=== PATIENT | male | born 1940 | race Caucasian/White ===

== ENCOUNTER 2022-04-28 09:03 | Outpatient (CLI) | payer MEDICARE, OTHER, SELFPAY ==
[2022-04-28 13:42] LABS: Chloride* 104 mmol/L (96-114); Potassium* 5.1 mmol/L (3.6-5.1); Sodium* 139 mmol/L (135-149)
[2022-04-28 13:45] LABS: Blood Urea Nitrogen* 34 mg/dL (7-30); Calcium* 10.3 mg/dL (8.4-10.6); Carbon Dioxide* 29 mmol/L (20-32); Creatinine* 1.7 mg/dL (0.5-1.5); Estimated Glomerular Filt Rate 40 ml/min; Glucose* 184 mg/dL (60-115)
[2022-04-28 14:18] LABS: PSA Screen* 1.97 ng/mL (0.10-4.00)
[2022-04-28 15:09] LABS: Free T4 Free Thyroxine* 1.27 ng/dL (0.70-1.85)
== END 2022-04-28 09:04 | disposition home or self-care (01) ==
PROVIDERS: PCP Family Medicine; Visit Provider Family Medicine
DX: N40.0 Benign prostatic hyperplasia without lower urinary tract symptoms (principal); E03.9 Hypothyroidism, unspecified; E13.9 Other specified diabetes mellitus without complications; I10 Essential (primary) hypertension; E78.5 Hyperlipidemia, unspecified; Z12.5 Encounter for screening for malignant neoplasm of prostate
CPT/HCPCS: 80048; 82043; 82570; 84153; 84439; 84443

== ENCOUNTER 2022-11-01 11:14 | Outpatient (CLI) | payer MEDICARE, OTHER, SELFPAY | END 2022-11-01 11:15 | disposition home or self-care (01) | PROVIDERS: PCP Family Medicine; Visit Provider Family Medicine | DX: E13.9 Other specified diabetes mellitus without complications (principal); I10 Essential (primary) hypertension; E78.5 Hyperlipidemia, unspecified | CPT/HCPCS: 80048; 80061 ==

== ENCOUNTER 2022-12-19 14:45 | Emergency (ER) | payer MEDICARE, OTHER, SELFPAY ==
[2022-12-19 14:50] VITALS: BP 134/67; PULSE 68; RESP 18; TEMP 36; O2SAT 94; BMI 32.5
--- NOTE | 2022-12-19 17:50 | ED_ITS ---
HPI - General Adult General Time Seen by Provider: 17:50 Date Seen: 12/19/22 Chief complaint: Extremity Pain/Injury, Lower Stated complaint: R leg pain Time Seen by Provider: 12/19/22 17:49 Source: patient and RN notes reviewed Mode of arrival: ambulatory Limitations: no limitations History of Present Illness HPI narrative: Patient is an 82-year-old male coming in with pain in his right leg. It starts in his right buttock and goes down his leg. His toes and foot to felt a little numb and tingly at times. It hurts to walk but he can walk. No bowel or bladder dysfunction. There is no trauma but he does note this started after he was weed whipping. He has had no fevers chills associated with this, not been ill. He has no personal history of cancer. He has not had sciatica before but he was wondering if that is what this could be. I do see that he has peripheral arterial disease listed as well. He is also diabetic. He does endorse some chronic low back pain issues. Related Data Home Medications Medication Instructions Recorded Confirmed aspirin 81 mg tablet,delayed 81 mg PO QDAY 10/25/21 11/01/22 release (Adult Aspirin Regimen) blood-glucose meter (Accu-Chek 10/25/21 11/01/22 Nilsa Plus Meter) cholecalciferol (vitamin D3) 25 1,000 unit PO QDAY 10/25/21 11/01/22 mcg (1,000 unit) capsule lutein 20 mg capsule 20 mg PO DAILY 10/25/21 11/01/22 milk thistle 150 mg capsule 300 mg PO QDAY 10/25/21 11/01/22 multivitamin (Daily Multi-Vitamin 1 tab PO QDAY 10/25/21 11/01/22 tablet) pen needle, diabetic 31 gauge x 10/25/21 11/01/22/16 (BD Ultra-Fine Short Pen Needle) insulin glargine 100 unit/mL (3 40 - 42 unit subcut QAM 11/03/22 mL) subcutaneous pen (Lantus Solostar U-100 Insulin) Previous Rx's Medication Instructions Recorded blood sugar diagnostic (Contour #360 ea 11/10/21 Test Strips) Blood Glucose Meter #1 ea 12/23/21 Diabetic Test Strips #300 ea 12/23/21 levothyroxine 100 mcg tablet See Rx Instructions .Route 01/30/22 .COMPLEX #90 tabs metformin 500 mg tablet,extended See Rx Instructions .Route 01/30/22 release 24 hr .COMPLEX #360 tabs metoprolol succinate 100 mg See Rx Instructions .Route 01/30/22 tablet,extended release 24 hr .COMPLEX #90 tabs pravastatin 80 mg tablet See Rx Instructions .Route 01/30/22 .COMPLEX #90 tabs finasteride 5 mg tablet 5 mg PO QDAY #90 tabs 05/09/22 insulin aspart U-100 100 unit/mL 8 - 12 unit (0.08 - 0.12 mL) 06/13/22 (3 mL) subcutaneous pen (Novolog subcut TID #90 mL FlexPen U-100 Insulin aspart) cholestyramine-aspartame 4 gram 4 g PO DAILY #90 ea 06/18/22 oral powder for susp in a packet (Cholestyramine Light) fenofibrate 160 mg tablet 160 mg PO DAILY #90 tabs 08/01/22 irbesartan 300 mg tablet 150 mg (1/2 x 300 mg) PO DAILY #45 08/01/22 tabs tamsulosin 0.4 mg capsule 0.4 mg PO DAILY #90 caps 08/01/22 ipratropium bromide 21 mcg (0.03 2 spray intranasal BID #30 mL 08/29/22 %) nasal spray lancets 28 gauge (FreeStyle #300 ea 09/21/22 Lancets) pioglitazone 15 mg tablet 15 mg PO DAILY #90 tabs 10/27/22 prednisone 20 mg tablet 20 mg PO BID #10 tabs 12/19/22 Allergies Allergy/AdvReac Type Severity Reaction Status Date / Time Sulfa Antibiotics Allergy Unknown Uncoded 11/01/22 10:57 Review of Systems Status of ROS: Reports: 6 or more systems reviewed and unremarkable except as noted in History and below [facility] Medical History Presence of cardiac pacemaker ?Z95.0 - Presence of cardiac pacemaker (ICD-10) Surgical History History of tonsillectomy ?Z90.89 - Acquired absence of other organs (ICD-10) Status post bilateral cataract extraction ?Z98.41 - Cataract extraction status, right eye (ICD-10) ?Z98.42 - Cataract extraction status, left eye (ICD-10) Status post bilateral carotid endarterectomy ?Z98.890 - Other specified postprocedural states (ICD-10) History of tonsillectomy ?Z90.89 - Acquired absence of other organs (ICD-10) History of nasal polypectomy ?Z98.890 - Other specified postprocedural states (ICD-10) ?Z87.09 - Personal history of other diseases of the respiratory system (ICD- 10) Family History Other Colon cancer Social History What is your current living situation?: I presently have a place to live Problems where you live: no known problems In the past 12 months, utilities in danger of being shut off: no In the past 12 mos, have been you worried that your food would run out before you had money to buy more?: never true In the past 12 mos, the food you bought just didn't last and you didn't have money to buy more?: never true Smoking Status: Former smoker How often does anyone, including family, friends and others, physically hurt you : never How often does anyone, including family, friends and others, insult or talk down to you: never How often does anyone, including family, friends and others, threaten you with harm: never How often does anyone, including family, friends and others, scream or curse at you: rarely Little interest or pleasure in doing things: not at all Feeling down, depressed, or hopeless: not at all Exam Const: Vital Signs, click to edit/add: Vital Signs - 24 hr 12/19/22 14:50 Temperature 96.8 F L Pulse Rate [Pulse Oximeter] 68 Respiratory Rate 18 Blood Pressure [Ri ght Upper Arm] 134/67 Pulse Oximetry 94 Oxygen Delivery Me thod Room Air Pleasant 82-year-old gentleman is alert, interactive, no apparent distress, lying in the bed in exam room 5. Strength is 5/5 and symmetric throughout his lower extremities. There is no edema. He has good peripheral pulses, feet are warm, have symmetric warmth to them. I do feel dorsalis pedis and posterior tibialis pulse on his right foot. He does have a straight leg raise on the right side. He has no skin changes of his lower extremities and vascular pattern. Can feel when I touch his right foot although baseline he does state there is some numbness tingling within his right foot he still can feel me touch it, feel similar to his left per his report. I do not get DTRs of his lower extremities. Lower abdomen is soft, nontender, no masses noted. Documenting provider has reviewed patient's vital signs: yes Course Course ED Course: Given patient's age of 82, do think we should have some baseline images. Reviewed with them all we can really do at this time is lumbar films. We did discuss the difference between lumbar films and MRI so that they know he is not getting an MRI of his back. They do understand. We have discussed that I think this is likely sciatica. I see that he has peripheral arterial disease listed but he has no recollection of anything going on in his legs with this. He has had a history of a left ankle fracture. There are no warning signs indicating an emergent MRI. We did discuss that prednisone would probably be used. They understand that this may temporarily increase his sugars with his diabetes. They also are wondering about pain management. He has not tried anything yet. Vital Signs Vital signs: Initial Vital Signs Temperature 96.8 F L 12/19/22 14:50 Temperature Source Temporal Artery Scan 12/19/22 14:50 Pulse Rate 68 12/19/22 14:50 Respiratory Rate 18 12/19/22 14:50 Blood Pressure 134/67 12/19/22 14:50 Blood Pressure Mean 89 12/19/22 14:50 Blood Pressure Position Sitting 12/19/22 14:50 Pulse Oximetry 94 12/19/22 14:50 Oxygen Delivery Method Room Air 12/19/22 14:50 Vital Signs Temperature 96.8 F L 12/19/22 14:50 Pulse Rate 68 12/19/22 14:50 Respiratory Rate 18 12/19/22 14:50 Blood Pressure 134/67 12/19/22 14:50 Pulse Oximetry 94 12/19/22 14:50 Oxygen Delivery Method Room Air 12/19/22 14:50 Temperature 96.8 F L 12/19/22 14:50 Pulse Rate 68 12/19/22 14:50 Respiratory Rate 18 12/19/22 14:50 Blood Pressure 134/67 12/19/22 14:50 Pulse Oximetry 94 12/19/22 14:50 Oxygen Delivery Method Room Air 12/19/22 14:50 Medical Decision Making Imaging Data XR lumbar spine: Attestation: I have reviewed the pertinent imaging results. Radiologist's impression: Patient: ARIEL TAFOYA Facility:?[facility] Patient ID:?[id number] Site Patient ID:?[id number]. Site :?[id number] Study:?XRay Spine Lumbar -12/19/2022 6:11:54 PM Ordering Physician:Pat Melara Final Report: INDICATION: Sciatic pain, low back pain. TECHNIQUE: Lumbar spine 2 views. Permanently recorded images are archived. COMPARISON: None. FINDINGS: Five lumbar type vertebral bodies. 2 mm retrolisthesis L1 on L2, 3 mm retrolisthesis of L2 on L3, and grade 1 anterolisthesis of L4 on L5 and L5 on S1. Moderate intervertebral disc height loss at L4-5 and L5-S1, and mild height loss at remaining levels. Anterior marginal osteophytes at all levels, greatest at L1-2. No acute fracture. Multilevel bilateral facet arthrosis, with advanced degenerative changes at L4-5 and L5-S1. 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 Normal bone mineralization. Atherosclerotic calcification. 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 No acute bony abnormality. Advanced facet arthrosis at the L4-5 and L5-S1 levels. Dictated by Brendan Mccartney MD @ 12/19/2022 6:45:44 PM (Electronic Signature) Discharge Plan Discharge Clinical Impression: Acute right-sided back pain with sciatica Patient Disposition: Home, Self-Care Condition: Stable Instructions: Sciatica (ED) Additional Instructions: Do recommend Tylenol 1000 mg 3 times a day. Will start prednisone. Take 1 tablet with food twice a day. Recommend follow-up with primary care provider in clinic this next week, referral for physical therapy has been provided. Take her x-ray report to your primary care provider. 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 No that the prednisone may increase your glucose levels temporarily. If you start to develop muscle weakness in the right leg, have bowel or bladder incontinence/dysfunction, any concerning signs or symptoms as outlined in the handout, do need to be re-evaluated. Activity Level: Activity as Tolerated Prescriptions: New prednisone 20 mg tablet 20 mg PO BID Qty: 10 0RF No Action lutein 20 mg capsule 20 mg PO DAILY cholecalciferol (vitamin D3) 25 mcg (1,000 unit) capsule 1,000 unit PO QDAY multivitamin [Daily Multi-Vitamin] Tablet 1 tab PO QDAY milk thistle 150 mg capsule 300 mg PO QDAY Rx Instructions: give with meal/snack (DME) blood-glucose meter [Accu-Chek Nilsa Plus Meter] Misc See Rx Instructions .Route Rx Instructions: As directed (DME) pen needle, diabetic [BD Ultra-Fine Short Pen Needle] 31 gauge x 5/16 needle See Rx Instructions .Route Rx Instructions: As directed aspirin [Adult Aspirin Regimen] 81 mg tablet,delayed release (DR/EC) 81 mg PO QDAY ipratropium bromide 21 mcg (0.03 %) spray,non-aerosol 2 spray intranasal BID Qty: 30 1RF Rx Instructions: administer into each nostril (DME) Contour Test Strips Strip See Rx Instructions .Route Qty: 360 5RF Rx Instructions: As directed (DME) Blood Glucose Meter Misc See Rx Instructions .Route Qty: 1 0RF Rx Instructions: As directed (DME) Diabetic Test Strips Misc See Rx Instructions .Route Qty: 300 6RF Rx Instructions: As directed metoprolol succinate 100 mg tablet extended release 24 hr See Rx Instructions .ROUTE .COMPLEX Qty: 90 3RF Dose Instruction: TAKE 1 TABLET BY MOUTH DAILY Rx Instructions: TAKE 1 TABLET BY MOUTH DAILY pravastatin 80 mg tablet See Rx Instructions .ROUTE .COMPLEX Qty: 90 3RF Dose Instruction: TAKE 1 TABLET BY MOUTH AT BEDTIME Rx Instructions: TAKE 1 TABLET BY MOUTH AT BEDTIME metformin 500 mg tablet extended release 24 hr See Rx Instructions .ROUTE .COMPLEX Qty: 360 3RF Dose Instruction: TAKE 2 TABLETS BY MOUTH TWICE DAILY Rx Instructions: TAKE 2 TABLETS BY MOUTH TWICE DAILY levothyroxine 100 mcg tablet See Rx Instructions .ROUTE .COMPLEX Qty: 90 3RF Dose Instruction: TAKE 1 TABLET BY MOUTH DAILY Rx Instructions: TAKE 1 TABLET BY MOUTH DAILY finasteride 5 mg tablet 5 mg PO QDAY Qty: 90 3RF insulin aspart U-100 [Novolog FlexPen U-100 Insulin] 100 unit/mL (3 mL) insulin pen 8 - 12 unit subcut TID Qty: 90 4RF cholestyramine-aspartame [Cholestyramine Light] 4 gram powder in packet 4 g PO DAILY Qty: 90 4RF irbesartan 300 mg tablet 150 mg PO DAILY Qty: 45 3RF fenofibrate 160 mg tablet 160 mg PO DAILY Qty: 90 3RF tamsulosin 0.4 mg capsule 0.4 mg PO DAILY Qty: 90 3RF (DME) lancets [FreeStyle Lancets] 28 gauge misc See Rx Instructions .ROUTE .COMPLEX Qty: 300 0RF Dose Instruction: USE TO TEST THREE TIMES DAILY Rx Instructions: USE TO TEST THREE TIMES DAILY pioglitazone 15 mg tablet 15 mg PO DAILY Qty: 90 3RF insulin glargine [Lantus Solostar U-100 Insulin] 100 unit/mL (3 mL) insulin pen 40 - 42 unit subcut QAM Rx Instructions: 42 units in the morning, 40 units in the evening. Follow Up/Referrals: Joss Thompson MD [Primary Care Provider] - Stand Alone Forms: [facility] Info Instructions
--- NOTE | 2022-12-19 17:57 | CRLHL7_ITS ---
For Patients: As a result of the Cures Act, medical imaging exams and procedure reports are released immediately into your electronic medical record. You may view this report before your referring provider. If you have questions, please contact your health care provider. INDICATION: Sciatic pain, low back pain. TECHNIQUE: Lumbar spine 2 views. Permanently recorded images are archived. COMPARISON: None. FINDINGS: Five lumbar type vertebral bodies. 2 mm retrolisthesis L1 on L2, 3 mm retrolisthesis of L2 on L3, and grade 1 anterolisthesis of L4 on L5 and L5 on S1. Moderate intervertebral disc height loss at L4-5 and L5-S1, and mild height loss at remaining levels. Anterior marginal osteophytes at all levels, greatest at L1-2. No acute fracture. Multilevel bilateral facet arthrosis, with advanced degenerative changes at L4-5 and L5-S1. 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 Normal bone mineralization. Atherosclerotic calcification. 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 No acute bony abnormality. Advanced facet arthrosis at the L4-5 and L5-S1 levels. Dictated by Brendan Mccartney MD @ 12/19/2022 6:45:44 PM (Electronically Signed)
== END 2022-12-19 19:18 | disposition home or self-care (01) ==
PROVIDERS: Emergency Provider Family Medicine; PCP Family Medicine
DX: M54.31 Sciatica, right side (principal)
CPT/HCPCS: 72100; 99283; 99284

== ENCOUNTER 2023-01-22 10:30 | Outpatient (RCR) | payer MEDICARE, OTHER, SELFPAY ==
--- NOTE | 2023-01-02 12:56 | PT.OPE ---
PT [place] [facility] Eval PT [facility] Outpatient Eval Start: 01/02/23 12:30 Freq: Status: Active Protocol: Document 01/02/23 12:31 ISSAC (Rec: 01/02/23 12:54 ISSAC [id number]) E-signed By Leo Delacruz, PT, ATC Physical Therapy Outpatient Evaluation Insurance Information Insurance Name Medicare B Medical Diagnosis M54.9 Dorsalgia, unspecified. Sciatic pain, low back pain. Treating Diagnosis Low back pain Sciatic pain Referring MD Thompson Subjective Subjective Kayode reports onset of R sided gluteal and back of leg symptoms approximately 5 weeks ago after working on uneven ground in his back yard. Due intense symptoms of R sided gluteal and leg pain, he went to the ER where he was prescribed Prednisone and given Tylenol. Symptoms dramatically reduced within a few days following these medications. He is left with lower back soreness that occurs with extended standing and walking activity, worse at the end of the day. Duration limitation of 10 minutes. He did offer copies of his recent xray review and interpretation. He would like to work in therapy receiving ex.s to hopefully lessen lbp while reducing chances for return of sciatic symptoms. Pain Comments -06/16 Date of Last Physician Visit 12/22/22 Current Work Status Retired Preferred Name Kayode Precautions Weight Bearing Status Full Weight Bearing Therapy Limitations/Systems Review Not Limited Objective Range of Motion Trunk FLEX WFL's EXT -90% R and L SB -75%, pain in low back Strength LE's normal and symmetric Hip ABD and EXT weakness, 4/5 Palpation Tender over lumbar paraspinals L4-5 and SI joints. Also tight and tender in both gluteal muscles. Posture Stands with excessive lumbar lordosis, anterior pelvic tilt Assessment Assessment/Impression Kayode is a very pleasant 82 year old man referred to PT for sciatica and lower back pain. Although the symptoms have resolved that existed in his R buttocks and leg, he does still complain of daily lower back pain/stiffness that limits his ability for standing or walking longer than 10 minutes. 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 Advanced facet arthrosis L4-5 and L5-S1 . He is very appropriate for skilled physical therapy to address his pain, posture, muscular tightness, weakness and bodymechanics. Primary Functional Limitations Sustained standing Walking shopping, gardening, mowing, trimming Plan of Care Rehabilitation Potential Good Physical Therapy Goals 1.To recognize excessive lordotic posture and demonstrate ability to lessen through TA contraction. 2.HEP for hip stretching and core-hip-LE strengthening. 3.Able to stand-walk durations up to 15 min while shopping without limitation for lbp. Coordination/Communication With Referral Source Treatment Plan/Direct Interventions Joint Mobilization,Manual Therapy,Therapeutic Exercises Frequency/Duration 4-10 visits Patient Will Be Discharged From Therapy Independent w/HEP, Independently Progressing Evaluation Billing Untimed Code Treatment Minutes 30 PT Eval No Charge No Complexity Low Certification Information Initial Certification Date 01/02/23 Ending Certification Date 04/03/23 Provider Signature Shows Agreement With POC & Medical Necessity Physician Signature & Date Requested Please Sign/Date Here Physician Comment/Change : Physician NPI Number #
== END 2023-01-22 11:10 | disposition home or self-care (01) ==
PROVIDERS: PCP Family Medicine; Visit Provider Family Medicine
DX: M54.40 Lumbago with sciatica, unspecified side (principal); Z51.89 Encounter for other specified aftercare
CPT/HCPCS: 97110; 97161

== ENCOUNTER 2023-04-23 11:53 | Outpatient (CLI) | payer MEDICARE, OTHER, SELFPAY | END 2023-04-23 11:54 | disposition home or self-care (01) | LOC: LKVREF 11:54 | PROVIDERS: PCP Family Medicine; Visit Provider Family Medicine | DX: E03.9 Hypothyroidism, unspecified (principal) | CPT/HCPCS: 84443 ==

== ENCOUNTER 2023-05-09 12:39 | Outpatient (CLI) | payer MEDICARE, OTHER, SELFPAY ==
--- NOTE | 2023-05-09 13:00 | CRLHL7_ITS ---
For Patients: As a result of the Century Cures Act, medical imaging exams and procedure reports are released immediately into your electronic medical record. You may view this report before your referring provider. If you have questions, please contact your health care provider. INDICATION: Lung cancer screening. Significant smoking history. TECHNIQUE: Low-dose volumetric helical scanning of the thorax was performed without IV contrast material. Coronal and sagittal reconstructions were obtained. COMPARISON: None. FINDINGS: No suspicious pulmonary nodule is identified. Several calcified granulomas are noted. No acute infiltrate is evident. Subsegmental atelectasis or scarring is present in both lung bases. No significant airway abnormality is apparent. No pleural effusion is demonstrated. There is no mediastinal or hilar lymphadenopathy. The heart size is normal. Calcified coronary arterial plaque is again noted. A cardiac pacer is noted. Images of the upper abdomen are unremarkable. IMPRESSION: 1. No suspicious nodule identified. Lung-RADS CATEGORY 1: NEGATIVE: Continue annual screening with low-dose chest CT in 12 months is recommended. 2. Subsegmental atelectasis or scarring in both lung bases. Please note that all CT scans at this facility use dose modulation, iterative reconstruction, and/or weight-based dosing when appropriate to reduce radiation dose to as low as reasonably achievable. Dictated by Arthur Finnegan MD @ 05/09/2023 3:22:01 PM (Electronically Signed)
== END 2023-05-09 12:40 | disposition home or self-care (01) ==
PROVIDERS: PCP Family Medicine; Visit Provider Family Medicine
DX: Z12.2 Encounter for screening for malignant neoplasm of respiratory organs (principal); J98.11 Atelectasis; Z87.891 Personal history of nicotine dependence
CPT/HCPCS: 71271

== ENCOUNTER 2024-02-04 12:13 | Outpatient (CLI) | payer MEDICARE, OTHER, SELFPAY | END 2024-02-04 12:14 | disposition home or self-care (01) | LOC: LKVREF 12:14 | PROVIDERS: PCP Family Medicine; Visit Provider Family Medicine | DX: E78.2 Mixed hyperlipidemia (principal); E10.9 Type 1 diabetes mellitus without complications | CPT/HCPCS: 80061 ==

== ENCOUNTER 2024-05-01 14:45 | Outpatient (RCR) | payer MEDICARE, OTHER, SELFPAY ==
--- NOTE | 2024-02-29 22:40 | PT.OPE ---
PT [place] [facility] Eval Start: 02/28/24 10:47 Freq: Status: Active Protocol: Document 02/28/24 10:47 BMS (Rec: 02/28/24 11:01 BMS [id number]) E-signed By Juli Lam PT Physical Therapy Outpatient Evaluation Insurance Information Recert Due Date 05/27/24 Insurance Name Medicare B Medical Diagnosis s/p CVA Treating Diagnosis abnormal gait R26.89 weakness R53.1 s/p CVA Referring MD Joss Thompson MD internal; Lukas Michel Subjective Subjective went in for procedure and then had problems on the right side. R hand dominant. spent about a week at inpatient rehab, got home last Sat. they didnt give me any ex for home . I cant hear ferromana well. had surgery 7th. blood sugar has been up, around 120-170. 3 steps in to house with rails. shattered my R elbow and dislocated my shoulder years ago. was able to sort of use a steak knife. want to drive again and use R hand better not good dexterity and when measured my strength in hospital was 60# on R and 90# on left but i am right handed. 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, Residual Right arm weakness and control problem Z86.73 - Personal history of transient ischemic attack (TIA ), and cerebral infarction without residual deficits (ICD -10) Status post stents x2 to the RCA, with some diffuse mild disease elsewhere I25.10 - Atherosclerotic heart disease of [place] coronary artery without angina pectoris (ICD-10) Presence of cardiac pacemaker (Chronic) Following with [facility] (no operating room coordinator at [place]) Z95.0 - Presence of cardiac pacemaker (ICD-10) PAD (peripheral artery disease ) (Chronic) s/p Carotid Endarterectomies I73.9 - Peripheral vascular disease, unspecified (ICD-10) Spinal stenosis of lumbar region with radiculopathy ( Chronic) M48.061 - Spinal stenosis, lumbar region without neurogenic claudication (ICD- 10) M54.16 - Radiculopathy, lumbar region (ICD-10) Type 1 diabetes (Chronic) 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 E10.9 - Type 1 diabetes mellitus without complications (ICD-10) CKD (chronic kidney disease) stage 3, GFR 30-59 ml/min ( Chronic) N18.30 - Chronic kidney disease, stage 3 unspecified ( ICD-10) CAD (coronary artery disease) (Chronic) I10 - Essential (primary) hypertension (ICD-10) E78.5 - Hyperlipidemia, unspecified (ICD-10) Hyperlipidemia (Chronic) High- dose statin therapy required SPEEDY on CPAP (Chronic)G47.33 - Obstructive sleep apnea (adult ) (pediatric) (ICD-10) Auto PAP, 10-15 cm H2O Hypothyroidism (Chronic E03.9 - Hypothyroidism, unspecified (ICD-10) Overweight (Chronic) E66.3 - Overweight (ICD-10) Hearing loss (Chronic) H91.90 - Unspecified hearing loss, unspecified ear (ICD-10) Therapy Limitations/Systems Review Hearing,Other Medical Problem Objective Range of Motion neck mod loss both flex and ext. R rotation = 35, L = 30 impaired shoulder mobility: flex 110, abduct 80, ER 60, IR to lateral hip on R adn mid glute on L. R elbow ext lacking 40 degrees . DF lacking 10B Strength MMT seated hip flex R 4-/5, L = 4/5 abduction 4/5 B quad R = 5/5, L = 4+/5 HS R = 4-/5, L = 4+/5 DF and PF both 4/5 seated not assessed in standing this date . Balance & Gait short shuffling steps w FWW, picks up walker over threshold . maintains forward gaze, does become off balance with head turns, slows and stops when meeting someone in narrow carmona steps not assessed this date though anticipate will have difficulty with foot placement based on floor testing dysmetria this date. NBOS EC post LOB, NBOS EO LOB post after 15 sec. unable to maintain tandem and requires use of UE to achieve position. LOB with weight shifts does attempt step strategy but not quickly enough, PT assist for recovery at limit of cone of stability immediate standing balance WBOS with rock onto toes and post. Posture head forward, forward flex at waist. limited cervical motionsubst with body Other/Pertinent Objective saccades with smooth pursuits, loss of convergence, LBO with head turns in gait Functional Test Performed & Score 5 sec sit to stand = 15 sec however did require use of calves last 2 repetitions and posterior LOB requiring therapist assist to lower safely to mat surface. ABC sent home for patient to fill out [facility] PT report card from [facility] facility 02/19/24= 10mWT = 0.73m/s no device 6MWT 252 m BBS 44/56 FGA = 04/07 Assessment Assessment/Impression Patient is very pleasant 83 yo male accompanied by his and caregiver Barb. He i referred s/p CVA. He was last seen in our clinic ~ 1 year ago for recurrent LBP and sciatic on R, has HEP that he was faithful with until recent hx of hospitalization. Scanned records from [facility] acute rehab unit reviewed in EMR. 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 PMhx + for CAD pacemaker, carotid artery disease s/p R CEA 10/2020 and 11/2020. CKD stage 3, HTN, DM type 2, obesity. He also has hx of R shoulder dislocation adn R elbow shattered many years ago, did not have surgery was only casted and does have limited mobility of R elbwo. 02/14/24 he underwent PCI ( balloon or stent)of RCA then stroke code for R hemiparesis. unable to MRI due to presence of pacemaker but suspected posterior circulation ischemic stroke. Admit to acute rehab 02/18/24, did DC home in care of last 02/23/24. Per records he was I with basic mobility and transfers without assistive device, however today presents using FWW due to feeling safer with it. I would recommend continued use of device at this time due to imbalance noted in gait and in clinic. Unfortunately time limited this date due to patient paperwork and he is quite verbose. Patient identified goals include: improved writing and use of R dominant UE for dexterity and tasks ( does also have OT referral), ability to tolerate increased activity with less fatigue, using R hand to reach for seatbelt, walking wihtout walker, improved balance, ability to shower without compensation. He presents today with limited activity tolerance, impaired balance and sequencing, limtied ROM B shoulders and R elbow as well as cervical limitations. Nystagmus noted with smooth pursuits, denies VOR and gaze stab issues but does demo loss of convergence at ~ 12-16. Patient is appropriate for skilled physical therapy to maximize independence and return to baseline safely. Plan of Care Rehabilitation Potential Good Rehabilitation Potential Comments motivated, compliant with previous PT programs. Physical Therapy Goals 1) Pt demo I HEP and self care/home mgmt techniques for balance/falls adaptation, safety measures, and home safety improvements including picking up throw rugs, night light or commode, and use of gait aid as appropriate. 2)Pt report no falls in 6 week period. 3) Patient to demonstrate ability to ambulate safely on uneven ground with no or least restrictive gait aid. LTG 1)Pt demo ability ascend/ descend stairs carrying basket with use of 1 rail x 13 steps no evidence of imbalance for access to basement living level with no evidence of imbalance. 2) Pt demo ability to pass balance testing (SLS, DGI, Fukuda etc) out of high fall risk. 3) Pt demo appropriate gait pattern with no evidence of lack of balance with perturbations internal and external for shopping, community ambulation with least restrictive or no gait aid. 4) Patient to demo ability to safely and confidently negotiate curb with no or least restrictive gait aid. 5) Pt will demo 500' ambulation without limp and with best mechanics and balance to decrease risk of fall with community ambulation for things such as grocery shopping, participation in fitness activities. 6) Pt will demo ability to return to walking,and functional strengthening for management of chronic conditions to maximize independence and longevity. Coordination/Communication With Referral Source,Patient Caregiver Treatment Plan/Direct Interventions Gait Training,Manual Therapy, Neuromuscular Re-ed,Self-Care/ Home Management,Therapeutic Activities,Therapeutic Exercises Frequency/Duration 1-2x/ week, 12 weeks reassess Patient Will Be Discharged From Therapy Completion of LTG(s),Skills Plateau,Independent w/HEP, Independently Progressing Evaluation Billing Untimed Code Treatment Minutes 40 Complexity Low Certification Information Initial Certification Date 02/28/24 Ending Certification Date 05/27/24 Provider Signature Required Yes Provider Signature Shows Agreement With POC & Medical Necessity Physician NPI Number Write NPI# Here Physician Comment/Change : Physician Signature & Date Requested Please Sign/Date Here
--- OUTSIDE RECORDS SUMMARY | 2024-04-10 14:44 | XMS_ITS | Encounter Summary ---
Author Organization [facility] Address [address] [place] [id number] Care Team Providers Care Rectifying Operator Name Role Phone Soto Thompson MD Primary Care Provider [phone] Gerardo Jiang MD Unavailable [phone] Nancy Forbes DO Unavailable [phone] Farzad Sevilla MD Unavailable [phone] Reason for Visit * Reason Onset Date Comments Results 03/18/2024 [facility] Encounter Details Date Type Department Care Team (Late st Contact Info) Description 03/18/2024 Telephone [facility] Care Coordination [facility] [address] [place] [id number] Emma Waters, RN Results ([facility] Heart Monitor) Social History Tobacco Use Types Packs/Day Years Used Date Smoking Tobacco: Former Cigarettes 0.5 25 1 - 2009 Passive Smoke Exposure: Never Smokeless Tobacco: Never Alcohol Use Standard Drinks/Week Comments Not Currently 0 (1 standard drink = 0.6 oz pur e alcohol) occ PHQ-2 Answer Date Recorded PHQ-2 Score 0 02/01/2024 Adolescent Education Answer Date Record ed Getting School Help Needed Not on file 01/14 Food Insecurity Answer Date Recorded Within the past 12 months, d id you worry that your food would run out before you got money to buy more? No 02/15/2024 Within the past 12 months, d id the food you bought just not last and you didn t have money to get more? Yes 02/15/2024 Housing Stability Answer Date Recorded Do you have housing? (Stacy troncoso is defined as stable permanent housing and does not include staying ouside in a car, in a tent, in an abandoned building, in an overnight alf, or couch-surfing.) Yes 02/15/2024 Are you worried about losing your housing? No 02/15/2024 Financial Resource Strain Answer Date R ecorded Within the past 12 months, h ave you or your family members you live with been unable to get utilities (heat, electricity) when it was really needed? No 02/15/2024 Transportation Needs Answer Date Record ed Within the past 12 months, h as lack of transportation kept you from medical appointments, getting your medicines, non-medical meetings or appointments, work, or from getting things that you need? No 02/15/2024 Interpersonal Safety Answer Date Record ed Do you feel physically and e motionally safe where you currently live? Yes 02/18/2024 Within the past 12 months, h ave you been hit, slapped, kicked or otherwise physically hurt by someone? No 02/18/2024 Within the past 12 months, h ave you been humiliated or emotionally abused in other ways by your partner or ex-partner? No 02/18/2024 Sex and Gender Information Value Date Recorded Sex Assigned at Not on file Legal Sex Male 4:03 AM GLOVE PAIRER Gender Identity Not on file Sexual Orientation Not on file documented as of this encounter Miscellaneous Notes * Telephone Encounter - Emma Waters RN - 03/18/2024 12:06 PM GLOVE PAIRER Spoke with pt and informed him of the results. He did not have any other questions or concerns at this time. Emma Waters BS, RN, SCRN RN Stroke Neurology Station Air Traffic Control Specialist [facility] Neuroscience Service Line E PAIRER * Telephone Encounter - Emma Waters RN - 03/18/2024 11:10 AM GLOVE PAIRER ----- Message from Penelope Warner sent at 03/17/2024 2:18 PM GLOVE PAIRER ----- Zio Patch negative for atrial fibrillation or other concerning heart rhythm. No changes needed to current stroke prevention medications. He is not set-upon MyChart, could you please call to update him on results? Thank you, Penelope E PAIRER documented in this encounter Plan of Treatment Not on file documented as of this encounter Visit Diagnoses Not on filedocumented in this encounter Care Teams Rectifying Operator Relationship Specialty Start Date End Date Soto Thompson MD PCP - General Family Medicine 09/23/20 Gerardo Jiang MD [address] [place] [id number] Assigned Heart and Vascular Provider 10/30/23 Nancy Forbes DO [address] [place] [id number] Physician Neurology 02/22/24 Farzad Sevilla MD [address] [place] [id number] Cardiovascular Disease 02/22/24 documented as of this encounter
--- OUTSIDE RECORDS SUMMARY | 2024-04-10 14:44 | XMS_ITS | Referral Summary ---
Author Organization [facility] Address [address] [place] [address]. [place] [address] Care Team Providers Care Advertising Sales Assistant Name Role Phone Soto Thompson MD Primary Care Provider [phone] Gerardo Jiang MD Unavailable [phone] Nancy Forbes DO Unavailable [phone] Farzad Sevilla MD Unavailable [phone] Encounters Date Type Department Care Team Description 03/18/2024 Telephone [facility] Care Coordination [facility] [address] [place] [address] Emma Waters RN Results ([employer] Heart Monitor) 02/18/2024 3:33 PM ASSOCIATE PROFESSOR OF COMMUNICATION - 02/23/2024 10:19 AM ASSOCIATE PROFESSOR OF COMMUNICATION Hospital Encounter [facility] [address] [address] Holden Trejo MD Acute embolic stroke (H) (Primary Dx); Coronary artery disease involving [place] coronary artery of [place] heart without angina pectoris; Benign prostatic hyperplasia, unspecified whether lower urinary tract symptoms present; Type 2 diabetes mellitus with hyperglycemia, with long-term current use of insulin (H); Type 2 diabetes mellitus with stage 3 chronic kidney disease, with long-term current use of insulin, unspecified whether stage 3a or 3b CKD (H) Discharge Disposition: Home or Self Care 02/18/2024 Orders Only (auto-released) [facility] [address] [phone] Adilene Lemus PA-C 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 (H) 02/14/2024 4:44 PM ASSOCIATE PROFESSOR OF COMMUNICATION - 02/18/2024 3:01 PM ASSOCIATE PROFESSOR OF COMMUNICATION Hospital Encounter [facility] [address] [place] [phone] Yosvany Dover MD Karturi, Swetha P, MD 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 (H) (Primary Dx); Right sided weakness; Coronary artery disease involving ty[place] coronary artery of [place] heart without angina pectoris; Coronary artery disease involving [place] coronary artery of [place] heart with angina pectoris (H); Type 2 diabetes mellitus with stage 3 chronic kidney disease, with long-term current use of insulin, unspecified whether stage 3a or 3b CKD (H) Discharge Disposition: Acute Rehab Facility 02/15/2024 Orders Only (auto-released) [facility] [address] [place] [phone] Penelope Warner PA-C 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 (H) 02/15/2024 Travel 02/14/2024 8:30 AM ASSOCIATE PROFESSOR OF COMMUNICATION - 02/14/2024 10:30 AM ASSOCIATE PROFESSOR OF COMMUNICATION [facility] [address] [phone] Gerardo Jiang MD Percutaneous Coronary Intervention - Chronic Total Occlusion 02/14/2024 6:33 AM ASSOCIATE PROFESSOR OF COMMUNICATION - 02/14/2024 4:42 PM ASSOCIATE PROFESSOR OF COMMUNICATION Hospital Encounter [facility] [address] [phone] Gerardo Jiang MD Benign essential hypertension (Primary Dx); Coronary artery disease involving [place] coronary artery of [place] heart with angina pectoris (H); Chronic total occlusion of coronary artery; Coronary artery disease involving [place] coronary artery of [place] heart without angina pectoris; Coronary artery disease involving [place] coronary artery of [place]k heart; Carotid stenosis, asymptomatic, left Discharge Disposition: Home or Self Care 02/13/2024 Orders Only [facility] [address] [place] [phone] Gerardo Jiang MD Coronary artery disease involving ty[place] coronary artery of ty[place] heart without angina pectoris (Primary Dx); Chronic total occlusion of coronary artery 02/13/2024 Telephone [facility] [address] [place] [phone] Gerardo Jiang MD Procedure (Percutaneous Coronary Intervention - Chronic Total Occlusion [[id number]]) 02/12/2024 Travel 02/12/2024 11:00 AM ASSOCIATE PROFESSOR OF COMMUNICATION Lab [facility] [address] [place] [phone] Beatriz Fonseca APRN [employer] Stage 3 chronic kidney disease, unspecified whether stage 3a or 3b CKD (H) 02/01/2024 Travel 02/01/2024 2:00 PM CDT Office Visit [facility] [address] [place] [phone] Beatriz Fonseca APRN CNP Coronary artery disease involving ty[place]k coronary artery of tyonek heart without angina pectoris (Primary Dx); Stage 3 chronic kidney disease, unspecified whether stage 3a or 3b CKD (H); Cardiac pacemaker in situ; Carotid stenosis, asymptomatic, bilateral; Type 2 diabetes mellitus with hyperosmolarity without coma, with long-term current use of insulin (H); Benign essential hypertension; Hyperlipidemia with target LDL less than 70 from Last 3 Months Allergies Active Allergy Reactions Criticality Noted Date Comments Sulfa Antibiotics Unknown 09/17/2020 Reaction as a child Medications tamsulosin (FLOMAX) 0.4 MG capsule Take 0.8 mg by mouth every morning. 1 Active metoprolol succinate ER (TOPROL-XL) 100 MG 24 hr tablet Take 100 mg by mouth every morning 1 Active levothyroxine (SYNTHROID/LEVOT HROID) 100 MCG tablet Take 100 mcg by mouth daily 1 Active fenofibrate (TRIGLIDE/LOFIBR A) 160 MG tablet Take 160 mg by mouth At Bedtime 1 Active pioglitazone (ACTOS) 15 MG tablet Take 15 mg by mouth every morning 1 Active multivitamin w/minerals (THERA-VIT-M) tablet Take 1 tablet by mouth daily Active Vitamin D, Cholecalciferol, 25 MCG (1000 UT) CAPS Take 1,000 Units by mouth daily Active Milk Thistle 175 MG CAPS Take 175 mg by mouth daily Active Lutein 20 MG CAPS Take 20 mg by mouth daily. Active aspirin 81 MG EC tablet Take 81 mg by mouth every evening Active ipratropium (ATROVENT) 0.03 % nasal spray [place] 2 sprays into both nostrils 2 times daily. Active irbesartan (AVAPRO) 300 MG tablet Take 150 mg by mouth daily. Active NOVOLOG FLEXPEN 100 UNIT/ML solnIndications: Type 2 diabetes mellitus with stage 3 chronic kidney disease, with long-term current use of insulin, unspecified whether stage 3a or 3b CKD (H) Take 3 times daily with meals Do Not give Correction Insulin if Pre-Meal BG less than 140. For Pre-Meal BG 140 - 164 give 1 unit. For Pre-Meal BG 165 - 189 give 2 units. For Pre-Meal BG 190 - 214 give 3 units. For Pre-Meal BG 215 - 239 give 4 units. For Pre-Meal BG 240 - 264 give 5 units. For Pre-Meal BG 265 - 289 give 6 units. For Pre-Meal BG 290 - 314 give 7 units. For Pre-Meal BG 315 - 339 give 8 units. For Pre-Meal BG 340 - 364 give 9 units. For Pre-Meal BG greater than or equal to 365 give 10 units 4 Active rosuvastatin (CRESTOR) 20 MG tabletIndication s:Coronary artery disease involving [place] coronary artery of [place] heart with angina pectoris (H) Take 2 tablets (40 mg) by mouth daily. 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 4 Active clopidogrel (PLAVIX) 75 MG tabletIndication s:Coronary artery disease involving [place] coronary artery of [place] heart without angina pectoris Take 1 tablet (75 mg) by mouth daily. 10 tablet 4 Active finasteride (PROSCAR) 5 MG tabletIndication s:Benign prostatic hyperplasia, unspecified whether lower urinary tract symptoms present Take 1 tablet (5 mg) by mouth daily. 10 tablet 4 Active insulin glargine (LANTUS PEN) 100 UNIT/ML penIndications:T ype 2 diabetes mellitus with hyperglycemia, with long-term current use of insulin (H) Take Lantus 40 units in the morning, and 25 units in the evening. 4 Active metFORMIN (GLUCOPHAGE XR) 500 MG 24 hr tabletIndication s:Type 2 diabetes mellitus with stage 3 chronic kidney disease, with long-term current use of insulin, unspecified whether stage 3a or 3b CKD (H) Take 1 tablet (500 mg) by mouth 2 times daily. 180 tablet 4 Active Active Problems Problem Noted Date Diagnosed Date Acute embolic stroke 02/18/2024 Right sided weakness 02/14/2024 Coronary artery disease invo lving tyonek coronary artery of tyonek heart 02/02/2024 Cardiac pacemaker in situ 02/02/2024 CKD (chronic kidney disease) stage 3, GFR 30-59 ml/min 02/02/2024 Benign essential hypertension 02/02/2024 Hyperlipidemia with target LDL less than 70 01/08 Diabetes mellitus, type 2 03/18/2021 Carotid stenosis, asymptomatic, left 10/28/2020 Overview (10/28/2020): Added automatically from request for surgery [id number] Carotid stenosis, asymptomatic, bilateral 2020 Overview (09/27/2020): Added automatically from request for surgery [id number] Immunizations Name Administration Dates Next Due COVID-19 MONOVALENT 12+ (Pfizer) 06/12/2020,05/10 Influenza (intradermal) 01/19/2020,01/12,01/24/2018,2016,01/08/2016,01/06/2015 Pneumo Conj 13-V (2010&after) 04/20/2015 Pneumococcal, Unspecified 11/16/2016 Tdap (Adult) Unspecified Formulation 09/08/2013 Zoster Vaccine, Unspecified (historical) 09/08/2013 Social History Tobacco Use Types Packs/Day Years Used Date Smoking Tobacco: Former Cigarettes 0.5 25 1 985 - 2009 Passive Smoke Exposure: Never Smokeless Tobacco: Never Tobacco Cessation:Counseling Given: Not Answered Alcohol Use Standard Drinks/Week Comments Not Currently [...] Date Recorded Do you have housing? (Stacy g is defined as stable permanent housing and does not include staying ouside in a car, in a tent, in an abandoned building, in an overnight jail, or couch-surfing.) Yes 02/15/2024 Are you worried [...] on file Legal Sex Male 4:03 AM ASSOCIATE PROFESSOR OF COMMUNICATION Gender Identity Not on file Sexual Orientation Not on file Last Filed Vital Signs Vital Sign Reading Time Taken Comments Blood Pressure 140/59 02/23/2024 9:11 AM ASSOCIATE PROFESSOR OF COMMUNICATION Pulse 82 02/23/2024 9:11 AM ASSOCIATE PROFESSOR OF COMMUNICATION Temperature 36.3 C (97.3 F) 02/23/2024 8:05 AM ASSOCIATE PROFESSOR OF COMMUNICATION Respiratory Rate 18 02/23/2024 8:05 AM ASSOCIATE PROFESSOR OF COMMUNICATION Oxygen Saturation 97% 02/23/2024 8:05 AM ASSOCIATE PROFESSOR OF COMMUNICATION Inhaled Oxygen Concentration - - Weight 98.8 kg (217 lb 14.4 oz) 02/18/2024 3:30 PM ASSOCIATE PROFESSOR OF COMMUNICATION Height 173.7 cm (5' 8.4) 02/18/2024 3:30 PM ASSOCIATE PROFESSOR OF COMMUNICATION Body Mass Index 32.75 02/18/2024 3:30 PM ASSOCIATE PROFESSOR OF COMMUNICATION Plan of Treatment Not on file Medical Devices Implanted Type Area Drug Enforcement Administration Agent Device Identifier Shelf Expiration Date Model / Serial / Lot Imp Patch Pericardium Photofix Bovine 0.8x8cm Pfp0.8x8 - [id number] Implanted:Qty : 1 on 10/08/2020 by Zechariah Lange MD at [facility] Bone/Tissue /Biologic Right: Neck CRYOLIFE 05/28/2022 PFP0.8X8 / [id number] / [id number] Imp Patch Pericardium Photofix Bovine 0.8x8cm Pfp0.8x8 - [id number] Implanted:Qty : 1 on 11/09/2020 by Zechariah Lange MD at [facility] Bone/Tissue /Biologic Left: Carotid CRYOLIFE [id number] 06/25/2022 PFP0.8X8 / / [id number] Guidant John 4136 Dextrus [id number] Implanted: (Quantity not on file) Leads [employer]- 4136 DEXTRUS / [id number] / Guidant John 4137 Dextrus [id number] Implanted: (Quantity not on file) Leads [employer]- 4137 DEXTRUS / [id number] / [place]* K063 Advantio [id number] Implanted: (Quantity not on file) Pacemaker [employer] K063 ADVANTIO / [id number] / Stent Coronary Jevon Synergy Xd Mr Us [id number] - [id number] Implanted:Qty : 1 on 02/14/2024 at [facility] Stent Drug Eluting (JEVON) [employer] 08/20/2025 [id number] / / [id number] Stent Coronary Jevon Synergy Xd Mr Us 4.05a69vd [id number] - [id number] Implanted:Qty : 1 on 02/14/2024 at [facility] Stent Drug Eluting (JEVON) [employer] 05/23/2025 [id number] / / [id number] Closure Angioseal 6fr [id number] - [id number] Implanted:Qty : 1 on 02/14/2024 at [facility] VHSquared [employer]PO [id number] / / Explanted Type Area Drug Enforcement Administration Agent Device Identifier Shelf Expiration Date Model / Serial / Lot Stent Coronary Jevon Synergy Xd Mr Us [id number] - [id number] Explanted:Qty: 1 on 02/14/2024 at [facility] Stent Drug Eluting (JEVON) [employer] 03/26/2025 [id number] / / [id number] Procedures Procedure Name Priority Date/Time Associated Diagnosis Comments JOSE ALBERTO MARIN MAIL OUT Routine 03/14/2024 7: 43 AM ASSOCIATE PROFESSOR OF COMMUNICATION 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 (H) GLUCOSE BY METER Routine 02/23/2024 8:11 AM ASSOCIATE PROFESSOR OF COMMUNICATION GLUCOSE BY METER Routine 02/23/2024 2:29 AM ASSOCIATE PROFESSOR OF COMMUNICATION GLUCOSE BY METER Routine 02/23/2024 1:59 AM ASSOCIATE PROFESSOR OF COMMUNICATION GLUCOSE BY METER Routine 02/22/2024 9:04 PM ASSOCIATE PROFESSOR OF COMMUNICATION GLUCOSE BY METER Routine 02/22/2024 5:12 PM ASSOCIATE PROFESSOR OF COMMUNICATION GLUCOSE BY METER Routine 02/22/2024 12:2 1 PM ASSOCIATE PROFESSOR OF COMMUNICATION GLUCOSE BY METER Routine 02/22/2024 8:46 AM ASSOCIATE PROFESSOR OF COMMUNICATION GLUCOSE BY METER Routine 02/22/2024 8:27 AM ASSOCIATE PROFESSOR OF COMMUNICATION GLUCOSE BY METER Routine 02/22/2024 8:12 AM ASSOCIATE PROFESSOR OF COMMUNICATION GLUCOSE BY METER Routine 02/22/2024 2:17 AM ASSOCIATE PROFESSOR OF COMMUNICATION GLUCOSE BY METER Routine 02/21/2024 9:24 PM ASSOCIATE PROFESSOR OF COMMUNICATION GLUCOSE BY METER Routine 02/21/2024 5:42 PM ASSOCIATE PROFESSOR OF COMMUNICATION GLUCOSE BY METER Routine 02/21/2024 12:5 0 PM ASSOCIATE PROFESSOR OF COMMUNICATION GLUCOSE BY METER Routine 02/21/2024 8:44 AM ASSOCIATE PROFESSOR OF COMMUNICATION GLUCOSE BY METER Routine 02/21/2024 8:21 AM ASSOCIATE PROFESSOR OF COMMUNICATION GLUCOSE BY METER Routine 02/21/2024 8:04 AM ASSOCIATE PROFESSOR OF COMMUNICATION BASIC METABOLIC PANEL Routine 02/21/2024 6:14 AM ASSOCIATE PROFESSOR OF COMMUNICATION CBC WITH PLATELETS Routine 02/21/2024 6: 14 AM ASSOCIATE PROFESSOR OF COMMUNICATION GLUCOSE BY METER Routine 02/21/2024 1:48 AM ASSOCIATE PROFESSOR OF COMMUNICATION GLUCOSE BY METER Routine 02/20/2024 9:44 PM ASSOCIATE PROFESSOR OF COMMUNICATION GLUCOSE BY METER Routine 02/20/2024 5:23 PM ASSOCIATE PROFESSOR OF COMMUNICATION GLUCOSE BY METER Routine 02/20/2024 12:5 0 PM ASSOCIATE PROFESSOR OF COMMUNICATION GLUCOSE BY METER Routine 02/20/2024 8:16 AM ASSOCIATE PROFESSOR OF COMMUNICATION EXTRA PURPLE TOP TUBE Routine 02/20/2024 5:41 AM ASSOCIATE PROFESSOR OF COMMUNICATION EXTRA TUBE Routine 02/20/2024 5:41 AM ASSOCIATE PROFESSOR OF COMMUNICATION BASIC METABOLIC PANEL Routine 02/20/2024 5:41 AM ASSOCIATE PROFESSOR OF COMMUNICATION GLUCOSE BY METER Routine 02/20/2024 2:17 AM ASSOCIATE PROFESSOR OF COMMUNICATION GLUCOSE BY METER Routine 02/19/2024 9:31 PM ASSOCIATE PROFESSOR OF COMMUNICATION GLUCOSE BY METER Routine 02/19/2024 12:1 8 PM ASSOCIATE PROFESSOR OF COMMUNICATION GLUCOSE BY METER Routine 02/19/2024 7:34 AM ASSOCIATE PROFESSOR OF COMMUNICATION EXTRA PURPLE TOP TUBE Routine 02/19/2024 7:00 AM ASSOCIATE PROFESSOR OF COMMUNICATION EXTRA TUBE Routine 02/19/2024 7:00 AM ASSOCIATE PROFESSOR OF COMMUNICATION BASIC METABOLIC PANEL Routine 02/19/2024 7:00 AM ASSOCIATE PROFESSOR OF COMMUNICATION GLUCOSE BY METER Routine 02/19/2024 1:15 AM ASSOCIATE PROFESSOR OF COMMUNICATION GLUCOSE BY METER Routine 02/18/2024 9:06 PM ASSOCIATE PROFESSOR OF COMMUNICATION GLUCOSE BY METER Routine 02/18/2024 5:08 PM ASSOCIATE PROFESSOR OF COMMUNICATION GLUCOSE BY METER Routine 02/18/2024 7:59 AM ASSOCIATE PROFESSOR OF COMMUNICATION GLUCOSE BY METER Routine 02/18/2024 2:59 AM ASSOCIATE PROFESSOR OF COMMUNICATION GLUCOSE BY METER Routine 02/17/2024 9:37 PM ASSOCIATE PROFESSOR OF COMMUNICATION GLUCOSE BY METER Routine 02/17/2024 5:16 PM ASSOCIATE PROFESSOR OF COMMUNICATION GLUCOSE BY METER Routine 02/17/2024 12:5 4 PM ASSOCIATE PROFESSOR OF COMMUNICATION GLUCOSE BY METER Routine 02/17/2024 7:46 AM ASSOCIATE PROFESSOR OF COMMUNICATION GLUCOSE BY METER Routine 02/16/2024 9:10 PM ASSOCIATE PROFESSOR OF COMMUNICATION GLUCOSE BY METER Routine 02/16/2024 5:19 PM ASSOCIATE PROFESSOR OF COMMUNICATION ECHO COMPLETE WITH CONTRAST Routine 02/16/2024 12:16 PM ASSOCIATE PROFESSOR OF COMMUNICATION GLUCOSE BY METER Routine 02/16/2024 11:3 2 AM ASSOCIATE PROFESSOR OF COMMUNICATION GLUCOSE BY METER Routine 02/16/2024 8:30 AM ASSOCIATE PROFESSOR OF COMMUNICATION GLUCOSE BY METER Routine 02/16/2024 2:08 AM ASSOCIATE PROFESSOR OF COMMUNICATION GLUCOSE BY METER Routine 02/15/2024 10:1 9 PM ASSOCIATE PROFESSOR OF COMMUNICATION HEMOGLOBIN A1C STAT 02/15/2024 8:47 PM ASSOCIATE PROFESSOR OF COMMUNICATION GLUCOSE BY METER Routine 02/15/2024 8:46 PM ASSOCIATE PROFESSOR OF COMMUNICATION GLUCOSE BY METER STAT 02/15/2024 6:57 PM ASSOCIATE PROFESSOR OF COMMUNICATION GLUCOSE BY METER STAT 02/15/2024 2:40 PM ASSOCIATE PROFESSOR OF COMMUNICATION CTA HEAD NECK W CONTRAST STAT 02/15/2024 12:30 PM ASSOCIATE PROFESSOR OF COMMUNICATION GLUCOSE BY METER STAT 02/15/2024 7:20 AM ASSOCIATE PROFESSOR OF COMMUNICATION HEMOGLOBIN A1C STAT 02/15/2024 5:20 AM ASSOCIATE PROFESSOR OF COMMUNICATION BASIC METABOLIC PANEL STAT 02/15/2024 5:20 AM ASSOCIATE PROFESSOR OF COMMUNICATION CBC WITH PLATELETS STAT 02/15/2024 5: 20 AM ASSOCIATE PROFESSOR OF COMMUNICATION GLUCOSE BY METER STAT 02/15/2024 12:3 1 AM ASSOCIATE PROFESSOR OF COMMUNICATION US CAROTID BILATERAL STAT 02/14/2024 6:17 PM ASSOCIATE PROFESSOR OF COMMUNICATION CT HEAD W/O CONTRAST STAT 02/14/2024 4:31 PM ASSOCIATE PROFESSOR OF COMMUNICATION BASIC METABOLIC PANEL STAT 02/14/2024 4:23 PM ASSOCIATE PROFESSOR OF COMMUNICATION PARTIAL THROMBOPLASTIN TIME STAT 02/14/2024 4:22 PM ASSOCIATE PROFESSOR OF COMMUNICATION CBC WITH PLATELETS STAT 02/14/2024 4: 22 PM ASSOCIATE PROFESSOR OF COMMUNICATION INR STAT 02/14/2024 4:22 PM ASSOCIATE PROFESSOR OF COMMUNICATION GLUCOSE BY METER Routine 02/14/2024 4:02 PM ASSOCIATE PROFESSOR OF COMMUNICATION GLUCOSE BY METER Routine 02/14/2024 2:30 PM ASSOCIATE PROFESSOR OF COMMUNICATION EKG 12-LEAD, TRACING ONLY STAT 02/14/2024 12:22 PM ASSOCIATE PROFESSOR OF COMMUNICATION GLUCOSE BY METER Routine 02/14/2024 11:2 3 AM ASSOCIATE PROFESSOR OF COMMUNICATION CV PCI ATHERECTOMY ROTATIONAL Routine 02/14/2024 10:57 AM ASSOCIATE PROFESSOR OF COMMUNICATION Coronary artery disease involving [place] coronary artery of [place] heart with angina pectoris (H) Chronic total occlusion of coronary artery CV INTRAVASULAR ULTRASOUND Routine 02/14/2024 10:57 AM ASSOCIATE PROFESSOR OF COMMUNICATION Coronary artery disease involving [place] coronary artery of [place] heart with angina pectoris (H) Chronic total occlusion of coronary artery CV PCI CHRONIC TOTAL OCCLUSION Routine 02/14/2024 10:57 AM ASSOCIATE PROFESSOR OF COMMUNICATION Coronary artery disease involving [place] coronary artery of [place] heart with angina pectoris (H) Chronic total occlusion of coronary artery ACTIVATED CLOTTING TIME CELITE POCT Routine 02/14/2024 10:46 AM ASSOCIATE PROFESSOR OF COMMUNICATION ACTIVATED CLOTTING TIME CELITE POCT Routine 02/14/2024 10:19 AM ASSOCIATE PROFESSOR OF COMMUNICATION ACTIVATED CLOTTING TIME CELITE POCT Routine 02/14/2024 9:50 AM ASSOCIATE PROFESSOR OF COMMUNICATION ACTIVATED CLOTTING TIME CELITE POCT Routine 02/14/2024 9:33 AM ASSOCIATE PROFESSOR OF COMMUNICATION ACTIVATED CLOTTING TIME CELITE POCT Routine 02/14/2024 9:18 AM ASSOCIATE PROFESSOR OF COMMUNICATION EKG 12-LEAD, TRACING ONLY Routine 02/14/2024 7:27 AM ASSOCIATE PROFESSOR OF COMMUNICATION TROPONIN T, HIGH SENSITIVITY STAT Add-on 02/14/2024 7:15 AM ASSOCIATE PROFESSOR OF COMMUNICATION LIPID PROFILE STAT 02/14/2024 7:15 AM ASSOCIATE PROFESSOR OF COMMUNICATION PARTIAL THROMBOPLASTIN TIME STAT 02/14/2024 7:15 AM ASSOCIATE PROFESSOR OF COMMUNICATION INR STAT 02/14/2024 7:15 AM ASSOCIATE PROFESSOR OF COMMUNICATION CBC WITH PLATELETS STAT 02/14/2024 7: 15 AM ASSOCIATE PROFESSOR OF COMMUNICATION BASIC METABOLIC PANEL STAT 02/14/2024 7:15 AM ASSOCIATE PROFESSOR OF COMMUNICATION BASIC METABOLIC PANEL Routine 02/12/2024 11:04 AM ASSOCIATE PROFESSOR OF COMMUNICATION Stage 3 chronic kidney disease, unspecified whether stage 3a or 3b CKD (H) LAB RESULT - HIM SCAN 02/04/2024 12:00 AM CDT from Last 3 Months Results * ZIO PATCH MAIL OUT (03/14/2024 7:43 AM ASSOCIATE PROFESSOR OF COMMUNICATION) Zio Prelim Results Patient had a min HR of 59 bpm, max HR of 97 bpm, and avg HR of 67 bpm. Predominant underlying rhythm was Possible Atrial and Ventricular Pacing. Isolated SVEs were rare (<1.0%), and no SVE Couplets or SVE Triplets were present. Isolated VEs were occasional (4.4%, 07493), VE Couplets were rare (<1.0%, 245), and no VE Triplets were present. Ventricular Trigeminy was present. CARDIOLOGY RESULTS Anatomical Region Laterality Modality Other 03/14/2024 7:43 AM ASSOCIATE PROFESSOR OF COMMUNICATION Narrative 03/16/2024 10:00 AM ASSOCIATE PROFESSOR OF COMMUNICATION 8-day recording. Frequent PVCs (4.4%). Occasional pacing. No symptoms reported. Penelope Warner PA-C [facility] ORDERAB LES Final Result * Glucose by meter (02/23/2024 8:11 AM ASSOCIATE PROFESSOR OF COMMUNICATION) Only the most recent of48 resultswithin the time period is included. GLUCOSE BY METER POCT 89 70 - 99 mg/dL 02/23/2024 8:17 AM ASSOCIATE PROFESSOR OF COMMUNICATION UR LABORATORY POC Blood, Capillary BLOOD SPECIMEN / Unknown 02/23/2024 8:11 AM ASSOCIATE PROFESSOR OF COMMUNICATION 02/23/2024 8:17 AM ASSOCIATE PROFESSOR OF COMMUNICATION Holden FRANZ - AKER POCT Final R esult UR LABORATORY POC [facility] [address], [address] [place] [id number] * (ABNORMAL) Basic metabolic panel (02/21/2024 6:14 AM ASSOCIATE PROFESSOR OF COMMUNICATION) Only the most recent of7 resultswithin the time period is included. Sodium 141 135 - 145 mmol/L 02/21/2024 6:50 AM ASSOCIATE PROFESSOR OF COMMUNICATION UR LAB[facility]ORY Potassium 4.6 3.4 - 5.3 mmol/L 02/21/2024 6:50 AM ASSOCIATE PROFESSOR OF COMMUNICATION [facility] Chloride 106 98 - 107 mmol/L 02/21/2024 6:50 AM ASSOCIATE PROFESSOR OF COMMUNICATION UR LAB[facility]ORY Carbon Dioxide (CO2) 27 22 - 29 mmol/L 02/21/2024 6:50 AM ASSOCIATE PROFESSOR OF COMMUNICATION [facility] Anion Gap 8 7 - 15 mmol/L 02/21/2024 6:50 AM ASSOCIATE PROFESSOR OF COMMUNICATION UR [facility] Urea Nitrogen 41.8(H) 8.0 - 23.0 mg/dL 02/21/2024 6:50 AM ASSOCIATE PROFESSOR OF COMMUNICATION UR LAB[facility]ORY Creatinine 1.90(H) 0.67 - 1.17 mg/dL 02/21/2024 6:50 AM ASSOCIATE PROFESSOR OF COMMUNICATION UR LAB[facility]ORY GFR Estimate 35(L) >60 mL/min/1.7 3m2 02/21/2024 6:50 AM ASSOCIATE PROFESSOR OF COMMUNICATION UR LAB[facility]ATORY Comment:eGFR calculated us2020 CKD-EPI equation. Calcium 10.2 8.8 - 10.4 mg/dL 02/21/2024 6:50 AM ASSOCIATE PROFESSOR OF COMMUNICATION UR LABORATORY Comment:Reference intervals for this test were updated on 10/23/2023 to reflect our healthy population more accurately. There may be differences in the flagging of prior results with similar values performed with this method. Those prior results can be interpreted in the context of the updated reference intervals. Glucose 78 70 - 99 mg/dL 02/21/2024 6:50 AM ASSOCIATE PROFESSOR OF COMMUNICATION UR LAB[facility]ATORY Blood STRUCTURE OF RIGHT HAND / Unknown Venipuncture / Unknown 02/21/2024 6:14 AM ASSOCIATE PROFESSOR OF COMMUNICATION 02/21/2024 6:24 AM ASSOCIATE PROFESSOR OF COMMUNICATION us Corina OROPEZA LAB - BLOOD ORDERABLES Audra sierra Result UR LABORATORY [facility] [address] [place] [phone] * (ABNORMAL) CBC with platelets (02/21/2024 6:14 AM ASSOCIATE PROFESSOR OF COMMUNICATION) Only the most recent of4 resultswithin the time period is included. WBC Count 4.0 4.0 - 11.0 10e3/uL 02/21/2024 6:28 AM ASSOCIATE PROFESSOR OF COMMUNICATION UR LAB[facility]ATORY RBC Count 3.27(L) 4.40 - 5.90 10e6/uL 02/21/2024 6:28 AM ASSOCIATE PROFESSOR OF COMMUNICATION UR LAB[facility]ATORY Hemoglobin 10.3(L) 13.3 - 17.7 g/dL 02/21/2024 6:28 AM ASSOCIATE PROFESSOR OF COMMUNICATION UR LABORATORY Hematocrit 31.0(L) 40.0 - 53.0 % 02/21/2024 6:28 AM ASSOCIATE PROFESSOR OF COMMUNICATION UR LABORATORY MCV 95 78 - 100 fL 02/21/2024 6:28 AM ASSOCIATE PROFESSOR OF COMMUNICATION UR LABORATORY MCH 31.5 26.5 - 33.0 pg 02/21/2024 6:28 AM ASSOCIATE PROFESSOR OF COMMUNICATION UR LABORATORY MCHC 33.2 31.5 - 36.5 g/dL 02/21/2024 6:28 AM ASSOCIATE PROFESSOR OF COMMUNICATION UR LABORATORY RDW 12.5 10.0 - 15.0 % 02/21/2024 6:28 AM ASSOCIATE PROFESSOR OF COMMUNICATION UR LABORATORY Platelet Count 248 150 - 450 10e3/uL 02/21/2024 6:28 AM ASSOCIATE PROFESSOR OF COMMUNICATION UR LABORATORY Blood STRUCTURE OF RIGHT HAND / Unknown Venipuncture / Unknown 02/21/2024 6:14 AM ASSOCIATE PROFESSOR OF COMMUNICATION 02/21/2024 6:24 AM ASSOCIATE PROFESSOR OF COMMUNICATION us Corina OROPEZA LAB - BLOOD ORDERABLES Audra l Result UR LABORATORY [facility] [address] [place] [address], [address] * Extra Purple Top Tube (02/20/2024 5:41 AM ASSOCIATE PROFESSOR OF COMMUNICATION) Only the most recent of2 resultswithin the time period is included. Hold Specimen JIC 02/20/2024 8:31 AM ASSOCIATE PROFESSOR OF COMMUNICATION UR LABORATORY Blood STRUCTURE OF LEFT HAND / Unknown Venipuncture / Unknown 02/20/2024 5:41 AM ASSOCIATE PROFESSOR OF COMMUNICATION 02/20/2024 7:18 AM ASSOCIATE PROFESSOR OF COMMUNICATION us Holden Trejo MD LAB - BLOOD ORDERABLES Fi nal Result Performing Organization Address City/[facility]/ZIP Co de Phone Number UR LABORATORY [facility] [address] [place] [address], [address] * ECHO COMPLETE WITH CONTRAST (02/16/2024 12:16 PM ASSOCIATE PROFESSOR OF COMMUNICATION) LVEF 65-70% CARDIOLOGY RESULTS Anatomical Region Laterality Modality Echocardiography 02/16/2024 10:5 1 AM ASSOCIATE PROFESSOR OF COMMUNICATION Narrative 02/16/2024 2:50 PM ASSOCIATE PROFESSOR OF COMMUNICATION [id number]^GINA^SHAWN^[facility] Echocardiography Laboratory [address] [place] [address] Name: ARIEL TAFOYA : 1940 Study Date: 02/16/2024 10:51 AM Age: 83 yrs Gender: Male Patient Location: [facility] Reason For Study: Cerebrovascular Incident Ordering Physician: SHAWN FUENTES Referring Physician: Soto Thompson Performed By: Jimmy Lund BSA: 2.1 m2 Height: 67 in Weight: 222 lb HR: 86 BP: 150/75 mmHg Procedure Complete Portable Echo Adult. Definity ([facility] #[id number]) given intravenously. Interpretation Summary A cardiac source of embolus was not identified. The rhythm was sinus with paced rhythm. Left ventricular systolic function is normal. The visual ejection fraction is 65-70%. The left ventricle is normal in size. There is mild to moderate concentric left ventricular hypertrophy. The right ventricle is normal in structure, function and size. There is a pacemaker lead in the right ventricle. The left atrium is moderately dilated. Doppler interrogation did not demonstrate signficant stenosis or insufficincy involving cardiac valves No change since last study 08/02/2023 Left Ventricle The left ventricle is normal in size. There is mild to moderate concentric left ventricular hypertrophy. Left ventricular systolic function is normal. The visual ejection fraction is 65-70%. Grade I or early diastolic dysfunction. Septal wall motion abnormality may reflect pacemaker activation. There is no thrombus seen in the left ventricle. Right Ventricle The right ventricle is normal in structure, function and size. There is a pacemaker lead in the right ventricle. Atria The left atrium is moderately dilated. Pacer wire in right atrium. There is no atrial shunt seen. The left atrial appendage is not well visualized. Mitral Valve The mitral valve leaflets appear normal. There is no evidence of stenosis, fluttering, or prolapse. There is no mitral regurgitation noted. There is no mitral valve stenosis. Tricuspid Valve Normal tricuspid valve. The right ventricular systolic pressure is approximated at 16.1 mmHg plus the right atrial pressure. Right ventricle systolic pressure estimate normal. There is mild (1+) tricuspid regurgitation. There is no tricuspid stenosis. Aortic Valve The aortic valve is trileaflet. No aortic regurgitation is present. No aortic stenosis is present. Pulmonic Valve Normal pulmonic valve. There is mild (1+) pulmonic valvular regurgitation. There is no pulmonic valvular stenosis. Vessels The aortic root is normal size. Normal size ascending aorta. The inferior vena cava is normal. The pulmonary artery is normal size. Pericardium The pericardium appears normal. There is no pleural effusion. Rhythm The rhythm was sinus with paced rhythm. MMode/2D Measurements & Calculations IVSd: 1.5 cm LVIDd: 4.8 cm LVIDs: 3.5 cm LVPWd: 1.2 cm FS: 27.7 % LV mass(C)d: 271.2 grams LV mass(C)dI: 128.3 grams/m2 Ao root diam: 3.9 cm LA dimension: 4.3 cm asc Aorta Diam: 3.5 cm LA/Ao: 1.1 LVOT diam: 2.0 cm LVOT area: 3.3 cm2 Ao root diam index Ht(cm/m): 2.3 Ao root diam index BSA (cm/m2): 1.9 Asc Ao diam index BSA (cm/m2): 1.7 Asc Ao diam index Ht(cm/m): 2.1 LA Volume (BP): 71.2 ml LA Volume Index (BP): 33.7 ml/m2 RWT: 0.51 TAPSE: 2.4 cm Doppler Measurements & Calculations MV E max brijesh: 58.3 cm/sec MV A max brijesh: 88.7 cm/sec MV E/A: 0.66 MV dec slope: 250.8 cm/sec2 MV dec time: 0.23 sec PA acc time: 0.11 sec TR max brijesh: 200.5 cm/sec TR max P.1 mmHg RV S Brijesh: 15.8 cm/sec Report approved by: Dr. Brendan Duffy 02/16/2024 02:50 PM Procedure Note Brendan Boyer MD - 02/16/2024 [id number] [facility] [id number]^GINA^SHAWN^[facility] Echocardiography Laboratory [address] [place] [address] Name: ARIEL TAFOYA [facility] : 1940 Study Date: 02/16/2024 10:51 AM Age: 83 yrs Gender: Male Patient Location: [facility] Reason For Study: Cerebrovascular Incident Ordering Physician: SHAWN FUENTES Referring Physician: Soto Thompson Performed By: Jimmy Lund BSA: 2.1 m2 Height: 67 in Weight: 222 lb HR: 86 BP: 150/75 mmHg Procedure Complete Portable Echo Adult. Definity ([facility] #[id number]) givenintravenously. Interpretation Summary A cardiac source of embolus was not identified. The rhythm was sinus with paced rhythm. Left ventricular systolic function is normal. The visual ejection fraction is 65-70%. The left ventricle is normal in size. There is mild to moderate concentric left ventricular hypertrophy. The right ventricle is normal in structure, function and size. There is a pacemaker lead in the right ventricle. The left atrium is moderately dilated. Doppler interrogation did not demonstrate signficant stenosis orinsufficincy involving cardiac valves No change since last study 08/02/2023 Left Ventricle The left ventricle is normal in size. There is mild to moderateconcentric left ventricular hypertrophy. Left ventricular systolic function isnormal. The visual ejection fraction is 65-70%. Grade I or early diastolic dysfunction. Septal wall motion abnormality may reflect pacemakeractivation. There is no thrombus seen in the left ventricle. Right Ventricle The right ventricle is normal in structure, function and size. There jem pacemaker lead in the right ventricle. Atria The left atrium is moderately dilated. Pacer wire in right atrium. Thereis no atrial shunt seen. The left atrial appendage is not well visualized. Mitral Valve The mitral valve leaflets appear normal. There is no evidence ofstenosis, fluttering, or prolapse. There is no mitral regurgitation noted. There isno mitral valve stenosis. Tricuspid Valve Normal tricuspid valve. The right ventricular systolic pressure is approximated at 16.1 mmHg plus the right atrial pressure. Rightventricle systolic pressure estimate normal. There is mild (1+) tricuspidregurgitation. There is no tricuspid stenosis. Aortic Valve The aortic valve is trileaflet. No aortic regurgitation is present. Noaortic stenosis is present. Pulmonic Valve Normal pulmonic valve. There is mild (1+) pulmonic valvularregurgitation. There is no pulmonic valvular stenosis. Vessels The aortic root is normal size. Normal size ascending aorta. The inferiorvena cava is normal. The pulmonary artery is normal size. Pericardium The pericardium appears normal. There is no pleural effusion. Rhythm The rhythm was sinus with paced rhythm. MMode/2D Measurements & Calculations IVSd: 1.5 cm LVIDd: 4.8 cm LVIDs: 3.5 cm LVPWd: 1.2 cm FS: 27.7 % LV mass(C)d: 271.2 grams LV mass(C)dI: 128.3 grams/m2 Ao root diam: 3.9 cm LA dimension: 4.3 cm asc Aorta Diam: 3.5 cm LA/Ao: 1.1 LVOT diam: 2.0 cm LVOT area: 3.3 cm2 Ao root diam index Ht(cm/m): 2.3 Ao root diam index BSA (cm/m2): 1.9 Asc Ao diam index BSA (cm/m2): 1.7 Asc Ao diam index Ht(cm/m): 2.1 LA Volume (BP): 71.2 ml LA Volume Index (BP): 33.7 ml/m2 RWT: 0.51 TAPSE: 2.4 cm Doppler Measurements & Calculations MV E max brijesh: 58.3 cm/sec MV A max brijesh: 88.7 cm/sec MV E/A: 0.66 MV dec slope: 250.8 cm/sec2 MV dec time: 0.23 sec PA acc time: 0.11 sec TR max brijesh: 200.5 cm/sec TR max P.1 mmHg RV S Brijesh: 15.8 cm/sec Report approved by: Dr. Brendan Duffy 02/16/2024 02:50 PM Shawn Fuentes MD CV ECHO ORDERABLES Edited Re sult - Final * (ABNORMAL) Hemoglobin A1c (02/15/2024 8:47 PM ASSOCIATE PROFESSOR OF COMMUNICATION) Only the most recent of2 resultswithin the time period is included. Estimated Average Glucose 194(H) <117 mg/dL 02/15/2024 9:21 PM ASSOCIATE PROFESSOR OF COMMUNICATION LABORATORY Hemoglobin A1C 8.4(H) <5.7 % 02/15/2024 9:21 PM ASSOCIATE PROFESSOR OF COMMUNICATION LABORATORY Comment: Normal <5.7% Prediabetes 5.7-6.4% Diabetes 6.5% or higher Note: Adopted from ADA consensus guidelines. Blood STRUCTURE OF RIGHT HAND / Unknown Venipuncture / Unknown 02/15/2024 8:47 PM ASSOCIATE PROFESSOR OF COMMUNICATION 02/15/2024 8:58 PM ASSOCIATE PROFESSOR OF COMMUNICATION Shawn Fuentes MD LAB - BLOOD ORDERABLES Final Result LABORATORY [facility] [address], [address] [place] [address], [facility] [phone] * CTA Head Neck with Contrast (02/15/2024 12:30 PM ASSOCIATE PROFESSOR OF COMMUNICATION) Anatomical Region Laterality Modality Head, SUBRAD CT NEURO, SUBRA D CT NEURO, UMP CT NEURO, RAD CT Computed Tomography Impressions 02/15/2024 1:27 PM ASSOCIATE PROFESSOR OF COMMUNICATION IMPRESSION: No large vessel arterial occlusion or high-grade stenosis in the head or neck. No evidence for acute arterial dissection. FLIP MILLAN DO Narrative 02/15/2024 1:27 PM ASSOCIATE PROFESSOR OF COMMUNICATION CT ANGIOGRAM OF THE HEAD AND NECK WITH CONTRAST 02/15/2024 12:30 PM HISTORY: clear vessels- suspected posterior stroke R upper and lower extremity dysmetria following cardiac cath TECHNIQUE: CT angiography with an injection of 67mL Isovue 370 IV with scans through the head and neck. Images were transferred to a separate 3-D workstation where multiplanar reformations and 3-D images were created. Estimates of carotid stenoses are made relative to the distal internal carotid artery diameters except as noted. Radiation dose for this scan was reduced using automated exposure control, adjustment of the mA and/or kV according to patient size, or iterative reconstruction technique. COMPARISON: None. CT HEAD FINDINGS: No contrast enhancing lesions. Cerebral blood flow is grossly normal. CT ANGIOGRAM HEAD FINDINGS: Mild bilateral posterior arteries areas of luminal narrowing. Carotid siphon calcifications. The major intracranial arteries including the proximal branches of the anterior cerebral, middle cerebral, and posterior cerebral arteries appear patent without vascular cutoff. No aneurysm identified. No high-grade stenosis. Venous circulation is unremarkable. CT ANGIOGRAM NECK FINDINGS: Normal origin of the great vessels from the aortic arch. Right carotid artery: The right common and internal carotid arteries are patent. No significant stenosis or atherosclerotic disease in the carotid artery. Left carotid artery: The left common and internal carotid arteries are patent. No significant stenosis or atherosclerotic disease in the carotid artery. Vertebral arteries: Tortuous left vertebral artery. Vertebrobasilar atherosclerotic calcifications. Vertebral arteries are patent without evidence of dissection. No significant stenosis. Other findings: None. Procedure Note Flip Millan, DO - 02/15/2024 CT ANGIOGRAM OF THE HEAD AND NECK WITH CONTRAST 02/15/2024 12:30 PM HISTORY: clear vessels- suspected posterior stroke R upper and lower extremity dysmetria following cardiac cath TECHNIQUE: CT angiography with an injection of 67mL Isovue 370 IV with scans through the head and neck. Images were transferred to a separate 3-D workstation where multiplanar reformations and 3-D images were created. Estimates of carotid stenoses are made relative to the distal internal carotid artery diameters except as noted. Radiation dose for this scan was reduced using automated exposure control, adjustment of the mA and/or kV according to patient size, or iterative reconstruction technique. COMPARISON: None. CT HEAD FINDINGS: No contrast enhancing lesions. Cerebral blood flow is grossly normal. CT ANGIOGRAM HEAD FINDINGS: Mild bilateral posterior arteries areas of luminal narrowing. Carotid siphon calcifications. The major intracranial arteries including the proximal branches of the anterior cerebral, middle cerebral, and posterior cerebral arteries appear patent without vascular cutoff. No aneurysm identified. No high-grade stenosis. Venous circulation is unremarkable. CT ANGIOGRAM NECK FINDINGS: Normal origin of the great vessels from the aortic arch. Right carotid artery: The right common and internal carotid arteries are patent. No significant stenosis or atherosclerotic disease in the carotid artery. Left carotid artery: The left common and internal carotid arteries are patent. No significant stenosis or atherosclerotic disease in the carotid artery. Vertebral arteries: Tortuous left vertebral artery. Vertebrobasilar atherosclerotic calcifications. Vertebral arteries are patent without evidence of dissection. No significant stenosis. Other findings: None. IMPRESSION: No large vessel arterial occlusion or high-grade stenosis in the head or neck. No evidence for acute arterial dissection. FLIP MILLAN DO us Penelope Warner PA-C IMG CT ORDERABLES Final Res ult * US Carotid Bilateral (02/14/2024 6:17 PM ASSOCIATE PROFESSOR OF COMMUNICATION) Anatomical Region Laterality Modality Vascular, Head Ultrasound 02/14/2024 6:17 PM ASSOCIATE PROFESSOR OF COMMUNICATION Impressions 02/14/2024 6:26 PM ASSOCIATE PROFESSOR OF COMMUNICATION IMPRESSION: 1. Right carotid: Postop carotid endarterectomy. No evidence of significant residual or recurrent ICA stenosis.. 2. Left carotid: Postop carotid endarterectomy. No evidence of significant residual or recurrent ICA stenosis. 3. Flow within the vertebral arteries is antegrade. Narrative 02/14/2024 6:26 PM ASSOCIATE PROFESSOR OF COMMUNICATION EXAM: US CAROTID BILATERAL LOCATION: [facility] DATE: 02/14/2024 INDICATION: stroke, evaluate carotids verts history of bilateral carotid endarterectomies. COMPARISON: Duplex 05/24/2023 TECHNIQUE: Duplex exam performed utilizing 2D -scale imaging, Doppler interrogation with color-flow and spectral waveform analysis. The percent diameter stenosis is determined using Updated Recommendations for Carotid Stenosis Interpretation Criteria from [employer]. FINDINGS: RIGHT: Postop carotid endarterectomy. The peak systolic velocity in the ICA is less than 180 cm/sec, consistent with less than 50% stenosis. Normal velocities in the ECA. Antegrade flow within the vertebral artery. Normal multiphasic waveforms in the subclavian artery. LEFT: Postop carotid endarterectomy. The peak systolic velocity in the ICA is less than 180 cm/sec, consistent with less than 50% stenosis. Normal velocities in the ECA. Antegrade flow within the vertebral artery. Normal multiphasic waveforms in the subclavian artery. VELOCITY CHART: CCA Right: 92/20 cm/s Left: 129/17 cm/s ICA Right: 92/14 cm/s Left: 138/14 cm/s ECA Right: 149/9 cm/s Left: 28/9 cm/s ICA/CCA PSV Ratio Right: 1.03 Left: 1.14 Procedure Note Mindi Fairbanks MD - 02/14/2024 EXAM: US CAROTID BILATERAL LOCATION: [facility] DATE: 02/14/2024 INDICATION: stroke, evaluate carotids verts history of bilateral carotidendarterectomies. COMPARISON: Duplex 05/24/2023 TECHNIQUE: Duplex exam performed utilizing 2D -scale imaging, Dopplerinterrogation with color-flow and spectral waveform analysis. The percentdiameter stenosis is determined using Updated Recommendations for CarotidStenosis Interpretation Criteria from [employer] [facility] [facility]. FINDINGS: RIGHT: Postop carotid endarterectomy. The peak systolic velocity in theICA is less than 180 cm/sec, consistent with less than 50% stenosis.Normal velocities in the ECA. Antegrade flow within the vertebral artery.Normal multiphasic waveforms in the subclavian artery. LEFT: Postop carotid endarterectomy. The peak systolic velocity in the ICAis less than 180 cm/sec, consistent with less than 50% stenosis. Normalvelocities in the ECA. Antegrade flow within the vertebral artery. Normalmultiphasic waveforms in the subclavian artery. VELOCITY CHART: CCA Right: 92/20 cm/s Left: 129/17 cm/s ICA Right: 92/14 cm/s Left: 138/14 cm/s ECA Right: 149/9 cm/s Left: 28/9 cm/s ICA/CCA PSV Ratio Right: 1.03 Left: 1.14 IMPRESSION: 1. Right carotid: Postop carotid endarterectomy. No evidence ofsignificant residual or recurrent ICA stenosis.. 2. Left carotid: Postop carotid endarterectomy. No evidence ofsignificant residual or recurrent ICA stenosis. 3. Flow within the vertebral arteries is antegrade. Penelope Andahazy PA-C IMG US ORDERABLES Final Res ult * CT Head w/o Contrast (02/14/2024 4:31 PM ASSOCIATE PROFESSOR OF COMMUNICATION) Anatomical Region Laterality Modality Head, SUBRAD CT NEURO, SUBRA D CT NEURO, UMP CT NEURO, RAD CT Computed Tomography 02/14/2024 4:31 PM ASSOCIATE PROFESSOR OF COMMUNICATION Impressions 02/14/2024 4:54 PM ASSOCIATE PROFESSOR OF COMMUNICATION IMPRESSION: 1. No acute intracranial process. These findings were communicated by phone to Dr. Dover on 02/14/2024 4:43 PM ASSOCIATE PROFESSOR OF COMMUNICATION. Narrative 02/14/2024 4:54 PM ASSOCIATE PROFESSOR OF COMMUNICATION EXAM: CT HEAD W/O CONTRAST LOCATION: [facility] DATE: 02/14/2024 INDICATION: Code Stroke to evaluate for potential thrombolysis and thrombectomy. Left-sided facial droop and right leg weakness COMPARISON: 09/17/2020 CTA. TECHNIQUE: Routine CT Head without IV contrast. Multiplanar reformats. Dose reduction techniques were used. FINDINGS: INTRACRANIAL CONTENTS: No intracranial hemorrhage, extraaxial collection, or mass effect. No CT evidence of acute infarct. Normal parenchymal attenuation. Mild generalized volume loss, within normal limits for age. No hydrocephalus. VISUALIZED ORBITS/SINUSES/MASTOIDS: No intraorbital abnormality. No paranasal sinus mucosal disease. No middle ear or mastoid effusion. BONES/SOFT TISSUES: No acute abnormality. Procedure Note Gretchen Bryan MD - 02/14/2024 EXAM: CT HEAD W/O CONTRAST LOCATION: [facility] DATE: 02/14/2024 INDICATION: Code Stroke to evaluate for potential thrombolysis andthrombectomy. Left-sided facial droop and right leg weakness COMPARISON: 09/17/2020 CTA. TECHNIQUE: Routine CT Head without IV contrast. Multiplanar reformats.Dose reduction techniques were used. FINDINGS: INTRACRANIAL CONTENTS: No intracranial hemorrhage, extraaxial collection,or mass effect. No CT evidence of acute infarct. Normal parenchymalattenuation. Mild generalized volume loss, within normal limits for age.No hydrocephalus. VISUALIZED ORBITS/SINUSES/MASTOIDS: No intraorbital abnormality. Noparanasal sinus mucosal disease. No middle ear or mastoid effusion. BONES/SOFT TISSUES: No acute abnormality. IMPRESSION: 1. No acute intracranial process. These findings were communicated by phone to Dr. Dover on 02/14/2024 4:43PM ASSOCIATE PROFESSOR OF COMMUNICATION. Neva Koenig Felipe [facility] IMG CT ORDERABLES Final Result * INR (02/14/2024 4:22 PM ASSOCIATE PROFESSOR OF COMMUNICATION) Only the most recent of2 resultswithin the time period is included. INR 1.15 0.85 - 1.15 02/14/2024 4:46 PM ASSOCIATE PROFESSOR OF COMMUNICATION LABORATORY Blood STRUCTURE OF LEFT HAND / Unknown Venipuncture / Unknown 02/14/2024 4:22 PM ASSOCIATE PROFESSOR OF COMMUNICATION 02/14/2024 4:27 PM ASSOCIATE PROFESSOR OF COMMUNICATION Neva Barrazanegro [facility] LAB - BLOOD ORDERABLES F inal Result [facility] [address], [address], [place] [address], [place] [phone] * (ABNORMAL) Partial thromboplastin time (02/14/2024 4:22 PM ASSOCIATE PROFESSOR OF COMMUNICATION) Only the most recent of2 resultswithin the time period is included. Pathologist [facility] aPTT 102(H) 22 - 38 Seconds 02/14/2024 4:46 PM ASSOCIATE PROFESSOR OF COMMUNICATION LABORATORY Blood STRUCTURE OF LEFT HAND / Unknown Venipuncture / Unknown 02/14/2024 4:22 PM ASSOCIATE PROFESSOR OF COMMUNICATION 02/14/2024 4:27 PM ASSOCIATE PROFESSOR OF COMMUNICATION Neva Koenig Felipe [facility] LAB - BLOOD ORDERABLES F inal Result [facility] [address], [address] [place] [address], [place] [phone] * EKG 12-lead, tracing only (02/14/2024 12:22 PM ASSOCIATE PROFESSOR OF COMMUNICATION) Only the most recent of2 resultswithin the time period is included. Systolic Blood Pressure mmHg RADIOLOGY RESULTS Diastolic Blood Pressure mmHg RADIOLOGY RESULTS Ventricular Rate 60 BPM RAD IOLOGY RESULTS Atrial Rate 576 BPM RADIOLOG Y RESULTS GA Interval ms RADIOLOG Y RESULTS QRS Duration 194 ms RADIOLO GY RESULTS QT 492 ms RADIOLOGY RESULTS QTc 492 ms RADIOLOGY RESULTS P [place] degrees RADIOLOGY RESULTS R AXIS -83 degrees RADIOLOGY RESULTS T [place] 81 degrees RADIOLOGY RESULTS Interpretation ECG Ventricular -paced rhythm Abnormal ECG When compared with ECG of 14-Feb-2024 07:27, Atrial activity is not clear in current tracing Confirmed by MD CARMEN, FILOMENA ([id number]) on 02/15/2024 9:23:55 AM RADIOLOGY RESULTS 02/14/2024 12:2 2 PM ASSOCIATE PROFESSOR OF COMMUNICATION 02/15/2024 9:23 AM ASSOCIATE PROFESSOR OF COMMUNICATION us Gerardo Jiang MD ECG ORDERABLES Edited Result - Final RADIOLOGY RESULTS * CV PCI CHRONIC TOTAL OCCLUSION, CV INTRAVASULAR ULTRASOUND, CV PCI ATHERECTOMY ROTATIONAL (02/14/2024 10:57 AM ASSOCIATE PROFESSOR OF COMMUNICATION) Anatomical Region Laterality Modality Radio Fluoroscop y Narrative 02/14/2024 1:16 PM ASSOCIATE PROFESSOR OF COMMUNICATION Successful crossing of the mid RCA TISSUE COORDINATOR via antegrade wire escalation. Lesion preparation with rotational atherectomy using a 1.75 mm hemanth. Under HD IVUS guidance, overlapping Synergy JEVON x 2 (4.0 x 24 mm proximally, 4.0 x 38 mm distally) were deployed from the proximal-distal RCA and postdilated up to 4.5 mm. RFA access site closed with an 8 Russian Angio-Seal; LFA access site closed with a 6 Russian Angio-Seal. Coronary Findings Diagnostic Dominance: Right Left Anterior Descending: Prox LAD lesion is 35% stenosed. Left Circumflex: Mid Cx lesion is 55% stenosed. First Obtuse Marginal Branch: 1st Mrg lesion is 99% stenosed. Subtotal occlusion at the ostium of a small, roughly 2.25 mm vessel. High risk for acute closure with PCI; favor medical management. Right Coronary Artery: Prox RCA lesion is 40% stenosed. Prox RCA to Mid RCA lesion is 70% stenosed. Mid RCA lesion is 100% stenosed. 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 J-TISSUE COORDINATOR = 2 (calcification, blunt cap) Mid RCA to Dist RCA lesion is 80% stenosed. Right Posterior Atrioventricular Artery: RPAV filled by collaterals from Dist Cx. Intervention Prox RCA lesion: Stent (Also treats lesions: Prox RCA to Mid RCA, Mid RCA, Mid RCA to Dist RCA): Lesion length: 50 mm. There is no pre-interventional antegrade distal flow (SAVAGE 0). A stent was successfully placed. The post-interventional distal flow is normal (SAVAGE 3). Bifemoral access was used for the procedure due to difficulty pronating his right arm. An 8 Russian AL-1 guide was used to engage the RCA, and a 6 Russian XB 3 guide was used to engage the left main. A trap liner and Turnpike LP were brought down over a run-through wire within the RCA to the TISSUE COORDINATOR. The TISSUE COORDINATOR was then crossed with a Gladius Mongo wire. The Turnpike was then spun across the lesion and exchanged for a wiggle wire. The lesion was predilated with a 1.5 mm Takeru balloon, and then HD IVUS was used for vessel sizing and lesion assessment. Based on this, there was clearly severe calcification throughout much of the lesion segment, including multiple areas of circumferential calcification. Accordingly, we then exchanged again with a Turnpike LP, swapping the wiggle wire for a Rotafloppy wire. After this, several runs of brief rotational atherectomy using a 1.75 mm hemanth were performed at 160,000 RPM with no complication. After this, the Rotafloppy wire was exchanged for a wiggle wire using the Turnpike LP once again. Next, the length of the lesion was predilated with a 4.0 mm NC balloon, and then overlapping 4.0 x 38 mm and 4.0 x 24 mm Synergy JEVON were deployed across the disease. Finally, the majority of the stent was postdilated with a 4.5 mm NC balloon to progressively higher pressures proximally. Final angiography and HD IVUS showed excellent result with no evidence of complication. There is a 0% residual stenosis post intervention. Prox RCA to Mid RCA lesion: Stent (Also treats lesions: Prox RCA, Mid RCA, Mid RCA to Dist RCA): Lesion length: 50 mm. There is no pre-interventional antegrade distal flow (SAVAGE 0). A stent was successfully placed. The post-interventional distal flow is normal (SAVAGE 3). Bifemoral access was used for the procedure due to difficulty pronating his right arm. An 8 Russian AL-1 guide was used to engage the RCA, and a 6 Russian XB 3 guide was used to engage the left main. A trap liner and Turnpike LP were brought down over a run-through wire within the RCA to the TISSUE COORDINATOR. The TISSUE COORDINATOR was then crossed with a Gladius Mongo wire. The Turnpike was then spun across the lesion and exchanged for a wiggle wire. The lesion was predilated with a 1.5 mm Takeru balloon, and then HD IVUS was used for vessel sizing and lesion assessment. Based on this, there was clearly severe calcification throughout much of the lesion segment, including multiple areas of circumferential calcification. Accordingly, we then exchanged again with a Turnpike LP, swapping the wiggle wire for a Rotafloppy wire. After this, several runs of brief rotational atherectomy using a 1.75 mm hemanth were performed at 160,000 RPM with no complication. After this, the Rotafloppy wire was exchanged for a wiggle wire using the Turnpike LP once again. Next, the length of the lesion was predilated with a 4.0 mm NC balloon, and then overlapping 4.0 x 38 mm and 4.0 x 24 mm Synergy JEVON were deployed across the disease. Finally, the majority of the stent was postdilated with a 4.5 mm NC balloon to progressively higher pressures proximally. Final angiography and HD IVUS showed excellent result with no evidence of complication. There is a 0% residual stenosis post intervention. Mid RCA lesion: Stent (Also treats lesions: Prox RCA, Prox RCA to Mid RCA, Mid RCA to Dist RCA): Lesion length: 50 mm. There is no pre-interventional antegrade distal flow (SAVAGE 0). A stent was successfully placed. The post-interventional distal flow is normal (SAVAGE 3). Bifemoral access was used for the procedure due to difficulty pronating his right arm. An 8 Russian AL-1 guide was used to engage the RCA, and a 6 Russian XB 3 guide was used to engage the left main. A trap liner and Turnpike LP were brought down over a run-through wire within the RCA to the TISSUE COORDINATOR. The TISSUE COORDINATOR was then crossed with a Gladius Mongo wire. The Turnpike was then spun across the lesion and exchanged for a wiggle wire. The lesion was predilated with a 1.5 mm Takeru balloon, and then HD IVUS was used for vessel sizing and lesion assessment. Based on this, there was clearly severe calcification throughout much of the lesion segment, including multiple areas of circumferential calcification. Accordingly, we then exchanged again with a Turnpike LP, swapping the wiggle wire for a Rotafloppy wire. After this, several runs of brief rotational atherectomy using a 1.75 mm hemanth were performed at 160,000 RPM with no complication. After this, the Rotafloppy wire was exchanged for a wiggle wire using the Turnpike LP once again. Next, the length of the lesion was predilated with a 4.0 mm NC balloon, and then overlapping 4.0 x 38 mm and 4.0 x 24 mm Synergy JEVON were deployed across the disease. Finally, the majority of the stent was postdilated with a 4.5 mm NC balloon to progressively higher pressures proximally. Final angiography and HD IVUS showed excellent result with no evidence of complication. There is a 0% residual stenosis post intervention. Mid RCA to Dist RCA lesion: Stent (Also treats lesions: Prox RCA, Prox RCA to Mid RCA, Mid RCA): Lesion length: 50 mm. There is no pre-interventional antegrade distal flow (SAVAGE 0). A stent was successfully placed. The post-interventional distal flow is normal (SAVAGE 3). Bifemoral access was used for the procedure due to difficulty pronating his right arm. An 8 Russian AL-1 guide was used to engage the RCA, and a 6 Russian XB 3 guide was used to engage the left main. A trap liner and Turnpike LP were brought down over a run-through wire within the RCA to the TISSUE COORDINATOR. The TISSUE COORDINATOR was then crossed with a Gladius Mongo wire. The Turnpike was then spun across the lesion and exchanged for a wiggle wire. The lesion was predilated with a 1.5 mm Takeru balloon, and then HD IVUS was used for vessel sizing and lesion assessment. Based on this, there was clearly severe calcification throughout much of the lesion segment, including multiple areas of circumferential calcification. Accordingly, we then exchanged again with a Turnpike LP, swapping the wiggle wire for a Rotafloppy wire. After this, several runs of brief rotational atherectomy using a 1.75 mm hemanth were performed at 160,000 RPM with no complication. After this, the Rotafloppy wire was exchanged for a wiggle wire using the Turnpike LP once again. Next, the length of the lesion was predilated with a 4.0 mm NC balloon, and then overlapping 4.0 x 38 mm and 4.0 x 24 mm Synergy JEVON were deployed across the disease. Finally, the majority of the stent was postdilated with a 4.5 mm NC balloon to progressively higher pressures proximally. Final angiography and HD IVUS showed excellent result with no evidence of complication. There is a 0% residual stenosis post intervention. Plan -Bedrest per protocol -DAPT for 6 months, followed by indefinite P2 Y12 inhibitor monotherapy -Optimal medical therapy for CAD -Cardiac rehab referral Comments/Patient Narrative 83-year-old male here for planned RCA TISSUE COORDINATOR PCI. Cath Procedure details No Complications - Patient tolerated procedure well DESCRIPTION: 1. Consent obtained with discussion of risks. All questions were answered. 2. Sterile prep and procedure. 3. Access: Local anesthetic with lidocaineLocation with Sheaths: 4. Right Femoral Artery: A 21-gauge micropuncture needle with Sonosite and fluoroscopic guidance was used to establish vascular access. Access was successful. A 45 cm 8 Russian sheath was placed. 4. Left Femoral Artery: A 21-gauge micropuncture needle with Sonosite and fluoroscopic guidance was used to establish vascular access. Access was successful. A 45 cm 6 Russian sheath was placed. 5. Diagnostic Catheters: None 6. Guiding Catheters: 8 Fr AL 1.0 GC 6 Fr XB LF 3.0 GC 7. Sheath Management: Angiography was performed of the Right common femoral artery, showing trivial PAD. The RFA sheath was removed and an 8F Angioseal was placed. Angiography was performed of the Left common femoral artery, showing trivial PAD. The LFA sheath was removed and a 6F Angioseal was placed. 8. Estimated blood loss: < 50 ml The attending car chaser was present and supervised all critical aspects the procedure. us Gerardo Jiang MD CV CARDIAC CATH ORDERAB LES Final Result * (ABNORMAL) Activated clotting time celite, POCT (02/14/2024 10:46 AM ASSOCIATE PROFESSOR OF COMMUNICATION) Only the most recent of5 resultswithin the time period is included. Activated Clotting Time (Celite) POCT 274(H) 74 - 150 seconds 02/14/2024 10:52 AM ASSOCIATE PROFESSOR OF COMMUNICATION LABORATORY POC Blood, arterial BLOOD SPECIMEN / Unknown 02/14/2024 10:46 AM ASSOCIATE PROFESSOR OF COMMUNICATION 02/14/2024 10:52 AM ASSOCIATE PROFESSOR OF COMMUNICATION us Gerardo Jiang MD LAB - BEAKER POCT Final Result LABORATORY POC [facility] [address] 1[address] floor, [address] [place] [address] * (ABNORMAL) Troponin T, High Sensitivity (02/14/2024 7:15 AM ASSOCIATE PROFESSOR OF COMMUNICATION) Pathologist [facility] Troponin T, High Sensitivity 39(H) <=22 ng/L 02/14/2024 6:44 PM ASSOCIATE PROFESSOR OF COMMUNICATION [facility] Comment: Either a High Sensitivity Troponin T baseline (0 hours) value = 100 ng/L, or an increase in High Sensitivity Troponin T = 7 ng/L at 2 hours compared to 0 hours (2-0 hours), suggests myocardial injury, and urgent clinical attention is required. If the 2-0 hours increase is <7 ng/L, a High Sensitivity Troponin T result above gender-specific reference ranges warrants further evaluation. Recommendations for further evaluation include correlation with clinical decision-making tool (e.g., HEART), a 3rd High Sensitivity Troponin T test 2 hours after the 2nd (a 20% change from baseline would represent concern), admission for observation, close PCC/cardiology follow-up, or urgent outpatient provocative testing. Blood STRUCTURE OF LEFT UPPER LIMB / Unknown Venipuncture / Unknown 02/14/2024 7:15 AM ASSOCIATE PROFESSOR OF COMMUNICATION 02/14/2024 7:18 AM ASSOCIATE PROFESSOR OF COMMUNICATION Neva Wang P[facility]COL[employer] [facility] LAB - BLOOD ORDERABLES F inal Result U LABORATORY [facility] [address] [facility] [address], [address] [place] [address], [facility] * (ABNORMAL) Lipid Profile (02/14/2024 7:15 AM ASSOCIATE PROFESSOR OF COMMUNICATION) Cholesterol 132 <200 mg/dL 02/14/2024 6:35 PM ASSOCIATE PROFESSOR OF COMMUNICATION [facility] Triglycerides 112 <150 mg/dL 02/14/2024 6:35 PM ASSOCIATE PROFESSOR OF COMMUNICATION [facility] Direct Measure HDL 36(L) >=40 mg/dL 2023 6:35 PM ASSOCIATE PROFESSOR OF COMMUNICATION [facility] LDL Cholesterol Calculated 74 <100 mg/dL 02/14/2024 6:35 PM ASSOCIATE PROFESSOR OF COMMUNICATION [facility] Non HDL Cholesterol 96 <130 mg/dL 02/14/2024 6:35 PM ASSOCIATE PROFESSOR OF COMMUNICATION [facility] Blood STRUCTURE OF LEFT UPPER LIMB / Unknown Venipuncture / Unknown 02/14/2024 7:15 AM ASSOCIATE PROFESSOR OF COMMUNICATION 02/14/2024 7:18 AM ASSOCIATE PROFESSOR OF COMMUNICATION Narrative [facility] - 02/14/2024 6:35 PM ASSOCIATE PROFESSOR OF COMMUNICATION Cholesterol Desirable: < 200 mg/dL Borderline High: 200 - 239 mg/dL High: >= 240 mg/dL Triglycerides Normal: < 150 mg/dL Borderline High: 150 - 199 mg/dL High: 200-499 mg/dL Very High: >= 500 mg/dL Direct Measure HDL Female: >= 50 mg/dL Male: >= 40 mg/dL LDL Cholesterol Desirable: < 100 mg/dL Above Desirable: 100 - 129 mg/dL Borderline High: 130 - 159 mg/dL High: 160 - 189 mg/dL Very High: >= 190 mg/dL Non HDL Cholesterol Desirable: < 130 mg/dL Above Desirable: 130 - 159 mg/dL Borderline High: 160 - 189 mg/dL High: 190 - 219 mg/dL Very High: >= 220 mg/dL Gerardo Jiang MD LAB - BLOOD ORDERABLES Final Result [facility] [address] [facility] [address] [facility], [address] [place] [address], [facility] * Lab Result - HIM Scan (02/04/2024 12:00 AM CDT) 02/04/2024 us Provider Outside NON-BEAKER LAB TESTING Final Result from Last 3 Months Insurance MEDICARE [facility] SENIOR SUPPLEMENT MEDICARE T SENIOR SUPPLEMENT Advance Directives For more information, please contact: [phone] * Full Code (Latest Code Status on File) Date Activated Date Inactivated Comments 02/18/2024 3:36 PM 02/23/2024 12:19 PM All basic and advanced life-sustaining interventions are performed as appropriate Question Answer Comments Code status determined by: Discussion with patie nt/ legal decision maker * Full Code Date Activated Date Inactivated Comments 02/18/2024 10:06 AM 02/18/2024 3:33 PM Question Answer Comments Code status determined by: Discussion with patie nt/ legal decision maker * Full Code Date Activated Date Inactivated Comments 02/14/2024 9:38 PM 02/18/2024 10:06 AM All basic and advanced life-sustaining interventions are performed as appropriate Question Answer Comments Code status determined by: Discussion with patie nt/ legal decision maker * Full Code Date Activated Date Inactivated Comments 11/09/2020 4:42 PM 11/10/2020 2:10 PM All basic and advanced life-sustaining interventions are performed as appropriate Question Answer Comments Code status determined by: Discussion with patie nt/ legal decision maker * Full Code Date Activated Date Inactivated Comments 10/09/2020 7:03 AM 11/09/2020 9:11 AM Question Answer Comments Code status determined by: Discussion with patie nt/ legal decision maker Care Teams Advertising Sales Assistant Relationship Specialty Start Date End Date Soto Thompson MD PCP - General Family Medicine 09/23/20 eGrardo Jiang MD [address] [id number] Assigned Heart and Vascular Provider 10/30/23 Nancy Forbes DO [address] [place] [address] Physician Neurology 02/22/24 Farzad Sevilla MD [address] [place] [address] Cardiovascular Disease 02/22/24
--- OUTSIDE RECORDS SUMMARY | 2024-04-10 14:44 | XMS_ITS | Encounter Summary ---
Author Organization [facility] Address [address] [place] [address]. [place] [address] Care Team Providers Care Private Watchman Name Role Phone Soto Thompson MD Primary Care Provider [phone] Zechariah Lange MD Unavailable [phone] Gerardo Jiang MD Unavailable [phone] Nancy Forbes DO Unavailable [phone] Farzad Sevilla MD Unavailable [phone] Encounter Details Date Type Department Care Team (Late st Contact Info) Description 11/05/2020 External Order Results [facility] [address] [place] [address] Outside, Provider Social History Tobacco Use Types Packs/Day Years Used Date Smoking Tobacco: Former Cigarettes 0.5 25 1 985 - 2009 Smokeless Tobacco: Never Alcohol Use Standard Drinks/Week Comments Not Currently 0 (1 standard drink = 0.6 oz pur e alcohol) Sex and Gender Information Value Date Recorded Sex Assigned at Not on file Legal Sex Male 4:03 AM CERTIFIER Gender Identity Not on file Sexual Orientation Not on file COVID-19 Exposure Response Date Recorded In the last month, have you been in contact with someone who was confirmed or suspected to have Coronavirus / COVID-19? No / Unsure 10/28/2020 2:30 PM CDT documented as of this encounter Plan of Treatment Not on file documented as of this encounter Procedures Procedure Name Priority Date/Time Associated Diagnosis Comments COVID-19 VIRUS (CORONAVIRUS) BY PCR (EXTERNAL RESULT) Routine 11/05/2020 11:45 AM CDT documented in this encounter Results * COVID-19 Virus (Coronavirus) by PCR (External Result) (11/05/2020 11:45 AM CDT) COVID-19 Virus by PCR (External Result) NEGATIVE SARS-CoV-2 NEGATIVE COVID-19 EXTERNAL RESULTS 11/05/2020 11:4 5 AM CDT Narrative [facility] - 11/08/2020 12:14 PM CDT Verified by Elpidio Waggoner on 11/08/2020. Performed by: [facility] [address], [place] [address] us Patient Reported LABORATORY Edited Result - Final [facility] COVID-19 EXTERNAL RESULTS COVID-19 External Result Scanned into Patient Record by [email or web address] Refer to Result Comment/Narrative for exact performing laboratory [address] documented in this encounter Visit Diagnoses Not on filedocumented in this encounter Care Teams Private Watchman Relationship Specialty Start Date End Date Soto Thompson MD PCP - General Family Medicine 09/23/20 Zechariah Lange MD [address] [place] [id number] Assigned Heart and Vascular Provider 09/26/20 10/29/23 Gerardo Jiang MD [address] [place] [id number] Assigned Heart and Vascular Provider 10/30/23 Nancy Forbes DO [address] [place], [place] [address] Physician Neurology 02/22/24 Farzad Sevilla MD [address] [place] [id number] Cardiovascular Disease 02/22/24 documented as of this encounter
--- OUTSIDE RECORDS SUMMARY | 2024-04-10 14:44 | XMS_ITS | Encounter Summary ---
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) Procedures Cardiac Device Check - Remote Farzad Sevilla MD [address] [place] [address] Phone: tel: fax: Referral ID Status Reason Start Date Expiration Date V isits Requested Visits Authorized [id number] Pending Review 12/12/2023 12/11/2024 1 1 * Consultation (Routine: Next available opening) - Pending Review Specialty Diagnoses / Procedures Referred By Contact Referred To Contact Cardiovascular Disease Diagnoses Complete atrioventricular block (H) Elective replacement indicated for cardiac pacemaker battery at end of lifespan Farzad Sevilla MD [address] [place] [address] Phone: tel:[phone] fax:[phone] Referral ID Status Reason Start Date Expiration Date V isits Requested Visits Authorized [id number] Pending Review 12/12/2023 12/11/2024 1 1 Question Answer Follow-up with: Self Reason for follow-up: EP EP Cardiology: DEVICE Scheduling Instructions: [facility] will call you to coordinate your care as prescribed by your provider. If you have concerns about scheduling, please call [phone]. Comments [facility] will call you to coordinate your care as prescribed by your provider. If you have concerns about scheduling, please call [phone]. 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) Procedures Cardiac Device Check - In Clinic Farzad Sevilla MD [address] [place] [address] Phone: tel: fax: Referral ID Status Reason Start Date Expiration Date V isits Requested Visits Authorized [id number] Pending Review 12/11/2023 12/10/2024 1 1 Reason for Visit * Reason Onset Date Comments Call Back 12/07/2023 Pacemaker quesit ons Schedule procedure 12/07/2023 Reschedule pr ocedure Encounter Details Date Type Department Care Team (Late st Contact Info) Description 12/07/2023 Telephone [facility] [address] [place] [phone] Gerardo Jiang MD [address] [place] [address] Call Back (Pacemaker quesitons); Schedule procedure (Reschedule procedure ) Social History Tobacco Use Types Packs/Day Years Used Date Smoking Tobacco: Former Cigarettes 0.5 25 1 985 - 2009 Passive Smoke Exposure: Never Smokeless Tobacco: Never Alcohol Use Standard Drinks/Week Comments Not Currently 0 (1 standard drink = 0.6 oz pur e alcohol) Adolescent Education Answer Date Record ed Getting School Help Needed Not on file 01/14 Sex and Gender Information Value Date Recorded Sex Assigned at Not on file Legal Sex Male 4:03 AM [employer] Gender Identity Not on file Sexual Orientation Not on file documented as of this encounter Miscellaneous Notes * Telephone Encounter - Umm Buchanan RN - 12/17/2023 2:27 PM CDT Images from the original note were not included. Gerardo Jiang MD You; [facility] Heart Team 4Just now (2:26 PM) Yes, lets schedule the DIGITAL CONTENT MANAGER for at least a week or 2 after his generator change. Thanks Received the above response from Dr. Jiang. Update routed to Divya Fish Hatchery Assistant. MARGARITA Sosa * Telephone Encounter - Umm Buchanan RN - 12/17/2023 2:10 PM CDT Images from the original note were not included. Divya Gandhi [facility] Heart Team 4; [facility] Heart Device Nurse; Divya Gandhi8 minutes ago (1:57 PM) ROSANA Morton, I just want to confirm before I call pt to schedule. There are a few notes in pt's chart. Am I to cancel the DIGITAL CONTENT MANAGER on 01/[address] Jiang?? Is pt getting device scheduled here or [facility]? Thank you! Divya Received above message from Divya Fish Hatchery Assistant. Per Dr. Jiang: Gerardo Jiang MD [facility] Heart Team 4; Lynda Gallardo, RN4 hours ago (9:32 AM) Praveen Howell, From my perspective, the DIGITAL CONTENT MANAGER PCI is not an emergency. I do not necessarily need to have the device generator changed beforehand, but I would imagine that EP would prefer not to have him on mandatory DAPT, especially if there is a possible issue with one of the leads. This is the main reason to do the device change first. If we cannot get it done any sooner than February, we should go ahead and move his DIGITAL CONTENT MANAGER PCI after that. As for the NSVT, I agree that he should discuss this with EP, but fairly brief episodes like this are not unexpected given his underlying ischemia. The main thing that we can do is to make sure that he is on a good medical regimen and that his electrolytes are normal. Thanks It also appears from note from MARGARITA Howell on 12/14/23 that patient has scheduled his generator change at [facility] on 01/30/24. Called and spoke with patient's , Barb (consent to communicate on file, regarding Dr. Jiang's recommendation to make sure EP was aware of the NSVT. Recommended they make sure [facility] is aware prior to the generator change. Barb stated that they did speak to [facility] and they are aware. Message routed back to Divya to let her know that the generator change is scheduled at [facility]. Will let Team 4 review and respond on timing of DIGITAL CONTENT MANAGER. MARGARITA Sosa * Telephone Encounter - Halima Saavedra - 12/17/2023 1:39 PM CDT [facility] Phone Message May a detailed message be left on voicemail: yes Reason for Call: Other: The patient called to see if he could get the procedure for 01/13 could be canceled and rescheduled per Dr Jiang's instructions Patient wants to wait until after his generator change to r/s Action Taken: Other: Cardiology Travel Screening: Not Applicable Thank you! [facility] Date of Service: * Telephone Encounter - Lynda Gallardo RN - 12/14/2023 3:38 PM CDT Pt called and stated he has scheduled his gen change at [facility] on January 30, 2024. The question remains is if Dr Jiang wants to proceed with PCI on January 13 as scheduled or if he wants to push this out until pts gen change is done. Will forward this to Dr Jiang and his team to coordinate this. Margaux AVILA * Telephone Encounter - Bertha Serra, RN - 12/12/2023 3:48 PM CDT Images from the original note were not included. Called [employer] to get device model and serial number for patient's device. According to atransmission sent to [facility] device [facility] 12/07/23, pt's device device triggered SHLOMO 12/05/23. [employer] technical service department confirmed this SHLOMO. IQRA Flowers Received above message from Pijon, Device Tech. Transmission from 12/07/23 available on Latitude. Results as below: [employer] Advantio (D)) Remote PPM Device Check AP: 10% BAKERY TECHNICIAN: 35% Mode: DDD 60-130 Presenting Rhythm: -BAKERY TECHNICIAN 60-70s Historical Underlying Rhythm: unknown Heart Rate: stable, adequate variability, mostly from 60-90s per histogram Sensing: WNL Pacing Threshold: RV lead elevated at 2.7V@0.4ms (has been stable since at least 11/2022 per graphictrends). RA lead REEMA (not on auto). Impedance: WNL Battery Status: triggered SHLOMO on 12/05/23 Atrial Arrhythmia: 3 mode switch episodes logged since 08/14/17 lasting 1-2 seconds (most recent logged 05/15/20). EGMs show brief atrial arrhythmias. Ventricular Arrhythmia: 39 HVR episodes logged since 08/14/17 (most recent occurred on 08/29/23). 24 EGMs confirm V>A lasting 4-16 beats, rates 140-200s. Episodes date back to 02/17/14. EF 65-70% (08/02/23) 8 remaining EGMs show 4-16 beats PAT, rates 150-180s Care Plan: patient's device triggered SHLOMO on 12/05/23. Orders placed for H&P (needs to establishwith EP. Should be with MD - especially in light of NSVT episodes and elevated RV threshold. This appt can also be used to H&P... Unfortunately there aren't any EP MD openings prior to patient's DIGITAL CONTENT MANAGER scheduled procedure on 01/14/24). I spoke with Kayode. He is aware that a remote transmission came through and we were able to confirm that his device has triggered COMPUTER EDUCATION TEACHER and needs to be replaced. That being said, he will need to meet with an EP MD to discuss some of the findings... Patient states that he was never told by [facility] that one of his leads was using more energy. He is aware that the lead has been stable for at least the last year so it is not a cause of acute concern by any means but it should be discussed in clinic. He also states that he was never told that he had episode of non sustained ventricular tachycardia or that there were any rhythm concerns ever noted on his device. He has not been seen by [facility] since 2018. He is aware that I will work to get him established with onr of our EP MDs prior to the time his device battery needs to be exchanged but unfortunately this won't happen prior to his procedure on 01/14/24. Will notify Dr. Jiang of this to determine if he is still comfortable moving forward with the procedure. MARGARITA Fisher NSVT Example Strips: 08/29/23 (most recent): 02/17/2014: * Telephone Encounter - Bertha Serra RN - 12/11/2023 5:02 PM CDT Upon review, patient has a [employer] pacemaker. In clinic order placed. Will get patient scheduled for a full device check. Sounds as though his device has 3 months remaining until COMPUTER EDUCATION TEACHER.... we can not order a gen change until the device has triggered COMPUTER EDUCATION TEACHER (insurance requirement). Once his device has triggered we will get him scheduled for H&P and replacement. Called patient and ended up speaking with his . She believed that [facility] had called Kayode and told him that his device needs to be replaced within 3 months. This sounds as though patient's device IS at recommended replacement time but she wasn't sure. Unfortunately, patient's medical information from [facility] He should be seen in clinic for a full device check so we can do a full device and battery assessment. Scheduled for next available that worked for patient, Sunday at 0945. Will get him set up for H&P and gen change as needed following this appt. Encounter routed to the Device [email or web address] for assistance with getting his information pulled over. VITO RN * Telephone Encounter - Shanell Hays RN - 12/11/2023 4:36 PM CDT Images from the original note were not included. Received response from Dr. Jiang: Gerardo Jiang MD Hair, Ashley W, RN; [facility] Heart Team 4 Caller: Unspecified (4 days ago, 12:48 PM) Probably a good idea to do his battery change first, and then the DIGITAL CONTENT MANAGER PCI later. Thanks, Zenon Called back to pt. Reviewed Dr. Jiang's recommendations. Pt asked if it would be possible to transfer his device care to our clinic and have the procedure done here instead of going to [facility].Will review with device team. Pt stated if our clinic calls back tomorrow he would prefer we call after 10:30 am. * Telephone Encounter - Shanell Hays RN - 12/11/2023 11:05 AM CDT Called back and spoke with pt. DIGITAL CONTENT MANAGER procedure is scheduled on 01/14/[address] Jiang. Pt does his device care through [facility] and stated they called him last week and advised his pacemaker battery is expiring and he will need to have a procedure to change it in the next 3 months. Pt said did not schedule yet as he wanted to check with Dr. Jiang if he should do the pacemaker procedure before or after his DIGITAL CONTENT MANAGER procedure . Unable to view [facility] records in Care Everywhere. Advised will review with Dr. Jiang. * Telephone Encounter - LinaZakia - 12/07/2023 12:48 PM CDT [facility] Phone Message May a detailed message be left on voicemail: yes Reason for Call: Other: Pt would like a call back [facility] as he has a procedure coming up in January but was told his pacemaker needs to be changed , so he is wondering if he should do the procedure with Dr Jiang first or have his pacemaker changed with [facility], Please reach out to pt melania as he stated [facility] will be calling today and he needs a few questions answered Action Taken: Other: Cardio Travel Screening: Not Applicable Date of Service: documented in this encounter Plan of Treatment Scheduled Orders Name Type Priority Associated Diagnoses Orde r Schedule Cardiac Device Check - In Clinic Implantable Cardiac Device Routine 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) 1 Occurrences starting 12/11/2023 until 12/10/2024 Scheduled Referrals Name Type Priority Associated Diagnoses Orde r Schedule Follow-Up with Cardiology Referral Routine: Next available opening Complete atrioventricular block (H) Elective replacement indicated for cardiac pacemaker battery at end of lifespan Expected: 12/12/2023 (Approximate), Expires: 12/11/2024 documented as of this encounter Results * INTERROGATION DEVICE EVAL REMOTE PACER UP TO 90 DAYS (12/12/2023 4:30 PM CDT) Pathologist [facility] Implantable Pulse Generator Cloud Services Architect [employer] Implantable Pulse Generator Model K063 ADVANTIO [employer] Implantable Pulse Generator Serial Number [id number] [employer] Type Interrogation Session Remote [employer] Clinic Name Jessica [employer] Implantable Pulse Generator Type Pacemaker [employer] Implantable Pulse Generator Implant Date 20131230 [employer] Implantable Lead Cloud Services Architect [employer] Implantable Lead Model 4136 Dextrus [employer] Implantable Lead Serial Number [id number] [employer] Implantable Lead Implant Date 20131230 [employer] Implantable Lead Polarity Type Bipolar Lead [employer] Implantable Lead Location Detail 1 UNKNOWN [employer] Implantable Lead Location Right Atrium [employer] Implantable Lead Connection Status Connected [employer] Implantable Lead Cloud Services Architect [employer] Implantable Lead Model 4137 Dextrus [employer] Implantable Lead Serial Number [id number] [employer] Implantable Lead Implant Date 20131230 [employer] Implantable Lead Polarity Type Bipolar Lead [employer] Implantable Lead Location Detail 1 UNKNOWN [employer] Implantable Lead Location Right Ventricle [employer] Implantable Lead Connection Status Connected [employer] Date Time Interrogation Session [id number] [employer] Anatomical Region Laterality Modality Other 12/12/2023 4:01 PM CDT Narrative 12/13/2023 9:45 AM CDT [employer] Advantio (D)) Remote PPM Device Check AP: 10% BAKERY TECHNICIAN: 35% Mode: DDD 60-130 Presenting Rhythm: -BAKERY TECHNICIAN 60-70s Historical Underlying Rhythm: unknown Heart Rate: stable, adequate variability, mostly from 60-90s per histogram Sensing: WNL Pacing Threshold: RV lead elevated at 2.7V@0.4ms (has been stable since at least 11/2022 per graphic trends). RA lead REEMA (not on auto). Impedance: WNL Battery Status: triggered SHLOMO on 12/05/23 Atrial Arrhythmia: 3 mode switch episodes logged since 08/14/17 lasting 1-2 seconds (most recent logged 05/15/20). EGMs show brief atrial arrhythmias. Ventricular Arrhythmia: 39 HVR episodes logged since 08/14/17 (most recent occurred on 08/29/23). 24 EGMs confirm V>A lasting 4-16 beats, rates 140-200s 8 remaining EGMs show 4-16 beats PAT, rates 150-180s Care Plan: patient's device triggered SHLOMO on 12/05/23. Orders placed for H&P (needs to establish with EP. Should be with MD - especially in light of NSVT episodes and elevated RV threshold. This appt can also be used to H&P... Unfortunately there aren't any EP MD openings prior to patient's DIGITAL CONTENT MANAGER scheduled procedure on 01/14/24). I spoke with Kayode. He is aware that a remote transmission came through and we were able to confirm that his device has triggered COMPUTER EDUCATION TEACHER and needs to be replaced. That being said, he will need to meet with an EP MD to discuss some of the findings... Patient states that he was never told by [facility] that one of his leads was using more energy. He is aware that the lead has been stable for at least the last year so it is not a cause of acute concern by any means but it should be discussed in clinic. He also states that he was never told that he had episode of non sustained ventricular tachycardia or that there were any rhythm concerns ever noted on his device. He has not been seen by [facility] since 2018. He is aware that I will work to get him established with onr of our EP MDs prior to the time his device battery needs to be exchanged but unfortunately this won't happen prior to his procedure on 01/14/24. Will notify Dr[address] Jiang of this to determine if he is still comfortable moving forward with the procedure. Phillip, RN I have reviewed and interpreted the device interrogation, settings, programming and nurse's summary. The device is functioning within normal device parameters. I agree with the current findings, assessment and plan. 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
--- OUTSIDE RECORDS SUMMARY | 2024-04-10 14:44 | XMS_ITS | Clinical Summary ---
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 For routine questions regarding patient records, call [phone] during business hours, M-F 8:00 AM - 5:00 PM Central Time. Record requests for emergency care only can be directed to [phone] at any time.[facility] Allergies Active Allergy Reactions Criticality Noted Date Comments Sulfa (Sulfonamide Antibiotics) Other (see comments) 09/17/2020 Reaction as a child Medications aspirin [address] tablet Take 81 mg by mouth. Active cholecalciferol (Vitamin D3) 25 mcg (1,000 Unit) capsule Take 1,000 Units by mouth daily. Active fenofibrate (Lofibra) 160 mg tablet Take 160 mg by mouth. 08/10/2020 Active insulin aspart U-100 (NovoLOG Flexpen U-100 Insulin) 100 unit/mL (3 mL) pen Inject 0-20 Units under the skin. 08/10/2020 Active insulin glargine 100 unit/mL (3 mL) pen Inject 38 Units under the skin. 11/03/2022 Active irbesartan (Avapro) 300 mg tablet Take 150 mg by mouth. 08/10/2020 Active levothyroxine 100 mcg tablet Take 100 mcg by mouth daily. 08/10/2020 Active metFORMIN XR (Glucophage-XR) 500 mg 24 hr tablet Take 500 mg by mouth. 08/10/2020 Active metoprolol succinate (Toprol XL) 100 mg 24 hr tablet Take 100 mg by mouth. 08/10/2020 Active pioglitazone (Actos) 15 mg tablet Take 15 mg by mouth every morning. 08/11/2020 Active rosuvastatin (Crestor) 20 mg tablet Take 1 tablet by mouth daily. 10/08/2023 Active tamsulosin (Flomax) 0.4 mg 24 hr capsule Take 0.8 mg by mouth. 08/10/2020 Active finasteride (Proscar) 5 mg tablet Take 5 mg by mouth. 05/09/2022 Active lutein 20 mg capsule Take 20 mg by mouth every morning. Active milk thistle seed extract 175 mg capsule Take 175 mg by mouth. Active multivitamin tablet Take 1 tablet by mouth. 10/25/2021 Active metoprolol succinate (Toprol XL) 100 mg 24 hr tablet by other route. 01/30/2022 Active pioglitazone (Actos) 15 mg tablet Take 15 mg by mouth daily. 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 Discharge Disposition: Home or Self Care 02/04/2024 Orders Only Department of Cardiovascular Diseases in [place], [place] [address] [place] [phone] Noé Caruso M.D. Encounter For Checking And Testing Of Cardiac Pacemaker Pulse Generator Battery (Primary Dx) 01/31/2024 Clinical Communication Department of Cardiovascular Medicine in [address] [phone] Joe Tolliver M.B.B.S. Device Registration 01/30/2024 7:45 AM CDT - 01/30/2024 9:15 AM CDT Surgery Division of Cardiovascular Diseases in [address] [phone] Joe Tolliver M.B.B.S. PPM Generator Change - Dual Chamber 01/30/2024 6:21 AM CDT - 01/30/2024 10:25 AM CDT Hospital Encounter Division of Cardiovascular Diseases in [place], [place] [address] [place] [address] Joe Tolliver M.B.B.S. Aftercare Cardiac Pacemaker; Syncope Discharge Disposition: Home or Self Care 01/30/2024 Orders Only Department of Cardiovascular Medicine in [place], [place] [address] [place] [address] Hollis Esteban M.D., Ph.D. 01/22/2024 11:56 AM CDT - 01/22/2024 11:59 PM CDT Hospital Encounter Department of Radiology, [facility], in [place], [place] [address] [place] [address] Joe Tolliver M.B.B.S. Aftercare Cardiac Pacemaker; Syncope Discharge Disposition: Home or Self Care 01/22/2024 11:00 AM CDT Office Visit Department of Cardiovascular Medicine in [place], [place] [address] [place] [address] Alpa Blackwood, WES, C.N.P. Atherosclerotic Heart Disease Of [place] Coronary Artery Without Angina Pectoris (Primary Dx); Pacemaker Cardiac Status Post; Diabetes Mellitus Type 2 (HCC); Hypertension Essential Primary 01/22/2024 10:00 AM CDT - 01/22/2024 11:55 AM CDT Hospital Encounter Department of Cardiovascular Diseases in [place], [place] [address] [place] [address] Joe Tolliver M.B.B.S. Aftercare Cardiac Pacemaker; Syncope Discharge Disposition: Home or Self Care 01/22/2024 9:34 AM CDT - 01/22/2024 9:59 AM CDT Hospital Encounter Department of Laboratory Medicine and Pathology, [facility], in [place], [place] [address] [place] [address] Joe Tolliver M.B.BAnitaS. Aftercare Cardiac Pacemaker; Syncope Discharge Disposition: Home or Self Care 01/21/2024 9:45 AM CDT Clinical Communication Virtual Review in [place], [place] [address] [place] [address] Pre-visit Intake from Last 3 Months Social History Tobacco Use Types Packs/Day Years Used Date Smoking Tobacco: Former Cigarettes 2 004 - 1960 Smokeless Tobacco: Never Tobacco Cessation:Counseling Given: Not Answered Alcohol Use Standard Drinks/Week Comments Not Currently 1 (1 standard drink = 0.6 oz pur e alcohol) [facility] Utilities Answer Date Recorded In the past 12 months has e electric, gas, oil, or water company threatened to shut off services in your home? No 01/19/2024 Exercise Vital Sign Answer Date Recorde d On average, how many days pe r week do you engage in moderate to strenuous exercise (like a brisk walk)? 1 day 01/19/2024 On average, how many minutes do you engage in exercise at this level? 10 min 01/19/2024 Hunger Vital Sign Answer Date Recorded Within the past 12 months, y ou worried that your food would run out before you got the money to buy more. Never true 01/19/20 Within the past 12 months, t he food you bought just didn't last and you didn't have money to get more. Never true 01/19/2024 PRAPARE - Transportation Answer Date Re corded In the past 12 months, has l ack of transportation kept you from medical appointments or from getting medications? No 01/07 In the past 12 months, has l ack of transportation kept you from meetings, work, or from getting things needed for daily living? No 01/19/2024 Nutrition Answer Date Recorded On average, how many serving s of fruits and vegetables do you eat per day (serving size is equal to 1 cup or approximately the size of a tennis ball)? 0-2 01/19/2024 Dental Answer Date Recorded Dental: Regular Dentist Yes 01/19/20 Employment Answer Date Recorded Employment status Retired 01/19/2024 Housing Stability Answer Date Recorded What is your living situation today? I have a [facility] place to live 01/19/2024 Sex and Gender Information Value Date Recorded Sex Assigned at Male 01/19/2024 8:16 PM CDT Legal Sex Male 9:15 PM PROJECT DEVELOPMENT COORDINATOR Gender Identity Male 01/19/2024 8:16 PM CDT Sexual Orientation Straight 01/19/2024 8: 16 PM CDT Last Filed Vital Signs Vital Sign Reading Time Taken Comments Blood Pressure 146/53 01/30/2024 10:15 AM CDT Pulse 62 01/30/2024 10:24 AM CDT Temperature 36.1 C (97 F) 01/30/2024 7:00 AM CDT Respiratory Rate 16 01/30/2024 9:30 AM CDT Oxygen Saturation 94% 01/30/2024 10:24 AM CDT Inhaled Oxygen Concentration - - Weight 101 kg (222 lb 7.1 oz) 01/30/2024 7:00 AM CDT Height 169.7 cm (5' 6.81) 01/30/2024 7:00 AM CD T Body Mass Index 35.04 01/30/2024 7:00 AM CDT Plan of Treatment Health Maintenance Due Date Last Done Comments Diabetic Office Visit with Foot Exam 1940 Dilated Eye Exam 1940 Thyroid Stimulating Hormone (TSH) test for thyroid function 1940 Urine Albumin 1940 Visit: Chronic Disease, age 18+ 1940 Visit: Medicare Annual Wellness 1940 Hepatitis B Vaccines (1 of 3 - Risk 3-dose series) 2000 DTaP,Tdap,and Td Vaccines (1 - Tdap) 09/09/2013 09/08/2013 RSV vaccine - (32-36 weeks) or 60+ years (1 - 1-dose 75+ series) 10/06/2015 Depression Screening (Annual PHQ-2) 04/09/2023 Hemoglobin A1C 05/17/2024 02/15/2024, 11/0 11/2023, 10/08/2020 Office Visit for Blood Pressure Check / Re-check 01/21/2025 01/22/2024 Creatinine Level (Kidney Function Test) 02/20/2025 02/21/2024, 02/20/2024, 02/19/2024, Additional history exists Potassium Level 02/20/2025 02/21/2024, 02/07, 02/19/2024, Additional history exists Sodium Level 02/20/2025 02/21/2024, 02/07, 02/19/2024, Additional history exists Pneumococcal vaccine (50+ years) Completed 11/16/2016, 11/16/2016, 04/20/2015 Zoster Vaccines Completed 04/04/2022, 01/08, 09/08/2013 COVID-19 Vaccine Completed 01/04/2024, 01/2022, 07/25/2021, Additional history exists Influenza Vaccine Completed 01/04/2024, , 02/08/2022, Additional history exists Fall Risk Screen (Annual) Completed 01/30/2024 IPV Vaccines Aged Out No longer eligi ble based on patient's age to complete this topic Medical Devices Implanted Type Area Outreach Associate Device Identifier Shelf Expiration Date Model / Serial / Lot Lead Guidant John [id number] Implanted: (Quantity not on file) Cardiac Lead Chest Guidant / [id number] / Description:LEAD Guidant Cor p [id number] Dextrus Lead Guidant John [id number] Implanted: (Quantity not on file) Cardiac Lead Chest Guidant / [id number] / Description:LEAD Guidant Cor p [id number] Dextrus Hardware E.G. Pins/Screws/R ods Hardware e.g. pins/screws/r ods Left: Ankle Description:Patient states r emoved shortly after Envelope Tyrx - [id number] Implanted:Qty : 1 on 01/30/2024 by Joe Tolliver M.B.B.S. at [facility] Mesh or Patch Medtronic 09/22/2024 [id number] / / [id number] Ocular Lens Ocular Lens Bilateral : Eye Ppm Ess[address]io Dr Virk Mri - [id number] - [id number] Implanted:Qty : 1 on 01/30/2024 by Joe Tolliver M.B.B.S. at [facility] Pacemaker [employer] 12/02/2025 [id number] / [id number] / Explanted Type Area Outreach Associate Device Identifier Shelf Expiration Date Model / Serial / Lot Pacemaker [employer] [id number] Implanted:12/30 (Quantity not on file) Explanted:Qty: 1 on 01/30/2024 by Joe Tolliver M.B.B.SAnita at [facility] Pacemaker Chest [employer] / [id number] / Description:Pacemaker [employer] [id number] ADVANTIO Procedures Procedure Name Priority Date/Time Associated Diagnosis Comments INTERFACED REMOTE DEVICE CHECK Routine 02/27/2024 11:56 AM PROJECT DEVELOPMENT COORDINATOR GLUCOSE POCT, B Routine 01/30/2024 10:10 AM CDT HEART RHYTHM PROCEDURE Routine 01/30/2024 9:21 AM CDT Aftercare Cardiac Pacemaker Syncope CAR CARDIAC DEVICE INTERROGATION Routine 01/30/2024 8:16 AM CDT GLUCOSE POCT, B Routine 01/30/2024 7:25 AM CDT DX CHEST AP OR PA AND LATERAL 2 VIEWS RAD - Routine (most inpatients and all outpatients) 01/22/2024 12:06 PM CDT Aftercare Cardiac Pacemaker Syncope PACER DUAL CHAMBER INTERROGATION WITH PROGRAMMING Routine 01/22/2024 10:38 AM CDT Aftercare Cardiac Pacemaker Syncope BASIC METABOLIC PANEL, S/P Routine 01/22/2024 9:58 AM CDT Aftercare Cardiac Pacemaker Syncope CBC WITHOUT DIFFERENTIAL, B Routine 01/22/2024 9:58 AM CDT Aftercare Cardiac Pacemaker Syncope from Last 3 Months Results * CAR CARDIAC DEVICE INTERROGATION (02/27/2024 11:56 AM PROJECT DEVELOPMENT COORDINATOR) Date Time Interrogation Session [id number] [facility] Type Interrogation Session Remote Scheduled [facility] Implantable Pulse Generator Outreach Associate [employer] [facility] Implantable Pulse Generator Type Pacemaker [facility] Implantable Pulse Generator Model L131 [facility] Implantable Pulse Generator Serial Number [id number] [facility] Implantable Pulse Generator Implant Date 20240130 [facility] Battery Remaining Percentage 100.00 % [facility] Battery Remaining Longevity 120.0 mo [facility] Battery Status Beginning of Service [facility] Gen Statistic RA Percent Paced 24.00 [facility] Gen Statistic RV Percent Paced 97.00 [facility] Atrial Tachy Statistic AT/AF [place] Percent 0.00 [facility] Lead Channel Sensing Intrinsic Amplitude 3.800 [facility] Lead Channel Setting Sensing Sensitivity 0.50 [facility] Lead Channel Impedance Value 511 [facility] Lead Channel Measurements Date and Time 20240225 [facility] Lead Channel Setting Pacing Amplitude 1.500 [facility] Lead Channel Setting Pacing Pulse Width 0.4 [facility] Lead Channel Setting Sensing Sensitivity 2.50 [facility] Lead Channel Impedance Value 432 [facility] Lead Channel Measurements Date and Time 20240225 [facility] Lead Channel Setting Pacing Amplitude 3.200 [facility] Lead Channel Setting Pacing Pulse Width 0.8 [facility] Gen Setting Mode (NBG Code) DDDR [facility] Gen Setting Lower Rate Limit 60 [facility] Gen Setting AT Mode Switch Rate 170 [facility] Gen Setting Maximum Tracking Rate 130 [facility] Gen Setting Maximum Sensor Rate 130 [facility] Gen Setting PAV Delay 80 [facility] Gen Setting PAWAN Delay 65 [facility] Lead Channel Setting Sensing Polarity Bipolar [facility] Lead Channel Setting Sensing Polarity Bipolar [facility] Lead Channel Setting Pacing Polarity Bipolar [facility] Lead Channel Setting Pacing Polarity Bipolar [facility] Lead Channel Pacing Threshold Polarity Bipolar [facility] Lead Channel Pacing Threshold Polarity Bipolar [facility] Zone Setting Type Category VT [facility] Murj Rate 1 160 [facility] Zone Setting Status Monitor [facility] Murj Zone ID 1 [facility] Implantable Lead Outreach Associate Guidant [facility] Implantable Lead Model 4137 Dextrus [facility] Implantable Lead Location Right Ventricle [facility] Implantable Lead Connection Status Connected [facility] Implantable Lead Serial Number [id number] [facility] Implantable Lead Implant Date 20131230 [facility] Implantable Lead Outreach Associate Guidant [facility] Implantable Lead Model 4136 Dextrus [facility] Implantable Lead Location Right Atrium [facility] Implantable Lead Connection Status Connected [facility] Implantable Lead Serial Number [id number] [facility] Implantable Lead Implant Date 20131230 [facility] Anatomical Region Laterality Modality Other 03/11/2024 6:41 AM PROJECT DEVELOPMENT COORDINATOR Impressions 03/11/2024 6:41 AM PROJECT DEVELOPMENT COORDINATOR Encounter Impression: Title: Normal Remote: No Events * Normal Device Function * Alerts or events: None * Battery: 10.00 yrs * Sensing, impedance and thresholds reviewed * Programmed parameters reviewed * Presenting rhythm: Atrial sensed/Ventricular paced @ 70 bpm. * Heart Rate Histograms reviewed * No significant changes noted Plan: Routine quarterly remote follow up and as needed. This patient underwent device interrogation. I agree that the device interrogation was medically indicated to provide appropriate care and continue routine device interrogations as indicated. Encounter Summary: This report includes 2 total transmissions that were received between 2024-02-02 and 2024-02-26. 1 transmission was archived as non- contributory. The remaining transmission was used to construct the conclusion and plan for this report. Battery, lead impedance, sensing amplitude and pacing threshold data was reviewed. Narrative Procedure Note Arthur Renae M.D. - 03/11/2024 IMPRESSION: Encounter Impression: Title: Normal Remote: No Events * Normal Device Function * Alerts or events: None * Battery: 10.00 yrs * Sensing, impedance and thresholds reviewed * Programmed parameters reviewed * Presenting rhythm: Atrial sensed/Ventricular paced @ 70 bpm. * Heart Rate Histograms reviewed * No significant changes noted Plan: Routine quarterly remote follow up and as needed. This patient underwent device interrogation. I agree that the deviceinterrogation was medically indicated to provide appropriate care andcontinue routine device interrogations as indicated. Encounter Summary: This report includes 2 total transmissions that werereceived between 2024-02-02 and 2024-02-26. 1 transmission was archived asnon- contributory. The remaining transmission was used to construct theconclusion and plan for this report. Battery, lead impedance, sensing amplitude and pacing threshold data wasreviewed. us Arthur Renae M.D. CV IMPLANTABLE CARDIAC ALFIE CE Edited Result - Final * Glucose, POCT (01/30/2024 10:10 AM CDT) Only the most recent of2 resultswithin the time period is included. Glucose, POCT, B 138 70 - 140 mg/dL 01/30/2024 10:14 AM CDT PCLX Site Capillary 01/30/2024 10:14 AM CDT PCLX Blood 01/30/2024 10:1 0 AM CDT 01/30/2024 10:14 AM CDT us Unknown Provider LAB POCT ORDERABLES-MANUAL Audra l Result POC [facility] [address] [place] [address], [facility] PCLX [facility] POC [address] [place] [address] * PPM GENERATOR CHANGE - DUAL CHAMBER (01/30/2024 9:21 AM CDT) Anatomical Region Laterality Modality X-Ray Angiograph y 01/30/2024 8:33 AM CDT Narrative 01/31/2024 9:51 AM CDT For the complete report, see the Order-Level Documents. PROCEDURE TYPES 1. PPM GENERATOR CHANGE - DUAL CHAMBER PRE-PROCEDURE DIAGNOSIS 1. Aftercare Cardiac Pacemaker 2. Syncope HRS NOTE PROCEDURE(S) Dual-chamber pacemaker pack change. DESCRIPTION OF PROCEDURE Patient was brought to room 111 in stable condition. He was prepped and draped in usual sterile fashion. Preop antibiotics were given. Pause was performed. Prior left infraclavicular region was infiltrated with lidocaine. An incision was made. Using combination of sharp and blunt dissection, prepectoral fascia was noted, pocket capsule noted, excised, and device removed without any difficulty. The 2 leads were disconnected and connected to a new generator and placed in the pocket. Device was placed in antibiotic pouch. Device was tacked down to the underlying pectoris muscle. Incision was closed in 2 layers of 2-0 Vicryl, final layer of 4-0 Stratafix. Mepilex dressing was applied. Final pacing, sensing, impedance looked satisfactory. Patient left the procedure in stable condition. No apparent complications. FINAL IMPRESSION: 1. Status post dual-chamber pacemaker pack change. Margaret ConcepcionBAnitaS. CT CT Job ID: [id number] For the complete report, see the Order-Level Documents. Procedure Note Joe Tolliver M.B.B.S. - 01/31/2024 For the complete report, see the Order-Level Documents. PROCEDURE TYPES 1. PPM GENERATOR CHANGE - DUAL CHAMBER PRE-PROCEDURE DIAGNOSIS 1. Aftercare Cardiac Pacemaker 2. Syncope HRS NOTE PROCEDURE(S) Dual-chamber pacemaker pack change. DESCRIPTION OF PROCEDURE Patient was brought to room 111 in stablecondition. He was prepped and draped in usual sterile fashion. Preopantibiotics were given. Pause was performed. Prior left infraclavicularregion was infiltrated with lidocaine. An incision was made. Usingcombination of sharp and blunt dissection, prepectoral fascia was noted,pocket capsule noted, excised, and device removed without any difficulty.The 2 leads were disconnected and connected to a new generator and placedin the pocket. Device was placed in antibiotic pouch. Device was tackeddown to the underlying pectoris muscle. Incision was closed in 2 layers of2-0 Vicryl, final layer of 4-0 Stratafix. Mepilex dressing was applied.Final pacing, sensing, impedance looked satisfactory. Patient left theprocedure in stable condition. No apparent complications. FINAL IMPRESSION: 1. Status post dual-chamber pacemaker pack change. Vineet ConcepcionS. CT CT Job ID: [id number] For the complete report, see the Order-Level Documents. us Joe ManleyS. CV ELECTROPHYSIOLOG Y PROCS Final Result * CARDIOVASCULAR IMPLANTABLE ELECTRONIC DEVICE - NO CHARGE (01/30/2024 8:16 AM CDT) Only the most recent of2 resultswithin the time period is included. Date Time Interrogation Session [id number] [facility] Implantable Pulse Generator Outreach Associate [employer] [facility] Implantable Pulse Generator Type Pacemaker [employer] [facility] [facility] Implantable Pulse Generator Model L131 [facility] [facility] [facility] Implantable Pulse Generator Serial Number [id number] [facility] Implantable Pulse Generator Implant Date 20240130 [facility] Battery [facility] Lead Channel Sensing Intrinsic Amplitude 4.000 [facility] Lead Channel Setting Sensing Sensitivity 0.50 [facility] Lead Channel Impedance Value 533 [facility] Lead Channel Pacing Threshold Amplitude 0.500 [facility] Lead Channel Pacing Threshold Pulse Width 0.4 [facility] Lead Channel Measurements Date and Time 2024-01-30 [facility] Lead Channel Setting Pacing Amplitude 1.500 [facility] Lead Channel Setting Pacing Pulse Width 0.4 [facility] Lead Channel Setting Sensing Sensitivity 2.50 [facility] Lead Channel Impedance Value 429 [facility] Lead Channel Pacing Threshold Amplitude 1.800 [facility] Lead Channel Pacing Threshold Pulse Width 0.8 [facility] Lead Channel Measurements Date and Time 2024-01-30 [facility] Lead Channel Setting Pacing Amplitude 3.200 [facility] Lead Channel Setting Pacing Pulse Width 0.8 [facility] Gen Setting Mode (NBG Code) DDDR [facility] Gen Setting Lower Rate Limit 60 [facility] Gen Setting AT Mode Switch Rate 170 [facility] Gen Setting Maximum Tracking Rate 130 [facility] Gen Setting Maximum Sensor Rate 130 [facility] Gen Setting PAV Delay 180 [facility] Gen Setting PAWAN Delay [address] [facility] Zone Setting Type Category VF [facility] Zone Setting Status Off [facility] Murj Zone ID 1 [facility] Zone Setting Type Category VT [facility] Murj Rate 1 160 [facility] Zone Setting Status Monitor [facility] Murj Zone ID 2 [facility] Zone Setting Type Category VT1 [facility] Zone Setting Status Off [facility] Murj Zone ID 3 [facility] Zone Setting Type Category AT/AF [facility] Murj Rate 1 170 [facility] Zone Setting Status Monitor [facility] Murj Zone ID 4 [facility] Implantable Lead Outreach Associate Guidant [facility] Implantable Lead Model 4137 DextruVoxxter [facility] Implantable Lead Location Right Ventricle [facility] Implantable Lead Connection Status Connected [facility] Implantable Lead Serial Number [id number] [facility] Implantable Lead Implant Date [id number] [facility] Implantable Lead Outreach Associate Guidant [facility] Implantable Lead Model 4136 Dextrus [facility] Implantable Lead Location Right Atrium [facility] Implantable Lead Connection Status Connected [facility] Implantable Lead Serial Number [id number] [facility] Implantable Lead Implant Date [id number] [facility] Anatomical Region Laterality Modality Other 01/30/2024 5:35 PM CDT Impressions 01/30/2024 5:35 PM CDT Encounter Impression: Title: Generator Change * Generator change performed on 01/30/24. * Device implanted by Dr. 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 * Temporary Pacemaker Used: No. Used old device. * Dressing: Mepilex * Same Day Dismissal: Y * Summary: Known elevated RV threshold. Impedance stable. Final programming 3.2V @0.[address] Tolliver. * Interrogation performed by: Katy Paiz RN/ Nathan Larson RN. Plan: This patient underwent device interrogation. I agree that the device interrogation was medically indicated to provide appropriate care and continue routine device interrogations as indicated. Encounter Summary: This report includes 1 transmission that was received on 2024-01-30. Battery, lead impedance, sensing amplitude and pacing threshold data was reviewed. Narrative Procedure Note Hollis Esteban M.D., Ph.D. - 01/31/2024 IMPRESSION: Encounter Impression: Title: Generator Change * Generator change performed on 01/30/24. * Device implanted by Dr. 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 * Temporary Pacemaker Used: No. Used old device. * Dressing: Mepilex * Same Day Dismissal: Y * Summary: Known elevated RV threshold. Impedance stable. Finalprogramming 3.2V @0.[address] Tolliver. * Interrogation performed by: Katy Paiz RN/ Nathan Larson RN. Plan: This patient underwent device interrogation. I agree that the deviceinterrogation was medically indicated to provide appropriate care andcontinue routine device interrogations as indicated. Encounter Summary: This report includes 1 transmission that was receivedon 2024-01-30. Battery, lead impedance, sensing amplitude and pacingthreshold data was reviewed. Nikos Emery APRNNAnita Stevenson., M.S.N. CV IMPLANTABLE CARDIAC DEVICE Edited Result - Final * DX Chest AP or PA and Lateral 2 Views (01/22/2024 12:06 PM CDT) Anatomical Region Laterality Modality Chest, Thoracic RST LOS, Tho racic ARZ LOS, Thoracic FLA LOS N/A Digital Radiography Impressions 01/22/2024 12:22 PM CDT No radiographic comparison. Cardiac silhouette size at the upper limit of normal. Small bilateral cardiac fat pads. AV pacemaker. Aortic calcification. Hypertrophic degenerative changes in the spine. Chest otherwise negative. Narrative 01/22/2024 12:22 PM CDT EXAM: DX CHEST AP OR PA AND LATERAL 2 VIEWS Procedure Note Paolo Delacruz M.D. - 01/22/2024 EXAM: DX CHEST AP OR PA AND LATERAL 2 VIEWS IMPRESSION: No radiographic comparison. Cardiac silhouette size at the upper limit ofnormal. Small bilateral cardiac fat pads. AV pacemaker. Aorticcalcification. Hypertrophic degenerative changes in the spine. Chestotherwise negative. Joe Dupont IMG DIAGNOSTIC IMAG ING PROCEDURES Final Result * (ABNORMAL) CBC without Differential (01/22/2024 9:58 AM CDT) Hemoglobin 11.8(L) 13.2 - 16.6 g/dL 01/22/2024 11:03 AM CDT DTL Hematocrit 36.2(L) 38.3 - 48.6 % 01/22/2024 11:03 AM CDT DTL Erythrocytes 3.70(L) 4.35 - 5.65 x10(12)/L 01/22/2024 11:03 AM CDT DTL MCV 97.8 78.2 - 97.9 fL 01/22/2024 11:03 AM CDT DTL RBC Distrib Width 12.5 11.8 - 14.5 % 01/22/2024 11:03 AM CDT DTL Platelet Count 262 135 - 317 x10(9)/L 01/22/2024 11:03 AM CDT DTL Leukocytes 5.6 3.4 - 9.6 x10(9)/L 01/22/2024 11:03 AM CDT DTL Blood (Blood, Venous) 01/22/2024 9:58 AM CDT 01/22/2024 10:22 AM CDT Joe Dupont LAB BLOOD ADD-ON Fi nal Result [facility] [place] [address] [place] [address], [facility] [address] [place] [address] * (ABNORMAL) Basic Metabolic Panel (01/22/2024 9:58 AM CDT) Pathologist [facility] Potassium, S 4.9 3.6 - 5.2 mmol/L 01/22/2024 10:55 AM CDT DTL Sodium, S 141 135 - 145 mmol/L 01/22/2024 10:55 AM CDT DTL Chloride, S 104 98 - 107 mmol/L 01/22/2024 10:55 AM CDT DTL Bicarbonate, S 28 22 - 29 mmol/L 01/22/2024 10:55 AM CDT DTL Anion Gap 9 7 - 15 01/22/2024 10:55 AM CDT DTL BUN (Blood Urea Nitrogen), S 40(H) 8 - 24 mg/dL 01/22/2024 10:55 AM CDT DTL Creatinine 1.98(H) 0.74 - 1.35 mg/dL 01/22/2024 10:55 AM CDT DTL Estimated GFR (eGFR) 33(L) >=60 mL/min/BSA 01/22/2024 10:55 AM CDT DTL Comment: Estimated GFR calculated using the 2020 CKD_EPI creatinine equation. 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
--- OUTSIDE RECORDS SUMMARY | 2024-04-10 14:44 | XMS_ITS | Encounter Summary ---
Author Organization [facility] Address [address] [place] [address]. [place] [address] Care Team Providers Care Contact Center Associate Name Role Phone Soto Thompson MD Primary Care Provider [phone] Zechariah Lange MD Unavailable [phone] Gerardo Jiang MD Unavailable [phone] Nancy Forbes DO Unavailable [phone] Farzad Sevilla MD Unavailable [phone] Encounter Details Date Type Department Care Team (Late st Contact Info) Description 10/04/2020 External Order Results [facility] [address] [place] [address] Outside, Provider Social History Tobacco Use Types Packs/Day Years Used Date Smoking Tobacco: Former Cigarettes 0.5 25 1 985 - 2009 Smokeless Tobacco: Never Alcohol Use Standard Drinks/Week Comments Not Currently 0 (1 standard drink = 0.6 oz pur e alcohol) Sex and Gender Information Value Date Recorded Sex Assigned at Not on file 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 No / Unsure 09/29/2020 9:43 AM CDT documented as of this encounter Plan of Treatment Not on file documented as of this encounter Procedures Procedure Name Priority Date/Time Associated Diagnosis Comments COVID-19 VIRUS (CORONAVIRUS) BY PCR (EXTERNAL RESULT) Routine 10/04/2020 10:05 AM CDT documented in this encounter Results * COVID-19 Virus (Coronavirus) by PCR (External Result) (10/04/2020 10:05 AM CDT) COVID-19 Virus by PCR (External Result) NEGATIVE NEGATIVE COVID-19 EXTERNAL RESULTS 10/04/2020 10:0 5 AM CDT Narrative [facility] - 10/04/2020 10:05 AM CDT Verified by Jasbir Russell on 10/06/2020. Verified by Jasbir Russell on 10/06/2020. Testing location [address] [address] [place] Patient Reported LABORATORY Edited Result - Final [facility] COVID-19 EXTERNAL RESULTS COVID-19 External Result Scanned into Patient Record by Fast Fi[employer] Refer to Result Comment/Narrative for exact performing laboratory [address] documented in this encounter Visit Diagnoses Not on filedocumented in this encounter Care Teams Contact Center Associate Relationship Specialty Start Date End Date Soto Thompson MD PCP - General Family Medicine 09/23/20 Zechariah Lange MD [address] [place] [address] Assigned Heart and Vascular Provider 09/26/20 10/29/23 Gerardo Jiang MD [address] [place] [id number] Assigned Heart and Vascular Provider 10/30/23 Nancy Forbes DO [address] [place], [place] [address] Physician Neurology 02/22/24 Farzad Sevilla MD [address] [place] [address] Cardiovascular Disease 02/22/24 documented as of this encounter
--- OUTSIDE RECORDS SUMMARY | 2024-04-10 14:44 | XMS_ITS ---
Author Organization [facility] Address [address] [place] [id number] Care Team Providers Care Dental Practice Manager Name Role Phone Soto Thompson MD Primary Care Provider [phone] Gerardo Jiang MD Unavailable [phone] Nancy Forbes DO Unavailable [phone] Farzad Sevilla MD Unavailable [phone] Transitional Care Management Status:Closed (Closed) Start date:02/25/2024 Enrollment date:02/25/2024 End date:03/10/2024 Close reason:Goals met Continued Care and Services Coordination
--- OUTSIDE RECORDS SUMMARY | 2024-04-10 14:44 | XMS_ITS | Encounter Summary ---
Author Organization [facility] Address [address] [place] [address]. [place] [address] Care Team Providers Care Service Station Cashier Name Role Phone Soto Thompson MD Primary Care Provider [phone] Gerardo Jiang MD Unavailable [phone] Nancy Forbes DO Unavailable [phone] Farzad Sevilla MD Unavailable [phone] Reason for Visit * Reason Onset Date Comments Call Back 12/03/2023 Cath Procedure Encounter Details Date Type Department Care Team (Late st Contact Info) Description 12/03/2023 [facility] [address] [place] [id number] Gerardo Jiang MD [address] [place], [place] [address] Call Back (Cath Procedure) Social History Tobacco Use Types Packs/Day Years [...] on file 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 Nicolas Horowitz - 12/03/2023 12:17 PM CDT [facility] Phone Message May a detailed message be left on voicemail: yes Reason for Call: Other: Kayode would like a call back to get his cath procedure scheduled. Action Taken: Other: Cardiology Travel Screening: Not Applicable Thank you! [facility] documented in this encounter Plan of Treatment Not on file documented as of this encounter Visit Diagnoses Not on filedocumented in this encounter Care Teams Service Station Cashier Relationship Specialty Start Date End Date Soto Thompson MD PCP - General Family Medicine 09/23/20 Gerardo Jiang MD [address] [place] [id number] Assigned Heart and Vascular Provider 10/30/23 Nancy Forbes DO [address] [place], [place] [address] Physician Neurology 02/22/24 Farzad Sevilla MD [address] [place] [address] Cardiovascular Disease 02/22/24 documented as of this encounter
--- OUTSIDE RECORDS SUMMARY | 2024-04-10 14:44 | XMS_ITS | Encounter Summary ---
Author Organization [facility] Address [address] [place] [address]. [place] [address] Care Team Providers Care Geothermal System Installer Name Role Phone Soto Thompson MD Primary Care Provider [phone] Zechariah Lange MD Unavailable [phone] Gerardo Jiang MD Unavailable [phone] Nancy Forbes DO Unavailable [phone] Farzad Sevilla MD Unavailable [phone] Encounter Details Date Type Department Care Team (Late st Contact Info) Description 08/07/2023 External Order Results [facility] [address] [place] [address] Outside, Provider Social History Tobacco Use Types [...] on file 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 Gender Identity Not on file Sexual Orientation Not on file documented as of this encounter Plan of Treatment Not on file documented as of this encounter Procedures Procedure Name Priority Date/Time Associated Diagnosis Comments HEMOGLOBIN A1C Routine 08/07/2023 3:10 PM CDT IONIZED CALCIUM Routine 08/07/2023 3:10 PM CDT BASIC METABOLIC PANEL Routine 08/07/2023 3:10 PM CDT documented in this encounter Results * (ABNORMAL) Hemoglobin A1c (08/07/2023 3:10 PM CDT) [facility] Hemoglobin A1C (External) 7.5(H) 0 - 5.6 % NON-INTERFACED (ONBASE SCANS) Blood BLOOD SPECIMEN / Unknown 08/07/2023 3:10 PM CDT Lila [facility] - 10/23/2023 10:04 AM CDT Verified by Angelita Valverde on 10/23/2023. Provider Outside LAB - BLOOD ORDERABLES Edited [facility] Performing Organization Address [facility] de Phone Number [facility] NON-INTERFACED (ONBASE SCANS) * (ABNORMAL) Ionized Calcium (08/07/2023 3:10 PM CDT) [facility] Calcium Ionized (External) 1.37(H) 1.11 - 1.33 mmol/L NON-INTERFACED (ONBASE SCANS) Blood BLOOD SPECIMEN / Unknown 08/07/2023 3:10 PM CDT Narrative [facility] - 10/23/2023 10:04 AM CDT Verified by Angelita Valverde on 10/23/2023. Provider Outside LAB - BLOOD ORDERABLES Edited [facility] Performing Organization Address [facility] Co de Phone Number [facility] NON-INTERFACED (ONBASE SCANS) * (ABNORMAL) Basic metabolic panel (08/07/2023 3:10 PM CDT) Pathologist [facility] Sodium (External) 139 136 - 146 mmol/L NON-INTERFACED (ONBASE SCANS) Potassium (External) 4.6 3.5 - 4.9 mmol/L NON-INTERFACED (ONBASE SCANS) Chloride (External) 103 98 - 109 mmol/L NON-INTERFACED (ONBASE SCANS) CO2 (External) 27 20 - 32 mmol/L NON-INTERFACED (ONBASE SCANS) Urea Nitrogen (External) 33(H) 8 - 26 mg/dl NON-INTERFACED (ONBASE SCANS) Creatinine (External) 1.8(H) 0.6 - 1.3 mg/dl NON-INTERFACED (ONBASE SCANS) Glucose (External) 209(H) 60 - 115 mg/dl NON-INTERFACED (ONBASE SCANS) Blood BLOOD SPECIMEN / Unknown 08/07/2023 3:10 PM CDT Narrative [facility] - 10/23/2023 10:04 AM CDT Verified by Angelita Valverde on 10/23/2023. us Provider Outside LAB - BLOOD ORDERABLES Edited R esult - Final SH[facility] PFDanielle NON-INTERFACED (ONBASE SCANS) documented in this encounter Visit Diagnoses Not on filedocumented in this encounter Care Teams Geothermal System Installer Relationship Specialty Start Date End Date Soto Thompson MD PCP - General Family Medicine 09/23/20 Zechariah Lange MD [address] [place] [address] Assigned Heart and Vascular Provider 09/26/20 10/29/23 Gerardo Jiang MD [address] [place] [address] Assigned Heart and Vascular Provider 10/30/23 Nancy Forbes DO [address] [place], [place] [address] Physician Neurology 02/22/24 Farzad Sevilla MD [address] [place] [address] Cardiovascular Disease 02/22/24 documented as of this encounter
--- OUTSIDE RECORDS SUMMARY | 2024-04-10 14:44 | XMS_ITS | Clinical Summary ---
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 4 Active clopidogrel (PLAVIX) 75 MG tabletIndication s:Coronary artery disease involving [place] coronary artery of [place] heart without angina pectoris Take 1 tablet [...] morning, and 25 units in the evening. Active metFORMIN (GLUCOPHAGE XR) 500 MG 24 hr tabletIndication s:Type 2 diabetes mellitus with stage 3 chronic kidney disease, with long-term current use of insulin, unspecified whether stage 3a or 3b CKD (H) Take 1 tablet (500 mg) by mouth 2 times daily. 180 tablet Active Active Problems Problem Noted Date Diagnosed Date Acute embolic stroke 02/18/2024 Right sided weakness 02/14/2024 Coronary artery disease invo lving [place] coronary artery of [place] heart 02/02/2024 Cardiac pacemaker in situ 02/02/2024 CKD (chronic kidney disease) stage 3, GFR 30-59 ml/min 02/02/2024 Benign essential hypertension 02/02/2024 Hyperlipidemia with target LDL less than 70 01/08 Diabetes mellitus, type 2 03/18/2021 Carotid stenosis, asymptomatic, left 10/28/2020 Overview (10/28/2020): Added automatically from request for surgery [id number] Carotid stenosis, asymptomatic, bilateral 2020 Overview (09/27/2020): Added automatically from request for surgery [id number] Encounters Date Type Department Care Team Description 03/18/2024 Telephone [facility] Care Coordination [facility] [address] [place] [phone] Emma Waters RN Results (Ziopatch Heart Monitor) 02/18/2024 3:33 PM LABOR UNION BUSINESS REPRESENTATIVE - 02/23/2024 10:19 AM LABOR UNION BUSINESS REPRESENTATIVE Hospital Encounter [facility] [address] [phone] Holden Trejo MD Acute embolic stroke (H) (Primary Dx); Coronary artery disease involving [place] coronary artery of [place] heart without angina pectoris; Benign prostatic hyperplasia, unspecified whether lower urinary tract symptoms present; Type 2 diabetes mellitus with hyperglycemia, with long-term current use of insulin (H); Type 2 diabetes mellitus with stage 3 chronic kidney disease, with long-term current use of insulin, unspecified whether stage 3a or 3b CKD (H) Discharge Disposition: Home or Self Care 02/18/2024 Orders Only (auto-released) [facility] [address] [phone] Adilene Lemus PA-C 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 (H) 02/15/2024 Orders Only (auto-released) [facility] [address] [place] [phone] Penelope Warner PA-C 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 (H) 02/15/2024 Travel 02/14/2024 4:44 PM LABOR UNION BUSINESS REPRESENTATIVE - 02/18/2024 3:01 PM LABOR UNION BUSINESS REPRESENTATIVE Hospital Encounter 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); Type 2 diabetes mellitus with stage 3 chronic kidney disease, with long-term current use of insulin, unspecified whether stage 3a or 3b CKD (H) Discharge Disposition: Acute Rehab Facility 02/14/2024 8:30 AM LABOR UNION BUSINESS REPRESENTATIVE - 02/14/2024 10:30 AM LABOR UNION BUSINESS REPRESENTATIVE Surgery [facility] [address] [place] [phone] Gerardo Jiang MD Percutaneous Coronary Intervention - Chronic Total Occlusion 02/14/2024 6:33 AM LABOR UNION BUSINESS REPRESENTATIVE - 02/14/2024 4:42 PM LABOR UNION BUSINESS REPRESENTATIVE Hospital Encounter 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); Chronic total occlusion of coronary artery; Coronary artery disease involving [place] coronary artery of [place] heart without angina pectoris; Coronary artery disease involving [place] coronary artery of [place] heart; Carotid stenosis, asymptomatic, left Discharge Disposition: Home or Self Care 02/13/2024 Orders Only [facility] [address] [facility] [address] [place] [phone] Gerardo Jiang MD Coronary artery disease involving [place] coronary artery of [place] heart without angina pectoris (Primary Dx); Chronic total occlusion of coronary artery 02/13/2024 Telephone [facility] [address] [facility] [address] [place] [phone] Gerardo Jiang MD Procedure (Percutaneous Coronary Intervention - Chronic Total Occlusion [[id number]]) 02/12/2024 11:00 AM LABOR UNION BUSINESS REPRESENTATIVE Lab [facility] [address] [facility] [address] [place] [phone] Beatriz Fonseca APRN CNP Stage 3 chronic kidney disease, unspecified whether stage 3a or 3b CKD (H) 02/12/2024 Travel 02/01/2024 2:00 PM CDT Office Visit [facility] [id number] [place] [address] [address] [place] [phone] Beatriz Fonseca APRN CNP Coronary artery disease involving [place] coronary artery of [place] heart without angina pectoris (Primary Dx); Stage 3 chronic kidney disease, unspecified whether stage 3a or 3b CKD (H); Cardiac pacemaker in situ; Carotid stenosis, asymptomatic, bilateral; Type 2 diabetes mellitus with hyperosmolarity without coma, with long-term current use of insulin (H); Benign essential hypertension; Hyperlipidemia with target LDL less than 70 02/01/2024 Travel from Last 3 Months Immunizations Name Administration Dates Next Due COVID-19 [...] in an abandoned building, in an overnight [place] [facility], or couch-surfing.) Yes 02/15/2024 Are you worried [...] on file Legal Sex Male 4:03 AM LABOR UNION BUSINESS REPRESENTATIVE Gender Identity Not on file Sexual Orientation Not on file Last Filed Vital Signs Vital Sign Reading Time Taken Comments Blood Pressure 140/59 02/23/2024 9:11 AM LABOR UNION BUSINESS REPRESENTATIVE Pulse 82 02/23/2024 9:11 AM LABOR UNION BUSINESS REPRESENTATIVE Temperature 36.3 C (97.3 F) 02/23/2024 8:05 AM LABOR UNION BUSINESS REPRESENTATIVE Respiratory Rate 18 02/23/2024 8:05 AM LABOR UNION BUSINESS REPRESENTATIVE Oxygen Saturation 97% 02/23/2024 8:05 AM LABOR UNION BUSINESS REPRESENTATIVE Inhaled Oxygen Concentration - - Weight 98.8 kg (217 lb 14.4 oz) 02/18/2024 3:30 PM LABOR UNION BUSINESS REPRESENTATIVE Height 173.7 cm (5' 8.4) 02/18/2024 3:30 PM LABOR UNION BUSINESS REPRESENTATIVE Body Mass Index 32.75 02/18/2024 3:30 PM LABOR UNION BUSINESS REPRESENTATIVE Plan of Treatment Health Maintenance Due Date Last Done Comments ADVANCE CARE PLANNING 1940 ANNUAL REVIEW OF HM ORDERS 1940 DIABETIC FOOT EXAM 1940 EYE EXAM 1940 MICROALBUMIN 1940 TSH W/FREE T4 REFLEX 1940 URINALYSIS 1941 FALL RISK ASSESSMENT 2005 MEDICARE ANNUAL WELLNESS VISIT 2005 RSV VACCINE (1 - 1-dose 75+ series) 10/06/2015 Pneumococcal Vaccine: 50+ Years (2 of 2 - PPSV23) 01/11/2017 11/16/2016, 11/16/2016, 04/20/2015 DTAP/TDAP/TD IMMUNIZATION (2 - Td or Tdap) 09/09/2023 09/08/2013, 09/08/2013 PHQ-2 (once per calendar year) 2024 02/01/2024 A1C 05/17/2024 02/15/2024, 110 11/2023, 08/07/2023, Additional history exists LIPID 02/13/2025 02/14/2024, 11/09/2020 BMP 02/20/2025 02/21/2024, 02/07, 02/19/2024, Additional history exists HEMOGLOBIN 02/20/2025 02/21/2024, 110 11/2023, 02/14/2024, Additional history exists ZOSTER IMMUNIZATION Completed 04/04/2022, 02/01/2022, 09/08/2013 COVID-19 Vaccine Completed 01/04/2024, 01/2022, 07/25/2021, Additional history exists INFLUENZA VACCINE Completed 01/04/2024, , 02/08/2022, Additional history exists HPV IMMUNIZATION Aged Out No longer e ligible based on patient's age to complete this topic MENINGITIS IMMUNIZATION Aged Out No l onger eligible based on patient's age to complete this topic RSV MONOCLONAL ANTIBODY Aged Out No l onger eligible based on patient's age to complete this topic Medical Devices Implanted Type Area Roving Technician Device Identifier Shelf Expiration Date Model / Serial / Lot Imp Patch Pericardium Photofix Bovine 0.8x8cm Pfp0.8x8 - [id number] Implanted:Qty : 1 on 10/08/2020 by Zechariah Lange MD at [facility] Bone/Tissue /Biologic Right: Neck CRYOLIFE 05/28/2022 PFP0.8X8 / [id number] / [id number] Imp Patch Pericardium Photofix Bovine 0.8x8cm Pfp0.8x8 - [id number] Implanted:Qty : 1 on 11/09/2020 by Zechariah Lange MD at [facility] Bone/Tissue /Biologic Left: Carotid CRYOLIFE [id number] 06/25/2022 PFP0.8X8 / / [id number] Guidant John 4136 Dextrus [id number] Implanted: (Quantity not on file) Leads [employer]- 4136 DEXTRUS / [id number] / Guidant John 4137 Dextrus [id number] Implanted: (Quantity not on file) Leads [employer]- 4137 DEXTRUS / [id number] / Destrehan Scie* K063 Advantio [id number] Implanted: (Quantity not on file) Pacemaker [employer] K063 ADVANTIO / [id number] / Stent Coronary Jevon Synergy Xd Mr Us 4.15q20xs [id number] - [id number] Implanted:Qty : 1 on 02/14/2024 at [facility] Stent Drug Eluting (JEVON) [employer] 08/20/2025 [id number] / / [id number] Stent Coronary Jevon Azeem Xd Mr Us 4.05j00rl [id number] - [id number] Implanted:Qty : 1 on 02/14/2024 at [facility] Stent Drug Eluting (JEVON) [employer] 05/23/2025 [id number] / / [id number] Closure Angioseal 6fr 133901 - [id number] Implanted:Qty : 1 on 02/14/2024 at [facility] [employer] [id number] / / Explanted Type Area Roving Technician Device Identifier Shelf Expiration Date Model / Serial / Lot Stent Coronary Jevon Azeem Xd Mr Us 4.25h12cn [id number] - [id number] Explanted:Qty: 1 on 02/14/2024 at [facility] Stent Drug Eluting (JEVON) [employer] 03/26/2025 [id number] / / [id number] Procedures Procedure Name Priority Date/Time Associated Diagnosis Comments ZIO PATCH MAIL OUT Routine 03/14/2024 7: 43 AM LABOR UNION BUSINESS REPRESENTATIVE 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 (H) GLUCOSE BY METER Routine 02/23/2024 8:11 AM LABOR UNION BUSINESS REPRESENTATIVE GLUCOSE BY METER Routine 02/23/2024 2:29 AM LABOR UNION BUSINESS REPRESENTATIVE GLUCOSE BY METER Routine 02/23/2024 1:59 AM LABOR UNION BUSINESS REPRESENTATIVE GLUCOSE BY METER Routine 02/22/2024 9:04 PM LABOR UNION BUSINESS REPRESENTATIVE GLUCOSE BY METER Routine 02/22/2024 5:12 PM LABOR UNION BUSINESS REPRESENTATIVE GLUCOSE BY METER Routine 02/22/2024 12:2 1 PM LABOR UNION BUSINESS REPRESENTATIVE GLUCOSE BY METER Routine 02/22/2024 8:46 AM LABOR UNION BUSINESS REPRESENTATIVE GLUCOSE BY METER Routine 02/22/2024 8:27 AM LABOR UNION BUSINESS REPRESENTATIVE GLUCOSE BY METER Routine 02/22/2024 8:12 AM LABOR UNION BUSINESS REPRESENTATIVE GLUCOSE BY METER Routine 02/22/2024 2:17 AM LABOR UNION BUSINESS REPRESENTATIVE GLUCOSE BY METER Routine 02/21/2024 9:24 PM LABOR UNION BUSINESS REPRESENTATIVE GLUCOSE BY METER Routine 02/21/2024 5:42 PM LABOR UNION BUSINESS REPRESENTATIVE GLUCOSE BY METER Routine 02/21/2024 12:5 0 PM LABOR UNION BUSINESS REPRESENTATIVE GLUCOSE BY METER Routine 02/21/2024 8:44 AM LABOR UNION BUSINESS REPRESENTATIVE GLUCOSE BY METER Routine 02/21/2024 8:21 AM LABOR UNION BUSINESS REPRESENTATIVE GLUCOSE BY METER Routine 02/21/2024 8:04 AM LABOR UNION BUSINESS REPRESENTATIVE BASIC METABOLIC PANEL Routine 02/21/2024 6:14 AM LABOR UNION BUSINESS REPRESENTATIVE CBC WITH PLATELETS Routine 02/21/2024 6: 14 AM LABOR UNION BUSINESS REPRESENTATIVE GLUCOSE BY METER Routine 02/21/2024 1:48 AM LABOR UNION BUSINESS REPRESENTATIVE GLUCOSE BY METER Routine 02/20/2024 9:44 PM LABOR UNION BUSINESS REPRESENTATIVE GLUCOSE BY METER Routine 02/20/2024 5:23 PM LABOR UNION BUSINESS REPRESENTATIVE GLUCOSE BY METER Routine 02/20/2024 12:5 0 PM LABOR UNION BUSINESS REPRESENTATIVE GLUCOSE BY METER Routine 02/20/2024 8:16 AM LABOR UNION BUSINESS REPRESENTATIVE EXTRA PURPLE TOP TUBE Routine 02/20/2024 5:41 AM LABOR UNION BUSINESS REPRESENTATIVE EXTRA TUBE Routine 02/20/2024 5:41 AM LABOR UNION BUSINESS REPRESENTATIVE BASIC METABOLIC PANEL Routine 02/20/2024 5:41 AM LABOR UNION BUSINESS REPRESENTATIVE GLUCOSE BY METER Routine 02/20/2024 2:17 AM LABOR UNION BUSINESS REPRESENTATIVE GLUCOSE BY METER Routine 02/19/2024 9:31 PM LABOR UNION BUSINESS REPRESENTATIVE GLUCOSE BY METER Routine 02/19/2024 12:1 8 PM LABOR UNION BUSINESS REPRESENTATIVE GLUCOSE BY METER Routine 02/19/2024 7:34 AM LABOR UNION BUSINESS REPRESENTATIVE EXTRA PURPLE TOP TUBE Routine 02/19/2024 7:00 AM LABOR UNION BUSINESS REPRESENTATIVE EXTRA TUBE Routine 02/19/2024 7:00 AM LABOR UNION BUSINESS REPRESENTATIVE BASIC METABOLIC PANEL Routine 02/19/2024 7:00 AM LABOR UNION BUSINESS REPRESENTATIVE GLUCOSE BY METER Routine 02/19/2024 1:15 AM LABOR UNION BUSINESS REPRESENTATIVE GLUCOSE BY METER Routine 02/18/2024 9:06 PM LABOR UNION BUSINESS REPRESENTATIVE GLUCOSE BY METER Routine 02/18/2024 5:08 PM LABOR UNION BUSINESS REPRESENTATIVE GLUCOSE BY METER Routine 02/18/2024 7:59 AM LABOR UNION BUSINESS REPRESENTATIVE GLUCOSE BY METER Routine 02/18/2024 2:59 AM LABOR UNION BUSINESS REPRESENTATIVE GLUCOSE BY METER Routine 02/17/2024 9:37 PM LABOR UNION BUSINESS REPRESENTATIVE GLUCOSE BY METER Routine 02/17/2024 5:16 PM LABOR UNION BUSINESS REPRESENTATIVE GLUCOSE BY METER Routine 02/17/2024 12:5 4 PM LABOR UNION BUSINESS REPRESENTATIVE GLUCOSE BY METER Routine 02/17/2024 7:46 AM LABOR UNION BUSINESS REPRESENTATIVE GLUCOSE BY METER Routine 02/16/2024 9:10 PM LABOR UNION BUSINESS REPRESENTATIVE GLUCOSE BY METER Routine 02/16/2024 5:19 PM LABOR UNION BUSINESS REPRESENTATIVE ECHO COMPLETE WITH CONTRAST Routine 02/16/2024 12:16 PM LABOR UNION BUSINESS REPRESENTATIVE GLUCOSE BY METER Routine 02/16/2024 11:3 2 AM LABOR UNION BUSINESS REPRESENTATIVE GLUCOSE BY METER Routine 02/16/2024 8:30 AM LABOR UNION BUSINESS REPRESENTATIVE GLUCOSE BY METER Routine 02/16/2024 2:08 AM LABOR UNION BUSINESS REPRESENTATIVE GLUCOSE BY METER Routine 02/15/2024 10:1 9 PM LABOR UNION BUSINESS REPRESENTATIVE HEMOGLOBIN A1C STAT 02/15/2024 8:47 PM LABOR UNION BUSINESS REPRESENTATIVE GLUCOSE BY METER Routine 02/15/2024 8:46 PM LABOR UNION BUSINESS REPRESENTATIVE GLUCOSE BY METER STAT 02/15/2024 6:57 PM LABOR UNION BUSINESS REPRESENTATIVE GLUCOSE BY METER STAT 02/15/2024 2:40 PM LABOR UNION BUSINESS REPRESENTATIVE CTA HEAD NECK W CONTRAST STAT 02/15/2024 12:30 PM LABOR UNION BUSINESS REPRESENTATIVE GLUCOSE BY METER STAT 02/15/2024 7:20 AM LABOR UNION BUSINESS REPRESENTATIVE HEMOGLOBIN A1C STAT 02/15/2024 5:20 AM LABOR UNION BUSINESS REPRESENTATIVE BASIC METABOLIC PANEL STAT 02/15/2024 5:20 AM LABOR UNION BUSINESS REPRESENTATIVE CBC WITH PLATELETS STAT 02/15/2024 5: 20 AM LABOR UNION BUSINESS REPRESENTATIVE GLUCOSE BY METER STAT 02/15/2024 12:3 1 AM LABOR UNION BUSINESS REPRESENTATIVE US CAROTID BILATERAL STAT 02/14/2024 6:17 PM LABOR UNION BUSINESS REPRESENTATIVE CT HEAD W/O CONTRAST STAT 02/14/2024 4:31 PM LABOR UNION BUSINESS REPRESENTATIVE BASIC METABOLIC PANEL STAT 02/14/2024 4:23 PM LABOR UNION BUSINESS REPRESENTATIVE PARTIAL THROMBOPLASTIN TIME STAT 02/14/2024 4:22 PM LABOR UNION BUSINESS REPRESENTATIVE CBC WITH PLATELETS STAT 02/14/2024 4: 22 PM LABOR UNION BUSINESS REPRESENTATIVE INR STAT 02/14/2024 4:22 PM LABOR UNION BUSINESS REPRESENTATIVE GLUCOSE BY METER Routine 02/14/2024 4:02 PM LABOR UNION BUSINESS REPRESENTATIVE GLUCOSE BY METER Routine 02/14/2024 2:30 PM LABOR UNION BUSINESS REPRESENTATIVE EKG 12-LEAD, TRACING ONLY STAT 02/14/2024 12:22 PM LABOR UNION BUSINESS REPRESENTATIVE GLUCOSE BY METER Routine 02/14/2024 11:2 3 AM LABOR UNION BUSINESS REPRESENTATIVE CV PCI ATHERECTOMY ROTATIONAL Routine 02/14/2024 10:57 AM LABOR UNION BUSINESS REPRESENTATIVE 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 CV INTRAVASULAR ULTRASOUND Routine 02/14/2024 10:57 AM LABOR UNION BUSINESS REPRESENTATIVE 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 CV PCI CHRONIC TOTAL OCCLUSION Routine 02/14/2024 10:57 AM LABOR UNION BUSINESS REPRESENTATIVE 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 ACTIVATED CLOTTING TIME CELITE POCT Routine 02/14/2024 10:46 AM LABOR UNION BUSINESS REPRESENTATIVE ACTIVATED CLOTTING TIME CELITE POCT Routine 02/14/2024 10:19 AM LABOR UNION BUSINESS REPRESENTATIVE ACTIVATED CLOTTING TIME CELITE POCT Routine 02/14/2024 9:50 AM LABOR UNION BUSINESS REPRESENTATIVE ACTIVATED CLOTTING TIME CELITE POCT Routine 02/14/2024 9:33 AM LABOR UNION BUSINESS REPRESENTATIVE ACTIVATED CLOTTING TIME CELITE POCT Routine 02/14/2024 9:18 AM LABOR UNION BUSINESS REPRESENTATIVE EKG 12-LEAD, TRACING ONLY Routine 02/14/2024 7:27 AM LABOR UNION BUSINESS REPRESENTATIVE TROPONIN T, HIGH SENSITIVITY STAT Add-on 02/14/2024 7:15 AM LABOR UNION BUSINESS REPRESENTATIVE LIPID PROFILE STAT 02/14/2024 7:15 AM LABOR UNION BUSINESS REPRESENTATIVE PARTIAL THROMBOPLASTIN TIME STAT 02/14/2024 7:15 AM LABOR UNION BUSINESS REPRESENTATIVE INR STAT 02/14/2024 7:15 AM LABOR UNION BUSINESS REPRESENTATIVE CBC WITH PLATELETS STAT 02/14/2024 7: 15 AM LABOR UNION BUSINESS REPRESENTATIVE BASIC METABOLIC PANEL STAT 02/14/2024 7:15 AM LABOR UNION BUSINESS REPRESENTATIVE BASIC METABOLIC PANEL Routine 02/12/2024 11:04 AM LABOR UNION BUSINESS REPRESENTATIVE Stage 3 chronic kidney disease, unspecified whether stage 3a or 3b CKD (H) LAB RESULT - HIM SCAN 02/04/2024 12:00 AM CDT from Last 3 Months Results * ZIO PATCH MAIL OUT (03/14/2024 7:43 AM LABOR UNION BUSINESS REPRESENTATIVE) Zio Prelim Results Patient had a min HR of 59 bpm, max HR of 97 bpm, and avg HR of 67 bpm. Predominant underlying rhythm was Possible Atrial and Ventricular Pacing. Isolated SVEs were rare (<1.0%), and no SVE Couplets or SVE Triplets were present. Isolated VEs were occasional (4.4%, 80224), VE Couplets were rare (<1.0%, 245), and no VE Triplets were present. Ventricular Trigeminy was present. CARDIOLOGY RESULTS Anatomical Region Laterality Modality Other 03/14/2024 7:43 AM LABOR UNION BUSINESS REPRESENTATIVE Narrative 03/16/2024 10:00 AM LABOR UNION BUSINESS REPRESENTATIVE 8-day recording. Frequent PVCs (4.4%). Occasional pacing. No symptoms reported. Penelope Warner PA-C CV CARDIAC SERVICES ORDERAB LES Final Result * Glucose by meter (02/23/2024 8:11 AM LABOR UNION BUSINESS REPRESENTATIVE) Only the most recent of48 resultswithin the time period is included. GLUCOSE BY METER POCT 89 70 - 99 mg/dL 02/23/2024 8:17 AM LABOR UNION BUSINESS REPRESENTATIVE UR LABORATORY POC Blood, Capillary BLOOD SPECIMEN / Unknown 02/23/2024 8:11 AM LABOR UNION BUSINESS REPRESENTATIVE 02/23/2024 8:17 AM LABOR UNION BUSINESS REPRESENTATIVE Holden Trejo MD LAB - BEAKER POCT Final R esult UR LABORATORY POC [facility] [address] [facility] [place] [phone] * (ABNORMAL) Basic metabolic panel (02/21/2024 6:14 AM LABOR UNION BUSINESS REPRESENTATIVE) Only the most recent of7 resultswithin the time period is included. Sodium 141 135 - 145 mmol/L 02/21/2024 6:50 AM LABOR UNION BUSINESS REPRESENTATIVE UR LAB[facility]ATORY Potassium 4.6 3.4 - 5.3 mmol/L 02/21/2024 6:50 AM LABOR UNION BUSINESS REPRESENTATIVE UR LAB[facility]ATORY Chloride 106 98 - 107 mmol/L 02/21/2024 6:50 AM LABOR UNION BUSINESS REPRESENTATIVE UR LAB[facility]ATORY Carbon Dioxide (CO2) 27 22 - 29 mmol/L 02/21/2024 6:50 AM LABOR UNION BUSINESS REPRESENTATIVE UR LAB[facility]ATORY Anion Gap 8 7 - 15 mmol/L 02/21/2024 6:50 AM LABOR UNION BUSINESS REPRESENTATIVE UR LAB[facility]ATORY Urea Nitrogen 41.8(H) 8.0 - 23.0 mg/dL 02/21/2024 6:50 AM LABOR UNION BUSINESS REPRESENTATIVE UR LAB[facility]ATORY Creatinine 1.90(H) 0.67 - 1.17 mg/dL 02/21/2024 6:50 AM LABOR UNION BUSINESS REPRESENTATIVE UR LAB[facility]ATORY GFR Estimate 35(L) >60 mL/min/1.7 3m2 02/21/2024 6:50 AM LABOR UNION BUSINESS REPRESENTATIVE UR LABORATORY Comment:eGFR calculated usin 2020 CKD-EPI equation. Calcium 10.2 8.8 - 10.4 mg/dL 02/21/2024 6:50 AM LABOR UNION BUSINESS REPRESENTATIVE UR LABORATORY Comment:Reference intervals for this test were updated on 10/23/2023 to reflect our healthy population more accurately. There may be differences in the flagging of prior results with similar values performed with this method. Those prior results can be interpreted in the context of the updated reference intervals. Glucose 78 70 - 99 mg/dL 02/21/2024 6:50 AM LABOR UNION BUSINESS REPRESENTATIVE UR LABORATORY Blood STRUCTURE OF RIGHT HAND / Unknown Venipuncture / Unknown 02/21/2024 6:14 AM LABOR UNION BUSINESS REPRESENTATIVE 02/21/2024 6:24 AM LABOR UNION BUSINESS REPRESENTATIVE us Corina OROPEZA LAB - BLOOD ORDERABLES Audra sierra Result UR LABORATORY [facility] [address] [facility] [place] [address] * (ABNORMAL) CBC with platelets (02/21/2024 6:14 AM LABOR UNION BUSINESS REPRESENTATIVE) Only the most recent of4 resultswithin the time period is included. WBC Count 4.0 4.0 - 11.0 10e3/uL 02/21/2024 6:28 AM LABOR UNION BUSINESS REPRESENTATIVE UR LABORATORY RBC Count 3.27(L) 4.40 - 5.90 10e6/uL 02/21/2024 6:28 AM LABOR UNION BUSINESS REPRESENTATIVE UR LAB[facility]ATORY Hemoglobin 10.3(L) 13.3 - 17.7 g/dL 02/21/2024 6:28 AM LABOR UNION BUSINESS REPRESENTATIVE UR LABORATORY Hematocrit 31.0(L) 40.0 - 53.0 % 02/21/2024 6:28 AM LABOR UNION BUSINESS REPRESENTATIVE UR LABORATORY MCV 95 78 - 100 fL 02/21/2024 6:28 AM LABOR UNION BUSINESS REPRESENTATIVE UR LABORATORY MCH 31.5 26.5 - 33.0 pg 02/21/2024 6:28 AM LABOR UNION BUSINESS REPRESENTATIVE UR LAB[facility]ATORY MCHC 33.2 31.5 - 36.5 g/dL 02/21/2024 6:28 AM LABOR UNION BUSINESS REPRESENTATIVE UR LAB[facility]ATORY RDW 12.5 10.0 - 15.0 % 02/21/2024 6:28 AM LABOR UNION BUSINESS REPRESENTATIVE UR LAB[facility]ATORY Platelet Count 248 150 - 450 10e3/uL 02/21/2024 6:28 AM LABOR UNION BUSINESS REPRESENTATIVE UR LABORATORY Blood STRUCTURE OF RIGHT HAND / Unknown Venipuncture / Unknown 02/21/2024 6:14 AM LABOR UNION BUSINESS REPRESENTATIVE 02/21/2024 6:24 AM LABOR UNION BUSINESS REPRESENTATIVE us Corina OROPEZA LAB - BLOOD ORDERABLES Audra l Result UR LABORATORY [facility], [address] [phone] * Extra Purple Top Tube (02/20/2024 5:41 AM LABOR UNION BUSINESS REPRESENTATIVE) Only the most recent of2 resultswithin the time period is included. Hold Specimen JIC 02/20/2024 8:31 AM LABOR UNION BUSINESS REPRESENTATIVE UR LABORATORY Blood STRUCTURE OF LEFT HAND / Unknown Venipuncture / Unknown 02/20/2024 5:41 AM LABOR UNION BUSINESS REPRESENTATIVE 02/20/2024 7:18 AM LABOR UNION BUSINESS REPRESENTATIVE us Holden Trejo MD LAB - BLOOD ORDERABLES Fi nal Result Performing Organization Address City/[facility]/ZIP Co de Phone Number UR LABORATORY [facility] [address] [place] [address], Room [address] [id number] * ECHO COMPLETE WITH CONTRAST (02/16/2024 12:16 PM LABOR UNION BUSINESS REPRESENTATIVE) LVEF 65-70% CARDIOLOGY RESULTS Anatomical Region Laterality Modality Echocardiography 02/16/2024 10:5 1 AM LABOR UNION BUSINESS REPRESENTATIVE Narrative 02/16/2024 2:50 PM LABOR UNION BUSINESS REPRESENTATIVE [id number] [facility] [id number]^GINA^SHAWN^P [facility] Echocardiography Laboratory [address] [place] [address] Name: ARIEL TAFOYA : 1940 Study Date: 02/16/2024 10:51 AM Age: 83 yrs Gender: Male Patient Location: [facility] Reason For Study: Cerebrovascular Incident Ordering Physician: SHAWN FUENTES Referring Physician: Soto Thompson Performed By: Jimmy Lund BSA: 2.1 m2 Height: 67 in Weight: 222 lb HR: 86 BP: 150/75 mmHg Procedure Complete Portable Echo Adult. Definity ([facility] #[id number]) given intravenously. Interpretation Summary A cardiac source [...] Procedure Note Brendan Boyer MD - 02/16/2024 [id number]^GINA^SHAWN^[facility] Echocardiography Laboratory [address] [place] [id number] Name: ALEARIEL Engle Graham : 1940 Study Date: 02/16/2024 10:51 AM Age: 83 yrs Gender: Male Patient Location: [facility] Reason For Study: Cerebrovascular Incident Ordering Physician: SHAWN FUENTES Referring Physician: Soto Thompson Performed By: Jimmy Lund BSA: 2.1 m2 Height: 67 in Weight: 222 lb HR: 86 BP: 150/75 mmHg Procedure Complete Portable Echo Adult. Definity ([facility] #[id number]) givenintravenously. Interpretation Summary A cardiac source of [...] by: Dr. Brendan Duffy 02/16/2024 02:50 PM us Shawn Fuentes MD CV ECHO ORDERABLES Edited Re sult - Final * (ABNORMAL) Hemoglobin A1c (02/15/2024 8:47 PM LABOR UNION BUSINESS REPRESENTATIVE) Only the most recent of2 resultswithin the time period is included. Estimated Average Glucose 194(H) <117 mg/dL 02/15/2024 9:21 PM LABOR UNION BUSINESS REPRESENTATIVE LABORATORY Hemoglobin A1C 8.4(H) <5.7 % 02/15/2024 9:21 PM LABOR UNION BUSINESS REPRESENTATIVE LABORATORY Comment: Normal <5.7% Prediabetes 5.7-6.4% Diabetes 6.5% or higher Note: Adopted from ADA consensus guidelines. Blood STRUCTURE OF RIGHT HAND / Unknown Venipuncture / Unknown 02/15/2024 8:47 PM LABOR UNION BUSINESS REPRESENTATIVE 02/15/2024 8:58 PM LABOR UNION BUSINESS REPRESENTATIVE us Shawn Fuentes MD LAB - BLOOD ORDERABLES Final Result LABORATORY [facility] [address], [address] [place] [address], [facility] [phone] * CTA Head Neck with Contrast (02/15/2024 12:30 PM LABOR UNION BUSINESS REPRESENTATIVE) Anatomical Region Laterality Modality Head, SUBRAD CT NEURO, SUBRA D CT NEURO, UMP CT NEURO, RAD CT Computed Tomography Impressions 02/15/2024 1:27 PM LABOR UNION BUSINESS REPRESENTATIVE IMPRESSION: No large vessel arterial occlusion or high-grade stenosis in the head or neck. No evidence for acute arterial dissection. FLIP MILLAN DO Narrative 02/15/2024 1:27 PM LABOR UNION BUSINESS REPRESENTATIVE CT ANGIOGRAM OF THE HEAD AND NECK [...] for acute arterial dissection. FLIP MILLAN DO Penelope Warner PA-C IMG CT ORDERABLES Final Res ult * US Carotid Bilateral (02/14/2024 6:17 PM LABOR UNION BUSINESS REPRESENTATIVE) Anatomical Region Laterality Modality Vascular, Head Ultrasound 02/14/2024 6:17 PM LABOR UNION BUSINESS REPRESENTATIVE Impressions 02/14/2024 6:26 PM LABOR UNION BUSINESS REPRESENTATIVE IMPRESSION: 1. Right carotid: Postop carotid endarterectomy. No evidence of significant residual or recurrent ICA stenosis.. 2. Left carotid: Postop carotid endarterectomy. No evidence of significant residual or recurrent ICA stenosis. 3. Flow within the vertebral arteries is antegrade. Narrative 02/14/2024 6:26 PM LABOR UNION BUSINESS REPRESENTATIVE EXAM: US CAROTID BILATERAL LOCATION: [facility] DATE: 02/14/2024 INDICATION: stroke, evaluate carotids [...] - 02/14/2024 EXAM: US CAROTID BILATERAL LOCATION: [facility] DATE: 02/14/2024 INDICATION: stroke, evaluate carotids [...] Flow within the vertebral arteries is antegrade. us Penelope Warner PA-C IMYahir US ORDERABLES Final Res ult * CT Head w/o Contrast (02/14/2024 4:31 PM LABOR UNION BUSINESS REPRESENTATIVE) Anatomical Region Laterality Modality Head, SUBRAD CT NEURO, SUBRA D CT NEURO, UMP CT NEURO, RAD CT Computed Tomography 02/14/2024 4:31 PM LABOR UNION BUSINESS REPRESENTATIVE Impressions 02/14/2024 4:54 PM LABOR UNION BUSINESS REPRESENTATIVE IMPRESSION: 1. No acute intracranial process. These findings were communicated by phone to Dr. Dover on 02/14/2024 4:43 PM LABOR UNION BUSINESS REPRESENTATIVE. Narrative 02/14/2024 4:54 PM LABOR UNION BUSINESS REPRESENTATIVE EXAM: CT HEAD W/O CONTRAST LOCATION: [facility] DATE: 02/14/2024 INDICATION: Code Stroke to [...] 02/14/2024 EXAM: CT HEAD W/O CONTRAST LOCATION: [facility] DATE: 02/14/2024 INDICATION: Code Stroke to [...] phone to Dr. Dover on 02/14/2024 4:43PM LABOR UNION BUSINESS REPRESENTATIVE. Neva Wang SENIOR ORACLE DBA TAPE CUTTING MACHINE OPERATOR IMG CT ORDERABLES Final Result * INR (02/14/2024 4:22 PM LABOR UNION BUSINESS REPRESENTATIVE) Only the most recent of2 resultswithin the time period is included. Pathologist [facility] [place] INR 1.15 0.85 - 1.15 02/14/2024 4:46 PM LABOR UNION BUSINESS REPRESENTATIVE LABORATORY Blood STRUCTURE OF LEFT HAND / Unknown Venipuncture / Unknown 02/14/2024 4:22 PM LABOR UNION BUSINESS REPRESENTATIVE 02/14/2024 4:27 PM LABOR UNION BUSINESS REPRESENTATIVE Neva Koenig [employer] [facility] LAB - BLOOD ORDERABLES F inal Result [facility] [address], [address] [place] [address], [place] [phone] * (ABNORMAL) Partial thromboplastin time (02/14/2024 4:22 PM LABOR UNION BUSINESS REPRESENTATIVE) Only the most recent of2 resultswithin the time period is included. [facility] aPTT 102(H) 22 - 38 Seconds 02/14/2024 4:46 PM LABOR UNION BUSINESS REPRESENTATIVE LABORATORY Blood STRUCTURE OF LEFT HAND / Unknown Venipuncture / Unknown 02/14/2024 4:22 PM LABOR UNION BUSINESS REPRESENTATIVE 02/14/2024 4:27 PM LABOR UNION BUSINESS REPRESENTATIVE Neva Wang [facility] LAB - BLOOD ORDERABLES F inal Result [facility] [address], [address] [place] [address], [place] [phone] * EKG 12-lead, tracing only (02/14/2024 12:22 PM LABOR UNION BUSINESS REPRESENTATIVE) Only the most recent of2 resultswithin the time period is included. Pathologist [facility] [place] Systolic Blood Pressure mmHg RADIOLOGY RESULTS Diastolic Blood Pressure mmHg RADIOLOGY RESULTS Ventricular Rate 60 BPM RAD IOLOGY RESULTS Atrial Rate 576 BPM RADIOLOG Y RESULTS LA Interval ms RADIOLOG Y RESULTS QRS Duration 194 ms RADIOLO GY RESULTS QT 492 ms RADIOLOGY RESULTS QTc 492 ms RADIOLOGY RESULTS P [place] degrees RADIOLOGY RESULTS R AXIS -83 degrees RADIOLOGY RESULTS T [place] 81 degrees RADIOLOGY RESULTS Interpretation ECG Ventricular -paced rhythm Abnormal ECG When compared with ECG of 14-Feb-2024 07:27, Atrial activity is not clear in current tracing Confirmed by MD MORALES DEMOS ([id number]) on 02/15/2024 9:23:55 AM RADIOLOGY RESULTS 02/14/2024 12:2 2 PM LABOR UNION BUSINESS REPRESENTATIVE 02/15/2024 9:23 AM LABOR UNION BUSINESS REPRESENTATIVE us Gerardo Jiang MD ECG ORDERABLES Edited Result - Final RADIOLOGY RESULTS * CV PCI CHRONIC TOTAL OCCLUSION, CV INTRAVASULAR ULTRASOUND, CV PCI ATHERECTOMY ROTATIONAL (02/14/2024 10:57 AM LABOR UNION BUSINESS REPRESENTATIVE) Anatomical Region Laterality Modality Radio Fluoroscop y Narrative 02/14/2024 1:16 PM LABOR UNION BUSINESS REPRESENTATIVE Successful crossing of the mid RCA OPEN HEARTH FURNACE OPERATOR via antegrade wire escalation. Lesion preparation with rotational atherectomy using a 1.75 mm hemanth. Under HD IVUS guidance, overlapping Synergy JEVON x 2 (4.0 x 24 mm proximally, 4.0 x 38 mm distally) were deployed from the proximal-distal RCA and postdilated up to 4.5 mm. RFA access site closed with an 8 Gabonese Angio-Seal; LFA access site closed with a 6 [place]onese Angio-Seal. Coronary Findings Diagnostic Dominance: Right Left [...] stenosed. 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 J-OPEN HEARTH FURNACE OPERATOR = 2 (calcification, blunt cap) Mid RCA [...] difficulty pronating his right arm. An 8 [place]e AL-1 guide was used to engage the RCA, and a 6 Gabonese XB 3 guide was used to engage the left main. A trap liner and Turnpike LP were brought down over a run-through wire within the RCA to the OPEN HEARTH FURNACE OPERATOR. The OPEN HEARTH FURNACE OPERATOR was then crossed with a Gladius Mongo [...] difficulty pronating his right arm. An 8 [place] AL-1 guide was used to engage the RCA, and a 6 [place] XB 3 guide was used to engage the left main. A trap liner and Turnpike LP were brought down over a run-through wire within the RCA to the OPEN HEARTH FURNACE OPERATOR. The OPEN HEARTH FURNACE OPERATOR was then crossed with a Gladius Mongo [...] difficulty pronating his right arm. An 8 [place] AL-1 guide was used to engage the RCA, and a 6 [place]onese XB 3 guide was used to engage the left main. A trap liner and Turnpike LP were brought down over a run-through wire within the RCA to the OPEN HEARTH FURNACE OPERATOR. The OPEN HEARTH FURNACE OPERATOR was then crossed with a Gladius Mongo [...] difficulty pronating his right arm. An 8 [place]e AL-1 guide was used to engage the RCA, and a 6 Gabonese XB 3 guide was used to engage the left main. A trap liner and Turnpike LP were brought down over a run-through wire within the RCA to the OPEN HEARTH FURNACE OPERATOR. The OPEN HEARTH FURNACE OPERATOR was then crossed with a Gladius Mongo [...] Narrative 83-year-old male here for planned RCA OPEN HEARTH FURNACE OPERATOR PCI. Cath Procedure details No Complications - Patient tolerated procedure well DESCRIPTION: 1. Consent obtained with discussion of risks. All questions were answered. 2. Sterile prep and procedure. 3. Access: Local anesthetic with lidocaineLocation with Sheaths: 4. Right Femoral Artery: A 21-gauge micropuncture needle with Sonosite and fluoroscopic guidance was used to establish vascular access. Access was successful. A 45 cm 8 Gabonese sheath was placed. 4. Left Femoral Artery: A 21-gauge micropuncture needle with Sonosite and fluoroscopic guidance was used to establish vascular access. Access was successful. A 45 cm 6 Gabonese sheath was placed. 5. Diagnostic Catheters: None [...] blood loss: < 50 ml The attending apparel sales associate was present and supervised all critical aspects the procedure. us Gerardo Jiang MD CV CARDIAC CATH ORDERAB LES Final Result * (ABNORMAL) Activated clotting time celite, POCT (02/14/2024 10:46 AM LABOR UNION BUSINESS REPRESENTATIVE) Only the most recent of5 resultswithin the time period is included. Activated Clotting Time (Celite) POCT 274(H) 74 - 150 seconds 02/14/2024 10:52 AM LABOR UNION BUSINESS REPRESENTATIVE LABORATORY POC Blood, arterial BLOOD SPECIMEN / Unknown 02/14/2024 10:46 AM LABOR UNION BUSINESS REPRESENTATIVE 02/14/2024 10:52 AM LABOR UNION BUSINESS REPRESENTATIVE us Gerardo Jiang MD LAB - BEAKER POCT Final Result LABORATORY POC [facility] [address], [address] [place] [address], [facility] * (ABNORMAL) Troponin T, High Sensitivity (02/14/2024 7:15 AM LABOR UNION BUSINESS REPRESENTATIVE) [facility] Troponin T, High Sensitivity 39(H) <=22 ng/L 02/14/2024 6:44 PM LABOR UNION BUSINESS REPRESENTATIVE [facility] Comment: Either a High Sensitivity [...] Unknown Venipuncture / Unknown 02/14/2024 7:15 AM LABOR UNION BUSINESS REPRESENTATIVE 02/14/2024 7:18 AM LABOR UNION BUSINESS REPRESENTATIVE us Neva Wang APRN TAPE CUTTING MACHINE OPERATOR LAB - BLOOD ORDERABLES F inal Result U LABORATORY [facility] [address] [facility]. [facility] [address] Building, [address] [place] [address], [facility] * (ABNORMAL) Lipid Profile (02/14/2024 7:15 AM LABOR UNION BUSINESS REPRESENTATIVE) Cholesterol 132 <200 mg/dL 02/14/2024 6:35 PM LABOR UNION BUSINESS REPRESENTATIVE [facility] Triglycerides 112 <150 mg/dL 02/14/2024 6:35 PM LABOR UNION BUSINESS REPRESENTATIVE [facility] Direct Measure HDL 36(L) >=40 mg/dL 2023 6:35 PM LABOR UNION BUSINESS REPRESENTATIVE [facility] LDL Cholesterol Calculated 74 <100 mg/dL 02/14/2024 6:35 PM LABOR UNION BUSINESS REPRESENTATIVE [facility] Non HDL Cholesterol 96 <130 mg/dL 02/14/2024 6:35 PM LABOR UNION BUSINESS REPRESENTATIVE [facility] Blood STRUCTURE OF LEFT UPPER LIMB / Unknown Venipuncture / Unknown 02/14/2024 7:15 AM LABOR UNION BUSINESS REPRESENTATIVE 02/14/2024 7:18 AM LABOR UNION BUSINESS REPRESENTATIVE Narrative [facility] - 02/14/2024 6:35 PM LABOR UNION BUSINESS REPRESENTATIVE Cholesterol Desirable: < 200 mg/dL Borderline High: [...] 219 mg/dL Very High: >= 220 mg/dL us Gerardo Jiang MD LAB - BLOOD ORDERABLES Final Result [facility] [address] [facility], [address] [place] [address], [facility] * Lab Result - HIM Scan (02/04/2024 12:00 AM CDT) 02/04/2024 us Provider Outside NON-BEAKER LAB TESTING Final Result from Last 3 Months Insurance MEDICARE [facility] MEDICARE [facility] Advance Directives For more information, please contact: [phone] * Full Code (Latest Code Status on [...] patie nt/ legal decision maker Care Teams Marketing Education Teacher Relationship Specialty Start Date End Date Soto Thompson MD PCP - General Family Medicine 09/23/20 Gerardo Jiang MD [address] [id number] Assigned Heart and Vascular Provider 10/30/23 Nancy Forbes DO [address] [place], [place] [address] Physician Neurology 02/22/24 Farzad Sevilla MD [address] [place] [id number] Cardiovascular Disease 02/22/24
--- OUTSIDE RECORDS SUMMARY | 2024-04-10 14:44 | XMS_ITS | Encounter Summary ---
Author Organization [facility] Address [address] [place] [address]. [place] [address] Care Team Providers Care Zipper Slide Attacher Name Role Phone Soto Thompson MD Primary Care Provider [phone] Gerardo Jiang MD Unavailable [phone] Nancy Forbes DO Unavailable [phone] Farzad Sevilla MD Unavailable [phone] Reason for Visit * Reason Onset Date Comments Call Back 12/18/2023 Rescheduling of Surgery Encounter Details Date Type Department Care Team (Late st Contact Info) Description 12/18/2023 Telephone [facility] [address] [place] [address] Gerardo Jiang MD [address] [place] [address] Call Back (Rescheduling of Surgery) Social History Tobacco Use Types Packs/Day Years [...] on file Legal Sex 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 Nicolas Horowitz - 12/18/2023 3:59 PM CDT [facility] Call Center Phone Message May a detailed message be left on voicemail: yes Reason for Call: Other: Kayode would like a call back to discuss when his surgery will be rescheduled. Please call after 10:30 A.M. Action Taken: Other: Cardiology Travel Screening: Not Applicable Thank you! Specialty [facility] documented in this encounter Plan of Treatment Not on file documented as of this encounter Visit Diagnoses Not on filedocumented in this encounter Care Teams Zipper Slide Attacher Relationship Specialty Start Date End Date Soto Thompson MD PCP - General Family Medicine 09/23/20 Gerardo Jiang MD [address] [place] [place] [id number] Assigned Heart and Vascular Provider 10/30/23 Nancy Forbes DO [address] [place], [place] [address] Physician Neurology 02/22/24 Farzad Sevilla MD [address] [place] [id number] Cardiovascular Disease 02/22/24 documented as of this encounter
--- OUTSIDE RECORDS SUMMARY | 2024-04-10 14:45 | XMS_ITS | Referral Summary ---
Author Organization [facility] Address [address] [place] [address] Care Team Providers Care Assembler Equipment Name Role Phone None Reported, Pcp Primary Care Provider Unavail able Source Comments Patient records contain information from all sites at [facility]. For routine questions regarding patient records, call [phone] during business hours, M-F 8:00 AM - 5:00 PM Central Time. Record requests for emergency care only can be directed to [phone] at any time.[facility] Encounters Date Type Department Care Team Description 02/27/2024 11:56 AM EGG PACKER - 02/27/2024 11:59 PM EGG PACKER Hospital Encounter Department of Cardiovascular Diseases in [place], [place] [address] [place] [address] Arthur Renae M.D. Discharge Disposition: Home or Self Care 02/04/2024 Orders Only Department of Cardiovascular Diseases in [place], [place] [address] [place] [address] Noé Caruso M.D. Encounter For Checking And Testing Of Cardiac Pacemaker Pulse Generator Battery (Primary Dx) 01/31/2024 Clinical Communication Department of Cardiovascular Medicine in [place], [place] [address] [place] [address] Joe Tolliver M.B.B.S. Device Registration 01/30/2024 Orders Only Department of Cardiovascular Medicine in [place], [place] [address] [place] [address] Hollis Esteban M.D., Ph.D. 01/30/2024 7:45 AM CDT - 01/30/2024 9:15 AM CDT Surgery Division of Cardiovascular Diseases in [place], [place] [address] [place] [phone] Joe Tolliver M.B.B.S. PPM Generator Change - Dual Chamber 01/30/2024 6:21 AM CDT - 01/30/2024 10:25 AM CDT Hospital Encounter Division of Cardiovascular Diseases in [place], [place] [address] [place] [phone] Joe Tolliver M.B.B.S. Aftercare Cardiac Pacemaker; Syncope Discharge Disposition: Home or Self Care 01/22/2024 9:34 AM CDT - 01/22/2024 9:59 AM CDT Hospital Encounter Department of Laboratory Medicine and Pathology, [facility] in [place], [place] [address] [place] [phone] Joe Tolliver M.B.B.S. Aftercare Cardiac Pacemaker; Syncope Discharge Disposition: Home or Self Care 01/22/2024 11:56 AM CDT - 01/22/2024 11:59 PM CDT Hospital Encounter Department of Radiology, [facility], in [place], [place] [address] [place] [phone] Joe Tolliver M.B.B.S. Aftercare Cardiac Pacemaker; Syncope Discharge Disposition: Home or Self Care 01/22/2024 10:00 AM CDT - 01/22/2024 11:55 AM CDT Hospital Encounter Department of Cardiovascular Diseases in [place], [place] [address] [place] [phone] Joe Tolliver M.B.B.S. Aftercare Cardiac Pacemaker; Syncope Discharge Disposition: Home or Self Care 01/22/2024 11:00 AM CDT Office Visit Department of Cardiovascular Medicine in [place], [place] [address] [place] [phone] Alpa Blackwood, WES, C.N.P. 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); Pacemaker Cardiac Status Post; Diabetes Mellitus Type 2 (HCC); Hypertension Essential Primary 01/21/2024 9:45 AM CDT Clinical Communication Virtual Review in [place], [place] [address] [place] [phone] Pre-visit Intake from Last 3 Months Allergies Active Allergy [...] 2 01/22/2024 Atherosclerotic Heart Diseas e Of [place] Coronary Artery Without Angina Pectoris 01/22/2024 Aftercare Cardiac Pacemaker 12/06/2023 Syncope 12/06/2023 Social History Tobacco Use Types Packs/Day Years Used Date Smoking Tobacco: Former Cigarettes 2 004 - 1960 Smokeless Tobacco: Never Tobacco Cessation:Counseling Given: Not Answered Alcohol Use Standard Drinks/Week Comments Not Currently 1 (1 standard drink = 0.6 oz pur e alcohol) [facility] Utilities Answer Date Recorded In the past 12 months has th e electric, gas, oil, or water company [...] your living situation today? I have a [facility] place to live 01/19/2024 Sex and Gender Information Value Date Recorded Sex Assigned at Male 01/19/2024 8:16 PM CDT Legal Sex Male 9:15 PM EGG PACKER Gender Identity Male 01/19/2024 8:16 PM CDT [...] 01/30/2024 7:00 AM CDT Plan of Treatment Not on file Medical Devices Implanted Type Area Title I Paraprofessional Device Identifier Shelf Expiration Date Model / Serial / Lot Lead Guidant John [id number] Implanted: (Quantity not on file) Cardiac Lead Chest Guidant / [id number] / Description:LEAD Guidant Cor p [id number] Dextrus Lead Guidant John [id number] Implanted: (Quantity not on file) Cardiac Lead Chest Guidant / [id number] / Description:LEAD Guidant Cor p [id number] Dextrus Hardware E.G. Pins/Screws/R ods Hardware e.g. pins/screws/r ods Left: Ankle Description:Patient states r emoved shortly after Envelope Tyrx - [id number] Implanted:Qty : 1 on 01/30/2024 by Joe Tolliver M.B.B.S. at [facility] Mesh or Patch Medtronic 09/22/2024 [id number] / / [id number] Ocular Lens Ocular Lens Bilateral : Eye Ppm Ess[address]io Dr Virk Mri - [id number] - [id number] Implanted:Qty : 1 on 01/30/2024 by Joe Tolliver M.B.BAnitaSAnita at [facility] Pacemaker [employer] 12/02/2025 [id number] / [id number] / Explanted Type Area Title I Paraprofessional Device Identifier Shelf Expiration Date Model / Serial / Lot Pacemaker Calh[employer] [id number] Implanted:12/30 (Quantity not on file) Explanted:Qty: 1 on 01/30/2024 by Joe Tolliver M.B.B.S. at [facility] Pacemaker Chest [employer] / [id number] / Description:Pacemaker [employer] [id number] ADVANTIO Procedures Procedure Name Priority Date/Time Associated Diagnosis Comments INTERFACED REMOTE DEVICE CHECK Routine 02/27/2024 11:56 AM EGG PACKER GLUCOSE POCT, B Routine 01/30/2024 10:10 AM [...] CAR CARDIAC DEVICE INTERROGATION (02/27/2024 11:56 AM EGG PACKER) [facility] Date Time Interrogation Session [id number] [facility] Type Interrogation Session Remote Scheduled [facility] Implantable Pulse Generator Title I Paraprofessional [place] [facility] Implantable Pulse Generator Type Pacemaker [facility] Implantable Pulse Generator Model L131 [facility] Implantable Pulse Generator Serial Number [id number] [facility] Implantable Pulse Generator Implant Date 20240130 [facility] Battery Remaining Percentage 100.00 % [facility] Battery Remaining Longevity 120.0 mo [facility] Battery Status Beginning of Service [facility] Gen Statistic RA Percent Paced 24.00 [facility] Gen Statistic RV Percent Paced 97.00 [facility] Atrial Tachy Statistic AT/AF [place] Percent 0.00 [facility] Lead Channel Sensing Intrinsic Amplitude 3.800 [facility] Lead Channel Setting Sensing Sensitivity 0.50 [facility] Lead Channel Impedance Value 511 [facility] Lead Channel Measurements Date and Time 20240225 [facility] Lead Channel Setting Pacing Amplitude 1.500 [facility] Lead Channel Setting Pacing Pulse Width 0.4 [facility] Lead Channel Setting Sensing Sensitivity 2.50 [facility] Lead Channel Impedance Value 432 [facility] Lead Channel Measurements Date and Time 20240225 [facility] Lead Channel Setting Pacing Amplitude 3.200 [facility] Lead Channel Setting Pacing Pulse Width 0.8 [facility] Gen Setting Mode (NBG Code) DDDR [facility] Gen Setting Lower Rate Limit 60 [facility] Gen Setting AT Mode Switch Rate 170 [facility] Gen Setting Maximum Tracking Rate 130 [facility] Gen Setting Maximum Sensor Rate 130 [facility] Gen Setting PAV Delay 80 [facility] Gen Setting PAWAN Delay 65 [facility] Lead Channel Setting Sensing Polarity Bipolar [facility] Lead Channel Setting Sensing Polarity Bipolar [facility] Lead Channel Setting Pacing Polarity Bipolar [facility] Lead Channel Setting Pacing Polarity Bipolar [facility] Lead Channel Pacing Threshold Polarity Bipolar [facility] Lead Channel Pacing Threshold Polarity Bipolar [facility] Zone Setting Type Category VT [facility] Murj Rate 1 160 [facility] Zone Setting Status Monitor [facility] Murj Zone ID 1 [facility] Implantable Lead Title I Paraprofessional Guidant [facility] Implantable Lead Model 4137 NorseruKAYAK [facility] Implantable Lead Location Right Ventricle [facility] Implantable Lead Connection Status Connected [facility] Implantable Lead Serial Number [id number] [facility] Implantable Lead Implant Date 20131230 [facility] Implantable Lead Title I Paraprofessional Guidant [facility] Implantable Lead Model 4136 Dextrus [facility] Implantable Lead Location Right Atrium [facility] Implantable Lead Connection Status Connected [facility] Implantable Lead Serial Number [id number] [facility] Implantable Lead Implant Date 20131230 [facility] Anatomical Region Laterality Modality Other 03/11/2024 6:41 AM EGG PACKER Impressions 03/11/2024 6:41 AM EGG PACKER Encounter Impression: Title: Normal Remote: No Events [...] LAB POCT ORDERABLES-MANUAL Audra l Result POC [facility] [address] [place] [address], [facility] PCLX [facility] POC [address] [place] [address] * PPM GENERATOR CHANGE - DUAL CHAMBER [...] 1. Status post dual-chamber pacemaker pack change. Sara Concepcion. CT CT Job ID: [id number] For the complete report, see the Order-Level [...] 1. Status post dual-chamber pacemaker pack change. Sara Concepcion. CT CT Job ID: [id number] For the complete report, see the Order-Level Documents. us Joe Ruiz. CV ELECTROPHYSIOLOG Y PROCS Final Result * CARDIOVASCULAR IMPLANTABLE ELECTRONIC DEVICE - NO CHARGE (01/30/2024 8:16 AM CDT) Only the most recent of2 resultswithin the time period is included. Date Time Interrogation Session [id number] [facility] Implantable Pulse Generator Title I Paraprofessional Calhoun Veeva [facility] Implantable Pulse Generator Type Pacemaker [facility] Implantable Pulse Generator Model L131 [facility] Implantable Pulse Generator Serial Number [id number] [facility] Implantable Pulse Generator Implant Date 20240130 [facility] Battery Status [facility] Lead Channel Sensing Intrinsic Amplitude 4.000 [facility] Lead Channel Setting Sensing Sensitivity 0.50 [facility] Lead Channel Impedance Value 533 [facility] Lead Channel Pacing Threshold Amplitude 0.500 [facility] Lead Channel Pacing Threshold Pulse Width 0.4 [facility] Lead Channel Measurements Date and Time 2024-01-30 [facility] Lead Channel Setting Pacing Amplitude 1.500 [facility] Lead Channel Setting Pacing Pulse Width 0.4 [facility] Lead Channel Setting Sensing Sensitivity 2.50 [facility] Lead Channel Impedance Value 429 [facility] Lead Channel Pacing Threshold Amplitude 1.800 [facility] Lead Channel Pacing Threshold Pulse Width 0.8 [facility] Lead Channel Measurements Date and Time 2024-01-30 [facility] Lead Channel Setting Pacing Amplitude 3.200 [facility] Lead Channel Setting Pacing Pulse Width 0.8 [facility] Gen Setting Mode (NBG Code) DDDR [facility] Gen Setting Lower Rate Limit 60 [facility] Gen Setting AT Mode Switch Rate 170 [facility] Gen Setting Maximum Tracking Rate 130 [facility] Gen Setting Maximum Sensor Rate 130 [facility] Gen Setting PAV Delay 180 [facility] Gen Setting PAWAN Delay 150 [facility] Zone Setting Type Category VF [facility] Zone Setting Status Off [facility] Murj Zone ID 1 [facility] Zone Setting Type Category VT [facility] Murj Rate 1 160 [facility] Zone Setting Status Monitor F[facility] Murj Zone ID 2 [facility] Zone Setting Type Category VT1 [facility] Zone Setting Status Off [facility] Murj Zone ID 3 [facility] Zone Setting Type Category AT/AF [facility] Murj Rate 1 170 [facility] Zone Setting Status Monitor [facility] Murj Zone ID 4 [facility] Implantable Lead Title I Paraprofessional Guidant [facility] Implantable Lead Model 4137 ScubaTribe [facility] Implantable Lead Location Right Ventricle [facility] Implantable Lead Connection Status Connected [facility] Implantable Lead Serial Number [id number] [facility] Implantable Lead Implant Date 20131230 [facility] Implantable Lead Title I Paraprofessional Guidant [facility] Implantable Lead Model 4136 [employer] [facility] Implantable Lead Location Right Atrium [facility] Implantable Lead Connection Status Connected [facility] Implantable Lead Serial Number [id number] [facility] Implantable Lead Implant Date 20131230 [facility] Anatomical Region Laterality Modality Other 01/30/2024 5:35 PM CDT Impressions 01/30/2024 5:35 PM CDT Encounter Impression: Title: Generator Change * Generator change performed on 01/30/24. * Device implanted by Dr. 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 * Temporary Pacemaker Used: [...] * Device implanted by Dr. 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 * Temporary Pacemaker Used: [...] sensing amplitude and pacingthreshold data was reviewed. Mary Lou Emery APRN., M.S.N. CV IMPLANTABLE CARDIAC DEVICE Edited Result [...] [facility] LAB BLOOD ADD-ON Fi nal Result [facility] [address] [place] [address], [facility] [address] [place] [address] * (ABNORMAL) Basic Metabolic Panel (01/22/2024 9:58 AM CDT) Pathologist [facility] Potassium, S 4.9 3.6 - 5.2 mmol/L [...] [place] LAB BLOOD ADD-ON Fi nal Result [facility] [address] [place] [address], [place] [facility] [address] [place] [address] from Last 3 [place] [address] MEDICARE AET Advance Directives For more information, please contact: [phone] Documents on File Type Date Recorded Patient Director Client Services Expl anation Advance Directives 08/14/2017 Advanced Directive Care Teams Assembler Equipment Relationship Specialty Start Date End Date None Reported, Pcp PCP - General 02/15/24
--- OUTSIDE RECORDS SUMMARY | 2024-04-10 14:45 | XMS_ITS ---
Author Organization [facility] Address [address] [place] [address] Care Team Providers Care Technician Test Systems Name Role Phone Unavailable Unavailable Unavailable Surgery Details Not on file Complications Check Surgery Details section. Procedure Estimated Blood Loss Check Surgery Details section. Procedure Findings Check Surgery Details section. Procedure Specimens Taken Check Surgery Details section.
--- OUTSIDE RECORDS SUMMARY | 2024-04-10 14:45 | XMS_ITS | Encounter Summary ---
Author Organization [facility] Address [address] [place] [address] Care Team Providers Care Steam Pipe Fitter Name Role Phone None Reported, Pcp Primary Care Provider Unavail able Encounter Details Date Type Department Care Team (Latest Contact Info) Description 02/27/2024 11:56 AM MANAGER INTENSIVE CARE UNIT - 02/27/2024 11:59 PM MANAGER INTENSIVE CARE UNIT Hospital Encounter Department of Cardiovascular Diseases in [place], [place] [address] [place] [address] Arthur Renae M.D. [address] [place] [phone] Discharge Disposition: Home or Self Care Social History Tobacco Use Types Packs/Day Years Used Date Smoking Tobacco: Former Cigarettes 2 004 - 1959 Smokeless Tobacco: Never Alcohol Use Standard Drinks/Week Comments Not Currently 1 (1 standard drink = 0.6 oz pur e alcohol) [facility] Utilities Answer Date Recorded In the past 12 months has [employer], gas, oil, or water [employer] threatened to shut off services in your [...] money to buy more. Never true 01/19/20 24 Within the past 12 months, t he [...] your living situation today? I have a [facility] place to live 01/19/2024 Sex and Gender Information Value Date Recorded Sex Assigned at Male 01/19/2024 8:16 PM CDT Legal Sex Male 9:15 PM MANAGER INTENSIVE CARE UNIT Gender Identity Male 01/19/2024 8:16 PM CDT Sexual Orientation Straight 01/19/2024 8: 16 PM CDT documented as of this encounter Medications at Time of Discharge aspirin [address] tablet Take 81 mg by mouth. cholecalciferol (Vitamin D3) 25 mcg (1,000 Unit) capsule Take 1,000 Units by mouth daily. fenofibrate (Lofibra) 160 mg tablet Take 160 mg by mouth. 08/10/2020 finasteride (Proscar) 5 mg tablet Take 5 mg by mouth. 05/09/2022 insulin aspart U-100 (NovoLOG Flexpen U-100 Insulin) 100 unit/mL (3 mL) pen Inject 0-20 Units under the skin. 08/10/2020 insulin glargine 100 unit/mL (3 mL) pen Inject 38 Units under the skin. 11/03/2022 irbesartan (Avapro) 300 mg tablet Take 150 mg by mouth. 08/10/2020 levothyroxine 100 mcg tablet Take 100 mcg by mouth daily. 08/10/2020 lutein 20 mg capsule Take 20 mg by mouth every morning. metFORMIN XR (Glucophage-XR) 500 mg 24 hr tablet Take 500 mg by mouth. 08/10/2020 metoprolol succinate (Toprol XL) 100 mg 24 hr tablet Take 100 mg by mouth. 08/10/2020 metoprolol succinate (Toprol XL) 100 mg 24 hr tablet by other route. 01/30/2022 milk thistle seed extract 175 mg capsule Take 175 mg by mouth. multivitamin tablet Take 1 tablet by mouth. 10/25/2021 pioglitazone (Actos) 15 mg tablet Take 15 mg by mouth every morning. 08/11/2020 pioglitazone (Actos) 15 mg tablet Take 15 mg by mouth daily. 10/27/2022 rosuvastatin (Crestor) 20 mg tablet Take 1 tablet by mouth daily. 10/08/2023 tamsulosin (Flomax) 0.4 mg 24 hr capsule Take 0.8 mg by mouth. 08/10/2020 documented as of this encounter Plan of Treatment Not on file documented as of this encounter Procedures Procedure Name Priority Date/Time Associated Diagnosis Comments INTERFACED REMOTE DEVICE CHECK Routine 02/27/2024 11:56 AM MANAGER INTENSIVE CARE UNIT documented in this encounter Results * CAR CARDIAC DEVICE INTERROGATION (02/27/2024 11:56 AM MANAGER INTENSIVE CARE UNIT) Date Time Interrogation Session [facility] Type Interrogation Session Remote Scheduled [facility] Implantable Pulse Generator Machine Builder Fittr [facility] Implantable Pulse Generator Type Pacemaker [facility] Implantable Pulse Generator Model L131 [facility] Implantable Pulse Generator Serial Number [id number] [facility] Implantable Pulse Generator Implant Date 20240130 [facility] Battery Remaining Percentage 100.00 % [facility] Battery Remaining Longevity 120.0 mo [facility] Battery Status Beginning of Service [facility] Gen Statistic RA Percent Paced 24.00 [facility] Gen Statistic RV Percent Paced 97.00 [facility] Atrial Tachy Statistic AT/AF [place] Percent 0.00 [facility] Lead Channel Sensing Intrinsic Amplitude 3.800 [facility] Lead Channel Setting Sensing Sensitivity 0.50 [facility] Lead Channel Impedance Value 511 [facility] Lead Channel Measurements Date and Time 20240225 [facility] Lead Channel Setting Pacing Amplitude 1.500 [facility] Lead Channel Setting Pacing Pulse Width 0.4 [facility] Lead Channel Setting Sensing Sensitivity 2.50 [facility] Lead Channel Impedance Value 432 [facility] Lead Channel Measurements Date and Time 20240225 [facility] Lead Channel Setting Pacing Amplitude 3.200 [facility] Lead Channel Setting Pacing Pulse Width 0.8 [facility] Gen Setting Mode (NBG Code) DDDR [facility] Gen Setting Lower Rate Limit 60 [facility] Gen Setting AT Mode Switch Rate 170 [facility] Gen Setting Maximum Tracking Rate 130 [facility] Gen Setting Maximum Sensor Rate 130 [facility] Gen Setting PAV Delay 80 [facility] Gen Setting PAWAN Delay 65 [facility] Lead Channel Setting Sensing Polarity Bipolar [facility] Lead Channel Setting Sensing Polarity Bipolar [facility] Lead Channel Setting Pacing Polarity Bipolar [facility] Lead Channel Setting Pacing Polarity Bipolar [facility] Lead Channel Pacing Threshold Polarity Bipolar [facility] Lead Channel Pacing Threshold Polarity Bipolar [facility] Zone Setting Type Category VT [facility] Murj Rate 1 160 [facility] Zone Setting Status Monitor F[facility] Murj Zone ID 1 [facility] Implantable Lead Machine Builder Guidant [facility] Implantable Lead Model 4137 Dextrus [facility] Implantable Lead Location Right Ventricle [facility] Implantable Lead Connection Status Connected [facility] Implantable Lead Serial Number [id number] [facility] Implantable Lead Implant Date 20131230 [facility] Implantable Lead Machine Builder Guidant [facility] Implantable Lead Model 4136 Dextrus [facility] Implantable Lead Location Right Atrium [facility] Implantable Lead Connection Status Connected [facility] Implantable Lead Serial Number [id number] [facility] Implantable Lead Implant Date 20131230 [facility] Anatomical Region Laterality Modality Other 03/11/2024 6:41 AM MANAGER INTENSIVE CARE UNIT Impressions 03/11/2024 6:41 AM MANAGER INTENSIVE CARE UNIT Encounter Impression: Title: Normal Remote: No Events [...] CARDIAC ALFIE CE Edited Result - Final documented in this encounter Visit Diagnoses Not on filedocumented in this encounter Care Teams Steam Pipe Fitter Relationship Specialty Start Date End Date None Reported, Pcp PCP - General 02/15/24 documented as of this encounter
== END 2024-06-10 11:36 | disposition home or self-care (01) ==
PROVIDERS: PCP Family Medicine; Visit Provider Physical Medicine & Rehabilitation
DX: I63.9 Cerebral infarction, unspecified (principal); R26.89 Other abnormalities of gait and mobility; R53.83 Other fatigue; M62.81 Muscle weakness (generalized); R27.8 Other lack of coordination; Z51.89 Encounter for other specified aftercare
CPT/HCPCS: 97110; 97112; 97116; 97161; 97166; 97535; X5282

== ENCOUNTER 2024-05-14 12:33 | Outpatient (CLI) | payer MEDICARE, OTHER, SELFPAY ==
--- NOTE | 2024-05-14 13:00 | CRLHL7_ITS ---
For Patients: As a result of the Century Cures Act, medical imaging exams and procedure reports are released immediately into your electronic medical record. You may view this report before your referring provider. If you have questions, please contact your health care provider. INDICATION: Lung cancer screening. Smoking history. TECHNIQUE: CT chest low dose without contrast. COMPARISON: CT lung screen 05/09/2023. FINDINGS: Pulmonary nodules: None. Lungs and pleural spaces: Bibasilar atelectasis/scarring. No consolidation. No pleural effusion or pneumothorax. Heart and vasculature: No cardiomegaly or pericardial effusion. Coronary artery calcifications. No thoracic aortic aneurysm. Main pulmonary artery normal in caliber. Lymph nodes and mediastinum: No mediastinal, hilar, or axillary adenopathy. Chest wall: No suspicious chest wall mass or fluid collection. Upper abdomen: No acute abnormality. Cholelithiasis. Colonic diverticulosis. Bones: No acute abnormality. IMPRESSION: No discrete pulmonary nodule identified. Lung-RADS Category 1: NEGATIVE. Continue annual screening with LDCT in 12 months. Please note that all CT scans at this facility use dose modulation, iterative reconstruction, and/or weight-based dosing when appropriate to reduce radiation dose to as low as reasonably achievable. Dictated by Luis Carlos Jackson MD @ 05/14/2024 3:58:26 PM (Electronically Signed)
== END 2024-05-14 12:34 | disposition home or self-care (01) ==
LOC: CT 12:34
PROVIDERS: PCP Family Medicine; Visit Provider Family Medicine
DX: Z12.2 Encounter for screening for malignant neoplasm of respiratory organs (principal); F17.210 Nicotine dependence, cigarettes, uncomplicated
CPT/HCPCS: 71271

== ENCOUNTER 2024-06-03 14:42 | Outpatient (CLI) | payer MEDICARE, OTHER, SELFPAY | END 2024-06-03 14:43 | disposition home or self-care (01) | PROVIDERS: PCP Family Medicine; Visit Provider Family Medicine | DX: E10.22 Type 1 diabetes mellitus with diabetic chronic kidney disease (principal); N18.32 Chronic kidney disease, stage 3b; E03.9 Hypothyroidism, unspecified; I10 Essential (primary) hypertension | CPT/HCPCS: 80048; 84443 ==

== ENCOUNTER 2024-07-27 19:15 | Outpatient (CLI) | payer MEDICARE, SELFPAY | END 2024-07-27 19:16 | disposition home or self-care (01) | LOC: AMB 07-29 10:13 | PROVIDERS: PCP Family Medicine; Visit Provider Emergency Medicine | DX: R53.1 Weakness (principal); R14.0 Abdominal distension (gaseous) | CPT/HCPCS: A0425; A0427 ==

== ENCOUNTER 2024-10-04 14:35 | Outpatient (CLI) | payer MEDICARE, SELFPAY ==
--- OUTSIDE RECORDS SUMMARY | 2024-08-26 10:30 | XMS_ITS | Encounter Summary ---
Author Organization [facility] Address [address] [place] [address]. [place] [address] Care Team Providers Care Leaf Conditioner Name Role Phone Soto Thompson MD Primary Care Provider [phone] Gerardo Jiang MD Unavailable [phone] Nancy Forbes DO Unavailable [phone] Farzad Sevilla MD Unavailable [phone] Zechariah Lange MD Unavailable [phone] Byron Thompson PA-C Unavailable [phone] Reason for Referral * Med Therapy Management (Routine: Next available opening) - Authorized Specialty Diagnoses / Procedures Referred By Contac t Referred To Contact Pharmacist Diagnoses Acute on chronic heart failure, unspecified heart failure type (H) Gerardo Jiang MD [address] [place] [address] Phone: tel: fax: Referral ID Status Reason Start Date Expiration Date V isits Requested Visits Authorized [id number] Authorized 08/26/2024 08/26/2025 1 1 Question Answer Type of MTM: Specialty Specialty: Cardiology Course of Action: Other Reason for Referral: Optimize diabetes medications in the setting of HF (patient on pioglitazone) Comments [facility] Medication Therapy Management department will contact you to schedule an appointment. You may also schedule the appointment by calling or toll-free at . This service is designed to help you get the most from your medications. A specially trained Pharmacist will work closely with you and your providers to solve any questions, concerns, issues or problems related to your medications. Please bring all of your prescription and non-prescription medications (such as vitamins, ayui-mzp-kzdwycg medications, and herbals) or a detailed medication list to your appointment. If you have a glucose meter or other home monitoring information, please also bring this to your appointment (i.e. blood glucose log, blood pressure log, pain log, etc.). * CV Testing (Routine) - Closed Specialty Diagnoses / Procedures Referred By Osman knight Referred To Contact Cardiology Diagnoses Atrial fibrillation, unspecified type (H) Procedures Cardioversion Gerardo Jiang MD [address] [facility] [place] [address] Phone: tel: fax: [facility] [address] [place] [address] Phone: tel: Referral ID Status Reason Start Date Expiration Date Visits Re quested Visits Authorized [id number] Closed 08/26/2024 08/26/2025 1 1 * CV Testing (Routine) - Closed Specialty Diagnoses / Procedures Referred By Osman knight Referred To Contact Cardiology Diagnoses Atrial fibrillation, unspecified type (H) Procedures Echocardiogram Complete ZZHC TTE W/DOPPLER, COMPLETE ZZHC ECHO COMPLETE W DOPPLER W CONTRAST ZZHC ECHO COMPLETE W DOPPLER W/O CONTRAST ZZHC IV PUSH SINGLE, INITIAL SUBSTANCE ZZHC US GUIDE FOR PERICARDIOCENTESIS ZZHC ECHO MYOCARD BX ZZC INJECTION, PERFLUTREN LIPID MICROSPHERES, PER ML ZZHC STATISTIC IV PUSH SINGLE INITIAL SUBSTANCE HI ECHO MYOCARD BX HI INJECTION, PERFLUTREN LIPID MICROSPHERES, PER ML HI TTE W/DOPPLER, COMPLETE HI IV PUSH SINGLE, INITIAL SUBSTANCE HI TTE W/DOPPLER, COMPLETE HI TTE W/DOPPLER, COMPLETE HC US GUIDE FOR PERICARDIOCENTESIS HC ECHO MYOCARD BX HC IV PUSH SINGLE, INITIAL SUBSTANCE HC STATISTIC IV PUSH SINGLE INITIAL SUBSTANCE HC ECHO COMPLETE W DOPPLER W CONTRAST HC ECHO COMPLETE W DOPPLER W/O CONTRAST Gerardo Jiang MD [address] [place] [address] Phone: tel: fax: [facility] [address] [facility] [address] [place] [address] Phone: tel: fax: Referral ID Status Reason Start Date Expiration Date Visits Re quested Visits Authorized [id number] Closed 08/26/2024 08/26/2025 1 1 * Consultation (Routine: Next available opening) - Pending Review Specialty Diagnoses / Procedures Referred By Contac t Referred To Contact Cardiovascular Disease Diagnoses Atrial fibrillation, unspecified type (H) Coronary artery disease involving kiana coronary artery of kiana heart without angina pectoris Gerardo Jiang MD [address] [place] [address] Phone: tel: fax: Referral ID Status Reason Start Date Expiration Date V isits Requested Visits Authorized [id number] Pending Review 08/26/2024 08/26/2025 1 1 Question Answer Follow-up with: [facility] Patient Scheduling Instructions: [facility] will call you to coordinate your care as prescribed by your provider. If you have concerns about scheduling, please call [phone]. Comments [facility] will call you to coordinate your care as prescribed by your provider. If you have concerns about scheduling, please call [phone]. Reason for Visit * Reason Comments Coronary Artery Disease * Consultation (Routine) - Pending Review Specialty Diagnoses / Procedures Referred By Contac t Referred To Contact Cardiovascular Disease Diagnoses A-fib (H) Gerardo Jiang MD [address] [place] [address] Phone: tel: fax: Referral ID Status Reason Start Date Expiration Date V isits Requested Visits Authorized [id number] Pending Review 08/04/2024 08/04/2025 1 1 Encounter Details Date Type Department Care Team (Kat st Contact Info) Description 08/26/2024 10:30 AM CDT Office Visit [address] [place] [address] Gerardo Jiang MD [address] [place] [address] Coronary artery disease involving kiana coronary artery of kiana heart without angina pectoris (Primary Dx); Atrial fibrillation, unspecified type (H); Cardiac pacemaker in situ; Benign essential hypertension; Hyperlipidemia LDL goal <70; Stage 3 chronic kidney disease, unspecified whether stage 3a or 3b CKD (H); Acute on chronic heart failure, unspecified heart failure type (H) Social History Tobacco Use Types Packs/Day Years Used Date Smoking Tobacco: Former Cigarettes 0.5 25 1 2009 Passive Smoke Exposure: Never Smokeless Tobacco: Never Alcohol Use Standard Drinks/Week Comments Not Currently 0 (1 standard drink = 0.6 oz pur e alcohol) occ PHQ-2 Answer Date Recorded PHQ-2 Score 0 08/14/2024 Adolescent Education Answer Date Record ed Getting School Help Needed Not on file 01/14 Food Insecurity Answer Date Recorded Within the past 12 months, d id you worry that your food would run out before you got money to buy more? No 07/28/2024 Within the past 12 months, d id the food you bought just not last and you didn t have money to get more? No 07/28/2024 Housing Stability Answer Date Recorded Do you have housing? (Housin g is defined as stable permanent housing and does not include staying outside in a car, in a tent, in an abandoned building, in an overnight long term, or couch-surfing.) Yes 07/28/2024 Are you worried about losing your housing? No 07/28/2024 Financial Resource Strain Answer Date R ecorded Within the past 12 months, h ave you or your family members you live with been unable to get utilities (heat, electricity) when it was really needed? No 07/28/2024 Transportation Needs Answer Date Record ed Within the past 12 months, h as lack of transportation kept you from medical appointments, getting your medicines, non-medical meetings or appointments, work, or from getting things that you need? No 07/28/2024 Interpersonal Safety Answer Date Record ed Do you feel physically and e motionally safe where you currently live? Yes 07/28/2024 Within the past 12 months, h ave you been hit, slapped, kicked or otherwise physically hurt by someone? No 07/28/2024 Within the past 12 months, h ave you been humiliated or emotionally abused in other ways by your partner or ex-partner? No 07/28/2024 Sex and Gender Information Value Date Recorded Sex Assigned at Not on file Legal Sex Male 4:03 AM DIRECTOR PART Gender Identity Not on file Sexual Orientation Not on file documented as of this encounter Last Filed Vital Signs Vital Sign Reading Time Taken Comments Blood Pressure 118/60 08/26/2024 10:26 AM CDT Pulse 58 08/26/2024 10:26 AM CDT Temperature - - Respiratory Rate - - Oxygen Saturation - - Inhaled Oxygen Concentration - - Weight 101.2 kg (223 lb) 08/26/2024 10:26 AM CDT Height 175.3 cm (5' 9) 08/26/2024 10:26 AM CDT Body Mass Index 32.93 08/26/2024 10:26 AM CDT documented in this encounter Progress Notes * Gerardo Jiang MD - 08/26/2024 10:30 AM CDT CARDIOLOGY CLINIC FOLLOW-UP NOTE REASON FOR VISIT: Multivessel CAD, AF PRIMARY CARE PHYSICIAN: Soto Thompson History of Present Illness Ariel Tafoya is an extremely pleasant 83 year old male here for follow-up. His medical history is significant for multivessel CAD (mid RCA AIR COMPRESSOR ENGINEER, ostial subtotal occlusion of a small-moderate OM1, moderate nonobstructive disease elsewhere), remote PPM placement in [place] (exact indication unclear, appears to be in response to a syncopal event), AF first diagnosed in 07/2024, HF with uncertain EF at present, as well as bilateral carotid artery stenosis s/p right CEA in October 2020 and left CEA in November 2020, CKD 3, hypertension, dyslipidemia, NIDDM 2, and obesity. No family history of heart disease that he is aware of. He is a former smoker, having quit in roughly 2009. I first met him in August 2023 when he presented to establish care and discuss roughly 6 months of gradually progressive dyspnea on exertion. After discussing options, I had ordered a coronary CTA, but unfortunately this was cancelled in favor of a coronary calcium scan due to extensive calcification.His CAC score was 2910 (199 in the LM, roughly even distribution elsewhere). As a result, we elected to proceed with invasive angiography, which was done on 10/26/2023, and this showed a subtotal occlusion of a small-moderate high OM1 at the ostium which is not overly favorable for PCI, as well as amid RCA AIR COMPRESSOR ENGINEER with left to right collaterals, and moderate nonobstructive CAD elsewhere. Due to persistent dyspnea, we then proceeded with AIR COMPRESSOR ENGINEER PCI of the RCA, which was successful in 02/2024. He did have some speech difficulties and right-sided weakness after the procedure, but CT head was negative, deficits resolved on their own, and neurology did not feel that further imaging was necessary. He presents today as an urgent add-on due to newly diagnosed atrial fibrillation. His dual-chamber [employer] PPM is monitored through the device clinic at [facility]. We were alerted on 08/04/2024 that he had several episodes of atrial fibrillation lasting at least 6 hours. He saw his PCP on 08/14/2024, and his daughter shows me an ECG tracing from that visit which appears to show underlying atrial flutter with paced QRS complexes. He was started on Eliquis 2.5 mg twice daily, which he has beentolerating well, and his Plavix was stopped. In addition, his daughter notes that he has been getting more short of breath and fatigued over the past few weeks, and she has noticed swelling around his ankles. Going through his history over the past few months, he was unfortunately hospitalized on 07/27/2024 due to apparently an exacerbation of symptomatic cholelithiasis (rather than true acute cholecystitis). He was started on IV antibiotics initially and discharged on a course of Augmentin. He did see general surgery who recommended conservative management initially. His GI symptoms have improved, but again his fatigue/dyspnea persist. As part of today's visit, I reviewed his discharge summary from 07/2024, as well as his most recent TTE from 02/16/2024, his most recent lipid panel, chemistry panel, and CBC, and also the images of his AIR COMPRESSOR ENGINEER PCI from 02/2024. Assessment & Plan AF, newly detected in 07/2024, moderately symptomatic, PDQUL-2-Cvre = 8 (CHF, HTN, age x 2, DM, stroke x 2, Vascular disease) Acute on chronic HF with uncertain EF at present, mild-moderately volume overloaded on exam, NYHA III Multivessel CAD s/p RCA AIR COMPRESSOR ENGINEER PCI in 02/2024, no definite angina at present Residual ostial subtotal occlusion of a small-moderate OM1 and moderate nonobstructive disease elsewhere Remote PPM placement ([employer] dual-chamber) in [place] Exact indication unclear, appears to be in response to a syncopal event Has been following with the [facility] device clinic (but not a swedger there) Bilateral carotid artery stenosis s/p right CEA in October 2020 and left CEA in November 2020, followingwith Dr. 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 While his primary cardiac issue in the past had been his coronary disease, the most active issue now is his newly diagnosed atrial fibrillation, and also is swelling/dyspnea which suggests some degree of heart failure related volume overload. We discussed in detail regarding the appropriate management of both his atrial fibrillation and the potential associated heart failure, and I did my best to answer their excellentquestions. Ultimately, I recommended the following: -Continue Eliquis 2.5 mg twice daily uninterrupted (started 08/14/2024) -Plan for DCCV following 4 weeks uninterrupted anticoagulation (to be scheduled 09/11/2024 or later);no HUAN required -Device clinic alerted to have [employer] device rep present -No issues with RVR at present; continue Toprol-XL 100 mg daily -If DCCV fails/early recurrence of AF, we will consider alternative strategies such as amiodarone and/or ablation -Repeat TTE now -Start torsemide 20 mg daily -Repeat BMP, magnesium, and NT proBNP in 5-7 days; adjust diuretic dosing as needed based on this -Continue medical management of OM1 ostial subtotal occlusion for now -Continue rosuvastatin 20 mg daily -Continue fenofibrate 160 mg daily -Continue irbesartan 150 mg daily --Eventually will need to establish in the device clinic -MTM visit ordered given patient is on pioglitazone which can exacerbate heart failure Follow-up: 2 months with [facility], or sooner as needed On the date of the patient's visit, I spent a total of 60 minutes reviewing the patient's chart; interviewing, examining, and counseling the patient; coordinating with other providers as necessary, entering orders, and documenting in the medical chart. Gerardo Jiang MD Interventional Cardiology August 26, 2024 The longitudinal plan of care for the diagnosis(es)/condition(s) as documented were addressed during this visit. Due to the added complexity in care, I will continue to support Ariel in the subsequentmanagement and with ongoing continuity of care. Medications Current Outpatient Medications Medication Sig Dispense Refill acetaminophen (TYLENOL) 325 MG tablet Take 2 tablets (650 mg) by mouth every 4 hours as needed for mild pain. ELIQUIS ANTICOAGULANT 2.5 MG tablet Take 1 tablet by mouth 2 times daily. fenofibrate (TRIGLIDE/LOFIBRA) 160 MG tablet Take 160 mg by mouth daily. finasteride (PROSCAR) 5 MG tablet Take 1 tablet (5 mg) by mouth daily. 10 tablet 0 insulin aspart (NOVOLOG FLEXPEN) 100 UNIT/ML pen Inject subcutaneously 3 times daily (with meals). Based on blood sugar levels insulin glargine (LANTUS PEN) 100 UNIT/ML pen Inject 42 Units subcutaneously every morning. insulin glargine (LANTUS PEN) 100 UNIT/ML pen Inject 22 Units subcutaneously every evening. ipratropium (ATROVENT) 0.03 % nasal spray Franklin 2 sprays into both nostrils 2 times daily. irbesartan (AVAPRO) 300 MG tablet Take 0.5 tablets (150 mg) by mouth daily. levothyroxine (SYNTHROID/LEVOTHROID) 100 MCG tablet Take 100 mcg by mouth daily LUTEIN PO Take 1 tablet by mouth daily. metFORMIN (GLUCOPHAGE XR) 500 MG 24 hr tablet Take 1 tablet (500 mg) by mouth 2 times daily. 180 tablet 0 metoprolol succinate ER (TOPROL-XL) 100 MG 24 hr tablet Take 100 mg by mouth every morning Milk Thistle 175 MG CAPS Take 175 mg by mouth daily multivitamin w/minerals (THERA-VIT-M) tablet Take 1 tablet by mouth daily pioglitazone (ACTOS) 15 MG tablet Take 15 mg by mouth every morning rosuvastatin (CRESTOR) 20 MG tablet Take 2 tablets (40 mg) by mouth daily. tamsulosin (FLOMAX) 0.4 MG capsule Take 0.8 mg by mouth every morning. Vitamin D, Cholecalciferol, 25 MCG (1000 UT) CAPS Take 1,000 Units by mouth daily aspirin 81 MG EC tablet Take 1 tablet (81 mg) by mouth daily. (Patient not taking: Reported on 08/26/2024) clopidogrel (PLAVIX) 75 MG tablet Take 1 tablet (75 mg) by mouth daily. (Patient not taking: Reported on 08/26/2024) 90 tablet 1 No current facility-administered medications for this visit. Allergies Allergies Allergen Reactions Sulfa Antibiotics Unknown Reaction as a child Physical Exam BP: 118/60 Pulse: 58 Vital Signs with Ranges Pulse: [58] 58 BP: (118)/(60) 118/60 223 lbs 0 oz Constitutional: Well-appearing, antalgic gait, no acute distress Respiratory: Normal respiratory effort, faint bibasilar crackles Cardiovascular: RRR, no obvious m/r/g. JVP 10-12 cm H2O. There is 1-2+ bilateral LE edema. Normal carotid upstrokes, no carotid bruits. documented in this encounter Plan of Treatment Upcoming Encounters Date Type Department Care Team (Late st Contact Info) Description 10/27/2024 2:10 PM CDT Office Visit [facility] [address] [place] [address] Gerardo Jiang MD [address] [place] [address] Kristy Hassan E, [employer] [address] [address] Pending Results Name Type Priority Associated Diagnoses Date /Time Cardioversion Electrophysiology Routine Atrial fibrillation, unspecified type (H) 09/24/2024 1:00 PM CDT Scheduled Orders Name Type Priority Associated Diagnoses Orde r Schedule Cardioversion Electrophysiology Routine Atrial fibrillation, unspecified type (H) Expected: 09/11/2024 (Approximate), Expires: 08/26/2025 Scheduled Referrals Name Type Priority Associated Diagnoses Orde r Schedule Follow-Up with Cardiology [facility] Referral Routine: Next available opening Atrial fibrillation, unspecified type (H) Coronary artery disease involving kiana coronary artery of kiana heart without angina pectoris Expected: 10/26/2024 (Approximate), Expires: 08/26/2025 Med Therapy Management Referral Referral Routine: Next available opening Acute on chronic heart failure, unspecified heart failure type (H) Ordered: 08/26/2024 documented as of this encounter Results * ECHO COMPLETE (09/19/2024 10:16 AM CDT) LVEF 60-65% CARDIOLOGY RESULTS Anatomical Region Laterality Modality Echocardiography 09/19/2024 9:50 AM CDT Narrative 09/19/2024 12:28 PM CDT [id number]^BLADIMIR^GERARDO^[facility] [address] [place] [id number] Name: ARIEL TAFOYA : 1940 Study Date: 09/19/2024 09:50 AM Age: 83 yrs Gender: Male Patient Location: [facility] Reason For Study: Atrial fibrillation, unspecified type (H) Ordering Physician: MD Gerardo Jiang Referring Physician: MD Gerardo Jiang Performed By: Chino Tubbs RDCS BSA: 2.2 m2 Height: 69 in Weight: 223 lb HR: 60 BP: 103/50 mmHg Procedure Echocardiogram with two-dimensional, color and spectral Doppler. Interpretation Summary There is mild concentric left ventricular hypertrophy. The visual ejection fraction is 60-65%. Diastolic Doppler findings (E/E' ratio and/or other parameters) suggest left ventricular filling pressures are normal. No regional wall motion abnormalities noted. No significant valvular heart disease. Left Ventricle The left ventricle is normal in size. There is mild concentric left ventricular hypertrophy. Diastolic Doppler findings (E/E' ratio and/or other parameters) suggest left ventricular filling pressures are normal. The visual ejection fraction is 60-65%. No regional wall motion abnormalities noted. Right Ventricle There is a catheter/pacemaker lead seen in the right ventricle. The right ventricle is normal in size and function. Atria Normal left atrial size. Right atrial size is normal. Pacer wire in right atrium. There is no color Doppler evidence of an atrial shunt. Mitral Valve The mitral valve leaflets are mildly thickened. There is trace mitral regurgitation. Tricuspid Valve IVC diameter <2.1 cm collapsing >50% with sniff suggests a normal RA pressure of 3 mmHg. There is trace tricuspid regurgitation. Aortic Valve There is mild trileaflet aortic sclerosis. There is trace aortic regurgitation. Pulmonic Valve There is trace pulmonic valvular regurgitation. Vessels Normal size aorta. The aortic root is normal size. Pericardium There is no pericardial effusion. Rhythm The rhythm was atrial flutter. MMode/2D Measurements & Calculations IVSd: 1.5 cm LVIDd: 4.3 cm LVIDs: 2.0 cm LVPWd: 1.4 cm IVC diam: 1.3 cm FS: 52.8 % LV mass(C)d: 242.1 grams LV mass(C)dI: 111.9 grams/m2 Ao root diam: 3.7 cm asc Aorta Diam: 3.6 cm LVOT diam: 2.3 cm LVOT area: 4.2 cm2 Ao root diam index Ht(cm/m): 2.1 Ao root diam index BSA (cm/m2): 1.7 Asc Ao diam index BSA (cm/m2): 1.6 Asc Ao diam index Ht(cm/m): 2.0 LA Volume (BP): 66.4 ml LA Volume Index (BP): 30.7 ml/m2 RV Base: 4.1 cm RWT: 0.66 TAPSE: 1.8 cm Time Measurements Aortic HR: 60.0 BPM Doppler Measurements & Calculations MV E max brijesh: 98.5 cm/sec LV V1 max P.3 mmHg LV V1 max: 91.2 cm/sec LV V1 VTI: 20.4 cm CO(LVOT): 5.1 l/min CI(LVOT): 2.4 l/min/m2 SV(LVOT): 85.1 ml SI(LVOT): 39.3 ml/m2 PA acc time: 0.10 sec E/E' av.2 Lateral E/e': 6.0 Medial E/e': 8.3 RV S Brijesh: 14.1 cm/sec Report approved by: Juaquin Henderson MD on 09/19/2024 12:28 PM Procedure Note Juaquin Henderson MD - 09/19/2024 [id number]^BLADIMIR^GERARDO^[facility] [address] [place] [address] Name: ARIEL TAFOYA : 1940 Study Date: 09/19/2024 09:50 AM Age: 83 yrs Gender: Male Patient Location: [facility] Reason For Study: Atrial fibrillation, unspecified type (H) Ordering Physician: MD Gerardo Jiang Referring Physician: MD Gerardo Jiang Performed By: Chino Tubbs RDCS BSA: 2.2 m2 Height: 69 in Weight: 223 lb HR: 60 BP: 103/50 mmHg Procedure Echocardiogram with two-dimensional, color and spectral Doppler. Interpretation Summary There is mild concentric left ventricular hypertrophy. The visual ejection fraction is 60-65%. Diastolic Doppler findings (E/E' ratio and/or other parameters) suggestleft ventricular filling pressures are normal. No regional wall motion abnormalities noted. No significant valvular heart disease. Left Ventricle The left ventricle is normal in size. There is mild concentric left ventricular hypertrophy. Diastolic Doppler findings (E/E' ratio and/orother parameters) suggest left ventricular filling pressures are normal. Thevisual ejection fraction is 60-65%. No regional wall motion abnormalitiesnoted. Right Ventricle There is a catheter/pacemaker lead seen in the right ventricle. Theright ventricle is normal in size and function. Atria Normal left atrial size. Right atrial size is normal. Pacer wire inright atrium. There is no color Doppler evidence of an atrial shunt. Mitral Valve The mitral valve leaflets are mildly thickened. There is trace mitral regurgitation. Tricuspid Valve IVC diameter <2.1 cm collapsing >50% with sniff suggests a normal RApressure of 3 mmHg. There is trace tricuspid regurgitation. Aortic Valve There is mild trileaflet aortic sclerosis. There is trace aortic regurgitation. Pulmonic Valve There is trace pulmonic valvular regurgitation. Vessels Normal size aorta. The aortic root is normal size. Pericardium There is no pericardial effusion. Rhythm The rhythm was atrial flutter. MMode/2D Measurements & Calculations IVSd: 1.5 cm LVIDd: 4.3 cm LVIDs: 2.0 cm LVPWd: 1.4 cm IVC diam: 1.3 cm FS: 52.8 % LV mass(C)d: 242.1 grams LV mass(C)dI: 111.9 grams/m2 Ao root diam: 3.7 cm asc Aorta Diam: 3.6 cm LVOT diam: 2.3 cm LVOT area: 4.2 cm2 Ao root diam index Ht(cm/m): 2.1 Ao root diam index BSA (cm/m2): 1.7 Asc Ao diam index BSA (cm/m2): 1.6 Asc Ao diam index Ht(cm/m): 2.0 LA Volume (BP): 66.4 ml LA Volume Index (BP): 30.7 ml/m2 RV Base: 4.1 cm RWT: 0.66 TAPSE: 1.8 cm Time Measurements Aortic HR: 60.0 BPM Doppler Measurements & Calculations MV E max brijesh: 98.5 cm/sec LV V1 max P.3 mmHg LV V1 max: 91.2 cm/sec LV V1 VTI: 20.4 cm CO(LVOT): 5.1 l/min CI(LVOT): 2.4 l/min/m2 SV(LVOT): 85.1 ml SI(LVOT): 39.3 ml/m2 PA acc time: 0.10 sec E/E' av.2 Lateral E/e': 6.0 Medial E/e': 8.3 RV S Brijesh: 14.1 cm/sec Report approved by: Juaquin Henderson MD on 09/19/2024 12:28 PM us Gerardo Jiang MD CV ECHO ORDERABLES Edit ed Result - Final * TSH with free T4 reflex (09/02/2024 1:36 PM CDT) [facility] TSH 3.35 0.30 - 4.20 uIU/mL 09/02/2024 2:14 PM CDT LABORATORY Blood STRUCTURE OF LEFT HAND / Unknown Venipuncture / Unknown 09/02/2024 1:36 PM CDT 09/02/2024 1:38 PM CDT Gerardo Jiang MD LAB - BLOOD ORDERABLES Final Result LABORATORY [facility] Acute Care Lab [address] [facility] Lab (1st floor, no room number) [place] [address], [facility] * (ABNORMAL) NT-proBNP (09/02/2024 1:36 PM CDT) [facility] NT-proBNP 2,351(H) 0 - 852 pg/mL 09/02/2024 2:14 PM CDT LABORATORY Comment: Starting on 08/13/2024, [facility] laboratory began flagging abnormal values for plasma NT-proBNP results for adults using age-specific reference ranges instead of clinical cut-points/thresholds (see interpretation comment below for clinical threshold values) as part of a test standardization effort. Pediatric abnormal values were already previously flagged using age-specific reference intervals, which are not currently changing. The test methodology remains unchanged, and previous results performed with this methodology can be interpreted with the updated reference intervals. [facility]'s Pediatric (boys and girls) Reference Ranges in pg/mL * 0 up to 3 days: 0 - 40910 3 days up to 1 month: 0 - 6500 1 month up to 1 year: 0 - 1000 2 up to 6 years: 0 - 330 6 up to 18 years: 0 - 240 Male Reference Ranges in pg/mL 18-44 years: 0 - 93 45-54 years: 0 - 138 55-64 years: 0 - 177 65-74 years: 0 - 229 75 years or older: 0 - 852 Female Reference Ranges in pg/mL 8-44 years: 0 - 178 45-54 years: 0 - 192 55-64 years: 0 - 226 65-74 years: 0 - 353 75 years or older: 0 - 624 Reference ranges in adults reflect 95th percentiles for NT-pro-BNP levels in patients without congestive heart failure (CHF). Knowledge of each individual patient's NT-proBNP range may be more useful than using similar cut-points for every patient. For adult chronic CHF patients according to [place] Heart Association (NYHA) Functional Class, the mean NT-proBNP concentration is as following (5th and 95th percentile values respectively displayed in parentheses): Class I: 1016 pg/mL (33-3410) Class II: 1666 pg/mL (103-6567) Class III: 3029 pg/mL (126-69286) Class IV: 3465 pg/mL (148-78456) Clinical thresholds for acute (emergency department) settings: < 300 pg/mL effectively rules out acute decompensated heart failure (ADHF), with 99% negative predictive value. The following values may rule in potential acute decompensated heart failure (ADHF) in individuals (with a PPV of 50-60%): Under 50 years: >450 pg/mL Between 50-75 years: >900 pg/mL Over 75 years: >1800 pg/mL Among patients with dyspnea, NT-proBNP is highly sensitive for detection of acute CHF. Elevations in NT-proBNP levels may be observed in states other than left ventricular congestive failure including: acute coronary syndromes, right heart strain/failure (including pulmonary embolism and cor pulmonale), critical illness, and renal failure. Falsely low NT-proBNP in CHF patients may be observed in increased body mass index. * References: (1) Cooper Guzman et al. Pediatr Cardiol 30:3-8, 2008. Blood STRUCTURE OF LEFT HAND / Unknown Venipuncture / Unknown 09/02/2024 1:36 PM CDT 09/02/2024 1:38 PM CDT Gerardo Jiang MD LAB - BLOOD ORDERABLES Final Result Performing Organization Address City/[facility]/ZIP Co de Phone Number [facility] Acute Care Lab [address] Lab (1st floor, no room number) [address] * Magnesium (09/02/2024 1:36 PM CDT) Magnesium 2.2 1.7 - 2.3 mg/dL 09/02/2024 2:10 PM CDT LABORATORY Blood STRUCTURE OF LEFT HAND / Unknown Venipuncture / Unknown 09/02/2024 1:36 PM CDT 09/02/2024 1:38 PM CDT Gerardo Jiang MD LAB - BLOOD ORDERABLES Final Result [facility] [address] Lab (1st floor, no room number) [address] * (ABNORMAL) Basic metabolic panel (09/02/2024 1:36 PM CDT) Sodium 137 135 - 145 mmol/L 09/02/2024 2:10 PM CDT LABORATORY Potassium 5.1 3.4 - 5.3 mmol/L 09/02/2024 2:10 PM CDT LABORATORY Chloride 101 98 - 107 mmol/L 09/02/2024 2:10 PM CDT LABORATORY Carbon Dioxide (CO2) 25 22 - 29 mmol/L 09/02/2024 2:10 PM CDT LABORATORY Anion Gap 11 7 - 15 mmol/L 09/02/2024 2:10 PM CDT LABORATORY Urea Nitrogen 45.5(H) 8.0 - 23.0 mg/dL 09/02/2024 2:10 PM CDT LABORATORY Creatinine 2.13(H) 0.67 - 1.17 mg/dL 09/02/2024 2:10 PM CDT LABORATORY GFR Estimate 30(L) >60 mL/min/1.7 3m2 09/02/2024 2:10 PM CDT LABORATORY Comment:eGFR calculated usin 2020 CKD-EPI equation. 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- Primary Atrial fibrillation, unspecified type (H) Cardiac pacemaker in situ Benign essential hypertension Essential hypertension, benign Hyperlipidemia LDL goal <70 Other and unspecified hyperlipidemia Stage 3 chronic kidney disease, unspecified whether stage 3a or 3b CKD (H) Acute on chronic heart failure, unspecified heart failure type (H) Atrial fibrillation, unspecified type (H) documented in this encounter Care Teams Leaf Conditioner Relationship Specialty Start Date End Date Soto Thompson MD PCP - General Family Medicine 09/23/20 Gerardo Jiang MD [address] [place] [id number] Assigned Heart and Vascular Provider 10/30/23 Nancy Forbes DO [address] [place] [address] Physician Neurology 02/22/24 Farzad Sevilla MD [address] [place] [id number] Cardiovascular Disease 02/22/24 Zechariah Lange MD [address] [place] [id number] Assigned Heart and Vascular Surgical Provider 06/29/24 Byron Thompson PA-C [address] [place] [id number] Physician Final Assembly Worker Cardiovascular Disease 07/04/24 documented as of this encounter
--- OUTSIDE RECORDS SUMMARY | 2024-08-26 10:30 | XMS_ITS | Encounter Summary ---
Author Organization [place] Address [facility] [place] [address] Care Team Providers Care Emergency Medical Technician Name Role Phone Soto Thompson MD Primary Care Provider [phone] Gerardo Jiang MD Unavailable [phone] Nancy Forbes DO Unavailable [phone] Farzad Sevilla MD Unavailable [phone] Zechariah Lange MD Unavailable [phone] Byron Thompson PA-C Unavailable [phone] Reason for Referral * Med Therapy Management (Routine: Next available opening) - Authorized Specialty Diagnoses / Procedures Referred By Contac t Referred To Contact Pharmacist Diagnoses Acute on chronic heart failure, unspecified heart failure type (H) Gerardo Jiang MD [address] [place] [address] Phone: tel: fax: Referral ID Status Reason Start Date Expiration Date V isits Requested Visits Authorized [id number] Authorized 08/26/2024 08/26/2025 1 1 Question Answer Type of MTM: Specialty Specialty: Cardiology Course of Action: Other Reason for Referral: Optimize diabetes medications in the setting of HF (patient on pioglitazone) Comments The [facility] Medication Therapy Management department will contact you [...] prescription and non-prescription medications (such as vitamins, ukxa-bxl-ljqbjwg medications, and herbals) or a detailed medication [...] type (H) Procedures Cardioversion Gerardo Jiang MD [address] [facility] [place] [address] Phone: tel: fax: [facility] [address] [place] [address] Phone: tel: Referral ID Status Reason Start Date Expiration Date Visits Re quested Visits Authorized [id number] Closed 08/26/2024 08/26/2025 1 1 * CV [...] ZZHC STATISTIC IV PUSH SINGLE INITIAL SUBSTANCE WY ECHO MYOCARD BX WY INJECTION, PERFLUTREN LIPID MICROSPHERES, PER ML WY TTE W/DOPPLER, COMPLETE WY IV PUSH SINGLE, INITIAL SUBSTANCE WY TTE W/DOPPLER, COMPLETE WY TTE W/DOPPLER, COMPLETE HC US GUIDE FOR PERICARDIOCENTESIS HC ECHO MYOCARD BX HC IV PUSH SINGLE, INITIAL SUBSTANCE HC STATISTIC IV PUSH SINGLE INITIAL SUBSTANCE HC ECHO COMPLETE W DOPPLER W CONTRAST HC ECHO COMPLETE W DOPPLER W/O CONTRAST Gerardo Jiang MD [address] [place] [address] Phone: tel: fax: [facility] [address] [facility] [facility] [address] [place] [address] Phone: tel: fax: Referral ID Status Reason Start Date Expiration Date Visits Re quested Visits Authorized [id number] Closed 08/26/2024 08/26/2025 1 1 * Consultation (Routine: Next available opening) - Pending Review Specialty Diagnoses / Procedures Referred By Contac t Referred To Contact Cardiovascular Disease Diagnoses Atrial fibrillation, unspecified type (H) Coronary artery disease involving [place] coronary artery of [place] heart without angina pectoris Gerardo Jiang MD [address] [place] [address] Phone: tel: fax: Referral ID Status Reason Start Date Expiration Date V isits Requested Visits Authorized [id number] Pending Review 08/26/2024 08/26/2025 1 1 Question Answer Follow-up with: HARSH Patient Scheduling Instructions: [facility] will call you to coordinate your care as prescribed by your provider. If you have concerns about scheduling, please call [phone]. Comments [facility] will call you to coordinate your care as prescribed by your provider. If you have concerns about scheduling, please call [phone]. Reason for Visit * Reason Comments Coronary Artery Disease * Consultation (Routine) - Pending Review Specialty Diagnoses / Procedures Referred By Contac t Referred To Contact Cardiovascular Disease Diagnoses A-fib (H) Gerardo Jiang MD [address] [place] [address] Phone: tel: fax: Referral ID Status Reason Start Date Expiration Date V isits Requested Visits Authorized [id number] Pending Review 08/04/2024 08/04/2025 1 1 Encounter Details Date Type Department Care Team (Kat st Contact Info) Description 08/26/2024 10:30 AM CDT Office Visit [address] [place] [address] Gerardo Jiang MD [address] [place] [address] Coronary artery disease involving [place] coronary artery of [place] heart without angina pectoris (Primary Dx); Atrial [...] in an abandoned building, in an overnight intermediate, or couch-surfing.) Yes 07/28/2024 Are you worried [...] on file 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 Due to persistent dyspnea, we then proceeded with DELINQUENCY COUNSELOR PCI of the RCA, which was successful in 02/2024. He did have some speech difficulties and right-sided weakness after the procedure, but CT head was negative, deficits resolved on their own, and neurology did not feel that further imaging was necessary. He presents today as an urgent add-on due to newly diagnosed atrial fibrillation. His dual-chamber [employer] PPM is monitored through the device clinic at [place]. We were alerted on 08/04/2024 that he [...] CBC, and also the images of his DELINQUENCY COUNSELOR PCI from 02/2024. 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 ipratropium (ATROVENT) 0.03 % nasal spray [place] 2 sprays into both nostrils 2 times [...] Description 10/27/2024 2:10 PM CDT Office Visit [facility] [address] [facility] [address] [place] [address] Gerardo Jiang MD [address] [place] [address] Kristy Hassan E, BRIDGE MAINTENANCE WORKER EXTRACTOR OPERATOR SOLVENT PROCESS [address] [place] [address] Pending Results Name Type Priority Associated Diagnoses [...] unspecified type (H) Coronary artery disease involving [place] coronary artery of [place] heart without angina pectoris Expected: 10/26/2024 (Approximate), Expires: 08/26/2025 Med Therapy Management Referral Referral Routine: Next available opening Acute on chronic heart failure, unspecified heart failure type (H) Ordered: 08/26/2024 documented as of this encounter Results * ECHO COMPLETE (09/19/2024 10:16 AM CDT) LVEF 60-65% CARDIOLOGY RESULTS Anatomical Region Laterality Modality Echocardiography 09/19/2024 9:50 AM CDT Narrative 09/19/2024 12:28 PM CDT [id number]^BLADIMIR^GERARDO^[facility] Echocardiography Laboratory [address] [place] [address] Name: ARIEL TAFOYA : 1940 Study Date: 09/19/2024 09:50 AM Age: 83 yrs Gender: Male Patient Location: [facility] Reason For Study: Atrial fibrillation, unspecified type [...] Procedure Note Juaquin Henderson MD - 09/19/2024 [id number]^BLADIMIR^GERARDO^[facility] Echocardiography Laboratory [address] [place] [address] Name: ARIEL TAFOYA : 1940 Study Date: 09/19/2024 09:50 AM Age: 83 yrs Gender: Male Patient Location: [facility] Reason For Study: Atrial fibrillation, unspecified type [...] free T4 reflex (09/02/2024 1:36 PM CDT) [facility] TSH 3.35 0.30 - 4.20 uIU/mL 09/02/2024 2:14 PM CDT LABORATORY Blood STRUCTURE OF LEFT HAND / Unknown Venipuncture / Unknown 09/02/2024 1:36 PM CDT 09/02/2024 1:38 PM CDT Gerardo Jiang MD LAB - BLOOD ORDERABLES Final Result LABORATORY [facility] Acute Care Lab [address] [facility] Lab (1st floor, no room number) [place] [address], [facility] * (ABNORMAL) NT-proBNP (09/02/2024 1:36 PM CDT) [facility] NT-proBNP 2,351(H) 0 - 852 pg/mL 09/02/2024 2:14 PM CDT LABORATORY Comment: Starting on 08/13/2024, [facility] laboratory began flagging abnormal values for plasma [...] be interpreted with the updated reference intervals. [facility]'s Pediatric (boys and girls) Reference Ranges in pg/mL * 0 up to 3 days: 0 - 23516 3 days up to 1 month: 0 [...] For adult chronic CHF patients according to [place] Heart Association (NYHA) Functional Class, the mean NT-proBNP concentration is as following (5th and 95th percentile values respectively displayed in parentheses): Class I: 1016 pg/mL (33-3410) Class II: 1666 pg/mL (103-6567) Class III: 3029 pg/mL (126-84452) Class IV: 3465 pg/mL (148-87234) Clinical thresholds for acute (emergency department) settings: [...] BLOOD ORDERABLES Final Result Performing Organization Address City/[facility]/ZIP Co de Phone Number [facility] Acute Care Lab [address] Lab (1st floor, no room number) [address] * Magnesium (09/02/2024 1:36 PM CDT) Magnesium 2.2 1.7 - 2.3 mg/dL 09/02/2024 2:10 PM CDT LABORATORY Blood STRUCTURE OF LEFT HAND / Unknown Venipuncture / Unknown 09/02/2024 1:36 PM CDT 09/02/2024 1:38 PM CDT Gerardo Jiang MD LAB - BLOOD ORDERABLES Final Result [facility] Lab [address] Lab (1st floor, no room number) [address] * (ABNORMAL) Basic metabolic panel (09/02/2024 [...] LAB - BLOOD ORDERABLES Final Result LABORATORY [facility] Acute Care Lab [address] Lab (1st floor, no room number) [place] [address] documented in this encounter Visit Diagnoses Diagnosis Coronary artery disease involving [place] coronary artery of [place] heart without angina pectoris- Primary Atrial fibrillation, unspecified type (H) Cardiac pacemaker in situ Benign essential hypertension Essential hypertension, benign Hyperlipidemia LDL goal <70 Other and unspecified hyperlipidemia Stage 3 chronic kidney disease, unspecified whether stage 3a or 3b CKD (H) Acute on chronic heart failure, unspecified heart failure type (H) Atrial fibrillation, unspecified type (H) documented in this encounter Care Teams Emergency Medical Technician Relationship Specialty Start Date End Date Soto Thompson MD PCP - General Family Medicine 09/23/20 Gerardo Jiang MD [address] [place] [id number] Assigned Heart and Vascular Provider 10/30/23 Nancy Forbes DO [address] [place] [address] Physician Neurology 02/22/24 Farzad Sevilla MD [address] [place] [id number] Cardiovascular Disease 02/22/24 Zechariah Lange MD [address] [place] [id number] Assigned Heart and Vascular Surgical Provider 06/29/24 Byron Thompson PA-C [address] [place] [address] Physician Die Repairer Trimmer Dies Cardiovascular Disease 07/04/24 documented as of this encounter
--- OUTSIDE RECORDS SUMMARY | 2024-09-02 13:30 | XMS_ITS | Encounter Summary ---
Author Organization [facility] Address [address] [place] [address] Care Team Providers Care Underwriter Name Role Phone Soto Thompson MD Primary Care Provider [phone] Gerardo Jiang MD Unavailable [phone] Nancy Forbes DO Unavailable [phone] Farzad Sevilla MD Unavailable [phone] Zechariah Lange MD Unavailable [phone] Byron Thompson PA-C Unavailable Mark Lopez MD Unavailable [phone] Encounter Details Date Type Department Care Team (Late st Contact Info) Description 09/02/2024 1:30 PM CDT [facility] Heart [address] [address] Atrial fibrillation, unspecified type (H); Coronary artery disease involving saxman coronary artery of saxman heart without angina pectoris; Cardiac pacemaker in situ; Benign essential hypertension; [...] in an abandoned building, in an overnight skilled nursing, or couch-surfing.) Yes 07/28/2024 Are you worried [...] on file 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 Gender Identity Not on file Sexual Orientation Not on file documented as of this encounter Plan of Treatment Upcoming Encounters Date Type Department Care Team (Late st Contact Info) Description 10/27/2024 2:10 PM CDT Office Visit [address] [place] [address] Gerardo Jiang MD [address] [place] [address] Kristy Hassan E, COUNTERSINKER BALANCE SCREW HOLE SCREEN MAKING SUPERVISOR [address] [place] [address] documented as of this encounter Procedures Procedure Name Priority Date/Time Associated Diagnosis Comments TSH WITH FREE T4 REFLEX Routine 09/02/2024 1:36 PM CDT Atrial fibrillation, unspecified type (H) NT-PROBNP Routine 09/02/2024 1:36 PM CDT Atrial fibrillation, unspecified type (H) Coronary artery disease involving saxman coronary artery of saxman heart without angina pectoris Benign essential hypertension Hyperlipidemia LDL goal <70 Stage 3 chronic kidney disease, unspecified whether stage 3a or 3b CKD (H) Acute on chronic heart failure, unspecified heart failure type (H) MAGNESIUM Routine 09/02/2024 1:36 PM CDT Atrial fibrillation, unspecified type (H) Coronary artery disease involving saxman coronary artery of saxman heart without angina pectoris Benign essential hypertension Stage 3 chronic kidney disease, unspecified whether stage 3a or 3b CKD (H) BASIC METABOLIC PANEL Routine 09/02/2024 1:36 PM CDT Atrial fibrillation, unspecified type (H) Coronary artery disease involving saxman coronary artery of saxman heart without angina pectoris Cardiac pacemaker in situ Benign essential hypertension Hyperlipidemia LDL goal <70 Stage 3 chronic kidney disease, unspecified whether stage 3a or 3b CKD (H) documented in this encounter Results * TSH with free T4 reflex (09/02/2024 1:36 PM CDT) TSH 3.35 0.30 - 4.20 uIU/mL 09/02/2024 2:14 PM CDT [facility] Blood STRUCTURE OF LEFT HAND / Unknown Venipuncture / Unknown 09/02/2024 1:36 PM CDT 09/02/2024 1:38 PM CDT Gerardo Jiang MD LAB - BLOOD ORDERABLES Final Result LABORATORY [facility] Lab [address] [facility] Lab (1st floor, no room number) [place] [address], [facility] * (ABNORMAL) NT-proBNP (09/02/2024 1:36 PM CDT) [facility] NT-proBNP 2,351(H) 0 - 852 pg/mL 09/02/2024 2:14 PM CDT LABORATORY Comment: Starting on 08/13/2024, [facility] laboratory began flagging abnormal values [...] be interpreted with the updated reference intervals. [facility]'s Pediatric (boys and girls) Reference Ranges in pg/mL * 0 up to 3 days: 0 - 03360 3 days up to 1 month: 0 [...] For adult chronic CHF patients according to [place] [employer] (NYHA) Functional Class, the mean NT-proBNP concentration is as following (5th and 95th percentile values respectively displayed in parentheses): Class I: 1016 pg/mL (33-3410) Class II: 1666 pg/mL (103-6553) Class III: 3029 pg/mL (126-57386) Class IV: 3465 pg/mL (148-40206) Clinical thresholds for acute (emergency department) settings: [...] MD LAB - BLOOD ORDERABLES Final Result [facility] [address] [facility] Lab (1st floor, no room number) [place] [address] * Magnesium (09/02/2024 1:36 PM CDT) [facility] Magnesium 2.2 1.7 - 2.3 mg/dL 09/02/2024 2:10 PM CDT LABORATORY Blood STRUCTURE OF LEFT HAND / Unknown Venipuncture / Unknown 09/02/2024 1:36 PM CDT 09/02/2024 1:38 PM CDT Gerardo Jiang MD LAB - BLOOD ORDERABLES Final Result [facility] Acute Care Lab [address] Lab (1st floor, no room number) [place] [address], [facility] * (ABNORMAL) Basic metabolic panel (09/02/2024 1:36 [...] 09/02/2024 2:10 PM CDT LABORATORY Comment:eGFR calculated 2020 CKD-EPI equation. Calcium 9.9 8.8 - 10.4 mg/dL 09/02/2024 2:10 PM CDT LABORATORY Glucose 207(H) 70 - 99 mg/dL 09/02/2024 2:10 PM CDT LABORATORY Blood STRUCTURE OF LEFT HAND / Unknown Venipuncture / Unknown 09/02/2024 1:36 PM CDT 09/02/2024 1:38 PM CDT Gerardo Jiang MD LAB - BLOOD ORDERABLES Final Result LABORATORY [facility] [address] Lab (1st floor, no room number) [place] [address], [facility] documented in this encounter Visit Diagnoses Diagnosis Atrial fibrillation, unspecified type (H) Coronary artery disease involving saxman coronary artery of saxman heart without angina pectoris Cardiac pacemaker in situ Benign essential hypertension Essential hypertension, benign Hyperlipidemia LDL goal <70 Other and unspecified hyperlipidemia Stage 3 chronic kidney disease, unspecified whether stage 3a or 3b CKD (H) Acute on chronic heart failure, unspecified heart failure type (H) documented in this encounter Care Teams Underwriter Relationship Specialty Start Date End Date Soto Thompson MD PCP - General Family Medicine 09/23/20 Gerardo Jiang MD [address] [place], [place] [id number] Assigned Heart and Vascular Provider 10/30/23 Nancy Forbes DO [address] [place] [id number] Physician Neurology 02/22/24 Farzad Sevilla MD [address] [place] [address] Cardiovascular Disease 02/22/24 Zechariah Lange MD [address] [place] [address] Assigned Heart and Vascular Surgical Provider 06/29/24 Byron Thompson PA-C [address] [place], [place] [address] Physician Clinical Lab Clerk Cardiovascular Disease 07/04/24 Mark Lopez MD [address] [place] [address] Assigned Surgical Provider 08/29/24 documented as of this encounter
--- OUTSIDE RECORDS SUMMARY | 2024-09-02 13:30 | XMS_ITS | Encounter Summary ---
Author Organization [facility] Address [address] [place] [address] Care Team Providers Care Freezer Worker Name Role Phone Soto Thompson MD Primary Care Provider [phone] Gerardo Jiang MD Unavailable [phone] Nancy Forbes DO Unavailable [phone] Farzad Sevilla MD Unavailable [phone] Zechariah Lange MD Unavailable [phone] Byron Thompson PA-C Unavailable Mark Lopez MD Unavailable [phone] Encounter Details Date Type Department Care Team (Late st Contact Info) Description 09/02/2024 1:30 PM CDT [facility] Heart [address] [address] Atrial fibrillation, unspecified type (H); [...] in an abandoned building, in an overnight nursing home, or couch-surfing.) Yes 07/28/2024 Are you worried [...] on file 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 Gender Identity Not on file Sexual Orientation Not on file documented as of this encounter Plan of Treatment Upcoming Encounters Date Type Department Care Team (Late st Contact Info) Description 10/27/2024 2:10 PM CDT Office Visit [address] [place] [address] Gerardo Jiang MD [address] [place] [address] Kristy Hassan E, RETURNED MATERIALS INSPECTOR CONNIE CLEANER [address] [place] [address] documented as of this encounter Procedures Procedure [...] LAB - BLOOD ORDERABLES Final Result LABORATORY [facility] Acute Care Lab [address] [facility] Lab (1st floor, no room number) [place] [address], [facility] * (ABNORMAL) NT-proBNP (09/02/2024 1:36 PM CDT) [facility] NT-proBNP 2,351(H) 0 - 852 pg/mL 09/02/2024 2:14 PM CDT LABORATORY Comment: Starting on 08/13/2024, [facility] laboratory began flagging abnormal values for plasma [...] be interpreted with the updated reference intervals. [facility]'s Pediatric (boys and girls) Reference Ranges in pg/mL * 0 up to 3 days: 0 - 29580 3 days up to 1 month: 0 [...] For adult chronic CHF patients according to [place] Heart Association (NYHA) Functional Class, the mean NT-proBNP concentration is as following (5th and 95th percentile values respectively displayed in parentheses): Class I: 1016 pg/mL (33-3410) Class II: 1666 pg/mL (103-6504) Class III: 3029 pg/mL (126-65961) Class IV: 3465 pg/mL (148-67544) Clinical thresholds for acute (emergency department) settings: [...] Result [facility] [address] [facility] Lab (1st floor, no room number) [place] [address] * Magnesium (09/02/2024 1:36 PM CDT) [facility] Magnesium 2.2 1.7 - 2.3 mg/dL 09/02/2024 2:10 PM CDT LABORATORY Blood STRUCTURE OF LEFT HAND / Unknown Venipuncture / Unknown 09/02/2024 1:36 PM CDT 09/02/2024 1:38 PM CDT Gerardo Jiang MD LAB - BLOOD ORDERABLES Final Result [facility] Acute Care Lab [address] Lab (1st floor, no room number) [place] [address], [facility] * (ABNORMAL) Basic metabolic panel (09/02/2024 1:36 [...] LAB - BLOOD ORDERABLES Final Result LABORATORY [facility] Acute Care Lab [address] Lab (1st floor, no room number) [place] [address], [facility] documented in this encounter Visit Diagnoses [...] (H) documented in this encounter Care Teams Freezer Worker Relationship Specialty Start Date End Date Soto Thompson MD PCP - General Family Medicine 09/23/20 Gerardo Jiang MD [address] [place], [place] [address] Assigned Heart and Vascular Provider 10/30/23 Nancy Forbes DO [address] [place] [address] Physician Neurology 02/22/24 Farzad Sevilla MD [address] [place] [address] Cardiovascular Disease 02/22/24 Zechariah Lange MD [address] [place] [address] Assigned Heart and Vascular Surgical Provider 06/29/24 Byron Thompson PA-C [address] [place], [place] [address] Physician Retail Presentation Specialist Cardiovascular Disease 07/04/24 Mark Lopez MD [address] [place] [address] Assigned Surgical Provider 08/29/24 documented as of this encounter
--- OUTSIDE RECORDS SUMMARY | 2024-09-19 09:25 | XMS_ITS | Encounter Summary ---
Author Organization [facility] Address [address] [place] [address] Care Team Providers Care Stunner Animal Name Role Phone Soto Thompson MD Primary Care Provider [phone] Gerardo Jiang MD Unavailable [phone] Nnacy Forbes DO Unavailable [phone] Farzad Sevilla MD Unavailable [phone] Zechariah Lange MD Unavailable [phone] Byron Thompson PA-C Unavailable Mark Lopez MD Unavailable [phone] Reason for Referral * CV Testing (Routine) - Closed Specialty Diagnoses / Procedures Referred By Contac t Referred To Contact Cardiology Diagnoses Atrial fibrillation, unspecified type (H) Procedures Echocardiogram Complete ZZHC TTE W/DOPPLER, COMPLETE ZZHC ECHO COMPLETE W DOPPLER W CONTRAST ZZHC ECHO COMPLETE W DOPPLER W/O CONTRAST ZZHC IV PUSH SINGLE, INITIAL SUBSTANCE ZZHC US GUIDE FOR PERICARDIOCENTESIS ZZHC ECHO MYOCARD BX ZZC INJECTION, PERFLUTREN LIPID MICROSPHERES, PER ML ZZHC STATISTIC IV PUSH SINGLE INITIAL SUBSTANCE ME ECHO MYOCARD BX ME INJECTION, PERFLUTREN LIPID MICROSPHERES, PER ML ME TTE W/DOPPLER, COMPLETE ME IV PUSH SINGLE, INITIAL SUBSTANCE ME TTE W/DOPPLER, COMPLETE ME TTE W/DOPPLER, COMPLETE HC US GUIDE FOR PERICARDIOCENTESIS HC ECHO MYOCARD BX HC IV PUSH SINGLE, INITIAL SUBSTANCE HC STATISTIC IV PUSH SINGLE INITIAL SUBSTANCE HC ECHO COMPLETE W DOPPLER W CONTRAST HC ECHO COMPLETE W DOPPLER W/O CONTRAST Gerardo Jiang MD [address] [place] [address] Phone: tel: fax: [facility] [address] [facility] [address] [place] [address] Phone: tel: fax: Referral ID Status Reason Start Date Expiration Date Visits Re quested Visits Authorized [id number] Closed 08/26/2024 08/26/2025 1 1 Reason for Visit * CV Testing (Routine) - Closed Specialty Diagnoses / Procedures Referred By Contac t Referred To Contact Cardiology Diagnoses Atrial fibrillation, unspecified type (H) Procedures Echocardiogram Complete ZZHC TTE W/DOPPLER, COMPLETE ZZHC ECHO COMPLETE W DOPPLER W CONTRAST ZZHC ECHO COMPLETE W DOPPLER W/O CONTRAST ZZHC IV PUSH SINGLE, INITIAL SUBSTANCE ZZHC US GUIDE FOR PERICARDIOCENTESIS ZZHC ECHO MYOCARD BX ZZC INJECTION, PERFLUTREN LIPID MICROSPHERES, PER ML ZZHC STATISTIC IV PUSH SINGLE INITIAL SUBSTANCE ME ECHO MYOCARD BX ME INJECTION, PERFLUTREN LIPID MICROSPHERES, PER ML ME TTE W/DOPPLER, COMPLETE ME IV PUSH SINGLE, INITIAL SUBSTANCE ME TTE W/DOPPLER, COMPLETE ME TTE W/DOPPLER, COMPLETE HC US GUIDE FOR PERICARDIOCENTESIS HC ECHO MYOCARD BX HC IV PUSH SINGLE, INITIAL SUBSTANCE HC STATISTIC IV PUSH SINGLE INITIAL SUBSTANCE HC ECHO COMPLETE W DOPPLER W CONTRAST HC ECHO COMPLETE W DOPPLER W/O CONTRAST Gerardo Jiang MD [address] [place] [address] Phone: tel: fax: [facility] [address] [facility] [address] [place] [address] Phone: tel: fax: Referral ID Status Reason Start Date Expiration Date Visits Re quested Visits Authorized [id number] Closed 08/26/2024 08/26/2025 1 1 Encounter Details Date Type Department Care Team (Latest Contact Info) Description 09/19/2024 9:25 AM CDT - 09/19/2024 11:59 PM CDT Hospital Encounter [facility] [address] [facility] [address] [place] [id number] Gerardo Jiang MD [address] [place] [address] Atrial fibrillation, unspecified type (H) Discharge Disposition: Home or Self Care Social [...] Answer Date Recorded Do you have housing? 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 4 ELIQUIS ANTICOAGULANT 2.5 MG tablet Take 1 tablet by mouth 2 times daily. 5 fenofibrate (TRIGLIDE/LOFIBRA) 160 MG tablet Take 160 mg by mouth daily. 1 finasteride (PROSCAR) 5 MG tabletIndications: Benign prostatic hyperplasia, unspecified whether lower urinary tract symptoms present Take 1 tablet (5 mg) by mouth daily. 10 tablet 4 insulin aspart (NOVOLOG FLEXPEN) 100 UNIT/ML pen Inject subcutaneously 3 times daily (with meals). Based on blood sugar levels insulin glargine (LANTUS PEN) 100 UNIT/ML pen Inject 42 Units subcutaneously every morning. insulin glargine (LANTUS PEN) 100 UNIT/ML pen Inject 22 Units subcutaneously every evening. ipratropium (ATROVENT) 0.03 % nasal spray [place] 2 sprays into both nostrils 2 times daily. irbesartan (AVAPRO) 300 MG tabletIndications: Benign essential hypertension Take 0.5 tablets (150 mg) by mouth daily. 5 levothyroxine (SYNTHROID/LEVOTHR OID) 100 MCG tablet Take 100 mcg by mouth daily 1 LUTEIN PO Take 1 tablet by mouth daily. metFORMIN (GLUCOPHAGE XR) 500 MG 24 hr tabletIndications: Type 2 diabetes mellitus with stage 3 chronic kidney disease, with long-term current use of insulin, unspecified whether stage 3a or 3b CKD (H) Take 1 tablet (500 mg) by mouth 2 times daily. 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 4 tamsulosin (FLOMAX) 0.4 MG capsule Take 0.8 mg by mouth every morning. 1 torsemide (DEMADEX) 20 MG tabletIndications: Acute on chronic heart failure, unspecified heart failure type (H) Take 1 tablet (20 mg) by mouth daily. 30 tablet 3 5 Vitamin D, Cholecalciferol, 25 MCG (1000 UT) CAPS Take 1,000 Units by mouth daily documented as of this encounter Plan of Treatment Upcoming Encounters Date Type Department Care Team (Late st Contact Info) Description 10/27/2024 2:10 PM CDT Office Visit [facility] [address] [place] [address] [address] [place] [phone] Gerardo Jiang MD [address] [place] [place] [address] Kristy Hassan E, ADVISER SALES COAGULATING BATH OPERATOR [address] [place] [id number] documented as of this encounter Procedures Procedure Name Priority Date/Time Associated Diagnosis Comments ECHO COMPLETE Routine 09/19/2024 10:16 AM CDT Atrial fibrillation, unspecified type (H) documented in this encounter Results * ECHO COMPLETE (09/19/2024 10:16 AM CDT) [facility] Signature LVEF 60-65% CARDIOLOGY RESULTS Anatomical Region Laterality Modality Echocardiography 09/19/2024 9:50 AM CDT Narrative 09/19/2024 12:28 PM CDT [id number]^[email or web address]^GERARDO^ST[facility] Echocardiography Laboratory [address] [place] [address] Name: ARIEL TAFOYA : 1940 Study Date: 09/19/2024 09:50 AM Age: 83 yrs Gender: Male Patient Location: [facility] Reason For Study: Atrial fibrillation, unspecified type [...] Procedure Note Juaquin Henderson MD - 09/19/2024 [id number]^[email or web address]^GERARDO^[facility] Echocardiography Laboratory [address] [place] [id number] Name: ARIEL TAFOYA Graham : 1940 Study Date: 09/19/2024 09:50 AM Age: 83 yrs Gender: Male Patient Location: [facility] Reason For Study: Atrial fibrillation, unspecified type [...] Juaquin Henderson MD on 09/19/2024 12:28 PM Gerardo Jiang MD CV ECHO ORDERABLES Edit ed Result - Final documented in this encounter Visit Diagnoses Diagnosis Atrial fibrillation, unspecified type (H) documented in this encounter Care Teams Stunner Animal Relationship Specialty Start Date End Date Soto Thompson MD PCP - General Family Medicine 09/23/20 Gerardo Jiang MD [address] [place] [address] Assigned Heart and Vascular Provider 10/30/23 Nancy Forbes DO [address] [place], [place] [address] Physician Neurology 02/22/24 Farzad Sevilla MD [address] [place] [address] Cardiovascular Disease 02/22/24 Zechariah Lange MD [address] [place] [address] Assigned Heart and Vascular Surgical Provider 06/29/24 Byron Thompson PA-C [address] [place] [address] Physician Local Company Hazmat Driver Cardiovascular Disease 07/04/24 Mark Lopez MD [address] [place] [address] Assigned Surgical Provider 08/29/24 documented as of this encounter
--- OUTSIDE RECORDS SUMMARY | 2024-09-19 09:25 | XMS_ITS | Encounter Summary ---
Author Organization [facility] Address [address] [place] [address] Care Team Providers Care Fitness Technician Name Role Phone Soto Thompson MD Primary Care Provider Gerardo Jiang MD Unavailable [phone] Nancy Forbes DO Unavailable [phone] Farzad Sevilla MD Unavailable [phone] Zechariah Lange MD Unavailable [phone] Byron Thompson PA-C Unavailable Mark Lopez MD Unavailable [phone] Reason for Referral * CV Testing [...] ZZHC STATISTIC IV PUSH SINGLE INITIAL SUBSTANCE MT ECHO MYOCARD BX MT INJECTION, PERFLUTREN LIPID MICROSPHERES, PER ML MT TTE W/DOPPLER, COMPLETE MT IV PUSH SINGLE, INITIAL SUBSTANCE MT TTE W/DOPPLER, COMPLETE MT TTE W/DOPPLER, COMPLETE HC US GUIDE FOR PERICARDIOCENTESIS HC ECHO MYOCARD BX HC IV PUSH SINGLE, INITIAL SUBSTANCE HC STATISTIC IV PUSH SINGLE INITIAL SUBSTANCE HC ECHO COMPLETE W DOPPLER W CONTRAST HC ECHO COMPLETE W DOPPLER W/O CONTRAST Gerardo Jiang MD [address] [place] [address] Phone: tel: fax: [facility] [address] [facility] [address] [place] [address] Phone: tel: fax: Referral ID Status Reason Start Date Expiration Date Visits Re quested Visits Authorized [id number] Closed 08/26/2024 08/26/2025 1 1 Reason for [...] ZZHC STATISTIC IV PUSH SINGLE INITIAL SUBSTANCE MT ECHO MYOCARD BX MT INJECTION, PERFLUTREN LIPID MICROSPHERES, PER ML MT TTE W/DOPPLER, COMPLETE MT IV PUSH SINGLE, INITIAL SUBSTANCE MT TTE W/DOPPLER, COMPLETE MT TTE W/DOPPLER, COMPLETE HC US GUIDE FOR PERICARDIOCENTESIS HC ECHO MYOCARD BX HC IV PUSH SINGLE, INITIAL SUBSTANCE HC STATISTIC IV PUSH SINGLE INITIAL SUBSTANCE HC ECHO COMPLETE W DOPPLER W CONTRAST HC ECHO COMPLETE W DOPPLER W/O CONTRAST Gerardo Jiang MD [address] [place] [address] Phone: tel: fax: [facility] [address] [facility] [address] [place] [address] Phone: tel: fax: Referral ID Status Reason Start Date Expiration Date Visits Re quested Visits Authorized [id number] Closed 08/26/2024 08/26/2025 1 1 Encounter Details Date Type Department Care Team (Latest Contact Info) Description 09/19/2024 9:25 AM CDT - 09/19/2024 11:59 PM CDT Hospital Encounter [facility] [address] [facility] [address] [place] [id number] Gerardo Jiang MD [address] [place] [address] Atrial fibrillation, unspecified type (H) Discharge Disposition: [...] on file 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 ipratropium (ATROVENT) 0.03 % nasal spray [place] 2 sprays into both nostrils 2 times [...] 20 MG tabletIndications: Coronary artery disease involving [place] coronary artery of [place] heart with angina pectoris Take 2 tablets [...] Description 10/27/2024 2:10 PM CDT Office Visit [facility] [address] [place] [address] [address] [place] [phone] Gerardo Jiang MD [address] [place] [address] Kristy Hassan E, TRAVELIFT OPERATOR PASTE PLANT SUPERVISOR [address] [place] [id number] documented as of this encounter Procedures Procedure Name Priority Date/Time Associated Diagnosis Comments ECHO COMPLETE Routine 09/19/2024 10:16 AM CDT Atrial fibrillation, unspecified type (H) documented in this encounter Results * ECHO COMPLETE (09/19/2024 10:16 AM CDT) [facility] Signature LVEF 60-65% CARDIOLOGY RESULTS Anatomical Region Laterality Modality Echocardiography 09/19/2024 9:50 AM CDT Narrative 09/19/2024 12:28 PM CDT [id number]^BLADIMIR^GERARDO^STACY [facility] [address] [place] [address] Name: ARIEL TAFOYA : 1940 Study Date: 09/19/2024 09:50 AM Age: 83 yrs Gender: Male Patient Location: [facility] Reason For Study: Atrial fibrillation, unspecified type [...] Procedure Note Juaquin Henderson MD - 09/19/2024 [id number]^BLADIMIR^GERARDO^[facility] [address] [place] [address] Name: ARIEL TAFOYA Graham : 1940 Study Date: 09/19/2024 09:50 AM Age: 83 yrs Gender: Male Patient Location: [facility] Reason For Study: Atrial fibrillation, unspecified type [...] (H) documented in this encounter Care Teams Fitness Technician Relationship Specialty Start Date End Date Soto Thompson MD PCP - General Family Medicine 09/23/20 Gerardo Jiang MD [address] [place] [address] Assigned Heart and Vascular Provider 10/30/23 Nancy Forbes DO [address] [place], [place] [address] Physician Neurology 02/22/24 Farzad Sevilla MD [address] [place] [address] Cardiovascular Disease 02/22/24 Zechariah Lange MD [address] [place] [address] Assigned Heart and Vascular Surgical Provider 06/29/24 Byron Thompson PA-C [address] [place] [address] Physician Entry Level Finance Cardiovascular Disease 07/04/24 Mark Lopez MD [address] [place] [address] Assigned Surgical Provider 08/29/24 documented as of this encounter
--- OUTSIDE RECORDS SUMMARY | 2024-09-24 09:03 | XMS_ITS | Encounter Summary ---
Author Organization [facility] Address [address] [place] [address] Care Team Providers Care Dental Aide Name Role Phone Soto Thompson MD Primary Care Provider [phone] Gerardo Jiang MD Unavailable [phone] Nancy Forbes DO Unavailable [phone] Farzad Sevilla MD Unavailable [phone] Zechariah Lange MD Unavailable [phone] Byron Thompson PA-C Unavailable [phone] Mark Lopez MD Unavailable [phone] Reason for Visit * Auth/Cert Specialty Diagnoses / Procedures Referred By Contac t Referred To Contact Cardiology Diagnoses na Juaquin Henderson MD [address] [facility] [address] [place] [address] Phone: tel: fax: [facility] [address] [place] [address] Phone: tel: Referral ID Status Reason Start Date Expiration Date Visits Re quested Visits Authorized [id number] Encounter Details Date Type Department Care Team (Late st Contact Info) Description 09/24/2024 9:03 AM CDT - 09/24/2024 1:00 PM CDT Hospital Encounter [facility] [address] [place] [address] Non-Fv Credentialed Provider, Radiology Juaquin Henderson MD [address] [place] [address] Discharge Disposition: Home or Self Care Social [...] in an abandoned building, in an overnight assisted, or couch-surfing.) Yes 07/28/2024 Are you worried [...] on file 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 ipratropium (ATROVENT) 0.03 % nasal spray [place] 2 sprays into both nostrils 2 times [...] 20 MG tabletIndications: Coronary artery disease involving [place] coronary artery of [place] heart with angina pectoris Take 2 tablets [...] Description 10/27/2024 2:10 PM CDT Office Visit [facility] [address] [place] [address] [address] [place] [phone] Gerardo Jiang MD [address] [place] [address] Kristy Hassan, DIVING COACH RATER ASSOCIATE [address] [place] [address] documented as of this encounter Procedures Procedure Name Priority Date/Time Associated Diagnosis Comments ANESTHESIA CARDIOVERSION 025 7:30 PM CDT A-fib (H) documented in this encounter Visit Diagnoses Not on filedocumented in this encounter Care Teams Dental Aide Relationship Specialty Start Date End Date Soto Thompson MD PCP - General Family Medicine 09/23/20 Gerardo Jiang MD [address] [place] [address] Assigned Heart and Vascular Provider 10/30/23 Nancy Forbes DO [address] [place], [place] [id number] Physician Neurology 02/22/24 Farzad Sevilla MD [address] [place] [address] Cardiovascular Disease 02/22/24 Zechariah Lange MD [address] [place] [id number] Assigned Heart and Vascular Surgical Provider 06/29/24 Byron Thompson PA-C [address] [place] [address] Physician Director Traffic And Planning Cardiovascular Disease 07/04/24 Mark Lopez MD [address] [place], [place] [id number] Assigned Surgical Provider 08/29/24 documented as of this encounter
--- OUTSIDE RECORDS SUMMARY | 2024-09-24 09:03 | XMS_ITS | Encounter Summary ---
Author Organization [facility] Address [address] [place] [address] Care Team Providers Care Information And Data Architect Analyst Name Role Phone Soto Thompson MD Primary Care Provider [phone] Gerardo Jiang MD Unavailable [phone] Nancy Forbes DO Unavailable [phone] Farzad Sevilla MD Unavailable [phone] Zechariah Lange MD Unavailable [phone] Byron Thompson PA-C Unavailable [phone] Mark Lopez MD Unavailable [phone] Reason for Visit * Auth/Cert Specialty Diagnoses / Procedures Referred By Contac t Referred To Contact Cardiology Diagnoses na Juaquin Henderson MD [address] [facility] [address] [place] [address] Phone: tel: fax: [facility] [address] [place] [address] Phone: tel: Referral ID Status Reason Start Date Expiration Date Visits Re quested Visits Authorized [id number] Encounter Details Date Type Department Care Team (Late st Contact Info) Description 09/24/2024 9:03 AM CDT - 09/24/2024 1:00 PM CDT Hospital Encounter [facility] [address] [place] [address] Non-Fv Credentialed Provider, Radiology Juaquin Henderson MD [address] [place] [address] Discharge Disposition: Home or Self Care Social [...] in an abandoned building, in an overnight mcc, or couch-surfing.) Yes 07/28/2024 Are you worried [...] on file 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 ipratropium (ATROVENT) 0.03 % nasal spray [place] 2 sprays into both nostrils 2 times [...] 20 MG tabletIndications: Coronary artery disease involving [place] coronary artery of [place] heart with angina pectoris Take 2 tablets [...] Description 10/27/2024 2:10 PM CDT Office Visit [facility] [address] [place] [address] [address] [place] [address] Gerardo Jiang MD [address] [place] [address] Kristy Hassan, SEAT COVER CUTTER FILLING MACHINE TENDER [address] [place] [address] documented as of this encounter Procedures Procedure Name Priority Date/Time Associated Diagnosis Comments ANESTHESIA CARDIOVERSION 025 7:30 PM CDT A-fib (H) documented in this encounter Visit Diagnoses Not on filedocumented in this encounter Care Teams Information And Data Architect Analyst Relationship Specialty Start Date End Date Soto Thompson MD PCP - General Family Medicine 09/23/20 Gerardo Jiang MD [address] [place] [address] Assigned Heart and Vascular Provider 10/30/23 Nancy Forbes DO [address] [place], [place] [id number] Physician Neurology 02/22/24 Farzad Sevilla MD [address] [place] [address] Cardiovascular Disease 02/22/24 Zechariah Lange MD [address] [place] [address] Assigned Heart and Vascular Surgical Provider 06/29/24 Byron Thompson PA-C [address] [place] [address] Physician Meat Soaker Cardiovascular Disease 07/04/24 Mark Lopez MD [address] [place], [place] [id number] Assigned Surgical Provider 08/29/24 documented as of this encounter
--- OUTSIDE RECORDS SUMMARY | 2024-09-24 09:04 | XMS_ITS | Encounter Summary ---
Author Organization [facility] Address [address] [place] [address] Care Team Providers Care Social Science Professor Name Role Phone Soto Thompson MD Primary Care Provider [phone] Gerardo Jiang MD Unavailable [phone] Nancy Forbes DO Unavailable [phone] Farzad Sevilla MD Unavailable [phone] Zechariah Lange MD Unavailable [phone] Byron Thompson PA-C Unavailable Mark Lopez MD Unavailable [phone] Reason for Referral * CV Testing (Routine) - Closed Specialty Diagnoses / Procedures Referred By Contac t Referred To Contact Cardiology Diagnoses Atrial fibrillation, unspecified type (H) Procedures Cardioversion Gerardo Jiang MD [address] [place] [address] Phone: tel: fax: [facility] [address] [place] [address] Phone: tel: Referral ID Status Reason Start Date Expiration Date Visits Re quested Visits Authorized [id number] Closed 08/26/2024 08/26/2025 1 1 Reason for Visit * Auth/Cert Specialty Diagnoses / Procedures Referred By Osman t Referred To Contact Cardiology Diagnoses na Juaquin Henderson MD [address] [place] [address] Phone: tel: fax: [facility] [address] [place] [address] Phone: tel: Referral ID Status Reason Start Date Expiration Date Visits Re quested Visits Authorized [id number] Encounter Details Date Type Department Care Team (Latest Contact Info) Description 09/24/2024 9:04 AM CDT - 09/24/2024 11:59 PM CDT Hospital Encounter [facility] [address] [place] [address] Gerardo Jiang MD [address] [place] [address] Juaquin Henderson MD [address] [place] [id number] Atrial fibrillation, unspecified type (H) Discharge Disposition: [...] in an abandoned building, in an overnight custodial, or couch-surfing.) Yes 07/28/2024 Are you worried [...] on file 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 Electrical Cardioversion: What to Expect at Home Your recovery Electrical cardioversion is a treatment for an abnormal heartbeat, such as atrial fibrillation, supraventricular tachycardia, or ventricular tachycardia (VT). Your doctor used a brief electrical shock to reset your heart's rhythm. After the procedure, you may have redness, like a sunburn, where the patches were. The medicines you got to make you sleepy may make you feel drowsy for the rest of the day. You may feel soreness or discomfort in your chest wall for a few days. Your doctor may have you take medicines to help the heart beat normally and to prevent blood clots. This care sheet gives you a general idea about how long it will take for you to recover. But each person recovers at a different pace. Follow the steps below to feel better as quickly as possible. How can you care for yourself at home? Medicines If the doctor gave you a sedative: For 24 hours, don't do anything that requires attention to detail. It takes time for the medicine'seffects to completely wear off. For your safety, do not drive or operate any machinery that could be dangerous. Wait until the medicine wears off and you can think clearly and react easily. Be safe with medicines. Take your medicines exactly as prescribed. Call your doctor if you think you are having a problem with your medicine. You may take one or more of the following medicines: Rate-control medicines to slow the heart rate. Rhythm-control medicines that help the heart keep a normal rhythm. Blood thinners, also called anticoagulants, which help prevent blood clots. You will get more details on the specific medicines your doctor prescribes. Be sure you know how totake your medicines safely. Do not take any vitamins, wgdy-gef-ezfrygj medicines, or herbal products without talking to your doctor first. Exercise Talk to your doctor about what type and level of exercise are safe for you. When you exercise, watch for signs that your heart is working too hard. You are pushing too hard ifyou cannot talk while you are exercising. If you become short of breath or dizzy or have chest pain, sit down and rest right away. Check your pulse regularly. Place two fingers on the artery at the palm side of your wrist in line with your thumb. If your heartbeat seems uneven or fast, talk to your doctor. Heart-healthy lifestyle Do not smoke. If you need help quitting, talk to your doctor about stop-smoking programs and medicines. These can increase your chances of quitting for good. Eat heart-healthy foods. Limit sodium, alcohol, and sugar. Stay at a healthy weight. Lose weight if you need to. Manage other health problems. If you think you may have a problem with alcohol or drug use, talk toyour doctor. Follow-up care is a cordoba part of your treatment and safety. Be sure to make and go to all appointments, and call your doctor if you are having problems. It's also a good idea to know your test resultsand keep a list of the medicines you take. When should you call for help? Call 911 anytime you think you may need emergency care. For example, call if: You passed out (lost consciousness). You have symptoms of a heart attack. These may include: Chest pain or pressure, or a strange feeling in the chest. Sweating. Shortness of breath. Nausea or vomiting. Pain, pressure, or a strange feeling in the back, neck, jaw, or upper belly or in one or both shoulders or arms. Lightheadedness or sudden weakness. A fast or irregular heartbeat. After calling 911, the draw frame operator may tell you to chew 1 adult-strength or 2 to 4 low-dose aspirin. Wait for an ambulance. Do not try to drive yourself. You have symptoms of a stroke. These may include: Sudden numbness, tingling, weakness, or loss of movement in your face, arm, or leg, especially on only one side of your body. Sudden vision changes. Sudden trouble speaking. Sudden confusion or trouble understanding simple statements. Sudden problems with walking or balance. A sudden, severe headache that is different from past headaches. Call your doctor now or seek immediate medical care if: You feel dizzy or lightheaded, or you feel like you may faint. You have a fast or irregular heartbeat. Watch closely for any changes in your health, and be sure to contact your doctor if you have any problems. Where can you learn more? Go to https://www.[employer].net/patiented Enter A617 in the search box to learn more about Electrical Cardioversion: What to Expect at Home. Current as of: November 07, 2023 Content Version: 14.5 ?? [id number] [employer]. Care instructions adapted under license by your healthcare professional. If you have questions about a medical condition or this instruction, always ask your healthcare professional. [employer] disclaims any warranty or liability for your use of this information. documented in this encounter Medications at Time of Discharge [...] evening. ipratropium (ATROVENT) 0.03 % nasal spray [place] 2 sprays into both nostrils 2 times [...] 20 MG tabletIndications: Coronary artery disease involving [place] coronary artery of [place] heart with angina pectoris Take 2 tablets [...] mouth daily documented as of this encounter Progress Notes * Lynn Dasilva RN - 09/24/2024 12:45 PM CDT Cardioversion performed without complication. Pt tolerated procedure well. Discharge instructions reviewed with the pt and his daughter. Pt discharged home. documented in this encounter Procedure Notes * Juaquin Henderson MD - 09/24/2024 12:22 PM CDT Procedures DC Cardioversion Procedure Note: Informed consent obtained. Pads placed in AP position. Anesthesia used, please see their documentation. Synchronized, biphasic 200J shock x 1 delivered and successful in converting atrial fibrillation (V-pacing) to A-pacing then sinus rhythm without bradycardia or pauses. Rhythm confirmed with device electronics parts sales representative. No apparent complications. documented in this encounter Miscellaneous Notes * Pre-Procedure - Juaquin Henderson MD - 09/24/2024 11:30 AM CDT GENERAL PRE-PROCEDURE: Procedure: Cardioversion Date/Time: 09/24/2024 11:30 AM Verbal consent obtained?: Yes Written consent obtained?: Yes Risks and benefits: Risks, benefits and alternatives were discussed DC Plan: Appropriate discharge home plan in place for patients who are going home after procedure Consent given by: Patient Patient states understanding of procedure being performed: Yes Patient's understanding of procedure matches consent: Yes Procedure consent matches procedure scheduled: Yes Expected level of sedation: Moderate Appropriately NPO: Yes ASA Class: 2 Mallampati : Grade 2- soft palate, base of uvula, tonsillar pillars, and portion of posterior pharyngeal wall visible Heart: A-fib History & Physical reviewed: History and physical reviewed and no updates needed Statement of review: I have reviewed the lab findings, diagnostic data, medications, and the plan for sedation documented in this encounter Plan of Treatment Upcoming Encounters Date Type Department Care Team (Late st Contact Info) Description 10/27/2024 2:10 PM CDT Office Visit [facility] [address] [facility] [address] [place] [address] Gerardo Jiang MD [address] [place] [address] Kristy Hassan, WES SCREEN WRITER [address] [place] [address] Pending Results Name Type Priority Associated Diagnoses Date /Time Cardioversion Electrophysiology Routine Atrial fibrillation, unspecified type (H) 09/24/2024 1:00 PM CDT Scheduled Orders Name Type Priority Associated Diagnoses Orde r Schedule Cardioversion Electrophysiology Routine Atrial fibrillation, unspecified type (H) 1 Occurrences starting 09/24/2024 until 09/24/2024 documented as of this encounter Procedures Procedure Name Priority Date/Time Associated Diagnosis Comments EKG 12-LEAD, TRACING ONLY Routine 09/24/2024 12:23 PM CDT POTASSIUM STAT 09/24/2024 10:08 AM CDT MAGNESIUM STAT 09/24/2024 10:08 AM CDT EKG 12-LEAD, TRACING ONLY STAT 09/24/2024 9:41 AM CDT documented in this encounter Results * EKG 12-lead, tracing only (09/24/2024 12:23 PM CDT) Systolic Blood Pressure mmHg RADIOLOGY RESULTS Diastolic Blood Pressure mmHg RADIOLOGY RESULTS Ventricular Rate 74 BPM RAD IOLOGY RESULTS Atrial Rate 74 BPM RADIOLOG Y RESULTS UT Interval 122 ms RADIOLOG Y RESULTS QRS Duration 188 ms RADIOLO GY RESULTS QT 454 ms RADIOLOGY RESULTS QTc 503 ms RADIOLOGY RESULTS P [place] 56 degrees RADIOLOGY RESULTS R AXIS -78 degrees RADIOLOGY RESULTS T [place] 86 degrees RADIOLOGY RESULTS Interpretation ECG Atrial-sensed ventricular-p aced rhythm Abnormal ECG Compared to prior ECG from 24-Sep-2024 at 09:41:12: Sinus rhythm with atrial sense-ventric ular pacing has replaced V-pacing with underlying atrial flutter Confirmed by Gerardo Jiang ([id number]) on 09/24/2024 3:55:19 PM RADIOLOGY RESULTS 09/24/2024 12:2 3 PM CDT 09/24/2024 3:55 PM CDT Gerardo Jiang MD ECG ORDERABLES Edited Result - Final RADIOLOGY RESULTS * Magnesium (09/24/2024 10:08 AM CDT) Pathologist [facility] Magnesium 2.2 1.7 - 2.3 mg/dL 09/24/2024 10:27 AM CDT LABORATORY Blood BLOOD SPECIMEN / Unknown Venipuncture / Unknown 09/24/2024 10:08 AM CDT 09/24/2024 10:08 AM CDT Gerardo Jiang MD LAB - BLOOD ORDERABLES Final Result LABORATORY [facility] [address] Lab (1st floor, no room number) [place] [address] * Potassium (09/24/2024 10:08 AM CDT) Pathologist [facility] Potassium 4.6 3.4 - 5.3 mmol/L 09/24/2024 10:27 AM CDT LABORATORY Blood BLOOD SPECIMEN / Unknown Venipuncture / Unknown 09/24/2024 10:08 AM CDT 09/24/2024 10:08 AM CDT us Gerardo Jiang MD LAB - BLOOD ORDERABLES Final Result LABORATORY [facility] [address] Lab (1st floor, no room number) [place] [address], [facility] * EKG 12 lead (09/24/2024 9:41 AM CDT) Systolic Blood Pressure mmHg RADIOLOGY RESULTS Diastolic Blood Pressure mmHg RADIOLOGY RESULTS Ventricular Rate 60 BPM RAD IOLOGY RESULTS Atrial Rate 60 BPM RADIOLOG Y RESULTS UT Interval ms RADIOLOG Y RESULTS QRS Duration 190 ms RADIOLO GY RESULTS QT 460 ms RADIOLOGY RESULTS QTc 460 ms RADIOLOGY RESULTS P [place] degrees RADIOLOGY RESULTS R AXIS -82 degrees RADIOLOGY RESULTS T [place] 88 degrees RADIOLOGY RESULTS Interpretation ECG Ventricular-pa jayla rhythm Abnormal ECG Compared to prior ECG from 27-Jul-2024: There have been no significant changes Confirmed by Gerardo Jiang ([id number]) on 09/24/2024 3:53:53 PM RADIOLOGY RESULTS 09/24/2024 9:41 AM CDT 09/24/2024 3:53 PM CDT us Gerardo Jiang MD ECG ORDERABLES Edited Result - Final RADIOLOGY RESULTS documented in this encounter Visit Diagnoses Diagnosis Atrial fibrillation, unspecified type (H) documented in this encounter Care Teams Social Science Professor Relationship Specialty Start Date End Date Soto Thompson MD PCP - General Family Medicine 09/23/20 Gerardo Jiang MD [address] [place] [address] Assigned Heart and Vascular Provider 10/30/23 Nancy Forbes DO [address] [place] [address] Physician Neurology 02/22/24 Farzad Sevilla MD [address] [place] [address] Cardiovascular Disease 02/22/24 Zechariah Lange MD [address] [place] [address] Assigned Heart and Vascular Surgical Provider 06/29/24 Byron Thompson PA-C [address] [place] [address] Physician Handkerchief Folder Cardiovascular Disease 07/04/24 Mark Lopez MD [address] [place] [address] Assigned Surgical Provider 08/29/24 documented as of this encounter
--- OUTSIDE RECORDS SUMMARY | 2024-09-24 09:04 | XMS_ITS | Encounter Summary ---
Author Organization [facility] Address [address] [place] [address] Care Team Providers Care Ramp And Cargo Supervisor Name Role Phone Soto Thompson MD Primary Care Provider Gerardo Jiang MD Unavailable [phone] Nancy Forbes DO Unavailable [phone] Farzad Sevilla MD Unavailable [phone] Zechariah Lange MD Unavailable [phone] Byron Thompson PA-C Unavailable [phone] Mark Lopez MD Unavailable [phone] Reason for Referral * CV Testing (Routine) - Closed Specialty Diagnoses / Procedures Referred By Contac t Referred To Contact Cardiology Diagnoses Atrial fibrillation, unspecified type (H) Procedures Cardioversion Gerardo Jiang MD [address] [place] [address] Phone: tel: fax: [facility] [address] [place] [address] Phone: tel: Referral ID Status Reason Start Date Expiration Date Visits Re quested Visits Authorized [id number] Closed 08/26/2024 08/26/2025 1 1 Reason for Visit * Auth/Cert Specialty Diagnoses / Procedures Referred By Osman t Referred To Contact Cardiology Diagnoses na Juaquin Henderson MD [address] [place] [address] Phone: tel: fax: [facility] [address] [place] [address] Phone: tel: Referral ID Status Reason Start Date Expiration Date Visits Re quested Visits Authorized [id number] Encounter Details Date Type Department Care Team (Latest Contact Info) Description 09/24/2024 9:04 AM CDT - 09/24/2024 11:59 PM CDT Hospital Encounter [facility] [address] [place] [address] Gerardo Jiang MD [address] [place] [id number] Juaquin Henderson MD [address] [place] [id number] Atrial fibrillation, unspecified type (H) Discharge Disposition: [...] in an abandoned building, in an overnight group home, or couch-surfing.) Yes 07/28/2024 Are you [...] on file 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 Do not take any vitamins, iwem-qkq-gdjjmzs medicines, or herbal products without talking to [...] or irregular heartbeat. After calling 911, the lace paper machine operator may tell you to chew 1 [...] Where can you learn more? Go to https://www.[employer].net/patiented Enter A617 in the search box to learn more about Electrical Cardioversion: What to Expect at Home. Current as of: November 07, 2023 Content Version: 14.5 ?? [id number] [employer]. Care instructions adapted under license by your healthcare professional. If you have questions about a medical condition or this instruction, always ask your healthcare professional. [employer] disclaims any warranty or liability for your [...] evening. ipratropium (ATROVENT) 0.03 % nasal spray [place] 2 sprays into both nostrils 2 times [...] 20 MG tabletIndications: Coronary artery disease involving [place] coronary artery of [place] heart with angina pectoris Take 2 tablets [...] bradycardia or pauses. Rhythm confirmed with device freight representative. No apparent complications. documented in this [...] Description 10/27/2024 2:10 PM CDT Office Visit [facility] [address] [facility] [address] [place] [address] Gerardo Jiang MD [address] [place] [address] Kristy Hassan, WES PATTERN WHEEL MAKER [address] [place] [address] Pending Results Name Type Priority Associated Diagnoses [...] Atrial Rate 74 BPM RADIOLOG Y RESULTS [place] Interval 122 ms RADIOLOG Y RESULTS QRS Duration 188 ms RADIOLO GY RESULTS QT 454 ms RADIOLOGY RESULTS QTc 503 ms RADIOLOGY RESULTS P [place] 56 degrees RADIOLOGY RESULTS R AXIS -78 degrees RADIOLOGY RESULTS T [place] 86 degrees RADIOLOGY RESULTS Interpretation ECG Atrial-sensed ventricular-p aced rhythm Abnormal ECG Compared to prior ECG from 24-Sep-2024 at 09:41:12: Sinus rhythm with atrial sense-ventric ular pacing has replaced V-pacing with underlying atrial flutter Confirmed by Gerardo Jiang ([id number]) on 09/24/2024 3:55:19 PM RADIOLOGY RESULTS 09/24/2024 12:2 3 PM CDT 09/24/2024 3:55 PM CDT Gerardo Jiang MD ECG ORDERABLES Edited Result - Final RADIOLOGY RESULTS * Magnesium (09/24/2024 10:08 AM CDT) Pathologist [facility] Magnesium 2.2 1.7 - 2.3 mg/dL 09/24/2024 10:27 AM CDT LABORATORY Blood BLOOD SPECIMEN / Unknown Venipuncture / Unknown 09/24/2024 10:08 AM CDT 09/24/2024 10:08 AM CDT Gerardo Jiang MD LAB - BLOOD ORDERABLES Final Result LABORATORY [facility] Acute Care Lab [address] Lab (1st floor, no room number) [place] [address] * Potassium (09/24/2024 10:08 AM CDT) Pathologist [facility] Potassium 4.6 3.4 - 5.3 mmol/L 09/24/2024 10:27 AM CDT LABORATORY Blood BLOOD SPECIMEN / Unknown Venipuncture / Unknown 09/24/2024 10:08 AM CDT 09/24/2024 10:08 AM CDT us Gerardo Jiang MD LAB - BLOOD ORDERABLES Final Result LABORATORY [facility] Acute Care Lab [address] Lab (1st floor, no room number) [place] [address], [facility] * EKG 12 lead (09/24/2024 9:41 AM CDT) Systolic Blood Pressure mmHg RADIOLOGY RESULTS Diastolic Blood Pressure mmHg RADIOLOGY RESULTS Ventricular Rate 60 BPM RAD IOLOGY RESULTS Atrial Rate 60 BPM RADIOLOG Y RESULTS [place] Interval ms RADIOLOG Y RESULTS QRS Duration 190 ms RADIOLO GY RESULTS QT 460 ms RADIOLOGY RESULTS QTc 460 ms RADIOLOGY RESULTS P [place] degrees RADIOLOGY RESULTS R AXIS -82 degrees RADIOLOGY RESULTS T [place] 88 degrees RADIOLOGY RESULTS Interpretation ECG Ventricular-pa jayla rhythm Abnormal ECG Compared to prior ECG from 27-Jul-2024: There have been no significant changes Confirmed by Gerardo Jiang ([id number]) on 09/24/2024 3:53:53 PM RADIOLOGY RESULTS 09/24/2024 9:41 AM CDT 09/24/2024 3:53 PM CDT us Gerardo Jiang MD ECG ORDERABLES Edited Result - Final RADIOLOGY RESULTS documented in this encounter Visit Diagnoses Diagnosis Atrial fibrillation, unspecified type (H) documented in this encounter Care Teams Ramp And Cargo Supervisor Relationship Specialty Start Date End Date Soto Thompson MD PCP - General Family Medicine 09/23/20 Gerardo Jiang MD [address] [place] [address] Assigned Heart and Vascular Provider 10/30/23 Nancy Forbes DO [address] [place] [address] Physician Neurology 02/22/24 Farzad Sevilla MD [address] [place] [address] Cardiovascular Disease 02/22/24 Zechariah Lange MD [address] [place] [address] Assigned Heart and Vascular Surgical Provider 06/29/24 Byron Thompson PA-C [address] [place] [address] Physician General Operator Cardiovascular Disease 07/04/24 Mark Lopez MD [address] [place] [address] Assigned Surgical Provider 08/29/24 documented as of this encounter
--- OUTSIDE RECORDS SUMMARY | 2024-09-24 11:30 | XMS_ITS | Encounter Summary ---
Author Organization [facility] Address [address] [place] [address] Care Team Providers Care Billet Worker Name Role Phone Soto Thompson MD Primary Care Provider [phone] Gerardo Jiang MD Unavailable [phone] Nancy Forbes DO Unavailable [phone] Farzad Sevilla MD Unavailable [phone] Zechariah Lange MD Unavailable [phone] Byron Thompson PA-C Unavailable [phone] Mark Lopez MD Unavailable [phone] Reason for Visit * Auth/Cert Specialty Diagnoses / Procedures Referred By Contac t Referred To Contact Cardiology Diagnoses na Juaquin Henderson MD [address] [facility] [address] [place] [address] Phone: tel: fax: [facility] [address] [place] [address] Phone: tel: Referral ID Status Reason Start Date Expiration Date Visits Re quested Visits Authorized [id number] Encounter Details Date Type Department Care Team (Late st Contact Info) Description 09/24/2024 11:30 AM CDT - 09/24/2024 11:45 AM CDT Surgery [facility] PeriOp Services [address] [place] [address] GENERIC ANESTHESIA PROVIDER Anesthesia cardioversion Surgery Details Date/Time Status Location OR Service Patient Class Case Class Case Type Trauma Case? 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 ipratropium (ATROVENT) 0.03 % nasal spray [place] 2 sprays into both nostrils 2 times [...] 20 MG tabletIndications: Coronary artery disease involving [place] coronary artery of [place] heart with angina pectoris Take 2 tablets [...] Description 10/27/2024 2:10 PM CDT Office Visit [facility] [address] [facility] [address] [place] [phone] Gerardo Jiang MD [address] [place] [address] Kristy Hassan, INSURANCE SALES SPECIALIST 1ST PRESSMAN ON [employer] [address] [place] [address] documented as of this encounter Procedures Procedure Name Priority Date/Time Associated Diagnosis Comments ANESTHESIA CARDIOVERSION 025 7:30 PM CDT A-fib (H) documented in this encounter Visit Diagnoses Diagnosis A-fib (H) Atrial fibrillation documented in this encounter Care Teams Billet Worker Relationship Specialty Start Date End Date Soto Thompson MD PCP - General Family Medicine 09/23/20 Gerardo Jiang MD [address] [place] [address] Assigned Heart and Vascular Provider 10/30/23 Nancy Forbes DO [address] [place] [address] Physician Neurology 02/22/24 Farzad Sevilla MD [address] [place] [address] Cardiovascular Disease 02/22/24 Zechariah Lange MD [address] [place] [address] Assigned Heart and Vascular Surgical Provider 06/29/24 Byron Thompson PA-C [address] [place] [address] Physician Liaison Inspection Laboratory Assistant Cardiovascular Disease 07/04/24 Mark Lopez MD [address] [place] [address] Assigned Surgical Provider 08/29/24 documented as of this encounter
--- OUTSIDE RECORDS SUMMARY | 2024-09-24 11:30 | XMS_ITS | Encounter Summary ---
Author Organization [facility] Address [address] [place] [address] Care Team Providers Care Independent Distributor Name Role Phone Soto Thompson MD Primary Care Provider [phone] Gerardo Jiang MD Unavailable [phone] Nancy Forbes DO Unavailable [phone] Farzad Sevilla MD Unavailable [phone] Zechariah Lange MD Unavailable [phone] Byron Thompson PA-C Unavailable [phone] Mark Lopez MD Unavailable [phone] Reason for Visit * Auth/Cert Specialty Diagnoses / Procedures Referred By Contac t Referred To Contact Cardiology Diagnoses na Juaquin Henderson MD [address] [facility] [address] [place] [address] Phone: tel: fax: 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 ipratropium (ATROVENT) 0.03 % nasal spray [place] 2 sprays into both nostrils 2 times [...] 20 MG tabletIndications: Coronary artery disease involving [place] coronary artery of [place] heart with angina pectoris Take 2 tablets [...] Description 10/27/2024 2:10 PM CDT Office Visit [facility] [address] [facility] [address] [place] [address] Gerardo Jiang MD [address] [place] [address] Kristy Hassan, SENIOR FIREWALL ENGINEER CORPORATE DEVELOPMENT MANAGER [address] [place] [address] documented as of this encounter Procedures Procedure Name Priority Date/Time Associated Diagnosis Comments ANESTHESIA CARDIOVERSION 025 7:30 PM CDT A-fib (H) documented in this encounter Visit Diagnoses Diagnosis A-fib (H) Atrial fibrillation documented in this encounter Care Teams Independent Distributor Relationship Specialty Start Date End Date Soto Thompson MD PCP - General Family Medicine 09/23/20 Gerardo Jiang MD [address] [place] [address] Assigned Heart and Vascular Provider 10/30/23 Nancy Forbes DO [address] [place] [address] Physician Neurology 02/22/24 Farzad Sevilla MD [address] [place] [address] Cardiovascular Disease 02/22/24 Zechariah Lange MD [address] [place] [address] Assigned Heart and Vascular Surgical Provider 06/29/24 Byron Thompson PA-C [address] [place] [address] Physician Director Property Cardiovascular Disease 07/04/24 Mark Lopez MD [address] [place] [address] Assigned Surgical Provider 08/29/24 documented as of this encounter
--- OUTSIDE RECORDS SUMMARY | 2024-09-24 11:35 | XMS_ITS | Encounter Summary ---
Author Organization [facility] Address [address] [place] [address] Care Team Providers Care Side Stitching Machine Operator Name Role Phone Soto Thompson MD Primary Care Provider [phone] Gerardo Jiang MD Unavailable [phone] Nancy Forbes DO Unavailable [phone] Farzad Sevilla MD Unavailable [phone] Zechariah Lange MD Unavailable [phone] Byron Thompson PA-C Unavailable [phone] Mark Lopez MD Unavailable [phone] Reason for Visit * Auth/Cert Specialty Diagnoses / Procedures Referred By Contac t Referred To Contact Cardiology Diagnoses na Juaquin Henderson MD [address] [facility] [address] [place] [address] Phone: tel: fax: [facility] [address] [place] [address] Phone: tel: Referral ID Status Reason Start Date Expiration Date Visits Re quested Visits Authorized [id number] Encounter Details Date Type Department Care Team (Late st Contact Info) Description 09/24/2024 11:35 AM CDT Anesthesia Event [facility] PeriOp Services [address] [place] [address] Corry Rossi APRN CRNA Anesthesia Record Procedure Summary Procedure Name Responsible Anesthesiologist Anesthesia Start Time Anesthesia Stop Time Anesthesia cardioversion (Update) 09/24/24 1135 09/24/24 1146 Events Date Time Event Comment 09/24/2024 1134 Quick Note Please see flow chart for vitals 1134 Quick Note Patient ASA 3. Dx: A fib. 1134 Charting Exception This even t is only to be used when the record fails to meet documentation requirements for billing and thus is unable to be signed through the regular documentation verification process. Please document reason for use: Dr Henderson called for FRONT SERVICES AGENT only anesthesia for a cardioversion. 1135 An Start Anesthesia Star t is defined as when the anesthesia provider assumed care, began anesthesia prep, remained continuously present with the patient, and excludes all time for performing the pre-anesthesia evaluation. The Pre-Anesthesia Evaluation was completed before Anesthesia Start. 1138 An Induction 1138 Timeout 1146 An Stop Electronically signed by Corry Gonzalez APRN CRNA on September 24, 2024 11:57 AM Meds Name Total propofol (DIPRIVAN) 10 mg/mL 70 mg lidocaine 2% 50 mg * Agents No agents on file. * Blood No blood administrations on file. 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 Gender Identity Not on file Sexual Orientation Not on file documented as of this encounter OR Notes * Anesthesia Preprocedure Evaluation - Corry Rossi APRN FRONT SERVICES AGENT - 09/24/2024 11:52 AM CDT Anesthesia Pre-Procedure Evaluation Patient: Kayode Castro : 1940 Procedure : Procedure(s): Anesthesia cardioversion Past Medical History: Diagnosis Date Antiplatelet or antithrombotic long-term use Arrhythmia Bilateral carotid bruits BPH (benign prostatic hyperplasia) Coronary artery disease Diabetes (H) Diverticulosis Gastroesophageal reflux disease Hearing loss Hyperlipidemia Hypertension Hypothyroid Myalgia Obese 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 Sleep apnea on cpap Tobacco use Uncomplicated asthma Past Surgical History: Procedure Laterality Date CARDIAC SURGERY CV CORONARY ANGIOGRAM N/A 10/26/2023 Procedure: Coronary Angiogram; Surgeon: Gerardo Jiang MD; Location: HEART CARDIAC CATHLAB CV INTRAVASULAR ULTRASOUND N/A 02/14/2024 Procedure: Intravascular Ultrasound; Surgeon: Gerardo Jiang MD; Location: HEART CARDIAC MARINE DIVER CV PCI ATHERECTOMY ORBITAL N/A 02/14/2024 Procedure: Percutaneous Coronary Intervention Atherectomy Rotational; Surgeon: Gerardo Jiang MD; Location: HEART CARDIAC MARINE DIVER CV PCI CHRONIC TOTAL OCCLUSION N/A 02/14/2024 Procedure: Percutaneous Coronary Intervention - Chronic Total Occlusion; Surgeon: Gerardo Jiang MD; Location: [facility] CARDIAC MARINE DIVER ENDARTERECTOMY CAROTID Right 10/08/2020 Procedure: RIGHT CAROTID ENDARTERECTOMY WITH ELECTROENCEPHALOGRAM AND INTRAOPERATIVE ULTRASOUND; Surgeon: Zechariah Lange MD; Location: OR ENDARTERECTOMY CAROTID Left 11/09/2020 Procedure: LEFT CAROTID ENDARTERECTOMY WITH ELECTROENCEPHALOGRAM AND INTEROPERATIVE ULTRASOUND; Surgeon: Zechariah aLnge MD; Location: OR ENT SURGERY EP PACEMAKER ORTHOPEDIC SURGERY Allergies Allergen Reactions Sulfa Antibiotics Unknown Reaction as a child Social History Tobacco Use Smoking status: Former Current packs/day: 0.00 Average packs/day: 0.5 packs/day for 25.0 years (12.5 ttl pk-yrs) Types: Cigarettes Start date: 1984 Quit date: 2009 Years since quittin.4 Passive exposure: Never Smokeless tobacco: Never Substance Use Topics Alcohol use: Not Currently Comment: occ Wt Readings from Last 1 Encounters: 08/26/24 101.2 kg (223 lb) Anesthesia Evaluation Pt has had prior anesthetic. History of anesthetic complications ROS/MED HX ENT/Pulmonary: (+) sleep apnea, asthma Neurologic: Cardiovascular: (+) - - CAD - - - Taking blood thinners Pt has received instructions: pacemaker, METS/Exercise Tolerance: Hematologic: Musculoskeletal: GI/Hepatic: Renal/Genitourinary: (+) renal disease, Endo: (+) type I DM, thyroid problem, Obesity, Psychiatric/Substance Use: Infectious Disease: Malignancy: Other: Physical Exam Airway Mallampati: II TM distance: >3 FB Neck ROM: full Mouth opening: >= 4 cm Cardiovascular Rhythm: irregular Comments: CV for Afib Dental (+) Modest Abnormalities - crowns, retainers, 1 or 2 missing teeth Pulmonary Neurological He appears oriented x3. Other Findings OUTSIDE LABS: CBC: Lab Results Component Value Date WBC 5.9 08/05/2024 WBC 9.3 07/30/2024 HGB 10.4 (L) 08/05/2024 HGB 10.7 (L) 07/30/2024 HCT 31.9 (L) 08/05/2024 HCT 32.3 (L) 07/30/2024 PLT 349 08/05/2024 PLT 187 07/30/2024 BMP: Lab Results Component Value Date NA 137 09/02/2024 NA 140 08/05/2024 POTASSIUM 4.6 09/24/2024 POTASSIUM 5.1 09/02/2024 CHLORIDE 101 09/02/2024 CHLORIDE 105 08/05/2024 CO2 25 09/02/2024 CO2 26 08/05/2024 BUN 45.5 (H) 09/02/2024 BUN 37.1 (H) 08/05/2024 CR 2.13 (H) 09/02/2024 CR 1.99 (H) 08/05/2024 GLC 207 (H) 09/02/2024 GLC 112 (H) 08/05/2024 COAGS: Lab Results Component Value Date PTT 102 (H) 02/14/2024 INR 1.15 02/14/2024 POC: Lab Results Component Value Date BGM 146 (H) 10/09/2020 HEPATIC: Lab Results Component Value Date ALBUMIN 3.7 08/05/2024 PROTTOTAL 6.9 08/05/2024 ALT 39 08/05/2024 AST 29 08/05/2024 ALKPHOS 117 08/05/2024 BILITOTAL 0.2 08/05/2024 OTHER: Lab Results Component Value Date LACT 1.5 07/27/2024 A1C 8.4 (H) 02/15/2024 BLUE 9.9 09/02/2024 MAG 2.2 09/24/2024 LIPASE 66 (H) 07/27/2024 TSH 3.35 09/02/2024 Anesthesia Plan ASA Status: 2 Anesthesia Type: General. Airway: natural airway. Induction: intravenous. Maintenance: N/A. Consents Postoperative Care Comments: Corry Gonzalez, WES FRONT SERVICES AGENT I have reviewed the pertinent notes and labs in the chart from the past 30 days and (re)examined the patient. Any updates or changes from those notes are reflected in this note. Clinically Significant Risk Factors Present on Admission # Drug Induced Coagulation Defect: home medication list includes an anticoagulant medication # Hypertension: Noted on problem list # Obesity: Estimated body mass index is 32.93 kg/m?? as calculated from the following: Height as of 08/26/24: 1.753 m (5' 9). Weight as of 08/26/24: 101.2 kg (223 lb). # Financial/Environmental Concerns: # Pacemaker present documented in this encounter Miscellaneous Notes * Anesthesia Care Transfer Note - Corry Rossi APRN CRNA - 09/24/2024 11:46 AM CDT Patient: Kayode Castro Procedure: Procedure(s): Anesthesia cardioversion Diagnosis: A-fib (H) [I48.91] Diagnosis Additional Information: No value filed. Anesthesia Type: General Note: Oropharynx: oropharynx clear of all foreign objects and spontaneously breathing Level of Consciousness: drowsy Oxygen Supplementation: nasal cannula Level of Supplemental Oxygen (L/min / FiO2): 5 Independent Airway: airway patency satisfactory and stable Dentition: dentition unchanged Vital Signs Stable: post-procedure vital signs reviewed and stable Report to RN Given: handoff report given Patient transferred to: Cardiac Special Care Vitals: Vitals Value Taken Time BP 110/58 09/24/24 12:01 Temp Pulse 66 09/24/24 12:01 Resp 18 09/24/24 12:01 SpO2 94 % 09/24/24 12:01 Electronically Signed By: Corry Gonzalez APRN CRNA September 24, 2024 12:04 PM documented in this encounter Plan of Treatment Upcoming Encounters Date Type Department Care Team (Late st Contact Info) Description 10/27/2024 2:10 PM CDT Office Visit [address] [place] [address] Gerardo Jiang MD [address] [place] [address] Kristy Hassan, MANUFACTURING MACHINE OPERATOR LABOR CONCILIATOR [address] [place] [address] documented as of this encounter Visit Diagnoses Not on filedocumented in this encounter Administered Medications Inactive Administered Medications - up to 3 most recent administrations Medication Order MAR Action Action Date Dose Rate Site lidocaine 2% Intravenous, PRN, Starting on Sun09/24/24 at 1135, Anesthesia Intra-op $Given 09/24/2024 11:35 AM CDT 50 mg propofol (DIPRIVAN) injection 10 mg/mL vial Intravenous, PRN, Starting on Sun09/24/24 at 1138, Anesthesia Intra-op $Given 09/24/2024 11:39 AM CDT 20 mg $Given 09/24/2024 11:38 AM CDT 50 mg documented in this encounter Care Teams Side Stitching Machine Operator Relationship Specialty Start Date End Date Soto Thompson MD PCP - General Family Medicine 09/23/20 Gerardo Jiang MD [address] [place] [address] Assigned Heart and Vascular Provider 10/30/23 Nancy Forbes DO [address] [place] [address] Physician Neurology 02/22/24 Farzad Sevilla MD [address] [place] [address] Cardiovascular Disease 02/22/24 Zechariah Lange MD [address] [place] [address] Assigned Heart and Vascular Surgical Provider 06/29/24 Byron Thompson PA-C [address] [place] [address] Physician Visual Merchandising Assistant Cardiovascular Disease 07/04/24 Mark Lopez MD [address] [place] [address] Assigned Surgical Provider 08/29/24 documented as of this encounter
--- OUTSIDE RECORDS SUMMARY | 2024-09-24 11:35 | XMS_ITS | Encounter Summary ---
Author Organization [facility] Address [address] [place] [address] Care Team Providers Care District Adviser Name Role Phone Soto Thompson MD Primary Care Provider [phone] Gerardo Jiang MD Unavailable [phone] Nancy Forbes DO Unavailable [phone] Farzad Sevilla MD Unavailable [phone] Zechariah Lange MD Unavailable [phone] Byron Thompson PA-C Unavailable [phone] Mark Lopez MD Unavailable [phone] Reason for Visit * Auth/Cert Specialty Diagnoses / Procedures Referred By Contac t Referred To Contact Cardiology Diagnoses na Juaquin Henderson MD [address] [facility] [address] [place] [address] Phone: tel: fax: [facility] [address] [place] [address] Phone: tel: Referral ID Status Reason Start Date Expiration Date Visits Re quested Visits Authorized [id number] Encounter Details Date Type Department Care Team (Late st Contact Info) Description 09/24/2024 11:35 AM CDT Anesthesia Event [facility] PeriOp Services [address] [place] [address] Corry Rossi APRN CRNA Anesthesia Record Procedure [...] reason for use: Dr Henderson called for CATEGORY DIRECTOR only anesthesia for a cardioversion. 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 Gender Identity Not on file Sexual Orientation Not on file documented as of this encounter OR Notes * Anesthesia Preprocedure Evaluation - Corry Rossi APRN CATEGORY DIRECTOR - 09/24/2024 11:52 AM CDT Anesthesia Pre-Procedure [...] Surgeon: Gerardo Jiang MD; Location: HEART CARDIAC SCHEDULE CHECKER CV PCI ATHERECTOMY ORBITAL N/A 02/14/2024 Procedure: Percutaneous Coronary Intervention Atherectomy Rotational; Surgeon: Gerardo Jiang MD; Location: HEART CARDIAC SCHEDULE CHECKER CV PCI CHRONIC TOTAL OCCLUSION N/A 02/14/2024 Procedure: Percutaneous Coronary Intervention - Chronic Total Occlusion; Surgeon: Gerardo Jiang MD; Location: [facility] CARDIAC SCHEDULE CHECKER ENDARTERECTOMY CAROTID Right 10/08/2020 Procedure: RIGHT CAROTID ENDARTERECTOMY WITH ELECTROENCEPHALOGRAM AND INTRAOPERATIVE ULTRASOUND; Surgeon: Zechariah Lange MD; Location: OR ENDARTERECTOMY CAROTID Left 11/09/2020 Procedure: LEFT CAROTID ENDARTERECTOMY WITH ELECTROENCEPHALOGRAM AND INTEROPERATIVE ULTRASOUND; Surgeon: Zechariah Lange MD; Location: OR ENT SURGERY EP PACEMAKER [...] Consents Postoperative Care Comments: Corry Gonzalez, WES CATEGORY DIRECTOR I have reviewed the pertinent notes and [...] Description 10/27/2024 2:10 PM CDT Office Visit [address] [place] [address] Gerardo Jiang MD [address] [place] [address] Kristy Hassan, OIL WELL LOGGER CUSTOM APPLICATOR [address] [place] [id number] documented as of this encounter Visit Diagnoses [...] mg documented in this encounter Care Teams District Adviser Relationship Specialty Start Date End Date Soto Thompson MD PCP - General Family Medicine 09/23/20 Gerardo Jiang MD [address] [place] [place] [address]825 Assigned Heart and Vascular Provider 10/30/23 Nancy Forbes DO [address] [place] [address] Physician Neurology 02/22/24 Farzad Sevilla MD [address] [place] [address] Cardiovascular Disease 02/22/24 Zechariah Lange MD [address] [place] [address] Assigned Heart and Vascular Surgical Provider 06/29/24 Byron Thompson PA-C [address] [place] [address] Physician Material Planning Analyst Cardiovascular Disease 07/04/24 Mark Lopez MD [address] [place] [address] Assigned Surgical Provider 08/29/24 documented as of this encounter
--- OUTSIDE RECORDS SUMMARY | 2024-10-06 16:55 | XMS_ITS | Encounter Summary ---
Author Organization [facility] Address [address] [place] [address] Care Team Providers Care Penology Teacher Name Role Phone Soto Thompson MD Primary Care Provider [phone] Gerardo Jiang MD Unavailable [phone] Nancy Forbes DO Unavailable [phone] Farzad Sevilla MD Unavailable [phone] Zechariah Lange MD Unavailable [phone] Byron Thompson PA-C Unavailable [phone] Mark Lopez MD Unavailable [phone] Encounter Details Date Type Department Care Team (Latest Contact Info) Description 09/19/2024 Travel Social History Tobacco Use Types Packs/Day Years [...] on file 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 Gender Identity Not on file Sexual Orientation Not on file documented as of this encounter Plan of Treatment Upcoming Encounters Date Type Department Care Team (Late st Contact Info) Description 10/27/2024 2:10 PM CDT Office Visit [address] [place] [address] Gerardo Jiang MD [address] [place] [place] [address] Kristy Hassan APRN CNP [address] [place] [address] documented as of this encounter Visit Diagnoses Not on filedocumented in this encounter Care Teams Penology Teacher Relationship Specialty Start Date End Date Soto Thompson MD PCP - General Family Medicine 09/23/20 Gerardo Jiang MD [address] [place] [address] Assigned Heart and Vascular Provider 10/30/23 Nancy Forbes DO [address] [place] [id number] Physician Neurology 02/22/24 Farzad Sevilla MD [address] [place] [address] Cardiovascular Disease 02/22/24 Zechariah Lange MD [address] [place] [address] Assigned Heart and Vascular Surgical Provider 06/29/24 Byron Thompson PA-C [address] [place] [address] Physician District Administrative Assistant Cardiovascular Disease 07/04/24 Mark Lopez MD [address] [place] [address] Assigned Surgical Provider 08/29/24 documented as of this encounter
--- OUTSIDE RECORDS SUMMARY | 2024-10-06 16:55 | XMS_ITS | Encounter Summary ---
Author Organization [facility] Address [address] [place] [address] Care Team Providers Care Math Tutor Name Role Phone Soto [place] MD Primary Care Provider [phone] Zechariah Lange MD Unavailable [phone] Gerardo Jiang MD Unavailable [phone] Nancy Forbes DO Unavailable [phone] Farzad Sevilla MD Unavailable [phone] Zechariah Lange MD Unavailable [phone] Byron [place] PA-C Unavailable Mark Lopez MD Unavailable [phone] Encounter Details Date Type Department Care Team (Late st Contact Info) Description 08/07/2023 External Order Results [facility] [address] [place] [address] Outside, Provider Social History Tobacco Use Types [...] on file 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 Gender Identity Not on file Sexual Orientation Not on file documented as of this encounter Plan of Treatment Upcoming Encounters Date Type Department Care Team (Late st Contact Info) Description 10/27/2024 2:10 PM CDT Office Visit [facility] [address] [facility] [address] [place] [address] Gerardo Jiang MD [address] [place] [address] Kristy Hassan E, JIG MAKER VP COMMUNICATIONS [address] [place] [id number] documented as of this encounter Procedures Procedure Name Priority Date/Time Associated Diagnosis Comments HEMOGLOBIN A1C Routine 08/07/2023 3:10 PM CDT IONIZED CALCIUM Routine 08/07/2023 3:10 PM CDT BASIC METABOLIC PANEL Routine 08/07/2023 3:10 PM CDT documented in this encounter Results * (ABNORMAL) Hemoglobin A1c (08/07/2023 3:10 PM CDT) Hemoglobin A1C (External) 7.5(H) 0 - 5.6 % NON-INTERFACED (ONBASE SCANS) Blood BLOOD SPECIMEN / Unknown 08/07/2023 3:10 PM CDT Narrative SHAWNA PFT - 10/23/2023 10:04 AM CDT Verified by Angelita Valverde on 10/23/2023. us Provider Outside LAB - BLOOD ORDERABLES Edited R esult - Final SHAWNA PFT NON-INTERFACED (ONBASE SCANS) * (ABNORMAL) Ionized Calcium (08/07/2023 3:10 PM CDT) Calcium Ionized (External) 1.37(H) 1.11 - 1.33 mmol/L NON-INTERFACED (ONBASE SCANS) Blood BLOOD SPECIMEN / Unknown 08/07/2023 3:10 PM CDT Narrative SHAWNA PFT - 10/23/2023 10:04 AM CDT Verified by Angelita Valverde on 10/23/2023. Provider Outside LAB - BLOOD ORDERABLES Edited R [employer] SHAWNA PFT NON-INTERFACED (ONBASE SCANS) * (ABNORMAL) Basic metabolic panel (08/07/2023 3:10 PM CDT) Sodium (External) 139 136 - 146 mmol/L [...] Outside LAB - BLOOD ORDERABLES Edited R [employer] SHAWNA PFT NON-INTERFACED (ONBASE SCANS) documented in this encounter Visit Diagnoses Not on filedocumented in this encounter Care Teams Math Tutor Relationship Specialty Start Date End Date Soto [place] MD PCP - General Family Medicine 09/23/20 Zechariah Lange MD [address] [place] [address] Assigned Heart and Vascular Provider 09/26/20 10/29/23 Gerardo Jiang MD [address] [place] [address] Assigned Heart and Vascular Provider 10/30/23 Nancy Forbes DO [address] [place], [place] [address] Physician Neurology 02/22/24 Farzad Sevilla MD [address] [place] [address] MD Cardiovascular Disease 02/22/24 Zechariah Lange MD [address] [place] [address] Assigned Heart and Vascular Surgical Provider 06/29/24 Byron [place] PA-C [address] [place] [address] Physician Dough Mixing Machine Operator Cardiovascular Disease 07/04/24 Mark Lopez MD [address] [place], [place] [address] Assigned Surgical Provider 08/29/24 documented as of this encounter
--- OUTSIDE RECORDS SUMMARY | 2024-10-06 16:55 | XMS_ITS | Encounter Summary ---
Author Organization [facility] Address [address] [place] [address] Care Team Providers Care Sticker Operator Name Role Phone Soto [place] MD Primary Care Provider [phone] Gerardo Jiang MD Unavailable [phone] Nancy Forbes DO Unavailable [phone] Farzad Sevilla MD Unavailable [phone] Zechariah Lange MD Unavailable Byron [place] PA-C Unavailable Mark Lopez MD Unavailable [phone] Reason for Visit * Reason Onset Date Comments Pt. Information/instruction 09/23/2024 Card ioversion 09/24/24 Encounter Details Date Type Department Care Team (Late st Contact Info) Description 09/23/2024 Telephone [facility] [address] [place] [address] Shanell Hays, RN Pt. 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 Check in time is at 9:30 am and procedure to follow. Patient instructed to remain NPO for solid foods 8 hours prior to arrival and may have clear liquids up to 2 hours prior to arrival for their DCCV. Patient is taking Pradaxa/Xarelto/Eliquis and has been taking daily uninterrupted for at least 21days. Per result note 09/11/24 pt reported missing [address] Jiang and Dr. [place] were notified, per Dr. [place] to keep procedure as scheduled as long as no further missed doses. Pt confirmed he has been taking Eliquis twice daily and has not missed any further doses. Pt is on insulin and oral diabetic medications and has been instructed to reach out to primary careprovider for recommendations. Patient is not taking Digoxin. Patient is taking taking torsemide and has been instructed to hold it the morning of procedure. andhas been advised to hold this the morning of the procedure. Pt is not on a SGLT2 inhibitor. Pt is not on a GLP-1 Agonist Patient advised to take their other daily medications the morning of the procedure with small sips of water. Verified patient has someone available to drive them home from the hospital and can stay with them for 24 hours after the procedure. Patient advised to notify care team with any new COVID like symptoms prior to procedure. Day of procedure phone number: Mariam at [phone] Patient is aware of visitor policy. Patient expresses understanding of above instructions and denies further questions at this time. Shanell Lyles RN [facility] documented in this encounter Plan of Treatment Upcoming Encounters Date Type Department Care Team (Late st Contact Info) Description 10/27/2024 2:10 PM CDT Office Visit [facility] [id number] [place] [address] [address] [place] [address] Gerardo Jiang MD [address] [place] [address] Kristy Hassan APRN DUMPER CENTRAL CONCRETE MIXING PLANT [address] [place] [id number] documented as of this encounter Visit Diagnoses Not on filedocumented in this encounter Care Teams Sticker Operator Relationship Specialty Start Date End Date Soto [place] MD PCP - General Family Medicine 09/23/20 Gerardo Jiang MD [address] [place] [address] Assigned Heart and Vascular Provider 10/30/23 Nancy Forbes DO [address] [place] [address] Physician Neurology 02/22/24 Farzad Sevilla MD [address] [place] [address] Cardiovascular Disease 02/22/24 Zechariah Lange MD [address] [place] [address] Assigned Heart and Vascular Surgical Provider 06/29/24 Byron [place] PA-C [address] [place] [address] Physician Maintenance Custodian Cardiovascular Disease 07/04/24 Mark Lopez MD [address] [place], [place] [address] Assigned Surgical Provider 08/29/24 documented as of this encounter
--- OUTSIDE RECORDS SUMMARY | 2024-10-06 16:55 | XMS_ITS | Encounter Summary ---
Author Organization [facility] Address [address] [place] [address] Care Team Providers Care Yarn Sizer Name Role Phone Soto [place] MD Primary Care Provider [phone] Zechariah Lange MD Unavailable [phone] Gerardo Jiang MD Unavailable [phone] Nancy Forbes DO Unavailable [phone] Farzad Sevilla MD Unavailable [phone] Zechariah Lange MD Unavailable [phone] Byron [place] PA-C Unavailable Mark Lopez MD Unavailable [phone] Encounter Details Date Type Department Care Team (Late st Contact Info) Description 11/05/2020 External Order Results [facility] [address] [place] [address] Outside, Provider Social History Tobacco Use Types Packs/Day Years Used Date Smoking Tobacco: Former Cigarettes 0.5 25 1 985 - 2009 Smokeless Tobacco: Never Alcohol Use Standard Drinks/Week Comments Not Currently 0 (1 standard drink = 0.6 oz pur e alcohol) Sex and Gender Information Value Date Recorded Sex Assigned at Not on file 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 Gender Identity Not on file Sexual Orientation [...] Description 10/27/2024 2:10 PM CDT Office Visit [facility] [address] [facility] [address] [place] [address] Gerardo Jiang MD [address] [place] [address] Hassan, Kristy E, VENEER STOCK GRADER PERSONAL FINANCIAL REPRESENTATIVE [address] [place] [address] documented as of this encounter Procedures Procedure Name Priority Date/Time Associated Diagnosis Comments COVID-19 VIRUS (CORONAVIRUS) BY PCR (EXTERNAL RESULT) Routine 11/05/2020 11:45 AM CDT documented in this encounter Results * COVID-19 Virus (Coronavirus) by PCR (External Result) (11/05/2020 11:45 AM CDT) COVID-19 Virus by PCR (External Result) NEGATIVE SARS-CoV-2 NEGATIVE COVID-19 EXTERNAL RESULTS 11/05/2020 11:4 5 AM CDT Narrative SHAWNA CALVILLO - 11/08/2020 12:14 PM CDT Verified by Elpidio Waggoner on 11/08/2020. Performed by: [facility] [address], [place] [address] us Patient Reported LABORATORY Edited Result - Final SHAWNA CALVILLO COVID-19 EXTERNAL RESULTS COVID-19 External Result Scanned into Patient Record by [facility] Refer to Result Comment/Narrative [place] [address], [facility] documented in this encounter Visit Diagnoses Not on filedocumented in this encounter Care Teams Yarn Sizer Relationship Specialty Start Date End Date Soto [place] MD PCP - General Family Medicine 09/23/20 Zechariah Lange MD [address] [place] [address] Assigned Heart and Vascular Provider 09/26/20 10/29/23 Gerardo Jiang MD [address] [place] [address] Assigned Heart and Vascular Provider 10/30/23 Nancy Forbes DO [address] [place] [address]80775 Physician Neurology 02/22/24 Farzad Sevilla MD [address] [place] [address] Cardiovascular Disease 02/22/24 Zechariah Lange MD [address] [place] [address] Assigned Heart and Vascular Surgical Provider 06/29/24 Byron [place] PA-C [address] [place] [address] Physician Purification Operator Cardiovascular Disease 07/04/24 Mark Lopez MD [address] [place] [address] Assigned Surgical Provider 08/29/24 documented as of this encounter
--- OUTSIDE RECORDS SUMMARY | 2024-10-06 16:55 | XMS_ITS | Encounter Summary ---
Author Organization [facility] Address [address] [place] [address] Care Team Providers Care Real Estate Development Manager Name Role Phone Soto [place] MD Primary Care Provider [phone] Gerardo Jiang MD Unavailable [phone] Nancy Forbes DO Unavailable [phone] Farzad Sevilla MD Unavailable [phone] Zechariah Lange MD Unavailable [phone] Byron [place] PA-C Unavailable [phone] Encounter Details Date Type Department Care Team (Latest Contact Info) Description 08/26/2024 Travel Social History Tobacco Use Types Packs/Day [...] on file 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 Gender Identity Not on file Sexual Orientation Not on file documented as of this encounter Plan of Treatment Upcoming Encounters Date Type Department Care Team (Late st Contact Info) Description 10/27/2024 2:10 PM CDT Office Visit [address] [place] [address] Gerardo Jiang MD [address] [place] [id number] Kristy Hassan APRN CNP [address] [place] [address] documented as of this encounter Visit Diagnoses Not on filedocumented in this encounter Care Teams Real Estate Development Manager Relationship Specialty Start Date End Date Soto [place] MD PCP - General Family Medicine 09/23/20 Gerardo Jiang MD [address] [place] [place] [address] Assigned Heart and Vascular Provider 10/30/23 Nancy Forbes DO [address] [place] [address] Physician Neurology 02/22/24 Farzad Sevilla MD [address] [place] [id number] Cardiovascular Disease 02/22/24 Zechariah Lange MD [address] [place] [address] Assigned Heart and Vascular Surgical Provider 06/29/24 Byron [place] PA-C [address] [place] [address] Physician Linoleum Tile Layer Cardiovascular Disease 07/04/24 documented as of this encounter
--- OUTSIDE RECORDS SUMMARY | 2024-10-06 16:55 | XMS_ITS | Encounter Summary ---
Author Organization [facility] Address [address] [place] [address] Care Team Providers Care Playground Aide Name Role Phone Soto [place] MD Primary Care Provider [phone] Gerardo Jiang MD Unavailable [phone] Nancy Forbes DO Unavailable [phone] Farzad Sevilla MD Unavailable [phone] Zechariah Lange MD Unavailable [phone] Byron [place] PA-C Unavailable [phone] Mark Lopez MD Unavailable [phone] Encounter Details Date Type Department Care Team (Latest Contact Info) Description 09/02/2024 Travel Social History Tobacco Use Types Packs/Day [...] on file 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 Gender Identity Not on file Sexual Orientation Not on file documented as of this encounter Plan of Treatment Upcoming Encounters Date Type Department Care Team (Late st Contact Info) Description 10/27/2024 2:10 PM CDT Office Visit [address] [place] [address] Gerardo Jiang MD [address] [place] [address] Kristy Hassan APRN CNP [address] [place] [address] documented as of this encounter Visit Diagnoses Not on filedocumented in this encounter Care Teams Playground Aide Relationship Specialty Start Date End Date Soto [place] MD PCP - General Family Medicine 09/23/20 Gerardo Jiang MD [address] [place] [address] Assigned Heart and Vascular Provider 10/30/23 Nancy Forbes DO [address] [place] [address] Physician Neurology 02/22/24 Farzad Sevilla MD [address] [place] [address] Cardiovascular Disease 02/22/24 Zechariah Lange MD [address] [place] [address] Assigned Heart and Vascular Surgical Provider 06/29/24 Byron [place] PA-C [address] [place] [address] Physician Shell Reprint Operator Cardiovascular Disease 07/04/24 Mark Lopez MD [address] [place] [address] Assigned Surgical Provider 08/29/24 documented as of this encounter
--- OUTSIDE RECORDS SUMMARY | 2024-10-06 16:55 | XMS_ITS | Encounter Summary ---
Author Organization [facility] Address [address] [place] [address]. [place] [address] Care Team Providers Care Railroad Carman Name Role Phone Soto [place] MD Primary Care Provider Gerardo Jiang MD Unavailable Nancy Forbes DO Unavailable [phone] Farzad Sevilla MD Unavailable [phone] Zechariah Lange MD Unavailable [phone] Byron [place] PA-C Unavailable Mark Lopez MD Unavailable [phone] Encounter Details Date Type Department Care Team (Late st Contact Info) Description 09/09/2024 Results Follow-Up [facility] Line [facility] [place] [address] Gerardo Jiang MD [address] [place] [address] Social History Tobacco Use Types Packs/Day Years Used Date Smoking Tobacco: Former Cigarettes 0.5 25 1 5 - 2009 Passive Smoke Exposure: Never Smokeless [...] on file 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 Gender Identity Not on file Sexual Orientation Not on file documented as of this encounter Plan of Treatment Upcoming Encounters Date Type Department Care Team (Late st Contact Info) Description 10/27/2024 2:10 PM CDT Office Visit [address] [place] [address] Gerardo Jiang MD [address] [place] [address] Kristy Hassan E, HOT CAR CHARGER DAY CARE SUPERVISOR [address] [place], [place] [address] documented as of this encounter Visit Diagnoses Not on filedocumented in this encounter Care Teams Railroad Carman Relationship Specialty Start Date End Date Soto [place] MD PCP - General Family Medicine 09/23/20 Gerardo Jiang MD [address] [place], [place] [address] Assigned Heart and Vascular Provider 10/30/23 Nancy Forbes DO [address] [place], [place] [address] Physician Neurology 02/22/24 Farzad Sevilla MD [address] [place] [address] Cardiovascular Disease 02/22/24 Zechariah Lange MD [address] [place] [address] Assigned Heart and Vascular Surgical Provider 06/29/24 Byron [place] PA-C [address] [place] [address] Physician Cylinder Head Assembler Cardiovascular Disease 07/04/24 Mark Lopez MD [address] [place] [address] Assigned Surgical Provider 08/29/24 documented as of this encounter
--- OUTSIDE RECORDS SUMMARY | 2024-10-06 16:55 | XMS_ITS | Encounter Summary ---
Author Organization [facility] Address [address] [place] [address]. [place] [address] Care Team Providers Care Regional Tanker Truck Driver Name Role Phone Soto [place] MD Primary Care Provider [phone] Gerardo Jiang MD Unavailable Nancy Forbes DO Unavailable [phone] Farzad Sevilla MD Unavailable [phone] Zechariah Lange MD Unavailable [phone] Byron [place] PA-C Unavailable Mark Lopez MD Unavailable Reason for Visit * Reason Onset Date Comments Referral 08/28/2024 Encounter Details Date Type Department Care Team (Late st Contact Info) Description 08/28/2024 Telephone [facility] [address] [place] [address] Gearrdo Jiang MD [address] [facility] [place] [address] Referral Social History Tobacco Use Types Packs/Day Years [...] [facility], or couch-surfing.) Yes 07/28/2024 Are you worried [...] on file 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 Outcome: Called patient's daughter since have not been active on their Daily Pic account lately. Patient's daughter did not answer. A voicemail was left explaining more in-depth what MTM is and how we can best support them. Additionally, I provide my direct line so that the patient's daughter can call me directly for help with scheduling. * Telephone Encounter - Justa Yusuf - 08/28/2024 10:59 AM CDT MTM referral from: [facility] visit (referral by provider) MTM referral outreach attempt #2 on August 28, 2024 at 10:59 AM Outcome: Patient not reachable after several attempts, routed to Pharmacist Team/Provider as an FYI Use hbc for the carrier/Plan on the flowsheet MTM Practitioner please send patient letter Justa Yusuf CPhT [facility] Radiation Protection Technician documented in this encounter Plan of Treatment Upcoming Encounters Date Type Department Care Team (Late st Contact Info) Description 10/27/2024 2:10 PM CDT Office Visit [facility] [address] [place] [facility] [address] [place] [address] Gerardo Jiang MD [address] [place] [place] [address] Kristy Hassan, [place] FLOORS INSTALLER TAILINGS MAN [address] [place] [address] documented as of this encounter Visit Diagnoses Not on filedocumented in this encounter Care Teams Regional Tanker Truck Driver Relationship Specialty Start Date End Date Soto [place] MD PCP - General Family Medicine 09/23/20 Gerardo Jiang MD [address] [place] [address] Assigned Heart and Vascular Provider 10/30/23 Nancy Forbes DO [address] [place] [address] Physician Neurology 02/22/24 Farzad Sevilla MD [address] [place] [address] Cardiovascular Disease 02/22/24 Zechariah Lange MD [address] [place] [address] Assigned Heart and Vascular Surgical Provider 06/29/24 Byron [place] PA-C [address] [place] [address] Physician Web Press Operator Assistant Cardiovascular Disease 07/04/24 Mark Lopez MD [address] [place], [place] [address] Assigned Surgical Provider 08/29/24 documented as of this encounter
--- OUTSIDE RECORDS SUMMARY | 2024-10-06 16:56 | XMS_ITS | Clinical Summary ---
Author Organization [facility] Address [address] [place] [address] Care Team Providers Care Tap Puller Name Role Phone None Reported, Pcp Primary Care Provider Unavail able Source Comments Patient records contain information from all sites at [facility]. For routine questions regarding patient records, call [phone] during business hours, M-F 8:00 AM - 5:00 PM Central Time. 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 Discharge Disposition: Home or Self Care 08/04/2024 9:25 AM CDT - 08/04/2024 11:59 PM T Hospital Encounter Department of Cardiovascular Diseases in [place], [place] [address] [place] [address] Chino Gama M.D. Discharge Disposition: Home or Self Care from Last 3 Months Social History Tobacco Use Types Packs/Day Years Used Date Smoking Tobacco: Former Cigarettes 2 004 - 1960 Smokeless Tobacco: Never Tobacco Cessation:Counseling Given: Not Answered Alcohol Use Standard Drinks/Week Comments Not Currently 1 (1 standard drink = 0.6 oz pur e alcohol) [facility] Utilities Answer Date Recorded In the past 12 months has [facility] [employer], [employer], or [employer] threatened to shut off services in your home? No 01/19/2024 Hunger Vital Sign Answer Date Recorded [...] things needed for daily living? No 01/19/2024 Housing Stability Answer Date Recorded What is your living situation today? 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 Gender Identity Male 01/19/2024 8:16 PM [...] for thyroid function 1940 Urine Albumin 1940 Hepatitis B Vaccines (1 of 3 - Risk 3-dose series) 2000 RSV vaccine - (32-36 weeks) or 60+ years (1 - 1-dose 75+ series) 10/06/2015 Depression Screening (Annual PHQ-2) 04/09/2024 Fall Risk Screen (Annual) 04/09/2024 Hemoglobin A1C 05/17/2024 02/15/2024, 11/0 11/2023, 10/08/2020 COVID-19 Vaccine ( season) 2024 01/04/2024, 01/16/2022, 07/25/2021, Additional history exists Office Visit for Blood Pressure Check / Re-check 01/21/2025 01/22/2024 Creatinine Level (Kidney Function Test) 08/05/2025 08/05/2024, 07/30/2024, 07/29/2024, Additional history exists Potassium Level 08/05/2025 08/05/2024, 07/09, 07/29/2024, Additional history exists Sodium Level 08/05/2025 08/05/2024, 07/09, 07/29/2024, Additional history exists DTaP,Tdap,and Td Vaccines (2 - Td or Tdap) 06/03/2034 06/03/2024, 09/08/2013 Pneumococcal vaccine (50+ years) Completed 11/16/2016, 11/16/2016, 04/20/2015 Zoster Vaccines Completed 04/04/2022, 02/01/2022 Influenza Vaccine Completed 01/04/2024, , 02/08/2022, Additional history exists IPV Vaccines Aged Out No longer eligi ble based on patient's age to complete this topic Medical Devices Implanted Type Area Sand System Operator Device Identifier Shelf Expiration Date Model / Serial / Lot Lead Guidant John [id number] Implanted: (Quantity not on file) Cardiac Lead Chest Guidant / [id number] / Description:LEAD Guidant Cor p [id number] [employer] Lead Guidant John [id number] Implanted: (Quantity not on file) Cardiac Lead Chest Guidant / [id number] / Description:LEAD Guidant Cor p [id number] [employer] Hardware E.G. Pins/Screws/R ods Hardware e.g. pins/screws/r ods Left: Ankle Description:Patient states r emoved shortly after Envelope Md Kennedy - [id number] Implanted:Qty : 1 on 01/30/2024 by Joe Tolliver M.B.BAnitaSAnita at [facility] Mesh or Patch [employer] 09/22/2024 [id number] / / [id number] Ocular Lens Ocular Lens Bilateral : Eye Ppm [address] Dr Virk Mri - [id number] - [id number] Implanted:Qty : 1 on 01/30/2024 by Joe Tolliver M.B.B.SAnita at [facility] Pacemaker [employer] 12/02/2025 [id number] / [id number] / Explanted Type Area Sand System Operator Device Identifier Shelf Expiration Date Model / Serial / Lot Pacemaker [employer] [id number] Implanted:12/30 (Quantity not on file) Explanted:Qty: 1 on 01/30/2024 by Joe Tolliver M.BAnitaB.SAnita at [facility] Pacemaker Chest [employer] / [id number] / Description:Pacemaker [employer] [id number] ADVANTIO Procedures Procedure Name Priority Date/Time Associated Diagnosis Comments INTERFACED REMOTE DEVICE CHECK Routine 08/18/2024 10:05 AM CDT INTERFACED REMOTE DEVICE CHECK Routine 08/04/2024 9:25 AM CDT BASIC METABOLIC PANEL, S/P Routine 01/22/2024 9:58 AM CDT Aftercare Cardiac Pacemaker Syncope from Last 3 Months or Most Recently Relevant to Health Maintenance Results * CAR CARDIAC DEVICE INTERROGATION (08/18/2024 10:05 AM CDT) Only the most recent of2 resultswithin the time period is included. Date Time Interrogation Session [id number] [facility] Type Interrogation Session Remote Device Initiated [facility] Implantable Pulse Generator Sand System Operator [id number] LAB SYSTEM Implantable Pulse Generator Type Pacemaker [facility] Implantable Pulse Generator Model L131 [facility] Implantable Pulse Generator Serial Number [id number] [facility] Implantable Pulse Generator Implant Date 20240130 [facility] Battery Remaining Percentage 100.00 % [facility] Battery Remaining Longevity 108.0 mo [facility] Battery Status Beginning of Service [facility] Gne Statistic RA Percent Paced 22.00 [facility] Gen Statistic RV Percent Paced 97.00 [facility] Atrial Tachy Statistic AT/AF [place] Percent 8.00 [facility] Lead Channel Sensing Intrinsic Amplitude 2.100 [facility] Lead Channel Setting Sensing Sensitivity 0.50 [facility] Lead Channel Impedance Value 492 [facility] Lead Channel Measurements Date and Time 20240817 [facility] Lead Channel Setting Pacing Amplitude 1.500 [facility] Lead Channel Setting Pacing Pulse Width 0.4 [facility] Lead Channel Sensing Intrinsic Amplitude 17.900 [facility] Lead Channel Setting Sensing Sensitivity 2.50 [facility] Lead Channel Impedance Value 457 [facility] Lead Channel Measurements Date and Time 20240817 [facility] Lead Channel Setting Pacing Amplitude 3.200 [facility] Lead Channel Setting Pacing Pulse Width 0.8 [facility] Gen Setting Mode (NBG Code) DDDR [facility] Gen Setting Lower Rate Limit 60 [facility] Gen Setting AT Mode Switch Rate 170 [facility] Gen Setting Maximum Tracking Rate 130 [facility] Gen Setting Maximum Sensor Rate 130 [facility] Gen Setting PAV Delay 80 [facility] Gen Setting PAWAN Delay 65 [facility] Lead Channel Setting Sensing Polarity Bipolar [facility] Lead Channel Setting Sensing Polarity Bipolar [facility] Lead Channel Setting Pacing Polarity Bipolar [facility] Lead Channel Setting Pacing Polarity Bipolar [facility] Lead Channel Pacing Threshold Polarity Bipolar [facility] Lead Channel Pacing Threshold Polarity Bipolar [facility] Zone Setting Type Category VT [facility] Murj Rate 1 160 [facility] Zone Setting Status Monitor [facility] Murj Zone ID 1 [facility] Implantable Lead Sand System Operator Guidant [facility] Implantable Lead Model 4137 Dextrus [facility] Implantable Lead Location Right Ventricle [facility] Implantable Lead Connection Status Connected [facility] Implantable Lead Serial Number [id number] [facility] Implantable Lead Implant Date 20131230 [facility] Implantable Lead Sand System Operator Guidant [facility] Implantable Lead Model 4136 Dextrus [facility] Implantable Lead Location Right Atrium [facility] Implantable Lead Connection Status Connected [facility] Implantable Lead Serial Number [id number] [facility] Implantable Lead Implant Date 20131230 [facility] Anatomical Region Laterality Modality Other 08/26/2024 4:44 PM CDT Impressions 08/26/2024 4:44 PM CDT Encounter Impression: Title: Tachycardia: AF * Stored EGMs are consistent with or suggestive of Atrial Fibrillation/flutter. V rates are controlled currently. * AT/AF Otoe: 8% * Total number of events: 3 Current episode in progress since 08/01/2024 at 9:31 am. Per notes, this has been reported to PCP. He is scheduled to see PCP in a couple weeks, to assess labs, ect and dosing of ATC. Per note in EHR: Thanks for the message. If he did have more than a few hours of atrial fibrillation, it is something that we should address, and I think that an anticoagulant is appropriate. However, given his recent cholecystitis, CORINA, etc., we want to make sure that we are prescribing an appropriate dose. Accordingly, I would not want to starks and just get him started on something, but instead we should try to get him in as soon as possible, check labs, and then get him started on the right anticoagulant. Title: Unscheduled Remote * Reason: August 17, 2024 23:01 Right ventricular intrinsic amplitude out of range. He is primarily paced. * Alerts or Events: 0 * Battery: Battery is at 100%, 9.00 yrs * Sensing, impedance and thresholds reviewed and are stable. * Programmed parameters reviewed * Presenting rhythm reviewed and reports atrial flutter with PIZZA HUT ASSISTANT at 60 bpm. 2 PVCs * Heart Rate Histograms reviewed * No significant changes noted Plan: This patient underwent device interrogation. I agree that the device interrogation was medically indicated to provide appropriate care and continue routine device interrogations as indicated. Encounter Summary: This report includes 1 transmission that was received on 2024-08-18. Battery, lead impedance, sensing amplitude and pacing threshold data was reviewed. Narrative Procedure Note Bart Vazquez M.D. - 08/26/2024 IMPRESSION: Encounter Impression: Title: Tachycardia: AF * Stored EGMs are consistent with or suggestive of AtrialFibrillation/flutter. V rates are controlled currently. * AT/AF Otoe: 8% * Total number of events: 3 Current episode in progress since 08/01/2024 at 9:31 am. Per notes, thishas been reported to PCP. He is scheduled to see PCP in a couple weeks, toassess labs, ect and dosing of ATC. Per note in EHR: Thanks for themessage. If he did have more than a few hours of atrial fibrillation, it is something that we should address,and I think that an anticoagulant is appropriate. However, given hisrecent cholecystitis, CORINA, etc., we want to make sure that we areprescribing an appropriate dose. Accordingly, I would not want to starks and just get him started onsomething, but instead we should try to get him in as soon as possible,check labs, and then get him started on the right anticoagulant. Title: Unscheduled Remote * Reason: August 17, 2024 23:01 Right ventricular intrinsic amplitude out ofrange. He is primarily paced. * Alerts or Events: 0 * Battery: Battery is at 100%, 9.00 yrs * Sensing, impedance and thresholds reviewed and are stable. * Programmed parameters reviewed * Presenting rhythm reviewed and reports atrial flutter with PIZZA HUT ASSISTANT at 60 bpm.2 PVCs * Heart Rate Histograms reviewed * No significant changes noted Plan: This patient underwent device interrogation. I agree that the deviceinterrogation was medically indicated to provide appropriate care andcontinue routine device interrogations as indicated. Encounter Summary: This report includes 1 transmission that was receivedon 2024-08-18. Battery, lead impedance, sensing amplitude and pacingthreshold data was reviewed. Bart Vazquez M.D. CV IMPLANTABLE CARDIAC DEVICE Final Result from Last 3 Months Insurance MEDICARE [employer] Advance Directives For more information, please contact: [phone] Documents on File Type Date Recorded Patient Cover Stripper Expl anation Advance Directives 08/14/2017 Advanced Directive Care Teams Tap Puller Relationship Specialty Start Date End Date None Reported, Pcp PCP - General 02/15/24
--- OUTSIDE RECORDS SUMMARY | 2024-10-06 16:56 | XMS_ITS | Clinical Summary ---
Author Organization [facility] Address [address] [place] [address] Care Team Providers Care Mucking Machine Operator Name Role Phone Soto Thompson MD Primary Care Provider [phone] Gerardo Jiang MD Unavailable [phone] Nancy Forbes DO Unavailable [phone] Farzad Sevilla MD Unavailable [phone] Zechariah Lange MD Unavailable [phone] Byron Thompson PA-C Unavailable Mark Lopez MD Unavailable Allergies Active Allergy Reactions Criticality Noted Date Comments Sulfa Antibiotics Unknown 09/17/2020 Reaction as a child Medications tamsulosin (FLOMAX) 0.4 MG capsule Take 0.8 mg by mouth every morning. 08/11/19 21 Active metoprolol succinate ER (TOPROL-XL) 100 MG 24 hr tablet Take 100 mg by mouth every morning 08/11/19 21 Active levothyroxine (SYNTHROID/LEVOTH ROID) 100 MCG tablet Take 100 mcg by mouth daily 08/11/19 21 Active fenofibrate (TRIGLIDE/LOFIBRA ) 160 MG tablet Take 160 mg by mouth daily. 08/11/19 21 Active pioglitazone (ACTOS) 15 MG tablet Take 15 mg by mouth every morning 08/12/19 21 Active multivitamin w/minerals (THERA-VIT-M) tablet Take 1 tablet by mouth daily Active Vitamin D, Cholecalciferol, 25 MCG (1000 UT) CAPS Take 1,000 Units by mouth daily Active Milk Thistle 175 MG CAPS Take 175 mg by mouth daily Active LUTEIN PO Take 1 tablet by mouth daily. Active ipratropium (ATROVENT) 0.03 % nasal spray Rowe 2 sprays into both nostrils 2 times daily. Active rosuvastatin (CRESTOR) 20 MG tabletIndications :Coronary artery disease involving [place] coronary artery of [place] heart with angina pectoris Take 2 tablets (40 mg) by mouth daily. 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 02/18/20 Active finasteride (PROSCAR) 5 MG tabletIndications :Benign prostatic hyperplasia, unspecified whether lower urinary tract symptoms present Take 1 tablet (5 mg) by mouth daily. 10 tablet 02/22/20 Active metFORMIN (GLUCOPHAGE XR) 500 MG 24 hr tabletIndications :Type 2 diabetes mellitus with stage 3 chronic kidney disease, with long-term current use of insulin, unspecified whether stage 3a or 3b CKD (H) Take 1 tablet (500 mg) by mouth 2 times daily. 180 tablet 02/22/20 24 Active insulin glargine (LANTUS PEN) 100 UNIT/ML pen Inject 42 Units subcutaneously every morning. Active insulin glargine (LANTUS PEN) 100 UNIT/ML pen Inject 22 Units subcutaneously every evening. Active insulin aspart (NOVOLOG FLEXPEN) 100 UNIT/ML pen Inject subcutaneously 3 times daily (with meals). Based on blood sugar levels Active irbesartan (AVAPRO) 300 MG tabletIndications :Benign essential hypertension Take 0.5 tablets (150 mg) by mouth daily. 08/03/19 Active ELIQUIS ANTICOAGULANT 2.5 MG tablet Take 1 tablet by mouth 2 times daily. 08/07/19 Active torsemide (DEMADEX) 20 MG tabletIndications :Acute on chronic heart failure, unspecified heart failure type (H) Take 1 tablet (20 mg) by mouth daily. 30 tablet 3 08/27/19 Active Active Problems Problem Noted Date Diagnosed Date Generalized abdominal pain 07/28/2024 Biliary calculus of other site without obstructi on 07/28/2024 Nausea and vomiting, unspecified vomiting type 0 07/28/2024 Symptomatic cholelithiasis 07/28/2024 Acute embolic stroke 02/18/2024 Right sided weakness 02/14/2024 Coronary artery disease invo lving [place] coronary artery of [place] heart 02/02/2024 Cardiac pacemaker in situ 02/02/2024 CKD (chronic kidney disease) stage 3, GFR 30-59 ml/min 02/02/2024 Benign essential hypertension 02/02/2024 Hyperlipidemia with target LDL less than 70 01/08 Diabetes mellitus, type 2 03/18/2021 Carotid stenosis, asymptomatic, left 10/28/2020 Overview (10/28/2020): Added automatically from request for surgery [id number] Carotid stenosis, asymptomatic, bilateral 2020 Overview (09/27/2020): Added automatically from request for surgery [id number] Encounters Date Type Department Care Team Description 09/24/2024 11:35 AM CDT Anesthesia Event [facility] PeriOp Services [address] [place] [address] Corry Rossi, WES ANDERSEN 09/24/2024 11:30 AM CDT - 09/24/2024 11:45 AM CDT [facility] [address] [place] [address] GENERIC ANESTHESIA PROVIDER Anesthesia cardioversion 09/24/2024 9:04 AM CDT - 09/24/2024 11:59 PM CDT Hospital Encounter [facility] Heart [facility] [address] [place] [address] Gerardo Jiang MD Kim, Juaquin Cao MD Atrial fibrillation, unspecified type (H) Discharge Disposition: Home or Self Care 09/24/2024 9:03 AM CDT - 09/24/2024 1:00 PM CDT Hospital Encounter [facility] Heart Care [address] [place] [phone] Non- Credentialed Provider, Radiology Juaquin Henderson MD Discharge Disposition: Home or Self Care 09/23/[address] [phone] Shanell Hays RN Pt. Information/instruct ion (Cardioversion 09/24/24) 09/19/2024 9:25 AM CDT - 09/19/2024 11:59 PM CDT Hospital Encounter [facility] Specialty [facility] [address] [place] [phone] Gerardo Jiang MD Atrial fibrillation, unspecified type (H) Discharge Disposition: Home or Self Care 09/19/2024 Travel 09/09/2024 Results Follow-Up [facility] Services - Heart & Vascular Service Line [address] [place] [phone] Gerardo Jiang MD 09/02/2024 1:30 PM CDT Lab [facility] [address] [place] [phone] Atrial fibrillation, unspecified type (H); Coronary artery disease involving [place] coronary artery of [place] heart without angina pectoris; Cardiac pacemaker in situ; Benign essential hypertension; Hyperlipidemia LDL goal <70; Stage 3 chronic kidney disease, unspecified whether stage 3a or 3b CKD (H); Acute on chronic heart failure, unspecified heart failure type (H) 09/02/2024 Travel 08/28/[address] [phone] Gerardo Jiang MD Referral 08/26/2024 10:30 AM CDT Office Visit [facility] [address] [place] [phone] Gerardo Jiang MD Coronary artery disease involving [place] coronary artery of [place] heart without angina pectoris (Primary Dx); Atrial fibrillation, unspecified type (H); Cardiac pacemaker in situ; Benign essential hypertension; Hyperlipidemia LDL goal <70; Stage 3 chronic kidney disease, unspecified whether stage 3a or 3b CKD (H); Acute on chronic heart failure, unspecified heart failure type (H) 08/26/2024 Travel 08/19/2024 Results Follow-Up [facility] - Neuroscience Service Line [address] [place] [phone] Ivana Vargas NP Chief Comp: Results 08/14/2024 1:45 PM CDT Office Visit [facility] Surgery [facility] [address] [facility] [address] [place] [phone] Mark Lopez MD Symptomatic cholelithiasis (Primary Dx); Biliary calculus of other site without obstruction 08/14/2024 Travel 08/05/2024 1:15 PM CDT Lab [facility] Laboratory [address] [place] [phone] Acute embolic stroke (H); Carotid stenosis, asymptomatic, bilateral; Carotid stenosis, asymptomatic, left; Stage 3a chronic kidney disease (H); A-fib (H) 08/05/2024 Travel 08/04/2024 Telephone [facility] Heart [address] [place] [phone] Gerardo Jiang MD Call Back (Questions about pt's pacemaker); afib episode ; Atrial Fib 07/29/2024 8:00 AM CDT Anesthesia Event [facility] [address] [place] [address] Flip Grewal MD 07/27/2024 7:58 PM CDT - 07/30/2024 5:50 PM CDT Hospital Encounter [facility] Observation Dept [address] [place] [address] Rene Davis MD Kalinoski-Dubose, Michael T, MD Symptomatic cholelithiasis (Primary Dx); Biliary calculus of other site without obstruction; Generalized abdominal pain; Nausea and vomiting, unspecified vomiting type; Acute embolic stroke (H); Carotid stenosis, asymptomatic, bilateral; Carotid stenosis, asymptomatic, left; Cholecystitis; Stage 3a chronic kidney disease (H); Benign essential hypertension; Right sided weakness Discharge Disposition: Home or Self Care 07/27/2024 Travel 07/10/2024 4:00 PM CDT Office Visit [place] [id number] [facility] [address] [place] [address] Byron Thompson PA-C Cardiac pacemaker in situ (Primary Dx); Coronary artery disease involving [place] coronary artery of [place] heart without angina pectoris; Benign essential hypertension; Hyperlipidemia LDL goal <70 07/10/2024 Travel from Last 3 Months Immunizations Immunization Administration Dates Next Due COVID-19 MONOVALENT 12+ (Pfizer) 06/12/2020,05/10 Influenza (High Dose) Trival ent,PF (Fluzone) 01/06/2015 Influenza (intradermal) 01/19/2020,01/12,01/24/2018,2016,01/08/2016,01/06/2015 Pneumococcal, Unspecified 11/16/2016 Tdap (Adult) Unspecified Formulation 09/08/2013 Zoster Vaccine, Unspecified (historical) 09/08/2013 Social History Tobacco Use Types Packs/Day Years Used Date Smoking Tobacco: Former Cigarettes 0.5 25 1 985 - 2010 Passive Smoke Exposure: Never Smokeless Tobacco: Never Tobacco Cessation:Counseling Given: Yes Alcohol Use Standard Drinks/Week Comments Not Currently [...] in an abandoned building, in an overnight penitentiary, or couch-surfing.) Yes 07/28/2024 Are you worried [...] on file 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 Gender Identity Not on file Sexual Orientation Not on file Last Filed Vital Signs Vital Sign Reading Time Taken Comments Blood Pressure 122/68 09/24/2024 12:30 PM CDT Pulse 60 09/24/2024 12:30 PM CDT Temperature 36.4 C (97.6 F) 07/30/2024 2:00 PM CDT Respiratory Rate 16 09/24/2024 12:30 PM CDT Oxygen Saturation 96% 09/24/2024 12:30 PM CDT Inhaled Oxygen Concentration - - Weight 101.2 kg (223 lb) 08/26/2024 10:26 AM CDT Height 175.3 cm (5' 9) 08/26/2024 10:26 AM CDT Body Mass Index 32.93 08/26/2024 10:26 AM CDT Plan of Treatment Upcoming Encounters Date Type Department Care Team (Late st Contact Info) Description 10/27/2024 2:10 PM CDT Office Visit [address] [phone] Gerardo Jiang MD [address] [place] [phone] Kristy Hassan, ROOM SERVICE RUNNER INSPECTOR WATCH ASSEMBLY [address] [place] [address] Health Maintenance Due Date Last Done Comments ADVANCE CARE PLANNING 1940 ANNUAL REVIEW OF HM ORDERS 1940 DIABETIC FOOT EXAM 1940 EYE EXAM 1940 HF ACTION PLAN 1940 MICROALBUMIN 1940 FALL RISK ASSESSMENT 2005 MEDICARE ANNUAL WELLNESS VISIT 2005 RSV VACCINE (1 - 1-dose 75+ series) 10/06/2015 PNEUMOCOCCAL VACCINE 50+ YEARS (2 of 2 - PPSV23) 01/11/2017 11/16/2016, 11/16/2016 A1C 05/17/2024 02/15/2024, 110 11/2023, 08/07/2023, Additional history exists LIPID 02/13/2025 02/14/2024, 11/09/2020 BMP 03/05/2025 09/02/2024, 07/09, 07/30/2024, Additional history exists ALT 08/05/2025 08/05/2024, 07/09, 07/29/2024, Additional history exists CBC 08/05/2025 08/05/2024, 07/09, 07/29/2024, Additional history exists HEMOGLOBIN 08/05/2025 08/05/2024, 07/09, 07/29/2024, Additional history exists DTAP/TDAP/TD VACCINE (3 - Td or Tdap) 06/03/2034 06/03/2024, 09/08/2013 ZOSTER VACCINE Completed 04/04/2022, 01/08, 09/08/2013 INFLUENZA VACCINE Completed 01/04/2024, , 02/08/2022, Additional history exists URINALYSIS Completed 07/27/2024 PHQ-2 (once per calendar year) Completed 08/14/2024, 02/01/2024 TSH W/FREE T4 REFLEX Completed 09/02/2024 COVID-19 VACCINE Completed 09/17/2024, , 01/16/2022, Additional history exists HPV VACCINE Aged Out No longer eligi ble based on patient's age to complete this topic MENINGITIS VACCINE Aged Out No longer eligible based on patient's age to complete this topic Medical Devices Implanted Type Area Open Hearth Furnace Operator Helper Device Identifier Shelf Expiration Date Model / Serial / Lot Imp Patch Pericardium Photofix Bovine 0.8x8cm Pfp0.8x8 - [id number] Implanted:Qty : 1 on 10/08/2020 by Zechariah Lange MD at [facility] Bone/Tissue /Biologic Right: Neck CRYOLIFE 05/28/2022 PFP0.8X8 / [id number] / [id number] Imp Patch Pericardium Photofix Bovine 0.8x8cm Pfp0.8x8 - [id number] Implanted:Qty : 1 on 11/09/2020 by Zechariah Lange MD at [facility] Bone/Tissue /Biologic Left: Carotid CRYOLIFE [id number] 06/25/2022 PFP0.8X8 / / [id number] Guidant John 4136 Dextrus [id number] Implanted: (Quantity not on file) Leads [employer]- 4136 DEXTRUS / [id number] / Guidant John 4137 Dextrus [id number] Implanted: (Quantity not on file) Leads [employer]- 4137 DEXTRUS / [id number] / [place] Scie* K063 Advantio [id number] Implanted: (Quantity not on file) Pacemaker [employer] K063 ADVANTIO / [id number] / Stent Coronary Jevon Synergy Xd Mr Us 4.63p97ri [id number] - [id number] Implanted:Qty : 1 on 02/14/2024 at [facility] Stent Drug Eluting (JEVON) [employer] 08/20/2025 [id number] / / [id number] Stent Coronary Jevon Synergy Xd Mr Us 4.09r64gd [id number] 0 - [id number] Implanted:Qty : 1 on 02/14/2024 at [facility] Stent Drug Eluting (JEVON) [employer] 05/23/2025 [id number] / / [id number] Closure Angioseal 6fr [id number] - [id number] Implanted:Qty : 1 on 02/14/2024 at [facility] [employer] [id number] / / Explanted Type Area Open Hearth Furnace Operator Helper Device Identifier Shelf Expiration Date Model / Serial / Lot Stent Coronary Jevon Synergy Xd Mr Us 4.16i62hi [id number] - [id number] Explanted:Qty: 1 on 02/14/2024 at [facility] Stent Drug Eluting (JEVON) [employer] 03/26/2025 [id number] / / [id number] Procedures Procedure Name Priority Date/Time Associated Diagnosis Comments ANESTHESIA CARDIOVERSION 09/24/2024 7:30 PM CDT A-fib (H) EKG 12-LEAD, TRACING ONLY Routine 09/24/2024 12:23 PM CDT MAGNESIUM STAT 09/24/2024 10:08 AM CDT POTASSIUM STAT 09/24/2024 10:08 AM CDT EKG 12-LEAD, TRACING ONLY STAT 09/24/2024 9:41 AM CDT ECHO COMPLETE Routine 09/19/2024 10:16 AM CDT Atrial fibrillation, unspecified type (H) TSH WITH FREE T4 REFLEX Routine 09/02/2024 1:36 PM CDT Atrial fibrillation, unspecified type (H) NT-PROBNP Routine 09/02/2024 1:36 PM CDT Atrial fibrillation, unspecified type (H) Coronary artery disease involving [place] coronary artery of [place] heart without angina pectoris Benign essential hypertension Hyperlipidemia LDL goal <70 Stage 3 chronic kidney disease, unspecified whether stage 3a or 3b CKD (H) Acute on chronic heart failure, unspecified heart failure type (H) MAGNESIUM Routine 09/02/2024 1:36 PM CDT Atrial fibrillation, unspecified type (H) Coronary artery disease involving [place] coronary artery of [place] heart without angina pectoris Benign essential hypertension Stage 3 chronic kidney disease, unspecified whether stage 3a or 3b CKD (H) BASIC METABOLIC PANEL Routine 09/02/2024 1:36 PM CDT Atrial fibrillation, unspecified type (H) Coronary artery disease involving [place] coronary artery of [place] heart without angina pectoris Cardiac pacemaker in situ Benign essential hypertension Hyperlipidemia LDL goal <70 Stage 3 chronic kidney disease, unspecified whether stage 3a or 3b CKD (H) COMPREHENSIVE METABOLIC PANEL Routine 08/05/2024 1:47 PM CDT A-fib (H) CBC WITH PLATELETS Routine 08/05/2024 1: 47 PM CDT A-fib (H) PLATELET FUNCTION P2Y12 Routine 08/05/2024 1:47 PM CDT Acute embolic stroke (H) Carotid stenosis, asymptomatic, bilateral Carotid stenosis, asymptomatic, left GLUCOSE BY METER Routine 07/30/2024 5:36 PM CDT GLUCOSE BY METER Routine 07/30/2024 12:2 0 PM CDT GLUCOSE BY METER Routine 07/30/2024 8:05 AM CDT CBC WITH PLATELETS Routine 07/30/2024 7: 06 AM CDT COMPREHENSIVE METABOLIC PANEL Routine 07/30/2024 7:06 AM CDT GLUCOSE BY METER Routine 07/29/2024 10:0 9 PM CDT GLUCOSE BY METER Routine 07/29/2024 5:25 PM CDT XR CHEST PORT 1 VIEW Routine 07/29/2024 3:45 PM CDT GLUCOSE BY METER Routine 07/29/2024 12:4 9 PM CDT GLUCOSE BY METER Routine 07/29/2024 8:01 AM CDT GLUCOSE BY METER Routine 07/29/2024 5:40 AM CDT COMPREHENSIVE METABOLIC PANEL Routine 07/29/2024 5:25 AM CDT CBC WITH PLATELETS Routine 07/29/2024 5: 25 AM CDT GLUCOSE BY METER Routine 07/29/2024 2:14 AM CDT GLUCOSE BY METER Routine 07/28/2024 10:1 0 PM CDT GLUCOSE BY METER Routine 07/28/2024 5:11 PM CDT NM HEPATOBILIARY SCAN Routine 07/28/2024 3:22 PM CDT GLUCOSE BY METER Routine 07/28/2024 1:12 PM CDT GLUCOSE BY METER Routine 07/28/2024 9:17 AM CDT COMPREHENSIVE METABOLIC PANEL Routine 07/28/2024 5:57 AM CDT CBC WITH PLATELETS Routine 07/28/2024 5: 57 AM CDT GLUCOSE BY METER Routine 07/28/2024 5:17 AM CDT GLUCOSE BY METER Routine 07/28/2024 2:15 AM CDT BLOOD CULTURE STAT 07/28/2024 12:36 AM CDT US ABDOMEN LIMITED STAT 07/27/2024 11 :11 PM CDT LACTIC ACID WHOLE BLOOD STAT 07/27/2024 10:[address] ABDOMEN PELVIS W CONTRAST STAT 07/27/2024 9:43 PM CDT ROUTINE UA WITH MICROSCOPIC REFLEX TO CULTURE STAT 07/27/2024 8:30 PM CDT LACTIC ACID WHOLE BLOOD WITH 1X REPEAT IN 2 HR WHEN >2 STAT 07/27/2024 8:29 PM CDT GLUCOSE BY METER STAT 07/27/2024 8:13 PM CDT CBC WITH PLATELETS & DIFFERENTIAL STAT 07/27/2024 8:11 PM CDT CBC WITH PLATELETS AND DIFFERENTIAL STAT 07/27/2024 8:11 PM CDT KETONE BETA-HYDROXYBUTYRATE QUANTITATIVE, RAPID STAT 07/27/2024 8:11 PM CDT BLOOD GAS VENOUS STAT 07/27/2024 8:11 PM CDT LIPASE STAT 07/27/2024 8:11 PM CDT COMPREHENSIVE METABOLIC PANEL STAT 07/27/2024 8:11 PM CDT EXTRA HEPARINIZED SYRINGE STAT 07/27/2024 8:11 PM CDT EXTRA PURPLE TOP TUBE STAT 07/27/2024 8:11 PM CDT EXTRA GREEN TOP (LITHIUM HEPARIN) TUBE STAT 07/27/2024 8:11 PM CDT EXTRA RED TOP TUBE STAT 07/27/2024 8: 11 PM CDT EXTRA BLUE TOP TUBE STAT 07/27/2024 8 :11 PM CDT EXTRA TUBE STAT 07/27/2024 8:11 PM CDT EKG 12-LEAD, TRACING ONLY STAT 07/27/2024 8:05 PM CDT HEMOGLOBIN A1C STAT 02/15/2024 5:20 AM VAMP LINER LIPID PROFILE STAT 02/14/2024 7:15 AM VAMP LINER from Last 3 Months or Most Recently Relevant to Health Maintenance Results * EKG 12-lead, tracing only (09/24/2024 12:23 PM CDT) Only the most recent of3 resultswithin the time period is included. Systolic Blood Pressure mmHg RADIOLOGY RESULTS Diastolic Blood Pressure mmHg RADIOLOGY RESULTS Ventricular Rate 74 BPM RAD IOLOGY RESULTS Atrial Rate 74 BPM RADIOLOG Y RESULTS NC Interval 122 ms RADIOLOG Y RESULTS QRS Duration 188 ms RADIOLO GY RESULTS QT 454 ms RADIOLOGY RESULTS QTc 503 ms RADIOLOGY RESULTS P [place] 56 degrees RADIOLOGY RESULTS R AXIS -78 degrees RADIOLOGY RESULTS T [place] 86 degrees RADIOLOGY RESULTS Interpretation ECG Atrial-sensed ventricular-p aced rhythm Abnormal ECG Compared to prior ECG from 24-Sep-2024 at 09:41:12: Sinus rhythm with atrial sense-ventric ular pacing has replaced V-pacing with underlying atrial flutter Confirmed by Gerardo Jiang ([id number]) on 09/24/2024 3:55:19 PM RADIOLOGY RESULTS 09/24/2024 12:2 3 PM CDT 09/24/2024 3:55 PM CDT Gerardo Jiang MD ECG ORDERABLES Edited Result - Final RADIOLOGY RESULTS * Potassium (09/24/2024 10:08 AM CDT) Potassium 4.6 3.4 - 5.3 mmol/L 09/24/2024 10:27 AM CDT [facility] Blood BLOOD SPECIMEN / Unknown Venipuncture / Unknown 09/24/2024 10:08 AM CDT 09/24/2024 10:08 AM CDT Gerardo Jiang MD LAB - BLOOD ORDERABLES Final Result Performing Organization Address City/[facility]/ZIP Co de Phone Number [facility] [address] [facility] (1st floor, no room number) [address] * Magnesium (09/24/2024 10:08 AM CDT) Only the most recent of2 resultswithin the time period is included. Magnesium 2.2 1.7 - 2.3 mg/dL 09/24/2024 10:27 AM CDT LABORATORY Blood BLOOD SPECIMEN / Unknown Venipuncture / Unknown 09/24/2024 10:08 AM CDT 09/24/2024 10:08 AM CDT Gerardo Jiang MD LAB - BLOOD ORDERABLES Final Result Performing Organization Address [facility] Co de Phone Number [facility] [address] [facility] (1st floor, no room number) [address] * ECHO COMPLETE (09/19/2024 10:16 AM CDT) LVEF 60-65% CARDIOLOGY RESULTS Anatomical Region Laterality Modality Echocardiography 09/19/2024 9:50 AM CDT Narrative 09/19/2024 12:28 PM CDT [id number]^BLADIMIR^GERARDO^[facility] [address] [place] [id number] Name: ARIEL TAFOYA : 1940 Study Date: 09/19/2024 09:50 AM Age: 83 yrs Gender: Male Patient Location: [facility] Reason For Study: Atrial fibrillation, unspecified type [...] Procedure Note Juaquin Henderson MD - 09/19/2024 [id number]^BLADIMIR^GERARDO^[facility] [address] [place] [address] Name: ARIEL TAFOYA : 1940 Study Date: 09/19/2024 09:50 AM Age: 83 yrs Gender: Male Patient Location: [facility] Reason For Study: Atrial fibrillation, unspecified type [...] 1:36 PM CDT 09/02/2024 1:38 PM CDT us Gerardo Jiang MD LAB - BLOOD ORDERABLES Final Result [facility] [address] Lab (1st floor, no room number) [place] [address], [facility] * (ABNORMAL) NT-proBNP (09/02/2024 1:36 PM CDT) [facility] NT-proBNP 2,351(H) 0 - 852 pg/mL 09/02/2024 2:14 PM CDT LABORATORY Comment: Starting on 08/13/2024, [facility] laboratory began flagging abnormal values [...] be interpreted with the updated reference intervals. [facility] Pediatric (boys and girls) Reference Ranges in pg/mL * 0 up to 3 days: 0 - 54356 3 days up to 1 month: 0 [...] For adult chronic CHF patients according to [place] [employer] (NYHA) Functional Class, the mean NT-proBNP concentration is as following (5th and 95th percentile values respectively displayed in parentheses): Class I: 1016 pg/mL (33-3410) Class II: 1666 pg/mL (103-6567) Class III: 3029 pg/mL (126-15186) Class IV: 3465 pg/mL (148-47745) Clinical thresholds for acute (emergency department) settings: [...] 1:36 PM CDT 09/02/2024 1:38 PM CDT us Gerardo Jiang MD LAB - BLOOD ORDERABLES Final Result LABORATORY [facility] [address] Lab (1st floor, no room number) [place] [address], [facility] * (ABNORMAL) Basic metabolic panel [...] >60 mL/min/1.7 3m2 09/02/2024 2:10 PM CDT [facility] Comment:eGFR calculated 2020 CKD-EPI equation. Calcium 9.9 8.8 - 10.4 mg/dL 09/02/2024 2:10 PM CDT [facility] Glucose 207(H) 70 - 99 mg/dL 09/02/2024 2:10 PM CDT [facility] Blood STRUCTURE OF LEFT HAND / Unknown Venipuncture / Unknown 09/02/2024 1:36 PM CDT 09/02/2024 1:38 PM CDT us Gerardo Jiang MD LAB - BLOOD ORDERABLES Final Result [facility] [address] Lab (1st floor, no room number) [place] [address], [facility] * Platelet Function P2Y12 (08/05/2024 1:47 PM CDT) [facility] Platelet Function P2Y12 239 PRU 08/05/2024 3:33 PM CDT [facility] Blood BLOOD SPECIMEN / Unknown Venipuncture / Unknown 08/05/2024 1:47 PM CDT 08/05/2024 1:47 PM CDT Narrative [facility] - 08/05/2024 3:33 PM CDT Reference range for individuals NOT receiving a P2Y12 inhibitor is 180-376 P2Y12 Reaction Units (PRU). PRU levels less than 180 are specific evidence of an anti-platelet effect. Literature suggests that a PRU value less than 208 is an appropriate response to anti-platelet therapy for cardiology patients. Optimal therapeutic and pre-surgical PRU targets have not been established. Assay performance is affected by hematocrit values less than 33% or greater than 52% and platelet counts less than 119 x 10^3/uL or greater than 502 x 10^3/uL. us Ivana Vargas NP LAB - BLOOD ORDERABLES Final R esult [facility] [address] [facility] [address], [address] [place] [address], [facility] [facility] * (ABNORMAL) Comprehensive metabolic panel (08/05/2024 1:47 PM CDT) Only the most recent of5 resultswithin the time period is included. Sodium 140 135 - 145 mmol/L 08/06/2024 4:12 AM CDT [facility] Potassium 5.3 3.4 - 5.3 mmol/L 08/06/2024 4:12 AM CDT [facility] Carbon Dioxide (CO2) 26 22 - 29 mmol/L 08/06/2024 4:12 AM CDT [facility] Anion Gap 9 7 - 15 mmol/L 08/06/2024 4:12 AM CDT [facility] Urea Nitrogen 37.1(H) 8.0 - 23.0 mg/dL 08/06/2024 4:12 AM CDT [facility] Creatinine 1.99(H) 0.67 - 1.17 mg/dL 08/06/2024 4:12 AM CDT [facility] GFR Estimate 33(L) >60 mL/min/1.7 3m2 08/06/2024 4:12 AM CDT [facility] Comment:eGFR calculated 2020 CKD-EPI equation. Calcium 10.2 8.8 - 10.4 mg/dL 08/06/2024 4:12 AM CDT [facility] Chloride 105 98 - 107 mmol/L 08/06/2024 4:12 AM CDT [facility] Glucose 112(H) 70 - 99 mg/dL 08/06/2024 4:12 AM CDT [facility] Alkaline Phosphatase 117 40 - 150 U/L 08/06/2024 4:12 AM CDT [facility] AST 29 0 - 45 U/L 08/06/2024 4:12 AM CDT [facility] ALT 39 0 - 70 U/L 08/06/2024 4:12 AM CDT [facility] Protein Total 6.9 6.4 - 8.3 g/dL 08/06/2024 4:12 AM CDT [facility] Albumin 3.7 3.5 - 5.2 g/dL 08/06/2024 4:12 AM CDT [facility] Bilirubin Total 0.2 <=1.2 mg/dL 08/06/2024 4:12 AM CDT [facility] Blood BLOOD SPECIMEN / Unknown Venipuncture / Unknown 08/05/2024 1:47 PM CDT 08/05/2024 1:47 PM CDT us Gerardo Jiang MD LAB - BLOOD ORDERABLES Final Result [facility] [address] [facility], [address] [place] [phone] * (ABNORMAL) CBC with platelets (08/05/2024 1:47 PM CDT) Only the most recent of4 resultswithin the time period is included. WBC Count 5.9 4.0 - 11.0 10e3/uL 08/05/2024 1:55 PM CDT [facility] RBC Count 3.37(L) 4.40 - 5.90 10e6/uL 08/05/2024 1:55 PM CDT [facility] Hemoglobin 10.4(L) 13.3 - 17.7 g/dL 08/05/2024 1:55 PM CDT [facility] Hematocrit 31.9(L) 40.0 - 53.0 % 08/05/2024 1:55 PM CDT [facility] MCV 95 78 - 100 fL 08/05/2024 1:55 PM CDT [facility] MCH 30.9 26.5 - 33.0 pg 08/05/2024 1:55 PM CDT [facility] MCHC 32.6 31.5 - 36.5 g/dL 08/05/2024 1:55 PM CDT [facility] RDW 14.0 10.0 - 15.0 % 08/05/2024 1:55 PM CDT [facility] Platelet Count 349 150 - 450 10e3/uL 08/05/2024 1:55 PM CDT [facility] Blood BLOOD SPECIMEN / Unknown Venipuncture / Unknown 08/05/2024 1:47 PM CDT 08/05/2024 1:47 PM CDT us Gerardo Jiang MD LAB - BLOOD ORDERABLES Final Result [facility] [place] [facility] [address], [address] [place] [address] * (ABNORMAL) Glucose by meter (07/30/2024 5:36 PM CDT) Only the most recent of16 resultswithin the time period is included. [facility] GLUCOSE BY METER POCT 176(H) 70 - 99 mg/dL 07/30/2024 5:43 PM CDT LABORATORY POC Blood, Capillary BLOOD SPECIMEN / Unknown 07/30/2024 5:36 PM CDT 07/30/2024 5:43 PM CDT us Brendan Causey MD [facility] ALICE POCT Final Result LABORATORY POC [facility] Acute Care Lab [address] Lab (1st floor, no room number) [place] [address] * XR Chest Port 1 View (07/29/2024 3:45 PM CDT) Anatomical Region Laterality Modality Chest Digital Radiogra phy 07/29/2024 3:45 PM CDT Impressions 07/29/2024 3:51 PM CDT IMPRESSION: Cardiac pacemaker leads in the right atrium and right ventricle. Low lung volumes with mild atelectasis in the right lung base. The lungs are otherwise clear. No pulmonary edema. Narrative 07/29/2024 3:51 PM CDT EXAM: XR CHEST PORT 1 VIEW LOCATION: [facility] DATE: 07/29/2024 INDICATION: hypoxia COMPARISON: None. Procedure Note Speedy Dodd MD - 07/29/2024 EXAM: XR CHEST PORT 1 VIEW LOCATION: [facility] DATE: 07/29/2024 INDICATION: hypoxia COMPARISON: None. IMPRESSION: Cardiac pacemaker leads in the right atrium and rightventricle. Low lung volumes with mild atelectasis in the right lung base.The lungs are otherwise clear. No pulmonary edema. us Yenny Hawkins PA-C [facility] [place] [place] [facility] ORD ERABLES Final Result * NM HepatOBiliary Scan (07/28/2024 3:22 PM CDT) Anatomical Region Laterality Modality Abdomen/Pelvis Nuclear Medicine 07/28/2024 3:22 PM CDT Impressions 07/28/2024 3:33 PM CDT IMPRESSION: 1. Note, patient was unable to complete full imaging protocol due to discomfort which limits the specificity of this exam. No delayed image was able to be obtained. 2. Nonvisualization of the gallbladder on the obtained images is concerning for acute cholecystitis. Narrative 07/28/2024 3:33 PM CDT EXAM: NM HEPATOBILIARY SCAN LOCATION: [facility] DATE: 07/28/2024 INDICATION: Abdominal pain. COMPARISON: Abdominal ultrasound and CT 07/27/2024. TECHNIQUE: 6.6 mCi of Tc-99m mebrofenin, IV. Anterior planar imaging of the abdomen. FINDINGS: Normal radionuclide activity in liver, bile ducts, and small bowel. No gallbladder activity visualized during the provided 58 minutes of imaging. Procedure Note Richard Bloom MD - 07/28/2024 EXAM: NM HEPATOBILIARY SCAN LOCATION: [facility] DATE: 07/28/2024 INDICATION: Abdominal pain. COMPARISON: Abdominal ultrasound and CT 07/27/2024. TECHNIQUE: 6.6 mCi of Tc-99m mebrofenin, IV. Anterior planar imaging ofthe abdomen. FINDINGS: Normal radionuclide activity in liver, bile ducts, and smallbowel. No gallbladder activity visualized during the provided 58 minutesof imaging. IMPRESSION: 1. Note, patient was unable to complete full imaging protocol due todiscomfort which limits the specificity of this exam. No delayed image wasable to be obtained. 2. Nonvisualization of the gallbladder on the obtained images isconcerning for acute cholecystitis. Mark Lopez MD [facility] ORDERABLES Final Resul t * Blood Culture Peripheral Blood (07/28/2024 12:36 AM CDT) Culture No Growth 08/02/2024 4:16 AM CDT [facility] Blood BLOOD SPECIMEN / Unknown Venipuncture / Unknown 07/28/2024 12:36 AM CDT 07/28/2024 1:20 AM CDT us Rene Davis MD LAB - MICRO GENERAL ORDERABL ES Final Result [facility] Inf. Diseases Diag. Lab [address] [facility], [address] [place] [address] * US Abdomen Limited (07/27/2024 11:11 PM CDT) Anatomical Region Laterality Modality Abdomen/Pelvis Ultrasound 07/27/2024 11:1 1 PM CDT Impressions 07/27/2024 11:56 PM CDT IMPRESSION: 1. Cholelithiasis with gallbladder wall thickening. Despite a negative sonographic Hightower's sign, cholecystitis not excluded. A nuclear medicine hepatobiliary scan could be helpful in further evaluation if there remains clinical uncertainty. 2. No biliary dilatation. 3. Pancreas obscured by overlying bowel gas. Narrative 07/27/2024 11:56 PM CDT EXAM: US ABDOMEN LIMITED LOCATION: [facility] DATE: 07/27/2024 INDICATION: Abdominal pain, nausea, cholelithiasis. COMPARISON: CT from 07/27/2024. TECHNIQUE: Limited abdominal ultrasound. FINDINGS: GALLBLADDER: Cholelithiasis with stone and sludge material in the gallbladder. Gallbladder wall is thickened at 5 mm. Despite a negative sonographic Hightower's sign, cholecystitis not excluded. BILE DUCTS: No biliary dilatation. The common duct measures 4 mm. LIVER: Normal parenchyma with smooth contour. No focal mass. The portal vein is patent with flow in the normal direction. RIGHT KIDNEY: No hydronephrosis. PANCREAS: The pancreas is largely obscured by overlying gas. No ascites. Procedure Note Fabrice Goodman MD - 07/27/2024 EXAM: US ABDOMEN LIMITED LOCATION: [facility] DATE: 07/27/2024 INDICATION: Abdominal pain, nausea, cholelithiasis. COMPARISON: CT from 07/27/2024. TECHNIQUE: Limited abdominal ultrasound. FINDINGS: GALLBLADDER: Cholelithiasis with stone and sludge material in thegallbladder. Gallbladder wall is thickened at 5 mm. Despite a negativesonographic Hightower's sign, cholecystitis not excluded. BILE DUCTS: No biliary dilatation. The common duct measures 4 mm. LIVER: Normal parenchyma with smooth contour. No focal mass. The portalvein is patent with flow in the normal direction. RIGHT KIDNEY: No hydronephrosis. PANCREAS: The pancreas is largely obscured by overlying gas. No ascites. IMPRESSION: 1. Cholelithiasis with gallbladder wall thickening. Despite a negativesonographic Hightower's sign, cholecystitis not excluded. A nuclear medicinehepatobiliary scan could be helpful in further evaluation if there remainsclinical uncertainty. 2. No biliary dilatation. 3. Pancreas obscured by overlying bowel gas. Rene Davis MD G US ORDERABLES Final Resu lt * Lactic acid whole blood (07/27/2024 10:30 PM CDT) Lactic Acid 1.5 0.7 - 2.0 mmol/L 07/27/2024 10:44 PM CDT LABORATORY Blood STRUCTURE OF LEFT UPPER LIMB / Unknown Venipuncture / Unknown 07/27/2024 10:30 PM CDT 07/27/2024 10:41 PM CDT Rene Davis MD LAB - BLOOD ORDERABLES Final Result [facility] Lab [address] [facility] Lab (1st floor, no room number) [place] [address], [facility] * CT Abdomen Pelvis w Contrast (07/27/2024 9:43 PM CDT) Anatomical Region Laterality Modality Abdomen/Pelvis, SUBRAD CT GINO DY, UMP CT ABDOMEN PELVIS, RAD CT Computed Tomography 07/27/2024 9:43 PM CDT Impressions 07/27/2024 9:53 PM CDT IMPRESSION: 1. There is mild left hydronephrosis with no clear cause. No renal stones. Mildly distended bladder. Prostatic hypertrophy. 2. Gallstones. 3. Moderate amount of stool throughout the colon. Narrative 07/27/2024 9:53 PM CDT EXAM: CT ABDOMEN PELVIS W CONTRAST LOCATION: [facility] DATE: 07/27/2024 INDICATION: diffuse abdominal pain, distension COMPARISON: None. TECHNIQUE: CT scan of the abdomen and pelvis was performed following injection of IV contrast. Multiplanar reformats were obtained. Dose reduction techniques were used. CONTRAST: 100mL Isovue 370 FINDINGS: LOWER CHEST: Mild atelectasis. HEPATOBILIARY: Gallstones. Normal liver. PANCREAS: Normal. SPLEEN: Normal. ADRENAL GLANDS: Normal. KIDNEYS/BLADDER: Mild left hydronephrosis with distended ureter to the pelvis but no apparent cause. No stones. Distended bladder. BOWEL: Moderate amount of stool. Otherwise negative. LYMPH NODES: Normal. VASCULATURE: Moderate calcified plaque. No aneurysm. PELVIC ORGANS: Moderate prostatic hypertrophy. MUSCULOSKELETAL: Normal. Procedure Note Pawel Bass MD - 07/27/2024 EXAM: CT ABDOMEN PELVIS W CONTRAST LOCATION: [facility] DATE: 07/27/2024 INDICATION: diffuse abdominal pain, distension COMPARISON: None. TECHNIQUE: CT scan of the abdomen and pelvis was performed followinginjection of IV contrast. Multiplanar reformats were obtained. Dosereduction techniques were used. CONTRAST: 100mL Isovue 370 FINDINGS: LOWER CHEST: Mild atelectasis. HEPATOBILIARY: Gallstones. Normal liver. PANCREAS: Normal. SPLEEN: Normal. ADRENAL GLANDS: Normal. KIDNEYS/BLADDER: Mild left hydronephrosis with distended ureter to thepelvis but no apparent cause. No stones. Distended bladder. BOWEL: Moderate amount of stool. Otherwise negative. LYMPH NODES: Normal. VASCULATURE: Moderate calcified plaque. No aneurysm. PELVIC ORGANS: Moderate prostatic hypertrophy. MUSCULOSKELETAL: Normal. IMPRESSION: 1. There is mild left hydronephrosis with no clear cause. No renalstones. Mildly distended bladder. Prostatic hypertrophy. 2. Gallstones. 3. Moderate amount of stool throughout the colon. us Rene Davis MD IMG CT ORDERABLES Final Resu lt * (ABNORMAL) UA with Microscopic reflex to Culture (07/27/2024 8:30 PM CDT) Color Urine Straw Colorless, Straw, Light Yellow, Yellow 07/27/2024 9:03 PM CDT LABORATORY Appearance Urine Clear Clear 07/28/19 9:03 PM CDT LABORATORY Glucose Urine >=1000(A) Negative mg/dL 07/27/2024 9:03 PM CDT LABORATORY Bilirubin Urine Negative Negative 9:03 PM CDT LABORATORY Ketones Urine Negative Negative mg/dL 07/27/2024 9:03 PM CDT LABORATORY Specific [place] Urine 1.016 1.003 - 1.035 07/27/2024 9:03 PM CDT LABORATORY Blood Urine Negative Negative 07/27/2024 9:03 PM CDT LABORATORY pH Urine 7.5(H) 5.0 - 7.0 07/27/2024 9:03 PM CDT LABORATORY Protein Albumin Urine Negative Negative mg/dL 07/27/2024 9:03 PM CDT LABORATORY Urobilinogen Urine Normal Normal mg/dL 07/27/2024 9:03 PM CDT LABORATORY Nitrite Urine Negative Negative 07/27/2024 9:03 PM CDT LABORATORY Leukocyte Esterase Urine Negative Negative 07/27/2024 9:03 PM CDT LABORATORY RBC Urine 2 <=2 /HPF 07/27/2024 9:03 PM CDT LABORATORY WBC Urine 0 <=5 /HPF 07/27/2024 9:03 PM CDT LABORATORY Urine URINE SPECIMEN OBTAINED BY CLEAN CATCH PROCEDURE / Unknown Non-blood Collection / Unknown 07/27/2024 8:30 PM CDT 07/27/2024 8:36 PM CDT Narrative LABORATORY - 07/27/2024 9:03 PM CDT Urine Culture not indicated us Rene Davis MD LAB - URINE ORDERABLES Final Result LABORATORY [facility] Acute Care Lab [address] [facility] Lab (1st floor, no room number) [place] [address], [facility] * (ABNORMAL) Lactic acid whole blood with 1x repeat in 2 hr when >2 (07/27/2024 8:29 PM CDT) Lactic Acid, Initial 2.6(H) 0.7 - 2.0 mmol/L 07/27/2024 8:35 PM CDT [facility] Blood BLOOD SPECIMEN / Unknown Venipuncture / Unknown 07/27/2024 8:29 PM CDT 07/27/2024 8:34 PM CDT Rene Davis MD LAB - BLOOD ORDERABLES Final Result [facility] Lab [address] Lab (1st floor, no room number) [place] [address] * Extra Heparinized Syringe (07/27/2024 8:11 PM CDT) Hold Specimen [facility] 07/27/2024 9:31 PM CDT [facility] Blood, venous BLOOD SPECIMEN / Unknown Venipuncture / Unknown 07/27/2024 8:11 PM CDT 07/27/2024 8:24 PM CDT Rene Davis MD LAB - BLOOD ORDERABLES Final Result Performing Organization Address City/[facility]/ZIP Co de Phone Number [facility] Lab [address] Lab (1st floor, no room number) [place] [address] * Extra Purple Top Tube (07/27/2024 8:11 PM CDT) Hold Specimen [facility] 07/27/2024 9:31 PM CDT [facility] Blood BLOOD SPECIMEN / Unknown Venipuncture / Unknown 07/27/2024 8:11 PM CDT 07/27/2024 8:24 PM CDT Rene Davis MD LAB - BLOOD ORDERABLES Final Result [facility] [address] Lab (1st floor, no room number) [place] [address] * Extra Green Top ([place] Heparin) Tube (07/27/2024 8:11 PM CDT) Hold Specimen [facility] 07/27/2024 9:31 PM CDT [facility] Blood BLOOD SPECIMEN / Unknown Venipuncture / Unknown 07/27/2024 8:11 PM CDT 07/27/2024 8:24 PM CDT us Rene Davis MD LAB - BLOOD ORDERABLES Final Result [facility] [address] Lab (1st floor, no room number) [place] [phone] * Extra Red Top Tube (07/27/2024 8:11 PM CDT) Hold Specimen [facility] 07/27/2024 9:31 PM CDT [facility] Blood BLOOD SPECIMEN / Unknown Venipuncture / Unknown 07/27/2024 8:11 PM CDT 07/27/2024 8:24 PM CDT us Rene Davis MD LAB - BLOOD ORDERABLES Final Result [facility] [address] Lab (1st floor, no room number) [place] [phone] * Extra Blue Top Tube (07/27/2024 8:11 PM CDT) Hold Specimen [facility] 07/27/2024 9:31 PM CDT [facility] Blood BLOOD SPECIMEN / Unknown Venipuncture / Unknown 07/27/2024 8:11 PM CDT 07/27/2024 8:24 PM CDT us Rene Davis MD LAB - BLOOD ORDERABLES Final Result [facility] [address] Lab (1st floor, no room number) [place] [address], [facility] * (ABNORMAL) CBC with platelets and differential (07/27/2024 8:11 PM CDT) [facility] WBC Count 7.4 4.0 - 11.0 10e3/uL 07/27/2024 8:31 PM CDT [facility] RBC Count 3.69(L) 4.40 - 5.90 10e6/uL 07/27/2024 8:31 PM CDT [facility] Hemoglobin 11.3(L) 13.3 - 17.7 g/dL 07/27/2024 8:31 PM CDT [facility] Hematocrit 34.8(L) 40.0 - 53.0 % 07/27/2024 8:31 PM CDT [facility] MCV 94 78 - 100 fL 07/27/2024 8:31 PM CDT [facility] MCH 30.6 26.5 - 33.0 pg 07/27/2024 8:31 PM CDT [facility] MCHC 32.5 31.5 - 36.5 g/dL 07/27/2024 8:31 PM CDT [facility] RDW 13.3 10.0 - 15.0 % 07/27/2024 8:31 PM CDT [facility] Platelet Count 222 150 - 450 10e3/uL 07/27/2024 8:31 PM CDT [facility] % Neutrophils 83 % 07/27/2024 8:31 PM CDT [facility] % Lymphocytes 10 % 07/27/2024 8:31 PM CDT [facility] % Monocytes 6 % 07/27/2024 8:31 PM CDT [facility] % Eosinophils 1 % 07/27/2024 8:31 PM CDT [facility] % Basophils 0 % 07/27/2024 8:31 PM CDT [facility] % Immature Granulocytes 0 % 07/27/2024 8:31 PM CDT [facility] NRBCs per 100 WBC 0 <1 /100 025 8:31 PM CDT [facility] Absolute Neutrophils 6.2 1.6 - 8.3 10e3/uL 07/27/2024 8:31 PM CDT [facility] Absolute Lymphocytes 0.7(L) 0.8 - 5.3 10e3/uL 07/27/2024 8:31 PM CDT [facility] Absolute Monocytes 0.4 0.0 - 1.3 10e3/uL 07/27/2024 8:31 PM CDT [facility] Absolute Eosinophils 0.1 0.0 - 0.7 10e3/uL 07/27/2024 8:31 PM CDT [facility] Absolute Basophils 0.0 0.0 - 0.2 10e3/uL 07/27/2024 8:31 PM CDT [facility] Absolute Immature Granulocytes 0.0 <=0.4 10e3/uL 07/27/2024 8:31 PM CDT [facility] Absolute NRBCs 0.0 10e3/uL 07/27/2024 8:31 PM CDT [facility] Blood BLOOD SPECIMEN / Unknown Venipuncture / Unknown 07/27/2024 8:11 PM CDT 07/27/2024 8:24 PM CDT Rene Davis MD LAB - BLOOD ORDERABLES Final Result [facility] [address] Lab (1st floor, no room number) [address] * (ABNORMAL) Lipase (07/27/2024 8:11 PM CDT) Lipase 66(H) 13 - 60 U/L 07/27/2024 8:47 PM CDT LABORATORY Blood BLOOD SPECIMEN / Unknown Venipuncture / Unknown 07/27/2024 8:11 PM CDT 07/27/2024 8:24 PM CDT Rene Davis MD LAB - BLOOD ORDERABLES Final Result [facility] [address] [employer] Lab (1st floor, no room number) [address] * Ketone Beta-Hydroxybutyrate Quantitative (07/27/2024 8:11 PM CDT) Ketone (Beta-Hydroxybuty rate) Quantitative 0.27 <=0.30 mmol/L 07/27/2024 8:47 PM CDT [facility] Blood BLOOD SPECIMEN / Unknown Venipuncture / Unknown 07/27/2024 8:11 PM CDT 07/27/2024 8:24 PM CDT us Rene Davis MD LAB - BLOOD ORDERABLES Final Result [facility]ATORY [facility] Lab [address] Lab (1st floor, no room number) [place] [address] * (ABNORMAL) Blood gas venous (07/27/2024 8:11 PM CDT) pH Venous 7.35 7.32 - 7.43 07/27/2024 8:33 PM CDT [facility] pCO2 Venous 49 40 - 50 mm Hg 07/27/2024 8:33 PM CDT [facility] pO2 Venous 29 25 - 47 mm Hg 07/27/2024 8:33 PM CDT [facility] Bicarbonate Venous 27 21 - 28 mmol/L 07/27/2024 8:33 PM CDT [facility] Base Excess/Deficit Venous 0.4 -3.0 - 3.0 mmol/L 07/27/2024 8:33 PM CDT [facility] FIO2 0 TWYLA 07/27/2024 8:33 PM CDT [facility] Oxyhemoglobin Venous 48(L) 70 - 75 % 07/27/2024 8:33 PM CDT [facility] O2 Sat, Venous 48.5(L) 70.0 - 75.0 % 07/27/2024 8:33 PM CDT [facility] Blood, venous BLOOD SPECIMEN / Unknown Venipuncture / Unknown 07/27/2024 8:11 PM CDT 07/27/2024 8:24 PM CDT Narrative [facility] - 07/27/2024 8:33 PM CDT In healthy individuals, oxyhemoglobin (O2Hb) and oxygen saturation (SO2) are approximately equal. In the presence of dyshemoglobins, oxyhemoglobin can be considerably lower than oxygen saturation. us Rene Davis MD LAB - BLOOD ORDERABLES Final Result LABORATORY [facility] Acute [facility] Lab [address] Lab (1st floor, no room number) [place] [address], [facility] * (ABNORMAL) Hemoglobin A1c (02/15/2024 5:20 AM [facility]) Estimated Average Glucose 183(H) <117 mg/dL 02/15/2024 6:07 AM [facility] LABORATORY Hemoglobin A1C 8.0(H) <5.7 % 02/15/2024 6:07 AM [facility] LABORATORY Comment: Normal <5.7% Prediabetes 5.7-6.4% Diabetes 6.5% or higher Note: Adopted from ADA consensus guidelines. Blood STRUCTURE OF RIGHT UPPER LIMB / Unknown Venipuncture / Unknown 02/15/2024 5:20 AM [facility] 02/15/2024 5:47 AM [facility] Deborah Card MD LAB - BLOOD ORDERABLES Final Result LABORATORY [facility] Acute [facility] Lab [address] 1[address] floor, [address] [place] [address], [facility] [phone] * (ABNORMAL) Lipid Profile (02/14/2024 7:15 AM [facility]) Cholesterol 132 <200 mg/dL 02/14/2024 6:35 PM [facility] Triglycerides 112 <150 mg/dL 02/14/2024 6:35 PM [facility] Direct Measure HDL 36(L) >=40 mg/dL 2023 6:35 PM [facility] LDL Cholesterol Calculated 74 <100 mg/dL 02/14/2024 6:35 PM [facility] Non HDL Cholesterol 96 <130 mg/dL 02/14/2024 6:35 PM [facility] Blood STRUCTURE OF LEFT UPPER LIMB / Unknown Venipuncture / Unknown 02/14/2024 7:15 AM [facility] 02/14/2024 7:18 AM [facility] Narrative [facility] - 02/14/2024 6:35 PM [facility] Cholesterol Desirable: < 200 mg/dL Borderline High: [...] MD LAB - BLOOD ORDERABLES Final Result U LABORATORY [facility] [address] [facility], [address] [place] [address], [facility] from Last 3 Months or Most Recently Relevant to Health Maintenance Insurance MEDICARE [employer] SENIOR SUPPLEMENT MEDICARE [employer] SENIOR SUPPLEMENT [facility] Address: [address] [address] [place] [address] Advance Directives For more information, please contact: [phone] * Full Code (Latest Code Status on File) Date Activated Date Inactivated Comments 07/28/2024 12:55 AM 07/30/2024 8:23 PM All basic and advanced life-sustaining interventions are performed as appropriate Question Answer Comments Code status determined by: Discussion with patie nt/ legal decision maker * Full Code Date Activated Date Inactivated Comments 02/18/2024 3:36 [...] patie nt/ legal decision maker 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 Relationship Specialty Start Date End Date Soto Thompson MD PCP - General Family Medicine 09/23/20 Gerardo Jiang MD [address] [place] [phone] Assigned Heart and Vascular Provider 10/30/23 Nancy [facility] DO [address] [place], [place] [phone] Physician Neurology 02/22/24 Farzad Sevilla MD [address] [place] [id number] Cardiovascular Disease 02/22/24 Zechariah Lange MD [address] [place] [address] Assigned Heart and Vascular Surgical Provider 06/29/24 Byron Thompson PA-C [address] [place] [phone] Physician Concrete [employer] Buster Cardiovascular Disease 07/04/24 Mark Lopez MD [address] [place] [address] Assigned Surgical Provider 08/29/24
--- OUTSIDE RECORDS SUMMARY | 2024-10-06 16:56 | XMS_ITS | Encounter Summary ---
Author Organization [facility] Address [address] [place] [address] Care Team Providers Care Exterior Interior Specialist Name Role Phone Soto Thompson MD Primary Care Provider [phone] Zechariah Lange MD Unavailable [phone] Gerardo Jiang MD Unavailable [phone] Nancy Forbes DO Unavailable [phone] Farzad Sevilla MD Unavailable [phone] Zechariah Lange MD Unavailable [phone] Byron Thompson PA-C Unavailable Mark Lopez MD Unavailable [phone] Encounter Details Date Type Department Care Team (Late st Contact Info) Description 10/04/2020 External Order Results [facility] [address] [place] [address] Outside, Provider Social History Tobacco Use Types Packs/Day Years Used Date Smoking Tobacco: Former Cigarettes 0.5 25 1 985 - 2009 Smokeless Tobacco: Never Alcohol Use Standard Drinks/Week Comments Not Currently 0 (1 standard drink = 0.6 oz pur e alcohol) Sex and Gender Information Value Date Recorded Sex Assigned at Not on file 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 Gender Identity Not on file Sexual [...] Description 10/27/2024 2:10 PM CDT Office Visit [facility] Heart [facility] [address] [facility] [address] [place] [address] Gerardo Jiang MD [address] [place] 8[address] Mo, Kristy E, TIN CONTAINER STRAIGHTENER CUPOLA MAN [address] [place] [address] documented as of this encounter Procedures Procedure Name Priority Date/Time Associated Diagnosis Comments COVID-19 VIRUS (CORONAVIRUS) BY PCR (EXTERNAL RESULT) Routine 10/04/2020 10:05 AM CDT documented in this encounter Results * COVID-19 Virus (Coronavirus) by PCR (External Result) (10/04/2020 10:05 AM CDT) COVID-19 Virus by PCR (External Result) NEGATIVE NEGATIVE COVID-19 EXTERNAL RESULTS 10/04/2020 10:0 5 AM CDT Narrative SHAWNA CALVILLO - 10/04/2020 10:05 AM CDT Verified by Jasbir Russell on 10/06/2020. Verified by Jasbir Russell on 10/06/2020. Testing location [address] [address] [place] Patient Reported LABORATORY Edited Result - Final SHAWNA PFDanielle COVID-19 EXTERNAL RESULTS COVID-19 External Result Scanned into Patient Record by [facility] Refer to Result Comment/Narrative for exact performing laboratory [place] [id number], [facility] documented in this encounter Visit Diagnoses Not on filedocumented in this encounter Care Teams Exterior Interior Specialist Relationship Specialty Start Date End Date Soto Thompson MD PCP - General Family Medicine 09/23/20 Zechariah Lange MD [address] [place] [address] Assigned Heart and Vascular Provider 09/26/20 10/29/23 Gerardo Jiang MD [address] [place], [place] [address] Assigned Heart and Vascular Provider 10/30/23 Nancy Forbes DO [address] [place], [place] [address]235 Physician Neurology 02/22/24 Farzad Sevilla MD [address] [place] [address] Cardiovascular Disease 02/22/24 Zechariah Lange MD [address] [place] [address] Assigned Heart and Vascular Surgical Provider 06/29/24 Byron Thompson PA-C [address] [place] [address] Physician Recruiter Account Manager Cardiovascular Disease 07/04/24 Mark Lopez MD [address] [place] [address] Assigned Surgical Provider 08/29/24 documented as of this encounter
--- OUTSIDE RECORDS SUMMARY | 2024-10-07 01:42 | XMS_ITS | Encounter Summary ---
Author Organization [facility] Address [address] [place] [address] Care Team Providers Care Chemical Production Engineer Name Role Phone Soto Thompson MD Primary Care Provider Gerardo Jiang MD Unavailable [phone] Nancy Forbes DO Unavailable [phone] Farzad Sevilla MD Unavailable [phone] Zechariah Lange MD Unavailable [phone] Byron Thompson PA-C Unavailable Mark Lopez MD Unavailable [phone] Reason for Visit * Reason Onset Date Comments Pt. Information/instruction 09/23/2024 Card ioversion 09/24/24 Encounter Details Date Type Department Care Team (Late st Contact Info) Description 09/23/[address] [facility] [address] [place] [address] Shanell Hays, RN Pt. Information/instruction [...] Date Recorded Do you have housing? 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 Patient expresses understanding of above instructions and denies further questions at this time. Shanell Lyles RN [facility] documented in this encounter Plan of Treatment Upcoming Encounters Date Type Department Care Team (Late st Contact Info) Description 10/27/2024 2:10 PM CDT Office Visit [facility] [address] [place] [address] [address] [place] [address] Gerardo Jiang MD [address] [place] [address] Kristy Hassan APRN PLASTIC PARTS FABRICATOR [address] [place] [address] documented as of this encounter Visit Diagnoses Not on filedocumented in this encounter Care Teams Chemical Production Engineer Relationship Specialty Start Date End Date Soto Thompson MD PCP - General Family Medicine 09/23/20 Gerardo Jiang MD [address] [place] [id number] Assigned Heart and Vascular Provider 10/30/23 Nancy Forbes DO [address] [place] [address] Physician Neurology 02/22/24 Farzad Sevilla MD [address] [place] [id number] Cardiovascular Disease 02/22/24 Zechariah Lange MD [address] [place] [address] Assigned Heart and Vascular Surgical Provider 06/29/24 Byron Thompson PA-C [address] [place] 62[address] Physician Human Relations Manager Cardiovascular Disease 07/04/24 Mark Lopez MD [address] [place], [place] [address]487 Assigned Surgical Provider 08/29/24 documented as of this encounter
--- OUTSIDE RECORDS SUMMARY | 2024-10-07 01:42 | XMS_ITS | Encounter Summary ---
Author Organization [facility] Address [address] [place] [address] Care Team Providers Care Mixing And Dispensing Supervisor Name Role Phone Soto Thompson MD Primary Care Provider [phone] Zechariah Lange MD Unavailable [phone] Gerardo Jiang MD Unavailable [phone] Nancy Forbes DO Unavailable [phone] Farzad Sevilla MD Unavailable [phone] Zechariah Lange MD Unavailable [phone] Byron Thompson PA-C Unavailable Mark Lopez MD Unavailable [phone] Encounter Details Date Type Department Care Team (Late st Contact Info) Description 08/07/2023 External Order Results 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 Gender Identity Not on file Sexual Orientation Not on file documented as of this encounter Plan of Treatment Upcoming Encounters Date Type Department Care Team (Late st Contact Info) Description 10/27/2024 2:10 PM CDT Office Visit [facility] [address] [facility] [address] [place] [address] Gerardo Jiang MD [address] [place] [address] Kristy Hassan E, CHIROPRACTIC PRACTICE MANAGER RN ANESTHETIST [address] [place] [address] documented as of this encounter Procedures Procedure [...] / Unknown 08/07/2023 3:10 PM CDT Narrative SAHWNA PFT - 10/23/2023 10:04 AM CDT Verified by Angelita Valverde on 10/23/2023. Provider Outside LAB - BLOOD ORDERABLES Edited [employer] SHAWNA PFT NON-INTERFACED (ONBASE SCANS) * (ABNORMAL) [...] Outside LAB - BLOOD ORDERABLES Edited [employer] SHAWNA PFT NON-INTERFACED (ONBASE SCANS) documented in this encounter Visit Diagnoses Not on filedocumented in this encounter Care Teams Mixing And Dispensing Supervisor Relationship Specialty Start Date End Date Soto Thompson MD PCP - General Family Medicine 09/23/20 Zechariah Lange MD [address] [place] [address] Assigned Heart and Vascular Provider 09/26/20 10/29/23 Gerardo Jiang MD [address] [place] [address] Assigned Heart and Vascular Provider 10/30/23 Nancy Forbes DO [address] [place], [place] [address] Physician Neurology 02/22/24 Farzad Sevilla MD [address] [place] [address] MD Cardiovascular Disease 02/22/24 Zechariah Lange MD [address] [place] [address] Assigned Heart and Vascular Surgical Provider 06/29/24 Byron Thompson PA-C [address] [place] [address] Physician Spray Painting Machine Operator Cardiovascular Disease 07/04/24 Mark Lopez MD [address] [place], [place] [address] Assigned Surgical Provider 08/29/24 documented as of this encounter
--- OUTSIDE RECORDS SUMMARY | 2024-10-07 01:42 | XMS_ITS | Encounter Summary ---
Author Organization [facility] Address [address] [place] [address]. [place] [address] Care Team Providers Care Sales Product Specialist Name Role Phone Soto Thompson MD Primary Care Provider Gerardo Jiang MD Unavailable Nancy Forbes DO Unavailable [phone] Farzad Sevilla MD Unavailable [phone] Zechariah Lange MD Unavailable Byron Thompson PA-C Unavailable [phone] Mark Lopez MD Unavailable [phone] Reason for Visit * Reason Onset Date Comments Referral 08/28/2024 Encounter Details Date Type Department Care Team (Late st Contact Info) Description 08/28/2024 [facility] [place] [facility] [address] [place] [address] Gerardo Jiang MD [address] [facility] [place] [address] Referral Social History Tobacco Use Types Packs/Day [...] on file 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 Outcome: Called patient's daughter since have not been active on their [employer] account lately. Patient's daughter did not answer. A voicemail was left explaining more in-depth what MTM is and how we can best support them. Additionally, I provide my direct line so that the patient's daughter can call me directly for help with scheduling. * Telephone Encounter - Justa Yusuf - 08/28/2024 10:59 AM CDT MTM referral from: [facility] visit (referral by provider) MTM referral outreach attempt #2 on August 28, 2024 at 10:59 AM Outcome: Patient not reachable after several attempts, routed to Pharmacist Team/Provider as an FYI Use hbc for the carrier/Plan on the flowsheet MTM Practitioner please send patient letter Justa Yusuf CPhT [facility] Hotbed Operator documented in this encounter Plan of Treatment Upcoming Encounters Date Type Department Care Team (Late st Contact Info) Description 10/27/2024 2:10 PM CDT Office Visit [facility] [address] [facility] [address] [place] [address] Gerardo Jiang MD [address] [place] [address] Kristy Hassan, SHELLFISH MEAT SEPARATOR OPERATOR WINDOWS SECURITY ENGINEER [address] [place] [address] documented as of this encounter Visit Diagnoses Not on filedocumented in this encounter Care Teams Sales Product Specialist Relationship Specialty Start Date End Date Soto Thompson MD PCP - General Family Medicine 09/23/20 Gerardo Jiang MD [address] [place] 414265 Assigned Heart and Vascular Provider 10/30/23 Nancy Forbes DO 500 [place] [address] Physician Neurology 02/22/24 Farzad Sevilla MD [address] [place] [address] Cardiovascular Disease 02/22/24 Zechariah Lange MD [address] [place] [address] Assigned Heart and Vascular Surgical Provider 06/29/24 Byron Thompson PA-C [address] [place] [address] Physician Tint Layer Cardiovascular Disease 07/04/24 Mark Lopez MD [address] [place], [place] [address]477 Assigned Surgical Provider 08/29/24 documented as of this encounter
--- OUTSIDE RECORDS SUMMARY | 2024-10-07 01:42 | XMS_ITS | Encounter Summary ---
Author Organization [facility] Address [address] [place] [address]. [place] [address] Care Team Providers Care Polysomnographic Tech Name Role Phone Soto Thompson MD Primary Care Provider Gerardo Jiang MD Unavailable Nancy Forbes DO Unavailable [phone] Farzad Sevilla MD Unavailable [phone] Zechariah Lange MD Unavailable Byron Thompson PA-C Unavailable Mark Lopez MD Unavailable Encounter Details Date Type Department Care Team (Late st Contact Info) Description 09/09/2024 Results Follow-Up 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 Gender Identity Not on file Sexual Orientation Not on file documented as of this encounter Plan of Treatment Upcoming Encounters Date Type Department Care Team (Late st Contact Info) Description 10/27/2024 2:10 PM CDT Office Visit [address] [place] [address] Gerardo Jiang MD [address] [place] [address] Kristy Hassan E, ADMITTING COUNSELOR SQL REPORT ANALYST [address] [place], [place] [address] documented as of this encounter Visit Diagnoses Not on filedocumented in this encounter Care Teams Polysomnographic Tech Relationship Specialty Start Date End Date Soto Thompson MD PCP - General Family Medicine 09/23/20 Gerardo Jiang MD [address] [place], [place] 4[address] Assigned Heart and Vascular Provider 10/30/23 Nancy Forbes DO [address] [place], [place] [address] Physician Neurology 02/22/24 Farzad Sevilla MD [address] [place] [address] Cardiovascular Disease 02/22/24 Zechariah Lange MD [address] [place] [address] Assigned Heart and Vascular Surgical Provider 06/29/24 Byron Thompson PA-C [address] [place] [address] Physician Pocket Flap Creasing Machine Operator Cardiovascular Disease 07/04/24 Mark Lopez MD [address] [place] [address] Assigned Surgical Provider 08/29/24 documented as of this encounter
--- OUTSIDE RECORDS SUMMARY | 2024-10-07 01:42 | XMS_ITS | Encounter Summary ---
Author Organization [facility] Address [address] [place] [address] Care Team Providers Care Industrial Garage Servicer Name Role Phone Soto Thompson MD Primary Care Provider [phone] Gerardo Jiang MD Unavailable [phone] Nnacy Forbes DO Unavailable [phone] Farzad Sevilla MD Unavailable [phone] Zechariah Lange MD Unavailable [phone] Byron Thompson PA-C Unavailable [phone] Encounter Details Date Type Department Care Team [...] in an abandoned building, in an overnight mcfp, or couch-surfing.) Yes 07/28/2024 Are you worried [...] on file 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 Gender Identity Not on file Sexual Orientation Not on file documented as of this encounter Plan of Treatment Upcoming Encounters Date Type Department Care Team (Late st Contact Info) Description 10/27/2024 2:10 PM CDT Office Visit [address] [place] [address] Gerardo Jiang MD [address] [place] [address] Kristy Hassan APRN CNP [address] [place] [id number] documented as of this encounter Visit Diagnoses Not on filedocumented in this encounter Care Teams Industrial Garage Servicer Relationship Specialty Start Date End Date Soto Thompson MD PCP - General Family Medicine 09/23/20 Gerardo Jiang MD [address] [place] 27[address]55 Assigned Heart and Vascular Provider 10/30/23 Nancy Forbes DO [address] [place] [address] Physician Neurology 02/22/24 Farzad Sevilla MD [address] [place] [address] Cardiovascular Disease 02/22/24 Zechariah Lange MD [address] [place] [address] Assigned Heart and Vascular Surgical Provider 06/29/24 Byron Thompson PA-C [address] [place] [address]25 Physician Pit Crane Operator Cardiovascular Disease 07/04/24 documented as of this encounter
--- OUTSIDE RECORDS SUMMARY | 2024-10-07 01:42 | XMS_ITS | Encounter Summary ---
Author Organization [facility] Address [address] [place] [address] Care Team Providers Care Chain Person Name Role Phone Soto Thompson MD Primary Care Provider [phone] Gerardo Jiang MD Unavailable [phone] Nancy Forbes DO Unavailable [phone] Farzad Sevilla MD Unavailable [phone] Zechariah Lange MD Unavailable [phone] Byron Thompson PA-C Unavailable [phone] Mark Lopez MD Unavailable [phone] Encounter Details Date Type Department Care [...] an abandoned building, in an overnight senior living, or couch-surfing.) Yes 07/28/2024 Are you worried [...] on file 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 Gender Identity Not on file Sexual Orientation Not on file documented as of this encounter Plan of Treatment Upcoming Encounters Date Type Department Care Team (Late st Contact Info) Description 10/27/2024 2:10 PM CDT Office Visit [address] [place] [address] Gerardo Jiang MD [address] [place] [address] Kristy Hassan APRN CNP [address] [place] [address] documented as of this encounter Visit Diagnoses Not on filedocumented in this encounter Care Teams Chain Person Relationship Specialty Start Date End Date Soto Thompson MD PCP - General Family Medicine 09/23/20 Gerardo Jiang MD [address] [place] [address] Assigned Heart and Vascular Provider 10/30/23 Nancy Forbes DO [address] [place] [address] Physician Neurology 02/22/24 Farzad Sevilla MD [address] [place] [address] Cardiovascular Disease 02/22/24 Zechariah Lange MD [address] [place] [address] Assigned Heart and Vascular Surgical Provider 06/29/24 Byron Thompson PA-C [address] [place] [address] Physician Harbor Pilot Cardiovascular Disease 07/04/24 Mark Lopez MD [address] [place] [address] Assigned Surgical Provider 08/29/24 documented as of this encounter
--- OUTSIDE RECORDS SUMMARY | 2024-10-07 01:42 | XMS_ITS | Encounter Summary ---
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 Gender Identity Not on file Sexual Orientation Not on file documented as of this encounter Plan of Treatment Upcoming Encounters Date Type Department Care Team (Late st Contact Info) Description 10/27/2024 2:10 PM CDT Office Visit [address] [place] [address] Gerardo Jiang MD [address] [place] [address] Kristy Hassan APRN CNP [address] [place] [address] documented as of this encounter Visit Diagnoses Not on filedocumented in this encounter Care Teams Director Retirement Relationship Specialty Start Date End Date Soto Thompson MD PCP - General Family Medicine 09/23/20 Gerardo Jiang MD [address] [place] [address]25 Assigned Heart and Vascular Provider 10/30/23 Nancy Forbes DO [address] [place] [address] Physician Neurology 02/22/24 Farzad Sevilla MD [address] [place] [address] Cardiovascular Disease 02/22/24 Zechariah Lange MD [address] [place] [address] Assigned Heart and Vascular Surgical Provider 06/29/24 Byron Thompson PA-C [address] [place] [address] Physician Parts Cataloger Cardiovascular Disease 07/04/24 Mark Lopez MD [address] [place] [address] Assigned Surgical Provider 08/29/24 documented as of this encounter
--- OUTSIDE RECORDS SUMMARY | 2024-10-07 01:43 | XMS_ITS | Encounter Summary ---
Author Organization [facility] Address [address] [place] [address] Care Team Providers Care Coin Machine Collector Name Role Phone Soto Thompson MD Primary Care Provider [phone] Zechariah Lange MD Unavailable [phone] Gerardo Jiang MD Unavailable [phone] Nancy Forbes DO Unavailable [phone] Farzad Sevilla MD Unavailable [phone] Zechariah Lange MD Unavailable [phone] Byron Thompson PA-C Unavailable [phone] Mark Lopez MD Unavailable [phone] Encounter Details Date Type Department Care Team (Late st Contact Info) Description 10/04/2020 External Order Results [facility] [address] [place] [address] Outside, Provider Social History Tobacco Use Types Packs/Day Years Used Date Smoking Tobacco: Former Cigarettes 0.5 25 1 985 - 2009 Smokeless Tobacco: Never Alcohol Use Standard Drinks/Week Comments Not Currently 0 (1 standard drink = 0.6 oz pur e alcohol) Sex and Gender Information Value Date Recorded Sex Assigned at Not on file 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 Testing location [address] [address] us Patient Reported LABORATORY Edited Result - Final SHAWNA PFDanielle COVID-19 EXTERNAL RESULTS COVID-19 External Result Scanned into Patient Record by [facility] Refer to Result Comment/Narrative for exact performing laboratory [place] [id number], [facility] documented in this encounter Visit Diagnoses Not on filedocumented in this encounter Care Teams Coin Machine Collector Relationship Specialty Start Date End Date Soto Thompson MD PCP - General Family Medicine 09/23/20 Zechariah Lange MD [address] [place] [address] Assigned Heart and Vascular Provider 09/26/20 10/29/23 Gerardo Jiang MD [address] [place], [place] [address] Assigned Heart and Vascular Provider 10/30/23 Nancy Forbes DO [address] [place], [place] [address] Physician Neurology 02/22/24 Farzad Sevilla MD [address] [place] [address] Cardiovascular Disease 02/22/24 Zechariah Lange MD [address] [place] [address] Assigned Heart and Vascular Surgical Provider 06/29/24 Byron Thompson PA-C [address] [place] [address] Physician Vacuum Technician Cardiovascular Disease 07/04/24 Mark Lopez MD [address] [place] [address] Assigned Surgical Provider 08/29/24 documented as of this encounter
--- OUTSIDE RECORDS SUMMARY | 2024-10-07 01:43 | XMS_ITS | Clinical Summary ---
Author Organization [place] Address [address] [place] [address] Care Team Providers Care Electron Beam Welder Setter Name Role Phone Soto Thompson MD Primary Care Provider Gerardo Jiang MD Unavailable Nancy Forbes DO Unavailable [phone] Farzad Sevilla MD Unavailable [phone] Zechariah Lange MD Unavailable [phone] Byron Thompson PA-C Unavailable Mark Lopez MD Unavailable [phone] Allergies Active Allergy Reactions Criticality Noted Date [...] Active ipratropium (ATROVENT) 0.03 % nasal spray [place] 2 sprays into both nostrils 2 times daily. 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 Take 2 tablets [...] weakness 02/14/2024 Coronary artery disease invo lving chickaloon coronary artery of chickaloon heart 02/02/2024 Cardiac pacemaker in situ 02/02/2024 CKD (chronic kidney disease) stage 3, GFR 30-59 ml/min 02/02/2024 Benign essential hypertension 02/02/2024 Hyperlipidemia with target LDL less than 70 01/08 Diabetes mellitus, type 2 03/18/2021 Carotid stenosis, asymptomatic, left 10/28/2020 Overview (10/28/2020): Added automatically from request for surgery [id number] Carotid stenosis, asymptomatic, bilateral 2020 Overview (09/27/2020): Added automatically from request for surgery [id number] Encounters Date Type Department Care Team Description 09/24/2024 11:35 AM CDT Anesthesia Event [facility] PeriOp Services [address] [place] [address] Corry Rossi, WES ANDERSEN 09/24/2024 11:30 AM CDT - 09/24/2024 11:45 AM [facility]T [facility] [address] [place] [address] GENERIC ANESTHESIA PROVIDER Anesthesia cardioversion 09/24/2024 9:04 AM CDT - 09/24/2024 11:59 PM CDT Hospital Encounter [facility] Heart [facility] [address] [place] [address] Gerardo Jiang MD Kim, Juaquin Cao MD Atrial fibrillation, unspecified type (H) Discharge Disposition: Home or Self Care 09/24/2024 9:03 AM CDT - 09/24/2024 1:00 PM CDT Hospital Encounter [facility] Heart Care [address] [place] [address] Non- Credentialed Provider, Radiology Juaquin Henderson MD Discharge Disposition: Home or Self Care 09/23/[address] [phone] Shanell Hays RN Pt. Information/instruct ion (Cardioversion 09/24/24) 09/19/2024 9:25 AM CDT - 09/19/2024 11:59 PM CDT Hospital Encounter [facility] Specialty Care [address] [facility] [address] [place] [phone] Gerardo Jiang MD Atrial fibrillation, unspecified type (H) Discharge Disposition: Home or Self Care 09/19/2024 Travel 09/09/2024 Results Follow-Up [facility] Services - Heart & Vascular Service Line [address] [place] [phone] Gerardo Jiang MD 09/02/2024 1:30 PM CDT Lab [facility] [address] 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 (Primary Dx); Atrial fibrillation, unspecified type (H); Cardiac pacemaker in situ; Benign essential hypertension; Hyperlipidemia LDL goal <70; Stage 3 chronic kidney disease, unspecified whether stage 3a or 3b CKD (H); Acute on chronic heart failure, unspecified heart failure type (H) 08/26/2024 Travel 08/19/2024 Results Follow-Up [facility] - Neuroscience Service Line [address] [place] [phone] Ivana Vargas NP Chief Comp: Results 08/14/2024 1:45 PM CDT Office Visit [facility] Surgery [facility] [address] [facility] [place] [phone] Mark Lopez MD Symptomatic cholelithiasis (Primary Dx); Biliary calculus of other site without obstruction 08/14/2024 Travel 08/05/2024 1:15 PM CDT Lab [facility] [address] [facility] [facility] [place] [address] Acute embolic stroke (H); Carotid stenosis, asymptomatic, bilateral; Carotid stenosis, asymptomatic, left; Stage 3a chronic kidney disease (H); A-fib (H) 08/05/2024 Travel 08/04/2024 Telephone [facility] Heart [address] [place] [phone] Gerardo Jiang MD Call Back (Questions about pt's pacemaker); afib episode ; Atrial Fib 07/29/2024 8:00 AM CDT Anesthesia Event [facility]iOp Services [address] [place] [address] Flip Grewal MD 07/27/2024 7:58 PM CDT - 07/30/2024 5:50 PM CDT Hospital Encounter [facility] Observation Dept [address] [place] [address] Rene Davis MD Kalinoski-Dubose, Michael T, MD [...] Travel 07/10/2024 4:00 PM CDT Office Visit [place] [id number] [facility] 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 Gender Identity Not on file Sexual Orientation [...] Description 10/27/2024 2:10 PM CDT Office Visit [address] [address] Gerardo Jiang MD [address] [place] [phone] Kristy Hassan, OUTSIDE MACHINIST HELPER DRAFTER MARINE [address] [place] [address] Health Maintenance Due Date Last Done Comments [...] this topic Medical Devices Implanted Type Area Assistant Professor Of Education Device Identifier Shelf Expiration Date Model / Serial / Lot Imp Patch Pericardium Photofix Bovine 0.8x8cm Pfp0.8x8 - [id number] Implanted:Qty : 1 on 10/08/2020 by Zechariah Lange MD at [facility] Bone/Tissue /Biologic Right: Neck CRYOLIFE 05/28/2022 PFP0.8X8 / [id number] / [id number] Imp Patch Pericardium Photofix Bovine 0.8x8cm Pfp0.8x8 - [id number] Implanted:Qty : 1 on 11/09/2020 by Zechariah Lange MD at [facility] Bone/Tissue /Biologic Left: Carotid CRYOLIFE [id number] 06/25/2022 PFP0.8X8 / / [id number] Guidant John 4136 Dextrus [id number] Implanted: (Quantity not on file) Leads [employer]- 4136 DEXTRUS / [id number] / Guidant John 4137 Dextrus [id number] Implanted: (Quantity not on file) Leads [employer]- 4137 DEXTRUS / [id number] / [place]* K063 Advantio [id number] Implanted: (Quantity not on file) Pacemaker [employer] K063 ADVANTIO / [id number] / Stent Coronary Jevon Synergy Xd Mr Us 4.49f25es [id number] - [id number] Implanted:Qty : 1 on 02/14/[address] [facility] Stent Drug Eluting (JEVON) [employer] 08/20/2025 [id number] / / [id number] Stent Coronary Jevon Synergy Xd Mr Us 4.75o04sw [id number] - [id number] Implanted:Qty : 1 on 02/14/[address] [facility] Stent Drug Eluting (JEVON) [employer] 05/23/2025 [id number] / / [id number] Closure Angioseal 6fr [id number] - [id number] Implanted:Qty : 1 on 02/14/[address] [facility] [employer] [id number] / / Explanted Type Area Assistant Professor Of Education Device Identifier Shelf Expiration Date Model / Serial / Lot Stent Coronary Jevon Synergy Xd Mr Us [id number] - [id number] Explanted:Qty: 1 on 02/14/[address] 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 Benign essential hypertension Stage 3 chronic kidney disease, unspecified whether stage 3a or 3b CKD (H) BASIC METABOLIC PANEL Routine 09/02/2024 1:36 PM CDT Atrial fibrillation, unspecified type (H) 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 Systolic Blood Pressure mmHg RADIOLOGY RESULTS Diastolic Blood Pressure mmHg RADIOLOGY RESULTS Ventricular Rate 74 BPM RAD IOLOGY RESULTS Atrial Rate 74 BPM RADIOLOG Y RESULTS WV Interval 122 ms RADIOLOG Y RESULTS QRS Duration 188 ms RADIOLO GY RESULTS QT 454 ms RADIOLOGY RESULTS QTc 503 ms RADIOLOGY RESULTS P [place] 56 degrees RADIOLOGY RESULTS R AXIS -78 degrees RADIOLOGY RESULTS T [place] 86 degrees RADIOLOGY RESULTS Interpretation ECG Atrial-sensed ventricular-p aced rhythm Abnormal ECG Compared to prior ECG from 24-Sep-2024 at 09:41:12: Sinus rhythm with atrial sense-ventric ular pacing has replaced V-pacing with underlying atrial flutter Confirmed by Gerardo Jiang ([id number]) on 09/24/2024 3:55:19 PM RADIOLOGY RESULTS 09/24/2024 [...] BLOOD ORDERABLES Final Result Performing Organization Address City/[facility]/ZIP Co de Phone Number [facility] Lab [address] [facility] Lab (1st floor, no room number) [address] * Magnesium (09/24/2024 10:08 AM CDT) Only the most recent of2 resultswithin the time period is included. Magnesium 2.2 1.7 - 2.3 mg/dL 09/24/2024 10:27 AM CDT LABORATORY Blood BLOOD SPECIMEN / Unknown Venipuncture / Unknown 09/24/2024 10:08 AM CDT 09/24/2024 10:08 AM CDT Gerardo Jiang MD LAB - BLOOD ORDERABLES Final Result Performing Organization Address [facility] Co de Phone Number [facility] Lab [address] [facility] Lab (1st floor, no room number) [address] * ECHO COMPLETE (09/19/2024 10:16 AM CDT) LVEF 60-65% CARDIOLOGY RESULTS Anatomical Region Laterality Modality Echocardiography 09/19/2024 9:50 AM CDT Narrative 09/19/2024 12:28 PM CDT [id number]^BLADIMIR^GERARDO^[facility] Echocardiography Laboratory [address] [place] [id number] Name: ARIEL TAFOYA : 1940 Study Date: 09/19/2024 09:50 AM Age: 83 yrs Gender: Male Patient Location: [facility] Reason For Study: Atrial fibrillation, unspecified type [...] Procedure Note Juaquin Henderson MD - 09/19/2024 [id number]^BLADIMIR^GERARDO^[facility] Echocardiography Laboratory [address] [place] [address] Name: ARIEL TAFOYA : 1940 Study Date: 09/19/2024 09:50 AM Age: 83 yrs Gender: Male Patient Location: [facility] Reason For Study: Atrial fibrillation, unspecified type [...] - BLOOD ORDERABLES Final Result RH LABORATORY [facility] Lab [address] Lab (1st floor, no room number) [place] [address], [facility] * (ABNORMAL) NT-proBNP (09/02/2024 1:36 PM CDT) [facility] NT-proBNP 2,351(H) 0 - 852 pg/mL 09/02/2024 2:14 PM CDT LABORATORY Comment: Starting on 08/13/2024, [facility] laboratory began flagging abnormal values for [...] be interpreted with the updated reference intervals. [facility]'s Pediatric (boys and girls) Reference Ranges in pg/mL * 0 up to 3 days: 0 - 01029 3 days up to 1 month: 0 [...] For adult chronic CHF patients according to [place] Heart Association (NYHA) Functional Class, the mean NT-proBNP concentration is as following (5th and 95th percentile values respectively displayed in parentheses): Class I: 1016 pg/mL (33-3410) Class II: 1666 pg/mL (103-6567) Class III: 3029 pg/mL (126-12342) Class IV: 3465 pg/mL (148-02573) Clinical thresholds for acute (emergency department) settings: [...] LAB - BLOOD ORDERABLES Final Result LABORATORY [facility] Lab [address] Lab (1st floor, no room number) [place] [address], [facility] * (ABNORMAL) Basic metabolic panel (09/02/2024 1:36 [...] - BLOOD ORDERABLES Final Result RH LABORATORY [facility] Lab [address] Lab (1st floor, no room number) [place] [address], [facility] * Platelet Function P2Y12 (08/05/2024 1:47 PM CDT) [facility] Platelet Function P2Y12 239 PRU 08/05/2024 3:33 [...] BLOOD ORDERABLES Final R esult [facility] [employer] [facility] [place] [facility] [address] [facility] [address], [address] [place] [address], [facility] * (ABNORMAL) Comprehensive metabolic panel (08/05/2024 1:47 [...] - BLOOD ORDERABLES Final Result [facility] [employer] [facility] [place] [facility] [address] [facility], [address] [place] [phone] * (ABNORMAL) CBC with platelets (08/05/2024 1:47 [...] - BLOOD ORDERABLES Final Result RI LABORATORY [facility] [address] [facility], [address] [place] [address] * (ABNORMAL) Glucose by meter (07/30/2024 5:36 PM CDT) Only the most recent of16 resultswithin the time period is included. [facility] GLUCOSE BY METER POCT 176(H) 70 - 99 mg/dL 07/30/2024 5:43 PM CDT LABORATORY POC Blood, Capillary BLOOD SPECIMEN / Unknown 07/30/2024 5:36 PM CDT 07/30/2024 5:43 PM CDT us Brendan Causey MD [facility] POCT Final Result LABORATORY POC [facility] Lab [address] Lab (1st floor, no room number) [place] [address] * XR Chest Port 1 View (07/29/2024 [...] EXAM: XR CHEST PORT 1 VIEW LOCATION: [facility] DATE: 07/29/2024 INDICATION: hypoxia COMPARISON: None. Procedure Note Speedy Dodd MD - 07/29/2024 EXAM: XR CHEST PORT 1 VIEW LOCATION: [facility] DATE: 07/29/2024 INDICATION: hypoxia COMPARISON: None. IMPRESSION: Cardiac pacemaker leads in the right atrium and rightventricle. Low lung volumes with mild atelectasis in the right lung base.The lungs are otherwise clear. No pulmonary edema. us Yenny Hawkins PA-C [facility] DI[facility]NO[facility]IC IMAGING ORD ERABLES Final Result * [...] PM CDT EXAM: NM HEPATOBILIARY SCAN LOCATION: [facility] DATE: 07/28/2024 INDICATION: Abdominal pain. COMPARISON: Abdominal ultrasound and CT 07/27/2024. TECHNIQUE: 6.6 mCi of Tc-99m mebrofenin, IV. Anterior planar imaging of the abdomen. FINDINGS: Normal radionuclide activity in liver, bile ducts, and small bowel. No gallbladder activity visualized during the provided 58 minutes of imaging. Procedure Note Richard Bloom MD - 07/28/2024 EXAM: NM HEPATOBILIARY SCAN LOCATION: [facility] DATE: 07/28/2024 INDICATION: Abdominal pain. COMPARISON: Abdominal [...] isconcerning for acute cholecystitis. Mark Lopez MD [facility] ORDERABLES Final Resul t * Blood Culture Peripheral Blood (07/28/2024 12:36 AM CDT) Culture No Growth 08/02/2024 4:16 AM CDT [facility] Blood BLOOD SPECIMEN / Unknown Venipuncture / Unknown 07/28/2024 12:36 AM CDT 07/28/2024 1:20 AM CDT us Rene Davis MD LAB - MICRO GENERAL ORDERABL ES Final Result [facility] [employer] Inf. Diseases Diag. Lab [address] [facility], [address] [place] [address] * US Abdomen Limited (07/27/2024 11:11 PM [...] PM CDT EXAM: US ABDOMEN LIMITED LOCATION: [facility] DATE: 07/27/2024 INDICATION: Abdominal pain, nausea, cholelithiasis. [...] - 07/27/2024 EXAM: US ABDOMEN LIMITED LOCATION: [facility] DATE: 07/27/2024 INDICATION: Abdominal pain, nausea, cholelithiasis. [...] MD LAB - BLOOD ORDERABLES Final Result [facility] Acute Care Lab [address] [facility] Lab (1st floor, no room number) [place] [address], [facility] * CT Abdomen Pelvis w Contrast (07/27/2024 [...] EXAM: CT ABDOMEN PELVIS W CONTRAST LOCATION: [facility] DATE: 07/27/2024 INDICATION: diffuse abdominal pain, distension [...] EXAM: CT ABDOMEN PELVIS W CONTRAST LOCATION: [facility] DATE: 07/27/2024 INDICATION: diffuse abdominal pain, distension [...] mg/dL 07/27/2024 9:03 PM CDT LABORATORY Specific [place] Urine 1.016 1.003 - 1.035 07/27/2024 9:03 [...] LAB - URINE ORDERABLES Final Result LABORATORY [facility] Lab [address] [facility] Lab (1st floor, no room number) [place] [address], [facility] * (ABNORMAL) Lactic acid whole blood with 1x repeat in 2 hr when >2 (07/27/2024 8:29 PM CDT) Lactic Acid, Initial 2.6(H) 0.7 - 2.0 mmol/L 07/27/2024 8:35 PM CDT RH LABORATORY Blood BLOOD SPECIMEN / Unknown Venipuncture / Unknown 07/27/2024 8:29 PM CDT 07/27/2024 8:34 PM CDT Rene Davis MD LAB - BLOOD ORDERABLES Final Result [facility] Lab [address] Lab (1st floor, no room number) [place] [address] * Extra Heparinized Syringe (07/27/2024 8:11 PM CDT) Hold Specimen [facility] 07/27/2024 9:31 PM CDT RH LABORATORY Blood, venous BLOOD SPECIMEN / Unknown Venipuncture / Unknown 07/27/2024 8:11 PM CDT 07/27/2024 8:24 PM CDT Rene Davis MD LAB - BLOOD ORDERABLES Final Result Performing Organization Address City/[facility]/ZIP Co de Phone Number [facility] Lab [address] Lab (1st floor, no room number) [place] [address] * Extra Purple Top Tube (07/27/2024 8:11 PM CDT) Hold Specimen [facility] 07/27/2024 9:31 PM CDT RH LABORATORY Blood BLOOD SPECIMEN / Unknown Venipuncture / Unknown 07/27/2024 8:11 PM CDT 07/27/2024 8:24 PM CDT Rene Davis MD LAB - BLOOD ORDERABLES Final Result [facility] Lab [address] Lab (1st floor, no room number) [place] [address] * Extra Green Top ([place] Heparin) Tube (07/27/2024 8:11 PM CDT) Hold Specimen [facility] 07/27/2024 9:31 PM CDT RH LABORATORY Blood BLOOD SPECIMEN / Unknown Venipuncture / Unknown 07/27/2024 8:11 PM CDT 07/27/2024 8:24 PM CDT us Rene Davis MD LAB - BLOOD ORDERABLES Final Result [facility] Lab [address] Lab (1st floor, no room number) [place] [id number] * Extra Red Top Tube (07/27/2024 8:11 PM CDT) Hold Specimen [facility] 07/27/2024 9:31 PM CDT RH LABORATORY Blood BLOOD SPECIMEN / Unknown Venipuncture / Unknown 07/27/2024 8:11 PM CDT 07/27/2024 8:24 PM CDT us Rene Davis MD LAB - BLOOD ORDERABLES Final Result [facility] Lab [address] Lab (1st floor, no room number) [place] [id number] * Extra Blue Top Tube (07/27/2024 8:11 PM CDT) Hold Specimen [facility] 07/27/2024 9:31 PM CDT RH LABORATORY Blood BLOOD SPECIMEN / Unknown Venipuncture / Unknown 07/27/2024 8:11 PM CDT 07/27/2024 8:24 PM CDT us Rene Davis MD LAB - BLOOD ORDERABLES Final Result [facility] Care Lab [address] Lab (1st floor, no room number) [place] [address], [facility] * (ABNORMAL) CBC with platelets and differential (07/27/2024 8:11 PM CDT) [facility] WBC Count 7.4 4.0 - 11.0 10e3/uL [...] MD LAB - BLOOD ORDERABLES Final Result [facility] Lab [address] Lab (1st floor, no room number) [address] * (ABNORMAL) Lipase (07/27/2024 8:11 PM CDT) Lipase 66(H) 13 - 60 U/L 07/27/2024 8:47 PM CDT LABORATORY Blood BLOOD SPECIMEN / Unknown Venipuncture / Unknown 07/27/2024 8:11 PM CDT 07/27/2024 8:24 PM CDT Rene Davis MD LAB - BLOOD ORDERABLES Final Result [facility] Lab [address] Lab (1st floor, no room number) [address] * Ketone Beta-Hydroxybutyrate Quantitative (07/27/2024 8:11 PM CDT) Ketone (Beta-Hydroxybuty rate) Quantitative 0.27 <=0.30 mmol/L 07/27/2024 8:47 PM CDT RH LABORATORY Blood BLOOD SPECIMEN / Unknown Venipuncture / Unknown 07/27/2024 8:11 PM CDT 07/27/2024 8:24 PM CDT us Rene Davis MD LAB - BLOOD ORDERABLES Final Result RH LABORATORY [facility] Lab [address] Lab (1st floor, no room number) [place] [address] * (ABNORMAL) Blood gas venous (07/27/2024 8:11 [...] LAB - BLOOD ORDERABLES Final Result LABORATORY [facility] Lab [address] Lab (1st floor, no room number) [place] [address], [facility] * (ABNORMAL) Hemoglobin A1c (02/15/2024 5:20 AM CAR DEALER) Estimated Average Glucose 183(H) <117 mg/dL 02/15/2024 6:07 AM CAR DEALER LABORATORY Hemoglobin A1C 8.0(H) <5.7 % 02/15/2024 6:07 AM CAR DEALER LABORATORY Comment: Normal <5.7% Prediabetes 5.7-6.4% Diabetes 6.5% or higher Note: Adopted from ADA consensus guidelines. Blood STRUCTURE OF RIGHT UPPER LIMB / Unknown Venipuncture / Unknown 02/15/2024 5:20 AM CAR DEALER 02/15/2024 5:47 AM CAR DEALER Deborah Card MD LAB - BLOOD ORDERABLES Final Result LABORATORY [facility] Acute Care Lab [address] 1st floor, [address] [place] [address], [facility] [phone] * (ABNORMAL) Lipid Profile (02/14/2024 7:15 AM CAR DEALER) Cholesterol 132 <200 mg/dL 02/14/2024 6:35 PM CAR DEALER [facility] Triglycerides 112 <150 mg/dL 02/14/2024 6:35 PM CAR DEALER [facility] Direct Measure HDL 36(L) >=40 mg/dL 2023 6:35 PM CAR DEALER [facility] LDL Cholesterol Calculated 74 <100 mg/dL 02/14/2024 6:35 PM CAR DEALER [facility] Non HDL Cholesterol 96 <130 mg/dL 02/14/2024 6:35 PM CAR DEALER [facility] Blood STRUCTURE OF LEFT UPPER LIMB / Unknown Venipuncture / Unknown 02/14/2024 7:15 AM CAR DEALER 02/14/2024 7:18 AM CAR DEALER Narrative [facility] - 02/14/2024 6:35 PM CAR DEALER Cholesterol Desirable: < 200 mg/dL Borderline High: [...] - BLOOD ORDERABLES Final Result U LABORATORY [employer] [facility] [place] [facility] [address] [facility], [address] [place] [address], [facility] from Last 3 Months or Most Recently Relevant to Health Maintenance Insurance MEDICARE AET[employer] SENIOR SUPPLEMENT MEDICARE AETNA SENIOR SUPPLEMENT [facility] Address: [address] [address] [place] [address] Advance Directives For more information, please contact: [phone] * Full Code (Latest Code Status on [...] patie nt/ legal decision maker Care Teams Electron Beam Welder Setter Relationship Specialty Start Date End Date Soto Thompson MD PCP - General Family Medicine 09/23/20 Gerardo Jiang MD [address] [place] [id number] Assigned Heart and Vascular Provider 10/30/23 Nancy Forbes DO [address] [place], [place] [id number] Physician Neurology 02/22/24 Farzad Sevilla MD [address] [place] [address] Cardiovascular Disease 02/22/24 Zechariah Lange MD [address] [place] [address] Assigned Heart and Vascular Surgical Provider 06/29/24 Byron Thompson PA-C [address] [place] [id number] Physician Carpet Floor Layer Apprentice Cardiovascular Disease 07/04/24 Mark Lopez MD [address] [place] [address] Assigned Surgical Provider 08/29/24
--- OUTSIDE RECORDS SUMMARY | 2024-10-07 01:43 | XMS_ITS | Encounter Summary ---
Author Organization [facility] Address [address] [place] [address] Care Team Providers Care Doffer Name Role Phone Soto Thompson MD Primary Care Provider [phone] Zechariah Lange MD Unavailable [phone] Gerardo Jiang MD Unavailable [phone] Nancy Forbes DO Unavailable [phone] Farzad Sevilla MD Unavailable [phone] Zechariah Lange MD Unavailable [phone] Byron Thompson PA-C Unavailable Mark Lopez MD Unavailable [phone] Encounter Details Date Type Department Care Team (Late st Contact Info) Description 11/05/2020 External Order Results Formerly [facility] [address] [place] [address] Outside, Provider Social History Tobacco Use Types Packs/Day Years Used Date Smoking Tobacco: Former Cigarettes 0.5 25 1 985 - 2009 Smokeless Tobacco: Never Alcohol Use Standard Drinks/Week Comments Not Currently 0 (1 standard drink = 0.6 oz pur e alcohol) Sex and Gender Information Value Date Recorded Sex Assigned at Not on file 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 Performed by: [facility] [address], [place] [address] [place] Patient Reported LABORATORY Edited Result - Final [facility]AW[facility] CALVILLO COVID-19 EXTERNAL RESULTS COVID-19 External Result Scanned into Patient Record by [facility] Refer to Result Comment/Narrative [place] [address], [facility] documented in this encounter Visit Diagnoses Not on filedocumented in this encounter Care Teams Doffer Relationship Specialty Start Date End Date Soto Thompson MD PCP - General Family Medicine 09/23/20 Zechariah Lange MD [address] [place] [address] Assigned Heart and Vascular Provider 09/26/20 10/29/23 Gerardo Jiang MD [address] [place] [address] Assigned Heart and Vascular Provider 10/30/23 Nancy Forbes DO [address] [place] [id number] Physician Neurology 02/22/24 Farzad Sevilla MD [address] [place] [address] Cardiovascular Disease 02/22/24 Zechariah Lange MD [address] [place] [address] Assigned Heart and Vascular Surgical Provider 06/29/24 Byron Thompson PA-C [address] [place] [address] Physician Lead Auditor Cardiovascular Disease 07/04/24 Mark Lopez MD [address] [place] [address] Assigned Surgical Provider 08/29/24 documented as of this encounter
--- OUTSIDE RECORDS SUMMARY | 2024-10-07 01:43 | XMS_ITS | Clinical Summary ---
Author Organization [facility] Address [address] [place] [address] Care Team Providers Care General Assignment Reporter Name Role Phone None Reported, Pcp Primary Care Provider Unavail able Source Comments Patient records contain information from all sites at [facility]. For routine questions regarding patient records, call [phone] during business hours, M-F 8:00 AM - 5:00 PM Central Time. 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 Discharge Disposition: Home or Self Care 08/04/2024 9:25 AM CDT - 08/04/2024 11:59 PM T Hospital Encounter Department of Cardiovascular Diseases in [place], [place] [address] [place] [address] Chino Gama M.D. Discharge Disposition: Home or Self Care from Last 3 Months Social History Tobacco Use Types Packs/Day Years Used Date Smoking Tobacco: Former Cigarettes 2 004 - 1960 Smokeless Tobacco: Never Tobacco Cessation:Counseling Given: Not Answered Alcohol Use Standard Drinks/Week Comments Not Currently 1 (1 standard drink = 0.6 oz pur e alcohol) [facility] Utilities Answer Date Recorded In the past 12 months has [facility] [employer], [employer], or [employer] threatened to shut off services in your [...] your living situation today? 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 Gender Identity Male 01/19/2024 8:16 PM CDT [...] 2024 01/04/2024, 01/16/2022, 07/25/2021, Additional history exists Influenza Vaccine (#1) 2025 , 01/12/2023, 02/08/2022, Additional history exists Office Visit for Blood Pressure Check / Re-check 01/21/2025 01/22/2024 Creatinine Level (Kidney Function Test) 08/05/2025 08/05/2024, 07/30/2024, 07/29/2024, Additional history exists Potassium Level 08/05/2025 08/05/2024, 2 06/2024, 07/29/2024, Additional history exists Sodium Level 08/05/2025 08/05/2024, /2 06/2024, 07/29/2024, Additional history exists DTaP,Tdap,and Td Vaccines (2 - Td or Tdap) 06/03/2034 06/03/2024, 09/08/2013 Pneumococcal vaccine (50+ years) Completed 11/16/2016, 11/16/2016, 04/20/2015 Zoster Vaccines Completed 04/04/2022, 02/01/2022 IPV Vaccines Aged Out No longer eligi ble based on patient's age to complete this topic Medical Devices Implanted Type Area Director Biology Device Identifier Shelf Expiration Date Model / Serial / Lot Lead Guidant John [id number] Implanted: (Quantity not on file) Cardiac Lead Chest Guidant / [id number] / Description:LEAD Guidant Cor p [id number] Dextrus Lead Guidant John [id number] Implanted: (Quantity not on file) Cardiac Lead Chest Guidant / [id number] / Description:LEAD Guidant Cor p [id number] Dextrus Hardware E.G. Pins/Screws/R ods Hardware e.g. pins/screws/r ods Left: Ankle Description:Patient states r emoved shortly after Envelope Md Kennedy - [id number] Implanted:Qty : 1 on 01/30/2024 by Joe Tolliver M.B.B.SAnita at [facility] Mesh or Patch Med[employer]onic 09/22/2024 [id number] / / [id number] Ocular Lens Ocular Lens Bilateral : Eye Ppm Ess[address]io Dr Virk Mri - [id number] - [id number] Implanted:Qty : 1 on 01/30/2024 by Joe Tolliver M.BAnitaB.SAnita at [facility] Pacemaker [employer] 12/02/2025 [id number] / [id number] / Explanted Type Area Director Biology Device Identifier Shelf Expiration Date Model / Serial / Lot Pacemaker [employer] [id number] Implanted:12/30 (Quantity not on file) Explanted:Qty: 1 on 01/30/2024 by Joe Tolliver M.B.B.S. at [facility] Pacemaker Chest [employer] / [id number] / Description:Pacemaker [employer] [id number] ADVANTIO Procedures Procedure Name Priority Date/Time [...] period is included. Date Time Interrogation Session [id number] [facility] Type Interrogation Session Remote Device Initiated [facility] Implantable Pulse Generator Director Biology [facility] SYSTEM Implantable Pulse Generator Type Pacemaker [facility] Implantable Pulse Generator Model L131 [facility] Implantable Pulse Generator Serial Number [id number] [facility] Implantable Pulse Generator Implant Date 20240130 [facility] Battery Remaining Percentage 100.00 % [facility] Battery Remaining Longevity 108.0 mo [facility] Battery Status Beginning of Service [facility] Gen Statistic RA Percent Paced 22.00 [facility] Gen Statistic RV Percent Paced 97.00 [facility] Atrial Tachy Statistic AT/AF [place] Percent 8.00 [facility] Lead Channel Sensing Intrinsic Amplitude 2.100 [facility] Lead Channel Setting Sensing Sensitivity 0.50 [facility] Lead Channel Impedance Value 492 [facility] Lead Channel Measurements Date and Time 20240817 [facility] Lead Channel Setting Pacing Amplitude 1.500 [facility] Lead Channel Setting Pacing Pulse Width 0.4 [facility] Lead Channel Sensing Intrinsic Amplitude 17.900 [facility] Lead Channel Setting Sensing Sensitivity 2.50 [facility] Lead Channel Impedance Value 457 [facility] Lead Channel Measurements Date and Time 20240817 [facility] Lead Channel Setting Pacing Amplitude 3.200 [facility] Lead Channel Setting Pacing Pulse Width 0.8 [facility] Gen Setting Mode (NBG Code) DDDR [facility] Gen Setting Lower Rate Limit 60 [facility] Gen Setting AT Mode Switch Rate 170 [facility] Gen Setting Maximum Tracking Rate 130 [facility] Gen Setting Maximum Sensor Rate 130 [facility] Gen Setting PAV Delay 80 [facility] Gen Setting PAWAN Delay 65 [facility] Lead Channel Setting Sensing Polarity Bipolar [facility] Lead Channel Setting Sensing Polarity Bipolar [facility] Lead Channel Setting Pacing Polarity Bipolar [facility] Lead Channel Setting Pacing Polarity Bipolar [facility] Lead Channel Pacing Threshold Polarity Bipolar [facility] Lead Channel Pacing Threshold Polarity Bipolar [facility] Zone Setting Type Category VT [facility] Murj Rate 1 160 [facility] Zone Setting Status Monitor [facility] Murj Zone ID 1 [facility] Implantable Lead Director Biology Guidant [facility] Implantable Lead Model 4137 Dextrus [facility] Implantable Lead Location Right Ventricle [facility] Implantable Lead Connection Status Connected [facility] Implantable Lead Serial Number [id number] [facility] Implantable Lead Implant Date 20131230 [facility] Implantable Lead Director Biology Guidant [facility] Implantable Lead Model 4136 Dextrus [facility] Implantable Lead Location Right Atrium [facility] Implantable Lead Connection Status Connected [facility] Implantable Lead Serial Number [id number] [facility] Implantable Lead Implant Date 20131230 [facility] Anatomical Region Laterality Modality Other 08/26/2024 4:44 PM CDT Impressions 08/26/2024 4:44 PM CDT Encounter Impression: Title: Tachycardia: AF * Stored EGMs are consistent with or suggestive of Atrial Fibrillation/flutter. V rates are controlled currently. * AT/AF [place]: 8% * Total number of events: 3 [...] rhythm reviewed and reports atrial flutter with GRINDER HAND at 60 bpm. 2 PVCs * Heart [...] V rates are controlled currently. 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
== END 2024-10-04 14:36 | disposition home or self-care (01) ==
PROVIDERS: PCP Family Medicine; Visit Provider Internal Medicine
DX: R53.1 Weakness (principal)
CPT/HCPCS: A0998

== ENCOUNTER 2024-10-27 21:06 | Outpatient (CLI) | payer MEDICARE, SELFPAY | END 2024-10-27 21:07 | disposition home or self-care (01) | PROVIDERS: PCP Family Medicine; Visit Provider Emergency Medicine Emergency Medical Services | DX: R10.9 Unspecified abdominal pain (principal); R42 Dizziness and giddiness | CPT/HCPCS: A0425; A0433 ==